=== PATIENT | male | born 2000 | race Caucasian/White ===

== ENCOUNTER 2020-07-23 08:20 | Outpatient (RCR) | payer OTHER, SELFPAY ==
--- NOTE | 2020-07-24 09:20 | PC.NURSE ---
Pt was scheduled to start PHP today at 9am. Pt was not present at community meeting. TW called pt's provided contact number and left a message asking pt to call TW back.
== END 2020-07-23 23:55 | disposition home or self-care (01) ==
LOC: HO.PHPA 08:20
PROVIDERS: Visit Provider Psychiatry & Neurology Psychiatry
DX: F32.9 Major depressive disorder, single episode, unspecified (principal)

== ENCOUNTER 2022-08-22 13:32 | Inpatient (IN) | payer OTHER, SELFPAY ==
--- NOTE | 2022-08-22 13:39 | MHC.CARE ---
CARE Team received a call from [facility] Intake- Pt was seen by Berto in the community and a [place] [id number] bedsearch presenting with SI/ manic symptoms.
[2022-08-22 13:43] VITALS: BP 169/95; BP 172/90; PULSE 76; PULSE 80; RESP 18; O2SAT 97; BMI 29.9
[2022-08-22 14:01] VITALS: TEMP 36.4
--- NOTE | 2022-08-22 14:25 | ED.PSYCH ---
HPI - Psych General Chief Complaint: Psychiatric Symptoms Stated Complaint: SECTION 12 Time Seen by Provider: 08/22/22 14:08 Source: patient Mode of arrival: ambulatory Limitations: other (Behavioral health) History of Present Illness HPI Narrative: 22 yo male w/ PMHx significant for Bipolar Type II and ADD presents on a section 12 from community w/ worsening yeny and disorganized thinking. Pt reports he has been taking his medications daily but feels like they aren't helping him. He states that he has had a hard time keeping his thoughts straight. He reports that he went to see his therapist who issued the section 12 and sent him here. Also reports chronic issues with urinary retention requiring catheterization. Denies recent illness, fevers, cough, SOB, CP, abd pain, N/V/D, changes in PO intake, recent trauma or injury. Endorses occasional marijuana and cigarette use but denies use of other drugs or alcohol. Endorses hx of self harm for emotional relief but denies suicide attempts. Denies SI/HI/AH/VH at this time. Onset (ago): week(s) Duration: getting worse History of same: Yes Relieving factors: none Exacerbating factors: none Associated symptoms: denies other symptoms Treatments prior to arrival: placed on mental health hold Related Data Allergies Allergy/AdvReac Type Severity Reaction Status Date / Time No Known Allergies Allergy Verified 07/24/20 08:47 Review of Systems Review of Systems: Constitutional: No Fever, No Chills ENT/Mouth: No Ear Pain, No Nasal Congestion, No sore throat Eyes: No Eye Pain, No Vision Changes Cardiovascular: No Chest Pain, No SOB Respiratory: No Cough, No Sputum Gastrointestinal: No Nausea, No Vomiting, No Diarrhea, No Constipation, No Abdominal pain Genitourinary: No Dysuria, No Urinary Frequency, No Hematuria, + urinary retention Musculoskeletal: No joint pain, No Myalgias Skin: No Skin Lesions, No rash Neuro: No Weakness, No Numbness, No Dizziness, No Headache Psych: + anxiety, No SI/HI/AH/VH, +chronic depression Yes all other systems are reviewed and are negative [facility] Past Medical History Attestation statement: The following information was validated with the patient. Social History Social History Household Members: Adopted Family Advance Directives: No Advance Directives Information Provided: No Physical Exam Vital Signs: Vital Signs: Last Vital Signs Temp 97.8 F 08/22/22 16:17 Pulse 70 08/22/22 16:17 Resp 16 08/22/22 16:17 BP 140/82 H 08/22/22 16:17 Pulse Ox 98 08/22/22 16:17 O2 Del Method 08/22/22 16:17 BMI result Body Mass Index 29.9 Const: General: cooperative, healthy appearing and no acute distress Orientation/consciousness: patient oriented x3 Limitations: behavioral limitations HEENT: Head: Yes normal to inspection, Yes normocephalic and Yes atraumatic Ears: hearing grossly normal bilaterally General nose exam: Normal external nose present Face and sinus: Yes normal facial exam Mouth: Normal oral and palatal mucosa present Throat: Yes posterior oropharynx normal Eyes: General: appearance normal, both eyes and all related structures Pupils: Equal, round and reactive pupils present Neck: Neck: Yes normal visual inspection Lymphatic: no lymphadenopathy noted Chest: Chest palpation & inspection: normal inspection of the chest Resp: Effort & Inspection: normal respiratory effort, able to speak in complete sentences, no audible wheezes and no cough Auscultation: clear to auscultation bilaterally Cardio: Rate: regular rate Rhythm: regular rhythm Heart sounds: S1 normal heart sound present and S2 normal heart sound present Peripheral pulses: Peripheral pulses 2+ throughout GI: Inspection: Yes normal to inspection Palpation (GI): Soft to palpation, not firm, nontender, no guarding and not rigid Skin: General skin exam: no rashes or lesions noted Neuro: General: patient oriented x3, gait normal, tone normal, moves all extremities, no focal motor deficits and CN's II-XI intact bilaterally Cranial nerves: Yes Equal, round and reactive pupils present Psych: Appearance: grossly normal Speech and movement: Clear speech present (rapid) Affect: Animated affect present Attitude: cooperative Thought process: Tangential thought process present Course Course Course Narrative: -no leukocytosis. H&H stable. Sodium mildly low at 133. Labs otherwise unremarkable > patient is medically cleared. Physician observation initiated. -bladder scan with 622 cc > patient will be straight cathed Physician observation initiated at 17:34 -1800--ED care transfer to [facility] pending UA, drug screen and inpatient bed search Medications Administered Discontinued Medications Generic Name Dose Route Start Last Admin Trade Name Freq PRN Reason Stop Dose Admin Lidocaine HCl 10 ml 08/22/22 17:20 08/22/22 17:23 Lidocaine Hcl 2 % Urojet 10 Ml Jel.Pf.Ailyn TOPICAL 08/22/22 17:21 10 ml ONCE ONE Administration Lorazepam 1 mg 08/22/22 16:34 08/22/22 17:41 Lorazepam 1 Mg Tablet PO 08/22/22 16:35 1 mg ONCE ONE Administration MDM - Psych MDM Narrative Medical decision making narrative: 22 yo male w/ PMHx significant for Bipolar Type II and ADD presents on a section 12 from community w/ worsening yeny and disorganized thinking. On exam vital signs stable, NAD, elated and 10 GenTeal during evaluation, sources depression, denies active SI/HI or auditory/visual hallucinations at present. Rule out metabolic/infectious etiologies vs psychiatric illness Plan: Labs, UA, tox screen, bladder scan, bed search Differential Diagnosis Differential diagnosis: Likely acute psychosis, depression, drug-induced psychotic disorder and mood disorder Medical Records Attestation: I reviewed the patient's medical records. Lab Data Attestation: I reviewed the patient's lab results. Result diagrams: 08/22/22 15:01 08/22/22 15:01 Labs: Lab Results 08/22/22 08/22/22 08/22/22 Range/Units 15:01 15:01 15:01 WBC 6.0 (4.8-10.8) X10*3/uL RBC 4.77 (4.60-5.80) X10*6/uL Hgb 14.0 (14.0-18.0) g/dl Hct 40.8 L (42.0-52.0) % MCV 85.5 (80.0-98.0) fL MCH 29.4 (27.0-33.0) pg MCHC 34.3 (31.0-36.0) g/dl RDW 12.9 (11.0-16.0) % Plt Count 148 L (160-400) X10*3/uL MPV 9.6 (9.4-12.4) fL Immature Gran % (Auto) 0.3 (0.0-0.4) % Neut % (Auto) 53.1 (45-73) % Lymph % (Auto) 37.2 (20-40) % [place] % (Auto) 7.2 (2-11) % Eos % (Auto) 1.7 (0-4) % Baso % (Auto) 0.5 (0-2) % Lymph # (Auto) 2.2 (1.2-4.9) X10*3/uL [place] # (Auto) 0.4 (0.1-1.2) X10*3/uL Eos # (Auto) 0.1 (0.0-0.4) X10*3/uL Baso # (Auto) 0.0 (0.0-0.2) X10*3/uL Abs Immat Gran (auto) 0.02 (0.00-0.03) X10*3/uL Absolute Neuts (auto) 3.2 (2.0-8.3) x10*3/uL Absolute Nucleated RBC 0.000 (0.0-0.012) X10*3/uL Nucleated RBC % (auto) 0.0 (0.0-0.2) /100WBC Sodium 133 L (135-145) mmol/L Potassium 3.7 (3.3-5.1) mmol/L Chloride 100 (96-108) mmol/L Carbon Dioxide 26 (22-29) mmol/L Anion Gap 11 L (12-20) BUN 14 (9-16) mg/dL Creatinine 0.81 (0.5-1.4) mg/dL Estim Creat Clear Calc 162.5 Estimated GFR > 60 Random Glucose 85 (60-115) mg/dL Calcium 9.4 (8.4-10.2) mg/dL Magnesium 1.8 (1.6-2.6) mg/dL Total Bilirubin 0.4 (0.0-1.0) mg/dL Direct Bilirubin < 0.2 (0.0-0.5) mg/dL AST 17 (5-37) U/L ALT 16 (0-40) U/L Alkaline Phosphatase 45 (39-117) U/L Total Protein 6.7 (6.5-8.0) g/dL Albumin 4.5 (3.5-5.0) g/dL COVID-19 (EMELI) Negative (Negative) COVID-19 Clin Com See Note Discharge Plan Discharge Clinical Impression: Manic behavior, Disorganized behavior, Acute urinary retention Patient Disposition: Still a Patient Interventions: [place]-Suicide Risk Severity Scale Last Done: 08/22/22 15:51
[2022-08-22 15:08] LABS: MANUAL DIFF FLAG NO
[2022-08-22 15:09] LABS: Basophils Percent Auto 0.5 % (0-2); Eosinophils Absolute Auto 0.1 X10*3/uL (0.0-0.4); Eosinophils Percent Auto 1.7 % (0-4); Hematocrit 40.8 % (42.0-52.0); Imm Gran Abs Auto 0.02 X10*3/uL (0.00-0.03); Imm Gran Pct Auto 0.3 % (0.0-0.4); Lymphocytes Absolute Auto 2.2 X10*3/uL (1.2-4.9); Lymphocytes Percent Auto 37.2 % (20-40); Mean Corpuscular HGB Conc 34.3 g/dl (31.0-36.0); Mean Corpuscular Hemoglobin 29.4 pg (27.0-33.0); Mean Corpuscular Volume 85.5 fL (80.0-98.0); Mean Platelet Volume 9.6 fL (9.4-12.4); Monocytes Absolute Auto 0.4 X10*3/uL (0.1-1.2); Monocytes Percent Auto 7.2 % (2-11); Neutrophils Absolute Auto 3.2 x10*3/uL (2.0-8.3); Neutrophils Percent Auto 53.1 % (45-73); Platelet Count 148 X10*3/uL (160-400); Red Blood Count 4.77 X10*6/uL (4.60-5.80); Red Cell Distribution Width 12.9 % (11.0-16.0)
[2022-08-22 15:24] LABS: COVID-19 Test Negative (Negative); IDNOW Serial# 55D5AD1C
[2022-08-22 15:36] LABS: Alanine Aminotransferase 16 U/L (0-40); Albumin Level 4.5 g/dL (3.5-5.0); Alkaline Phosphatase 45 U/L (39-117); Anion Gap 11 (12-20); Aspartate Amino Transferase 17 U/L (5-37); Bilirubin Direct < 0.2 mg/dL (0.0-0.5); Bilirubin Total 0.4 mg/dL (0.0-1.0); Blood Urea Nitrogen 14 mg/dL (9-16); Calcium 9.4 mg/dL (8.4-10.2); Carbon Dioxide 26 mmol/L (22-29); Chloride 100 mmol/L (96-108); Creatinine Clr Calc Pharmacy 162.5; Estimated Glomerular Filt Rate > 60; Glucose Random 85 mg/dL (60-115); Magnesium 1.8 mg/dL (1.6-2.6); Potassium 3.7 mmol/L (3.3-5.1); Sodium 133 mmol/L (135-145); Total Protein 6.7 g/dL (6.5-8.0)
--- NOTE | 2022-08-22 15:52 | PC.NURSE ---
Patient denies SI/ HI to this RN
[2022-08-22 16:17] VITALS: BP 140/82; PULSE 70; RESP 16; TEMP 36.6; O2SAT 98
[2022-08-22] MEDS: Lidocaine HCl 2 % Urojet 10 ML JEL.PF.APP TOPICAL (17:23)
[2022-08-22] MEDS: LORazepam 1 MG TABLET PO ×2 (17:41→20:34)
--- NOTE | 2022-08-22 17:44 | PC.NURSE ---
This RN attempted to sstraight cath patient. Resistance was met while inserting straight cath. Provider made aware. Patient says if he takes a hot shower he may be able to urinate. Charge nurse notioied and patient sent top the Pod
--- NOTE | 2022-08-22 18:24 | PC.NURSE ---
pt took a shower and attempted to urinate but was unable, pt felt some burning when he attempted, pt states he does not have a strong urge to urinate at this time, i've had over a liter in there. I want to try to again in an hour or two. plan discussed aliya RODRIGUEZ
[2022-08-22] MEDS: Tamsulosin HCL 0.4 MG CAPSULE PO (18:51)
--- NOTE | 2022-08-22 19:27 | PHA.MEDREC ---
Pharmacy Consult ? Medication Reconciliation Pharmacy has completed the medication reconciliation. Spoke with patient who was confused with some of the medications. He was confused about the depakote and the oxcarbezapine. Reported that one of them he takes 1 tablet in the morning and 2 at night or vis versa. This was would be closest to oxcarbezapine which is 1.5 tablet BID. Reports his father give him his medications. Attempted to contact Edward on both home and cell phone, however cell phone had a full mailbox. Enter medications as prescribed but may slightly differ from home he takes at home. Patient also report Zyprexa 5 mg BID but that has not been filled since December. Patient requested increase in dose on lorazepam to TID and requested increase of seroquel to 50 mg at bedtime. Reports neither are enough Corine Gonzales, PharmD
[2022-08-22 20:27] LABS: Appearance Urine Clear; Color Urine Yellow; Glucose Urine UA Negative (Negative); Leukocyte Esterase Urine Negative (Negative); Nitrite Urine Negative (Negative); PH 7.5 (5.0-9.0); Urine Blood Negative (Negative); Urine Ketones Trace mg/dL (Negative); Urine Protein Negative (Neg-Trace)
[2022-08-22] MEDS: Gabapentin 400 MG CAPSULE PO (20:34)
[2022-08-22] MEDS: OXcarbazepine 300 MG TABLET 900 MG PO (20:34)
[2022-08-22] MEDS: Divalproex Sodium 500 MG TABLET.DR 1000 MG PO (20:34)
[2022-08-22] MEDS: QUEtiapine Fumarate 25 MG TABLET PO (20:34)
[2022-08-22 20:38] LABS: Amphetamine Screen Urine Not Detected (Not Detect); Barbiturates, Urine Not Detected (Not Detect); Benzodiazepines Screen Urine Not Detected (Not Detect); Cannabinoid Screen Urine POSITIVE (Not Detect); Cocaine Screen Urine Not Detected (Not Detect); Fentanyl, urine Not Detected (Not Detect); Opiate Screen Urine Not Detected (Not Detect); Phencyclidine Screen Urine Not Detected (Not Detect)
[2022-08-22] MEDS: OLANZapine 5 MG TABLET PO (21:33)
--- NOTE | 2022-08-22 21:35 | PC.NURSE ---
Patient was able to void and provided urine sample for lab orders. No bladder distress reported at this time, compliant with HS medication, requested Olanzapine 5 mg which patient used to take in the past racing thought, provider made aware/ordered Olanzapine 5 mg administered/pending effect, VSS, disposition per N is section 12 inpatient bed search, behavior non concerning, hyper-verbal and tangential but coherent, will continue to monitor.
[2022-08-23 03:14] LABS: CT PCR NOT DETECTED (Not Detect.); NG PCR NOT DETECTED (Not Detect.)
[2022-08-23 06:35] VITALS: RESP 16
--- NOTE | 2022-08-23 07:21 | PC.NURSE ---
sherley appears to remain asleep at present respirations are even and unlabored patient appears in no distress.
[2022-08-23] MEDS: buPROPion HCl XL 150 MG TAB.ER.24H PO (09:08)
[2022-08-23] MEDS: OXcarbazepine 300 MG TABLET 900 MG PO ×2 (09:08→20:53)
[2022-08-23] MEDS: Gabapentin 400 MG CAPSULE PO ×3 (09:08→20:53)
[2022-08-23] MEDS: Divalproex Sodium 500 MG TABLET.DR 1000 MG PO ×2 (09:08→20:53)
[2022-08-23] MEDS: LORazepam 1 MG TABLET PO ×2 (09:20→13:46)
[2022-08-23] MEDS: OLANZapine 5 MG TABLET PO (10:21)
[2022-08-23] MEDS: hydrOXYzine HCL 25 MG TABLET PO ×2 (11:09→17:23)
--- NOTE | 2022-08-23 12:23 | PC.ADMIT ---
pt is a 22 year old male who presented to [facility] with yeny and reports his medications were not working. pt PMH includes parunesis, asthma, and IBS. during admission, pt reports that none of his medications work and he wants all new one. pt was given an attrax right before admission and a lorazepam in the ER pod this morning. pt was rocking back and forth in seat during admission. pt says he has to take a medical leave off of school since he cannot focus. pt wants to try ECT. pt says stimulants and Pavil might work for him.pt wants to try lithium. pt wants to talk to a doctor as soon as possible. start treatment plan and promote safety.
[2022-08-23] MEDS: Acetaminophen 325 MG TABLET 650 MG PO (12:41)
[2022-08-23 12:47] LABS: Carbamazepine Tegretol < 2.0 mcg/mL (5.0-12.0)
--- NOTE | 2022-08-23 12:48 | PC.NURSE ---
pt signed a 3 day notice on 08/23
[2022-08-23] MEDS: Nicotine 14 MG PATCH.TD24 TRANSDERMA (14:03)
[2022-08-23] MEDS: Nicotine Polacrilex Lozenge 2 MG LOZENGE BUCCAL ×2 (14:06→17:23)
[2022-08-23 14:20] VITALS: BP 146/87; PULSE 100; TEMP 36.8; O2SAT 97
[2022-08-23 16:22] VITALS: BP 136/63; PULSE 55
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
[2022-08-23] MEDS: OLANZapine ODT 10 MG TAB.RAPDIS TRANSLINGU (17:23)
[2022-08-23] MEDS: QUEtiapine Fumarate 25 MG TABLET PO (20:54)
[2022-08-23] MEDS: Tamsulosin HCL 0.4 MG CAPSULE PO (20:54)
--- NOTE | 2022-08-24 | ECG_ITS ---
Test Reason : QTC CHECK Blood Pressure : / mmHG Vent. Rate : 072 BPM Atrial Rate : 072 BPM P-R Int : 196 ms QRS Dur : 090 ms QT Int : 358 ms P-R-T Axes : 006 032 043 degrees QTc Int : 392 ms Normal sinus rhythm with sinus arrhythmia Normal ECG No previous ECGs available Referred By: Desi Burt Electronically Signed By:IESHA SIMON MD
[2022-08-24] MEDS: LORazepam 1 MG TABLET PO ×2 (06:28→13:22)
[2022-08-24] MEDS: Divalproex Sodium 500 MG TABLET.DR 1000 MG PO ×2 (08:28→20:46)
[2022-08-24] MEDS: buPROPion HCl XL 150 MG TAB.ER.24H PO (08:28)
[2022-08-24] MEDS: OXcarbazepine 300 MG TABLET 900 MG PO ×2 (08:28→20:47)
[2022-08-24] MEDS: Nicotine 14 MG PATCH.TD24 TRANSDERMA (08:29)
[2022-08-24] MEDS: Gabapentin 400 MG CAPSULE PO ×3 (08:29→20:47)
[2022-08-24] MEDS: OLANZapine ODT 10 MG TAB.RAPDIS TRANSLINGU ×2 (08:39→19:26)
[2022-08-24] MEDS: hydrOXYzine HCL 25 MG TABLET PO ×2 (08:39→13:22)
[2022-08-24] MEDS: Nicotine Polacrilex Lozenge 2 MG LOZENGE BUCCAL ×3 (08:39→19:25)
[2022-08-24 09:55] LABS: Estimated Average Glucose 100 mg/dL; Hemoglobin A1c % 5.1 %
[2022-08-24 10:02] LABS: Sodium 135 mmol/L (135-145)
[2022-08-24 10:31] LABS: Cholesterol 211 mg/dL; Free T4 (Free Thyroxine) 0.98 ng/dL (0.71-1.85); HDL Cholesterol 55 mg/dL; LDL Cholesterol Calculated 135 mg/dl; Magnesium 2.2 mg/dL (1.6-2.6); Thyroid Stimulating Hormone 1.45 uIU/mL (0.32-4.0); Triglycerides 105 mg/dL
[2022-08-24 10:42] LABS: Folate 7.7 ng/mL (> or = 4.0); Vitamin B12 1049 pg/mL (200-900)
[2022-08-24] MEDS: Acetaminophen 325 MG TABLET 650 MG PO ×2 (13:22→19:21)
--- NOTE | 2022-08-24 14:11 | P.PNPSI_ITS ---
Subjective Subjective Date of Service: 08/24/22 Reason For Visit: Bipolar Disorder Yeny ADD Cannabis use Interim History: Patients with manic behaviors, and running in the hallway, belligerent to others and with some disorganized thinking. The Patient explain Medication history however there are numerous contradictions in his reporting as he does not really remember which medication combinations were effective; pt acknwoledges this. He says he has a lot of bipolar depression but fix that depakote, Trileptal and/or lithium have been helpful. Says SSRIs caused him to become manic, even on mood stabilizers. He is interested in Vrylar or maybe restarted lithium. He says he stopped lithium because he was worried about what might happen if he became suicidal, given lithiums risks. He says however that is in the past and his older now and can handle it.?Says he started taking Zyprexa on his own from old script in recent weeks. He mostly complains of intrusive thoughts. Patient breaks down and starts to sob saying the problems won't go away? and explains that he'll ruminate four hours on the conversations he had or thinking he did something that was bothersome to others. Patient struggles to fully articulate his experiences with intrusive thoughts of her been to say they're constant and debilitating and Very hard to ignore Discussed medication options. Given that OCD type intrusive thoughts are his biggest concern, patient agreed to trial of lamictal given that it can help OCD symptoms Discussed history of substance abuse; patient significantly minimizes his histor y saying he'll only change some high school; says the others halve says he of uses substances says they don't know what they're talking about. This, despite that patient is on probation for court ordered substance abuse treatment. He denies any SI/HI/AVh Says no need for bladder scans, that he is urinating, but that he has trouble doing so in new settings. Says he is able to go, mostly in the shower and will let staff know if he is not able to. Mental Status Exam Mental Status Exam Narrative: Pt is alert and oriented; behavior is cooperative at times, but also belligerent, hyperactive; patient is not in distress; dressed in hospital attire, adequately groomed; mood is described as good and affect labile; eye contact appropriate; Speech is normal rate, volume and prosody and not pressured; intermittent psychomotor agitation present; thought process is goal directed but somewhat disorganized; Thought content is on tx; otherwise pertinent to relevant topics and without any delusional content, paranoid ideations or grandiosity; denies any SI/HI. There is no evidence of perceptual disturbance. Patients insight and judgment are impaired. Diagnostics Vital Signs (24Hr): Vital Signs - 24 hr 08/23/22 14:20 08/23/22 16:22 Temperature 98.3 F Pulse Rate 100 55 Blood Pressure 146/87 H 136/63 Pulse Oximetry 97 Oxygen Delivery Method Room Air BMI result Body Mass Index 29.9 Labs Results: 08/22/22 15:01 08/24/22 08:38 Labs: Laboratory Results - last 48 hr 08/22/22 08/22/22 08/22/22 15:01 15:01 15:01 WBC 6.0 RBC 4.77 Hgb 14.0 Hct 40.8 L MCV 85.5 MCH 29.4 MCHC 34.3 RDW 12.9 Plt Count 148 L MPV 9.6 Immature Gran % (Auto) 0.3 Neut % (Auto) 53.1 Lymph % (Auto) 37.2 [place] % (Auto) 7.2 Eos % (Auto) 1.7 Baso % (Auto) 0.5 Lymph # (Auto) 2.2 [place] # (Auto) 0.4 Eos # (Auto) 0.1 Baso # (Auto) 0.0 Abs Immat Gran (auto) 0.02 Absolute Neuts (auto) 3.2 Absolute Nucleated RBC 0.000 Nucleated RBC % (auto) 0.0 Sodium 133 L Potassium 3.7 Chloride 100 Carbon Dioxide 26 Anion Gap 11 L BUN 14 Creatinine 0.81 Estim Creat Clear Calc 162.5 Estimated GFR > 60 Random Glucose 85 Estimat Average Glucose Hemoglobin A1c % Calcium 9.4 Magnesium 1.8 Total Bilirubin 0.4 Direct Bilirubin < 0.2 AST 17 ALT 16 Alkaline Phosphatase 45 Total Protein 6.7 Albumin 4.5 Triglycerides Cholesterol LDL Cholesterol, Calc HDL Cholesterol Vitamin B12 Folate TSH Free T4 Urine Color Urine Appearance Urine pH Ur Specific Hubbard Urine Protein Urine Glucose (UA) Urine Ketones Urine Blood Urine Nitrite Ur Leukocyte Esterase Urine Opiates Screen Urine Fentanyl Screen Ur Barbiturates Screen Valproic Acid Carbamazepine Ur Phencyclidine Scrn Ur Amphetamines Screen U Benzodiazepines Scrn Urine Cocaine Screen U Marijuana (THC) Screen Chlam trachomat DNA PCR COVID-19 (EMELI) Negative COVID-19 Clin Com See Note N.gonorrhoeae DNA (PCR) 08/22/22 08/22/22 08/22/22 20:14 20:14 20:14 WBC RBC Hgb Hct MCV MCH MCHC RDW Plt Count MPV Immature Gran % (Auto) Neut % (Auto) Lymph % (Auto) [place] % (Auto) Eos % (Auto) Baso % (Auto) Lymph # (Auto) [place] # (Auto) Eos # (Auto) Baso # (Auto) Abs Immat Gran (auto) Absolute Neuts (auto) Absolute Nucleated RBC Nucleated RBC % (auto) Sodium Potassium Chloride Carbon Dioxide Anion Gap BUN Creatinine Estim Creat Clear Calc Estimated GFR Random Glucose Estimat Average Glucose Hemoglobin A1c % Calcium Magnesium Total Bilirubin Direct Bilirubin AST ALT Alkaline Phosphatase Total Protein Albumin Triglycerides Cholesterol LDL Cholesterol, Calc HDL Cholesterol Vitamin B12 Folate TSH Free T4 Urine Color Yellow Urine Appearance Clear Urine pH 7.5 Ur Specific [place] 1.020 Urine Protein Negative Urine Glucose (UA) Negative Urine Ketones Trace Urine Blood Negative Urine Nitrite Negative Ur Leukocyte Esterase Negative Urine Opiates Screen Not Detected Urine Fentanyl Screen Not Detected Ur Barbiturates Screen Not Detected Valproic Acid Carbamazepine Ur Phencyclidine Scrn Not Detected Ur Amphetamines Screen Not Detected U Benzodiazepines Scrn Not Detected Urine Cocaine Screen Not Detected U Marijuana (THC) Screen POSITIVE H Chlam trachomat DNA PCR NOT DETECTED COVID-19 (EMELI) COVID-19 Clin Com N.gonorrhoeae DNA (PCR) NOT DETECTED 08/23/22 08/24/22 08/24/22 11:19 08:38 08:38 WBC RBC Hgb Hct MCV MCH MCHC RDW Plt Count MPV Immature Gran % (Auto) Neut % (Auto) Lymph % (Auto) [place] % (Auto) Eos % (Auto) Baso % (Auto) Lymph # (Auto) [place] # (Auto) Eos # (Auto) Baso # (Auto) Abs Immat Gran (auto) Absolute Neuts (auto) Absolute Nucleated RBC Nucleated RBC % (auto) Sodium Potassium Chloride Carbon Dioxide Anion Gap BUN Creatinine Estim Creat Clear Calc Estimated GFR Random Glucose Estimat Average Glucose 100 Hemoglobin A1c % 5.1 Calcium Magnesium 2.2 Total Bilirubin Direct Bilirubin AST ALT Alkaline Phosphatase Total Protein Albumin Triglycerides 105 Cholesterol 211 LDL Cholesterol, Calc 135 HDL Cholesterol 55 Vitamin B12 Folate TSH 1.45 Free T4 0.98 Urine Color Urine Appearance Urine pH Ur Specific Hubbard Urine Protein Urine Glucose (UA) Urine Ketones Urine Blood Urine Nitrite Ur Leukocyte Esterase Urine Opiates Screen Urine Fentanyl Screen Ur Barbiturates Screen Valproic Acid 107.0 H Carbamazepine < 2.0 L* Ur Phencyclidine Scrn Ur Amphetamines Screen U Benzodiazepines Scrn Urine Cocaine Screen U Marijuana (THC) Screen Chlam trachomat DNA PCR COVID-19 (EMELI) COVID-19 Clin Com N.gonorrhoeae DNA (PCR) 08/24/22 08/24/22 08:38 08:38 WBC RBC Hgb Hct MCV MCH MCHC RDW Plt Count MPV Immature Gran % (Auto) Neut % (Auto) Lymph % (Auto) [place] % (Auto) Eos % (Auto) Baso % (Auto) Lymph # (Auto) [place] # (Auto) Eos # (Auto) Baso # (Auto) Abs Immat Gran (auto) Absolute Neuts (auto) Absolute Nucleated RBC Nucleated RBC % (auto) Sodium 135 Potassium Chloride Carbon Dioxide Anion Gap BUN Creatinine Estim Creat Clear Calc Estimated GFR Random Glucose Estimat Average Glucose Hemoglobin A1c % Calcium Magnesium Total Bilirubin Direct Bilirubin AST ALT Alkaline Phosphatase Total Protein Albumin Triglycerides Cholesterol LDL Cholesterol, Calc HDL Cholesterol Vitamin B12 1049 H Folate 7.7 TSH Free T4 Urine Color Urine Appearance Urine pH Ur Specific [place] Urine Protein Urine Glucose (UA) Urine Ketones Urine Blood Urine Nitrite Ur Leukocyte Esterase Urine Opiates Screen Urine Fentanyl Screen Ur Barbiturates Screen Valproic Acid Carbamazepine Ur Phencyclidine Scrn Ur Amphetamines Screen U Benzodiazepines Scrn Urine Cocaine Screen U Marijuana (THC) Screen Chlam trachomat DNA PCR COVID-19 (EMELI) COVID-19 Clin Com N.gonorrhoeae DNA (PCR) Medications Medications Current Medications Acetaminophen (Acetaminophen 325 Mg Tablet) 650 mg PO Q6H PRN PRN Reason: Headache/Pain Mild Scale (1-3) Last Admin: 08/24/22 13:22 Dose: 650 mg Al Hydroxide/Mg Hydroxide (Magnesium Hydrox/Alum Hydrox 30 Ml Oral.Susp) 30 ml PO Q6H PRN PRN Reason: Heartburn/Nausea Divalproex Sodium (Divalproex Sodium 500 Mg Tablet.Dr) 1,000 mg PO BID PAULA Last Admin: 08/24/22 08:28 Dose: 1,000 mg Gabapentin (Gabapentin 400 Mg Capsule) 400 mg PO TID [facility] Last Admin: 08/24/22 08:29 Dose: 400 mg Hydroxyzine HCl (Hydroxyzine Hcl 25 Mg Tablet) 25 mg PO Q6H PRN PRN Reason: Anxiety Last Admin: 08/24/22 13:22 Dose: 25 mg Lorazepam (Lorazepam 1 Mg Tablet) 1 mg PO BID PRN PRN Reason: Anxiety Last Admin: 08/24/22 13:22 Dose: 1 mg Magnesium Hydroxide (Milk Of Magnesia 30 Ml Oral.Susp) 30 ml PO DAILY PRN PRN Reason: Constipation Nicotine (Nicotine 14 Mg Patch.Td24) 14 mg TRANSDERMA DAILY [facility] Last Admin: 08/24/22 08:29 Dose: 14 mg Nicotine Polacrilex (Nicotine Polacrilex Lozenge 2 Mg Lozenge) 2 mg BUCCAL Q2H PRN PRN Reason: Nicotine Cravings Last Admin: 08/24/22 13:22 Dose: 2 mg Olanzapine (Olanzapine Odt 10 Mg Tab.Rapdis) 10 mg TRANSLINGU BID PRN PRN Reason: yeny, psychosis Last Admin: 08/24/22 08:39 Dose: 10 mg Oxcarbazepine (Oxcarbazepine 300 Mg Tablet) 900 mg PO BID [facility] Last Admin: 08/24/22 08:28 Dose: 900 mg Pharmacy Consult (Consult Rx Perform Med Rec) 1 each MISCELLANE ONCE PRN PRN Reason: Consult order Quetiapine Fumarate (Quetiapine Fumarate 25 Mg Tablet) 25 mg PO BEDTIME [facility] Last Admin: 08/23/22 20:54 Dose: 25 mg Trazodone HCl (Trazodone Hcl 50 Mg Tablet) 50 mg PO BEDTIME PRN PRN Reason: Insomnia Allergies Allergies Allergy/AdvReac Type Severity Reaction Status Date / Time fish Allergy Unknown Unknown Uncoded 08/23/22 17:09 haldol Allergy Unknown restless Uncoded 08/23/22 17:21 legs Assessment & Plan Assessment & Plan (1) Bipolar disorder: Status: Acute Code(s): F31.9 - Bipolar disorder, unspecified (2) Alcohol use disorder in remission: Status: Acute Code(s): F10.91 - Alcohol use, unspecified, in remission (3) OCD (obsessive compulsive disorder): Status: Acute Code(s): F42.9 - Obsessive-compulsive disorder, unspecified (4) Chronic post-traumatic stress disorder (PTSD): Status: Acute Code(s): F43.12 - Post-traumatic stress disorder, chronic Plan 22 yo male, adopted at 1 yo [facility] [employer] [facility], with hx of Bipolar, OCD, pTSD and substance abuse who presents with reports of increase in mood swings, depression, anxiety, anger with periods of lability, crying, poor focus and in trusive thoughts of past trauma. 08/24 complicated patient with hx of bipolar, OCD, PTSD which is very likely complex, substance abuse and characterlogical traits. Not great historian but engaged in treatment and wants help. Patient is now back on mood stabilizers that seem to have helped in the past; still hypomanic but with some improved self-control; Given that OCD and anxiety are his current major complaints will start Lamictal since it can help treat OCD (as well as mood stabilize) where L atuda and Vrylar not known to help with OCD. Patient agrees with this plan however is also very ambivalent about meds and forgets prior discussions Plan: Collateral contact Hold Wellbutrin-hx of manic sx with this agent Continue Depakote, Conitnue Gabapentin for anxiety Right now Olanzapine as prn, however may schedule Continue Trileptal Continue Seroquel 25mg qhs (which he very much wants for sleep) Continue Trazodone. Discussion with pt of Irene, return to [place] vs Latuda which are options Pt asks to return to [place]-however not sure this is indicated for anxiety which is why he's on Gabapentin ECT consult- this is why they sent me...for OCD . Though, ECT not typically used for OCD seek Collateral: senior technical writer called and left message for Venecia Eastman complete diagnostic panel. I spent minutes with the patient and/or on the patient floor today, gre ater than?50% of which was spent counseling/coordinating care. Patient educated on: diagnosis, medication risk/benefits, substance abuse, ECT and therapeutic strategies Informed Consent: understands, does not understand and further education needed Reason for contiued inpatient stay Substantial Risk for: rapid decompensation
[2022-08-24] MEDS: Tamsulosin HCL 0.4 MG CAPSULE PO (14:52)
--- NOTE | 2022-08-24 15:10 | PC.NURSE ---
Pt retracted 3 day notice on 08/24/22. Pt signed another 3 day notice 08/24/22 up on 08/29/22. , JANETT, and SW aware.
[2022-08-24] MEDS: clonazePAM 0.5 MG TABLET PO ×2 (16:05→21:28)
[2022-08-24 18:00] VITALS: BP 141/94; PULSE 104; RESP 18; TEMP 36.4; O2SAT 98
[2022-08-24] MEDS: Tamsulosin HCL 0.4 MG CAPSULE 0.8 MG PO (20:48)
[2022-08-24] MEDS: traZODone HCL 50 MG TABLET PO (20:48)
[2022-08-24] MEDS: Prazosin HCL 1 MG CAPSULE PO (20:48)
[2022-08-24] MEDS: QUEtiapine Fumarate 25 MG TABLET PO (20:48)
[2022-08-24] MEDS: lamoTRIgine 25 MG TABLET PO (20:48)
[2022-08-24] MEDS: Magnesium Hydrox/Alum Hydrox 30 ML ORAL.SUSP PO (21:30)
[2022-08-25 07:00] VITALS: BMI 29.6
[2022-08-25] MEDS: OXcarbazepine 300 MG TABLET 900 MG PO ×2 (08:17→19:41)
[2022-08-25] MEDS: Tamsulosin HCL 0.4 MG CAPSULE 0.8 MG PO ×2 (08:17→19:40)
[2022-08-25] MEDS: Nicotine Polacrilex Lozenge 2 MG LOZENGE BUCCAL ×2 (08:17→14:09)
[2022-08-25] MEDS: Gabapentin 400 MG CAPSULE PO ×3 (08:17→19:40)
[2022-08-25] MEDS: Divalproex Sodium 500 MG TABLET.DR 1000 MG PO ×2 (08:17→21:49)
[2022-08-25] MEDS: clonazePAM 0.5 MG TABLET PO ×2 (08:21→17:03)
[2022-08-25] MEDS: Nicotine 14 MG PATCH.TD24 TRANSDERMA (08:23)
[2022-08-25 09:01] VITALS: BP 132/77; PULSE 88; RESP 18; TEMP 36.7; O2SAT 98
[2022-08-25] MEDS: hydrOXYzine HCL 25 MG TABLET PO (09:46)
[2022-08-25] MEDS: OLANZapine ODT 10 MG TAB.RAPDIS TRANSLINGU ×2 (09:46→19:40)
--- NOTE | 2022-08-25 16:59 | P.PNPSI_ITS ---
Subjective Subjective Date of Service: 08/25/22 Reason For Visit: Bipolar Disorder Zoraida ADD Cannabis use Interim History: late entry note for patient seen 08/25/22 still hypomanic, running in halls at times, rude, defiant comments to staff forgot that he agreed to lamictal but agrees to continue with discussion. Very much wants to start back on Stimulant and pushes for it, but accepts that loan underwriter will need to talk to oupt provider first before this can happen (who has not prescribed for a year). Pt demands to discharge but then says he wants to stay...he acknowledges that he is asking for contradictory things, help from loan underwriter, med management and then discharge; refuses to let team contact his parents whom he says are senile and don't know him. Says he is currently in therapy and to call his therapist Ludy Sneed. Later in day, pretending to run for the door, pretending to elope; says to nurse to shove elopement risk sign on outside door up your ass... and that he would have busted out of here by nionw if he was going to elope. Mental Status Exam Mental Status Exam Narrative: Pt is alert and oriented; behavior can be cooperative at times, but also be lligerent, defiant, hyperactive; patient is not in distress; dressed in hospital attire, adequately groomed; mood is described as good and affect labile; eye contact appropriate; Speech is normal rate, volume and prosody and not pressured; intermittent psychomotor agitation present; thought process is goal directed but somewhat disorganized; Thought content is on tx; otherwise pertinent to relevant topics and without any delusional content, paranoid ideations or grandiosity; denies any SI/HI. There is no evidence of perceptual disturbance. Patients insight and judgment are impaired. Diagnostics Vital Signs (24Hr): Vital Signs - 24 hr 08/25/22 20:23 08/26/22 08:30 Temperature 97.6 F 97.3 F Pulse Rate 69 75 Respiratory Rate 16 18 Blood Pressure 118/79 156/78 H Pulse Oximetry 97 99 Oxygen Delivery Method Room Air BMI result Body Mass Index 29.6 Labs Results: 08/22/22 15:01 08/24/22 08:38 Medications Medications Current Medications Acetaminophen (Acetaminophen 325 Mg Tablet) 650 mg PO Q6H PRN PRN Reason: Headache/Pain Mild Scale (1-3) Last Admin: 08/24/22 19:21 Dose: 650 mg Al Hydroxide/Mg Hydroxide (Magnesium Hydrox/Alum Hydrox 30 Ml Oral.Susp) 30 ml PO Q6H PRN PRN Reason: Heartburn/Nausea Last Admin: 08/26/22 16:45 Dose: 30 ml Clonazepam (Clonazepam 0.5 Mg Tablet) 0.5 mg PO BID PRN PRN Reason: Anxiety Last Admin: 08/26/22 16:12 Dose: 0.5 mg Divalproex Sodium (Divalproex Sodium 500 Mg Tablet.Dr) 1,000 mg PO BID [facility] Last Admin: 08/26/22 08:56 Dose: 1,000 mg Gabapentin (Gabapentin 400 Mg Capsule) 400 mg PO TID [facility] Last Admin: 08/26/22 15:08 Dose: 400 mg Hydroxyzine HCl (Hydroxyzine Hcl 50 Mg Tablet) 50 mg PO Q6H PRN PRN Reason: Anxiety Lamotrigine (Lamotrigine 25 Mg Tablet) 25 mg PO BEDTIME [facility] Last Admin: 08/25/22 19:40 Dose: 25 mg [place] Carbonate ([place] Carbonate Er 300 Mg Tablet.Er) 600 mg PO BEDTIME [facility] Magnesium Hydroxide (Milk Of Magnesia 30 Ml Oral.Susp) 30 ml PO DAILY PRN PRN Reason: Constipation Nicotine (Nicotine 14 Mg Patch.Td24) 14 mg TRANSDERMA DAILY [facility] Last Admin: 08/26/22 08:55 Dose: 14 mg Nicotine Polacrilex (Nicotine Polacrilex Lozenge 4 Mg Lozenge) 4 mg BUCCAL Q2H PRN PRN Reason: Nicotine Cravings Olanzapine (Olanzapine Odt 10 Mg Tab.Rapdis) 10 mg TRANSLINGU BID [facility] Last Admin: 08/26/22 09:03 Dose: 10 mg Pharmacy Consult (Consult Rx Perform Med Rec) 1 each MISCELLANE ONCE PRN PRN Reason: Consult order Prazosin HCl (Prazosin Hcl 1 Mg Capsule) 1 mg PO BEDTIME [facility]; Protocol Last Admin: 08/25/22 19:39 Dose: 1 mg Quetiapine Fumarate (Quetiapine Fumarate 25 Mg Tablet) 25 mg PO BEDTIME [facility] Last Admin: 08/25/22 19:41 Dose: 25 mg Tamsulosin HCl (Tamsulosin Hcl 0.4 Mg Capsule) 0.8 mg PO BID [facility] Last Admin: 08/26/22 08:56 Dose: 0.8 mg Trazodone HCl (Trazodone Hcl 50 Mg Tablet) 50 mg PO BEDTIME PRN PRN Reason: Insomnia Last Admin: 08/24/22 20:48 Dose: 50 mg Allergies Allergies Allergy/AdvReac Type Severity Reaction Status Date / Time fish Allergy Unknown Unknown Uncoded 08/23/22 17:09 haldol Allergy Unknown restless Uncoded 08/23/22 17:21 legs Assessment & Plan Assessment & Plan (1) Bipolar disorder: Status: Acute Code(s): F31.9 - Bipolar disorder, unspecified (2) Alcohol use disorder in remission: Status: Acute Code(s): F10.91 - Alcohol use, unspecified, in remission Plan 22 yo male, adopted at 1 yo from [place] [facility], with hx of Bipolar, OCD, pTSD and substance abuse who presents with reports of increase in mood swings, depression, anxiety, anger with periods of lability, crying, poor focus and intrusive thoughts of past trauma. 08/24 complicated patient with hx of bipolar, OCD, PTSD which is very likely complex, substance abuse and characterlogical traits. Not great historian but engaged in treatment and wants help. Patient is now back on mood stabilizers that seem to have helped in the past; still hypomanic but with some improved self-control; Given that OCD and anxiety are his current major complaints will start Lamictal since it can help treat OCD (as well as mood stabilize) where Latuda and Vrylar not known to help with OCD. Patient agrees with this plan however is also very ambivalent about meds and forgets prior discussions 08/25 Continue current treatment plan; Pt ambivalent about discharge, though still seems to want help. [employer] Applications Analyst is not clear what is patients baseline. Will continue to seek Collateral Plan:? 3 day (retracted one and signed another) Q15 min checks START Lamictal 25mg qhs DC Wellbutrin for now-pt says causing some manic symptoms Continue Depakote ER 1000mg BiD? Conitnue Gabapentin for anxiety Right now Olanzapine as prn, however may schedule Continue Trileptal Continue Seroquel 25mg qhs (which he very much wants for sleep) Continue Trazodone. Discussion with pt of Irene, return to [place] vs Latuda which are options Pt asks to return to [place]-however not sure this is indicated for anxiety which is why he's on Gabapentin ECT consult- this is why they sent me...for OCD . Though, ECT not typically used for OCD seek Collateral: loan underwriter called and left message for Venecia Eastman? complete diagnostic panel. I spent minutes with the patient and/or on the patient floor today, greater than?50% of which was spent counseling/coordinating care. Patient educated on: diagnosis and medication risk/benefits Informed Consent: understands, does not understand and further education needed Reason for contiued inpatient stay Substantial Risk for: rapid decompensation
[2022-08-25] MEDS: Prazosin HCL 1 MG CAPSULE PO (19:39)
[2022-08-25] MEDS: lamoTRIgine 25 MG TABLET PO (19:40)
[2022-08-25] MEDS: QUEtiapine Fumarate 25 MG TABLET PO (19:41)
[2022-08-25 20:23] VITALS: BP 118/79; PULSE 69; RESP 16; TEMP 36.4; O2SAT 97
[2022-08-26 08:30] VITALS: BP 156/78; PULSE 75; RESP 18; TEMP 36.3; O2SAT 99
[2022-08-26] MEDS: Nicotine 14 MG PATCH.TD24 TRANSDERMA (08:55)
[2022-08-26] MEDS: Gabapentin 400 MG CAPSULE PO ×3 (08:56→21:18)
[2022-08-26] MEDS: OXcarbazepine 300 MG TABLET 900 MG PO (08:56)
[2022-08-26] MEDS: Tamsulosin HCL 0.4 MG CAPSULE 0.8 MG PO ×2 (08:56→21:18)
[2022-08-26] MEDS: Divalproex Sodium 500 MG TABLET.DR 1000 MG PO ×2 (08:56→21:18)
[2022-08-26] MEDS: clonazePAM 0.5 MG TABLET PO ×2 (09:03→16:12)
[2022-08-26] MEDS: hydrOXYzine HCL 25 MG TABLET PO ×3 (09:03→13:58)
[2022-08-26] MEDS: OLANZapine ODT 10 MG TAB.RAPDIS TRANSLINGU ×2 (09:03→21:19)
[2022-08-26] MEDS: Magnesium Hydrox/Alum Hydrox 30 ML ORAL.SUSP PO (16:45)
--- NOTE | 2022-08-26 16:59 | HO.PSYCHPN ---
Subjective Subjective Date of Service: 08/26/22 Reason For Visit: Bipolar Disorder Yeny ADD Cannabis use Interim History: Patient still intimately belligerent staff to run for the door. Street Cleaning Equipment Operator discusses his patient greasy has been doing this but says that he can stop and will do so. Street Cleaning Equipment Operator shared conversation with his outpatient provider and that she agrees to stimulant medication wants patients is mood stabilized. Patient agrees that you will demonstrate this over the weekend. Patient is adamant that he wants off trileptal and back on lithium. He's not able to clearly articulate and why other then he said lithium work best. History seems to demonstrate this telegraphic typewriter installer agrees. He agrees to continue with the mental. Medication risks/side effects were discussed and patient understands.? Street Cleaning Equipment Operator did CBT exercises with patient who agreed this approach might be helpful doing was intrusive thoughts and he would consider it pt sleeping through the night Mental Status Exam Mental Status Exam Narrative: Pt is alert and oriented; behavior can be cooperative at times, but also belligerent, defiant, hyperactive; patient is not in distress; dressed in hospital attire, adequately groomed; mood is described as good and affect labile; eye contact appropriate; Speech is normal rate, volume and prosody and not pressured; intermittent psychomotor agitation present; thought process is goal directed but somewhat disorganized; Thought content is on tx; otherwise pertinent to relevant topics and without any delusional content, paranoid ideations or grandiosity; denies any SI/HI. There is no evidence of perceptual disturbance. Patients insight and judgment are impaired but seem to be improving. Diagnostics Vital Signs (24Hr): Vital Signs - 24 hr 08/25/22 20:23 08/26/22 08:30 Temperature 97.6 F 97.3 F Pulse Rate 69 75 Respiratory Rate 16 18 Blood Pressure 118/79 156/78 H Pulse Oximetry 97 99 Oxygen Delivery Method Room Air BMI result Body Mass Index 29.6 Labs Results: 08/22/22 15:01 08/24/22 08:38 Medications Medications Current Medications Acetaminophen (Acetaminophen 325 Mg Tablet) 650 mg PO Q6H PRN PRN Reason: Headache/Pain Mild Scale (1-3) Last Admin: 08/24/22 19:21 Dose: 650 mg Al Hydroxide/Mg Hydroxide (Magnesium Hydrox/Alum Hydrox 30 Ml Oral.Susp) 30 ml PO Q6H PRN PRN Reason: Heartburn/Nausea Last Admin: 08/26/22 16:45 Dose: 30 ml Clonazepam (Clonazepam 0.5 Mg Tablet) 0.5 mg PO BID PRN PRN Reason: Anxiety Last Admin: 08/26/22 16:12 Dose: 0.5 mg Divalproex Sodium (Divalproex Sodium 500 Mg Tablet.Dr) 1,000 mg PO BID [facility] Last Admin: 08/26/22 08:56 Dose: 1,000 mg Gabapentin (Gabapentin 400 Mg Capsule) 400 mg PO TID [facility] Last Admin: 08/26/22 15:08 Dose: 400 mg Hydroxyzine HCl (Hydroxyzine Hcl 50 Mg Tablet) 50 mg PO Q6H PRN PRN Reason: Anxiety Lamotrigine (Lamotrigine 25 Mg Tablet) 25 mg PO BEDTIME [facility] Last Admin: 08/25/22 19:40 Dose: 25 mg Griffin Carbonate (Griffin Carbonate Er 300 Mg Tablet.Er) 600 mg PO BEDTIME [facility] Magnesium Hydroxide (Milk Of Magnesia 30 Ml Oral.Susp) 30 ml PO DAILY PRN PRN Reason: Constipation Nicotine (Nicotine 14 Mg Patch.Td24) 14 mg TRANSDERMA DAILY [facility] Last Admin: 08/26/22 08:55 Dose: 14 mg Nicotine Polacrilex (Nicotine Polacrilex Lozenge 4 Mg Lozenge) 4 mg BUCCAL Q2H PRN PRN Reason: Nicotine Cravings Olanzapine (Olanzapine Odt 10 Mg Tab.Rapdis) 10 mg TRANSLINGU BID [facility] Last Admin: 08/26/22 09:03 Dose: 10 mg Pharmacy Consult (Consult Rx Perform Med Rec) 1 each MISCELLANE ONCE PRN PRN Reason: Consult order Prazosin HCl (Prazosin Hcl 1 Mg Capsule) 1 mg PO BEDTIME [facility]; Protocol Last Admin: 08/25/22 19:39 Dose: 1 mg Quetiapine Fumarate (Quetiapine Fumarate 25 Mg Tablet) 25 mg PO BEDTIME [facility] Last Admin: 08/25/22 19:41 Dose: 25 mg Tamsulosin HCl (Tamsulosin Hcl 0.4 Mg Capsule) 0.8 mg PO BID [facility] Last Admin: 08/26/22 08:56 Dose: 0.8 mg Trazodone HCl (Trazodone Hcl 50 Mg Tablet) 50 mg PO BEDTIME PRN PRN Reason: Insomnia Last Admin: 08/24/22 20:48 Dose: 50 mg Allergies Allergies Allergy/AdvReac Type Severity Reaction Status Date / Time fish Allergy Unknown Unknown Uncoded 08/23/22 17:09 haldol Allergy Unknown restless Uncoded 08/23/22 17:21 legs Assessment & Plan Assessment & Plan (1) Bipolar disorder: Status: Acute Code(s): F31.9 - Bipolar disorder, unspecified (2) OCD (obsessive compulsive disorder): Status: Acute Code(s): F42.9 - Obsessive-compulsive disorder, unspecified (3) Chronic post-traumatic stress disorder (PTSD): Status: Acute Code(s): F43.12 - Post-traumatic stress disorder, chronic (4) Alcohol use disorder in remission: Status: Acute Code(s): F10.91 - Alcohol use, unspecified, in remission Plan 22 yo male, adopted at 1 yo from [facility], with hx of Bipolar, OCD, pTSD and substance abuse who presents with reports of increase in mood swings, depression, anxiety, anger with periods of lability, crying, poor focus and intrusive thoughts of past trauma. 08/24 complicated patient with hx of bipolar, OCD, PTSD which is very likely complex, substance abuse and characterlogical traits. Not great historian but engaged in treatment and wants help. Patient is now back on mood stabilizers that seem to have helped in the past; still hypomanic but with some improved self-control; Given that OCD and anxiety are his current major complaints will start Lamictal since it can help treat OCD (as well as mood stabilize) where Latuda and Vrylar not known to help with OCD. Patient agrees with this plan however is also very ambivalent about meds and forgets prior discussions 08/25 Continue current treatment plan; Pt ambivalent about discharge, though still seems to want help. Street Cleaning Equipment Operator is not clear what is patients baseline. Will continue to seek Collateral 08/26 hypomanic, still intermittent belligerent with select staff, however says he will reign it in and stop running, stop rude talk; agrees to continue Lamictal; still ambivalent about staying/discharge but wants to stay for more help. Adamant about getting off Trileptal and back on Griffin; hx shows Griffin helpful so telegraphic typewriter installer agrees. Street Cleaning Equipment Operator talked w/ outpt provider Venecia Do who clarifies med hx, saying yeny has been stabilized by depakote, trileptal; he was on Griffin which he wanted to stop, but this was helpful too; yes, manic on SSRI despite being on mood stabilizers. Thinks Buspar was helpful but that patient stopped erroneously thinking it caused urinary retention when infact it was urinary hesitancy (shy bladder) due to incarceration; she too is unsure of how to best medicate and agrees with Lamictal. She agrees to restarting stimulant medication once pt is mood stabilized. Pt was doing Ketamine infusions; she's not sure why stopped but may have been discharged from this treatment (pt says kicked out). She says he never lets her speak to his parents. Says he quit therapy; says has severe substance abuse hx. He cancelled VNA. Plan:? 3 day (retracted one and signed another) Q15 min checks Continue Lamictal 25mg qhs Continue Depakote ER 1000mg BiD? Level/labs ordered: SCHEDULED Olanzapine 10mg BID (pt has been taking prn regularly anyway and likely needs it for stability) DISCONTINUE Trileptal START Griffin ER 600mg qhs Conitnue Gabapentin for anxiety Continue Seroquel 25mg qhs (which he very much wants for sleep) Continue Trazodone. DC Wellbutrin for now-pt says causing some manic symptoms -Discussion with pt of Irene, return to Griffin vs Latuda which are options -Pt asks to return to Lyrica-however not sure this is indicated for anxiety which is why he's on Gabapentin -ECT consult- this is why they sent me...for OCD . Though, ECT not typically used for OCD seek Collateral: pt finally gave RIVERA to talk w/ father I spent minutes with the patient and/or on the patient floor today, greater than?50% of which was spent counseling/coordinating care. Reason for contiued inpatient stay Substantial Risk for: rapid decompensation
[2022-08-26] MEDS: Lithium Carbonate ER 300 MG TABLET.ER 600 MG PO (21:18)
[2022-08-26] MEDS: QUEtiapine Fumarate 25 MG TABLET PO (21:18)
[2022-08-26] MEDS: lamoTRIgine 25 MG TABLET PO (21:18)
[2022-08-26] MEDS: Prazosin HCL 1 MG CAPSULE PO (21:19)
--- NOTE | 2022-08-27 07:27 | HO.PSYCHPN ---
Documented by User: Gaby Taylor MD 08/28/22 08:37 Subjective Subjective Date of Service: 08/27/22 Reason For Visit: Bipolar Disorder Yeny ADD Cannabis use Subjective Notes: 3 Day Healthcare Proxy: No Guardianship: No Medical Problems Affecting Mental Status: No Interim History: refused to meet with provider nursing report pt slept, vss Medication Compliance: Yes Side effects from medications: No Attending Groups: No Review of Systems Acute medical concerns: No Mental Status Exam Mental Status Exam Patient Appearance: Fatigued Patient Orientation: Person Level of Consciousness: Drowsy Patient Behavior: Resistive to Care Mood Description: Apathetic Affect Description: Withdrawn Ability to Follow Directions: Poor Speech Pattern: Clear Judgement: Poor Diagnostics Vital Signs (24Hr): Vital Signs - 24 hr 08/26/22 08:30 Temperature 97.3 F Pulse Rate 75 Respiratory Rate 18 Blood Pressure 156/78 H Pulse Oximetry 99 BMI result Body Mass Index 29.6 Labs Results: 08/22/22 15:01 08/24/22 08:38 Medications Medications Current Medications Acetaminophen (Acetaminophen 325 Mg Tablet) 650 mg PO Q6H PRN PRN Reason: Headache/Pain Mild Scale (1-3) Last Admin: 08/24/22 19:21 Dose: 650 mg Al Hydroxide/Mg Hydroxide (Magnesium Hydrox/Alum Hydrox 30 Ml Oral.Susp) 30 ml PO Q6H PRN PRN Reason: Heartburn/Nausea Last Admin: 08/26/22 16:45 Dose: 30 ml Clonazepam (Clonazepam 0.5 Mg Tablet) 0.5 mg PO BID PRN PRN Reason: Anxiety Last Admin: 08/26/22 16:12 Dose: 0.5 mg Divalproex Sodium (Divalproex Sodium 500 Mg Tablet.Dr) 1,000 mg PO BID [facility] Last Admin: 08/26/22 21:18 Dose: 1,000 mg Gabapentin (Gabapentin 400 Mg Capsule) 400 mg PO TID [facility] Last Admin: 08/26/22 21:18 Dose: 400 mg Hydroxyzine HCl (Hydroxyzine Hcl 50 Mg Tablet) 50 mg PO Q6H PRN PRN Reason: Anxiety Lamotrigine (Lamotrigine 25 Mg Tablet) 25 mg PO BEDTIME [facility] Last Admin: 08/26/22 21:18 Dose: 25 mg Aucilla Carbonate (Aucilla Carbonate Er 300 Mg Tablet.Er) 600 mg PO BEDTIME [facility] Last Admin: 08/26/22 21:18 Dose: 600 mg Magnesium Hydroxide (Milk Of Magnesia 30 Ml Oral.Susp) 30 ml PO DAILY PRN PRN Reason: Constipation Nicotine (Nicotine 14 Mg Patch.Td24) 14 mg TRANSDERMA DAILY [facility] Last Admin: 08/26/22 08:55 Dose: 14 mg Nicotine Polacrilex (Nicotine Polacrilex Lozenge 4 Mg Lozenge) 4 mg BUCCAL Q2H PRN PRN Reason: Nicotine Cravings Olanzapine (Olanzapine Odt 10 Mg Tab.Rapdis) 10 mg TRANSLINGU BID [facility] Last Admin: 08/26/22 21:19 Dose: 10 mg Pharmacy Consult (Consult Rx Perform Med Rec) 1 each MISCELLANE ONCE PRN PRN Reason: Consult order Prazosin HCl (Prazosin Hcl 1 Mg Capsule) 1 mg PO BEDTIME [facility]; Protocol Last Admin: 08/26/22 21:19 Dose: 1 mg Quetiapine Fumarate (Quetiapine Fumarate 25 Mg Tablet) 25 mg PO BEDTIME [facility] Last Admin: 08/26/22 21:18 Dose: 25 mg Tamsulosin HCl (Tamsulosin Hcl 0.4 Mg Capsule) 0.8 mg PO BID [facility] Last Admin: 08/26/22 21:18 Dose: 0.8 mg Trazodone HCl (Trazodone Hcl 50 Mg Tablet) 50 mg PO BEDTIME PRN PRN Reason: Insomnia Last Admin: 08/24/22 20:48 Dose: 50 mg Allergies Allergies Allergy/AdvReac Type Severity Reaction Status Date / Time fish Allergy Unknown Unknown Uncoded 08/23/22 17:09 haldol Allergy Unknown restless Uncoded 08/23/22 17:21 legs Assessment & Plan Assessment & Plan (1) Bipolar disorder: Status: Acute Code(s): F31.9 - Bipolar disorder, unspecified (2) OCD (obsessive compulsive disorder): Status: Acute Code(s): F42.9 - Obsessive-compulsive disorder, unspecified (3) Chronic post-traumatic stress disorder (PTSD): Status: Acute Code(s): F43.12 - Post-traumatic stress disorder, chronic (4) Alcohol use disorder in remission: Status: Acute Code(s): F10.91 - Alcohol use, unspecified, in remission Plan 22 yo male, adopted at 1 yo from [place] [facility], with hx of Bipolar, OCD, pTSD and substance abuse who presents with reports of increase in mood swings, depression, anxiety, anger with periods of lability, crying, poor focus and intrusive thoughts of past trauma. 08/24 complicated patient with hx of bipolar, OCD, PTSD which is very likely complex, substance abuse and characterlogical traits. Not great historian but engaged in treatment and wants help. Patient is now back on mood stabilizers that seem to have helped in the past; still hypomanic but with some improved self-control; Given that OCD and anxiety are his current major complaints will start Lamictal since it can help treat OCD (as well as mood stabilize) where Latuda and Vrylar not known to help with OCD. Patient agrees with this plan however is also very ambivalent about meds and forgets prior discussions 08/25 Continue current treatment plan; Pt ambivalent about discharge, though still seems to want help. Manager In Training is not clear what is patients baseline. Will continue to seek Collateral 08/26 hypomanic, still intermittent belligerent with select staff, however says he will reign it in and stop running, stop rude talk; agrees to continue Lamictal; still ambivalent about staying/discharge but wants to stay for more help. Adamant about getting off Trileptal and back on Aucilla; hx shows Aucilla helpful so telegraphic typewriter mechanic agrees. 08/27 pt refused to engage with this provider- Plan:? 3 day (retracted one and signed another) Q15 min checks Continue Lamictal 25mg qhs Continue Depakote ER 1000mg BiD? SCHEDULED Olanzapine 10mg BID (pt has been taking prn regularly anyway and likely needs it for stability) DISCONTINUE Trileptal continue Aucilla ER 600mg qhs (started on 08/25) Conitnue Gabapentin for anxiety Continue Seroquel 25mg qhs (which he very much wants for sleep) Continue Trazodone. DC Wellbutrin for now-pt says causing some manic symptoms Discussion with pt of Irene, return to Aucilla vs Latuda which are options Pt asks to return to Lyrica-however not sure this is indicated for anxiety which is why he's on Gabapentin ECT consult- this is why they sent me...for OCD . Though, ECT not typically used for OCD seek Collateral: telegraphic typewriter mechanic called and left message for Venecia Eastman? complete diagnostic panel. Manager In Training talked w/ outpt provider Venecia Do who clarifies med hx, saying yeny has been stabilized by depakote, trileptal; he was on Aucilla which he wanted to stop, but this was helpful too; yes, manic on SSRI despite being on mood stabilizers. Thinks Buspar was helpful but that patient stopped erroneously thinking it caused urinary retention when infact it was urinary hesitancy (shy bladder) due to incarceration; she too is unsure of how to best medicate and agrees with Lamictal. She agrees to restarting stimulant medication once pt is mood stabilized. Pt was doing Ketamine infusions; she's not sure why stopped but may have been discharged from this treatment (pt says kicked out). She says he never lets her speak to his parents. Says he quit therapy; says has severe substance abuse hx. He cancelled VNA.? I spent minutes with the patient and/or on the patient floor today, greater than?50% of which was spent counseling/coordinating care. Informed Consent: further education needed Reason for contiued inpatient stay Substantial Risk for: inability to function and rapid decompensation Documented by User: Vipin Marcus MD 08/29/22 13:17 Subjective Subjective Reason For Visit: Bipolar Disorder Yeny ADD Cannabis use Diagnostics Labs Results: 08/22/22 15:01 08/24/22 08:38 Assessment & Plan Assessment & Plan (1) Bipolar disorder: Status: Acute Code(s): F31.9 - Bipolar disorder, unspecified (2) OCD (obsessive compulsive disorder): Status: Acute Code(s): F42.9 - Obsessive-compulsive disorder, unspecified (3) Chronic post-traumatic stress disorder (PTSD): Status: Acute Code(s): F43.12 - Post-traumatic stress disorder, chronic (4) Alcohol use disorder in remission: Status: Acute Code(s): F10.91 - Alcohol use, unspecified, in remission Plan 22 yo male, adopted at 1 yo from [place] [facility], with hx of Bipolar, OCD, pTSD and substance abuse who presents with reports of increase in mood swings, depression, anxiety, anger with periods of lability, crying, poor focus and intrusive thoughts of past trauma. 08/24 complicated patient with hx of bipolar, OCD, PTSD which is very likely complex, substance abuse and characterlogical traits. Not great historian but engaged in treatment and wants help. Patient is now back on mood stabilizers that seem to have helped in the past; still hypomanic but with some improved self-control; Given that OCD and anxiety are his current major complaints will start Lamictal since it can help treat OCD (as well as mood stabilize) where Latuda and Vrylar not known to help with OCD. Patient agrees with this plan however is also very ambivalent about meds and forgets prior discussions 08/25 Continue current treatment plan; Pt ambivalent about discharge, though still seems to want help. Manager In Training is not clear what is patients baseline. Will continue to seek Collateral 08/26 hypomanic, still intermittent belligerent with select staff, however says he will reign it in and stop running, stop rude talk; agrees to continue Lamictal; still ambivalent about staying/discharge but wants to stay for more help. Adamant about getting off Trileptal and back on Aucilla; hx shows Aucilla helpful so telegraphic typewriter mechanic agrees. Plan:? 3 day (retracted one and signed another) Q15 min checks Continue Lamictal 25mg qhs Continue Depakote ER 1000mg BiD? SCHEDULED Olanzapine 10mg BID (pt has been taking prn regularly anyway and likely needs it for stability) DISCONTINUE Trileptal continue Aucilla ER 600mg qhs (started on 08/25) Conitnue Gabapentin for anxiety Continue Seroquel 25mg qhs (which he very much wants for sleep) Continue Trazodone. DC Wellbutrin for now-pt says causing some manic symptoms Discussion with pt of Irene, return to Aucilla vs Latuda which are options Pt asks to return to Lyrica-however not sure this is indicated for anxiety which is why he's on Gabapentin ECT consult- this is why they sent me...for OCD . Though, ECT not typically used for OCD seek Collateral: telegraphic typewriter mechanic called and left message for Venecia Eastman? complete diagnostic panel. Manager In Training talked w/ outpt provider Venecia Do who clarifies med hx, saying yeny has been stabilized by depakote, trileptal; he was on Aucilla which he wanted to stop, but this was helpful too; yes, manic on SSRI despite being on mood stabilizers. Thinks Buspar was helpful but that patient stopped erroneously thinking it caused urinary retention when infact it was urinary hesitancy (shy bladder) due to incarceration; she too is unsure of how to best medicate and agrees with Lamictal. She agrees to restarting stimulant medication once pt is mood stabilized. Pt was doing Ketamine infusions; she's not sure why stopped but may have been discharged from this treatment (pt says kicked out). She says he never lets her speak to his parents. Says he quit therapy; says has severe substance abuse hx. He cancelled VNA.?
[2022-08-27 07:48] LABS: Ammonia 29 umol/L (13-55)
[2022-08-27 07:49] LABS: Valproate 52.7 mcg/mL (50.0-100.0)
[2022-08-27 07:54] LABS: Alanine Aminotransferase 14 U/L (0-40); Albumin Level 4.3 g/dL (3.5-5.0); Alkaline Phosphatase 45 U/L (39-117); Aspartate Amino Transferase 14 U/L (5-37); Bilirubin Direct < 0.2 mg/dL (0.0-0.5); Bilirubin Total 0.4 mg/dL (0.0-1.0); Total Protein 6.3 g/dL (6.5-8.0)
[2022-08-27] MEDS: Nicotine 14 MG PATCH.TD24 TRANSDERMA (08:31)
[2022-08-27] MEDS: OLANZapine ODT 10 MG TAB.RAPDIS TRANSLINGU ×2 (08:32→20:35)
[2022-08-27] MEDS: Tamsulosin HCL 0.4 MG CAPSULE 0.8 MG PO ×2 (08:32→20:35)
[2022-08-27] MEDS: clonazePAM 0.5 MG TABLET PO ×2 (08:32→14:45)
[2022-08-27] MEDS: Gabapentin 400 MG CAPSULE PO ×3 (08:32→20:35)
[2022-08-27] MEDS: Divalproex Sodium 500 MG TABLET.DR 1000 MG PO ×2 (08:32→20:35)
[2022-08-27 08:36] VITALS: BP 118/68; PULSE 70; RESP 18; TEMP 36.4; O2SAT 99
[2022-08-27] MEDS: hydrOXYzine HCL 50 MG TABLET PO ×2 (09:50→13:32)
[2022-08-27] MEDS: Nicotine Polacrilex Lozenge 4 MG LOZENGE BUCCAL (14:44)
[2022-08-27] MEDS: Milk of Magnesia 30 ML ORAL.SUSP PO (17:06)
[2022-08-27] MEDS: lamoTRIgine 25 MG TABLET PO (20:35)
[2022-08-27] MEDS: Prazosin HCL 1 MG CAPSULE PO (20:36)
[2022-08-27] MEDS: QUEtiapine Fumarate 25 MG TABLET PO (20:36)
[2022-08-27] MEDS: Lithium Carbonate ER 300 MG TABLET.ER 600 MG PO (20:36)
[2022-08-28 06:00] VITALS: BP 141/85; PULSE 86; RESP 18; TEMP 36.7; O2SAT 98
[2022-08-28] MEDS: Nicotine 14 MG PATCH.TD24 TRANSDERMA (08:56)
[2022-08-28] MEDS: Gabapentin 400 MG CAPSULE PO ×3 (08:57→20:05)
[2022-08-28] MEDS: Divalproex Sodium 500 MG TABLET.DR 1000 MG PO ×2 (08:57→20:07)
[2022-08-28] MEDS: OLANZapine ODT 10 MG TAB.RAPDIS TRANSLINGU (08:57)
[2022-08-28] MEDS: Tamsulosin HCL 0.4 MG CAPSULE 0.8 MG PO ×2 (08:57→20:10)
[2022-08-28] MEDS: clonazePAM 0.5 MG TABLET PO ×2 (08:57→13:09)
--- NOTE | 2022-08-28 11:43 | P.PNPSI_ITS ---
Subjective Subjective Date of Service: 08/28/22 Reason For Visit: Bipolar Disorder Yeny ADD Cannabis use Subjective Notes: Conditional Voluntary Healthcare Proxy: No Guardianship: No Medical Problems Affecting Mental Status: No ( shy bladder trouble urinating if anxious) Interim History: Pt said he was in bad mood yesterday, why he didn't want to meet with me. Discussed issues with urination, anxiety, adhd denies current si hopes to go to program and get back to parents- Medication Compliance: Yes Side effects from medications: No Attending Groups: Intermittent Review of Systems Acute medical concerns: No Mental Status Exam Mental Status Exam Narrative: dressed in remy Patient Appearance: Appropriate Patient Orientation: Person, Place, Time and Situation Level of Consciousness: Awake and Appropriate Patient Behavior: Appropriate, Cooperative and Anxious Affect Description: Calm Patient Cognition Impaired: No Ability to Follow Directions: Fair Speech Pattern: Clear Depressive Symptoms: Increased Anxiety and Difficulty Sleeping Judgement: Fair Diagnostics Vital Signs (24Hr): Vital Signs - 24 hr 08/28/22 06:00 Temperature 98.1 F Pulse Rate 86 Respiratory Rate 18 Blood Pressure 141/85 H Pulse Oximetry 98 Oxygen Delivery Method Room Air BMI result Body Mass Index 29.6 Labs Results: 08/22/22 15:01 08/24/22 08:38 Labs: Laboratory Results - last 48 hr 08/27/22 08/27/22 08/27/22 07:03 07:03 07:03 Total Bilirubin 0.4 Direct Bilirubin < 0.2 AST 14 ALT 14 Alkaline Phosphatase 45 Ammonia 29 Total Protein 6.3 L Albumin 4.3 Valproic Acid 52.7 Medications Medications Current Medications Acetaminophen (Acetaminophen 325 Mg Tablet) 650 mg PO Q6H PRN PRN Reason: Headache/Pain Mild Scale (1-3) Last Admin: 08/24/22 19:21 Dose: 650 mg Al Hydroxide/Mg Hydroxide (Magnesium Hydrox/Alum Hydrox 30 Ml Oral.Susp) 30 ml PO Q6H PRN PRN Reason: Heartburn/Nausea Last Admin: 08/26/22 16:45 Dose: 30 ml Clonazepam (Clonazepam 0.5 Mg Tablet) 0.5 mg PO BID PRN PRN Reason: Anxiety Last Admin: 08/28/22 08:57 Dose: 0.5 mg Divalproex Sodium (Divalproex Sodium 500 Mg Tablet.) 1,000 mg PO BID [facility] Last Admin: 08/28/22 08:57 Dose: 1,000 mg Gabapentin (Gabapentin 400 Mg Capsule) 400 mg PO TID PAULA Last Admin: 08/28/22 08:57 Dose: 400 mg Hydroxyzine HCl (Hydroxyzine Hcl 50 Mg Tablet) 50 mg PO Q6H PRN PRN Reason: Anxiety Last Admin: 08/27/22 13:32 Dose: 50 mg Lamotrigine (Lamotrigine 25 Mg Tablet) 25 mg PO BEDTIME PAULA Last Admin: 08/27/22 20:35 Dose: 25 mg [place] Carbonate ([place] Carbonate Er 300 Mg Tablet.Er) 600 mg PO BEDTIME PAULA Last Admin: 08/27/22 20:36 Dose: 600 mg Magnesium Hydroxide (Milk Of Magnesia 30 Ml Oral.Susp) 30 ml PO DAILY PRN PRN Reason: Constipation Last Admin: 08/27/22 17:06 Dose: 30 ml Nicotine (Nicotine 14 Mg Patch.Td24) 14 mg TRANSDERMA DAILY PAULA Last Admin: 08/28/22 08:56 Dose: 14 mg Nicotine Polacrilex (Nicotine Polacrilex Lozenge 4 Mg Lozenge) 4 mg BUCCAL Q2H PRN PRN Reason: Nicotine Cravings Last Admin: 08/27/22 14:44 Dose: 4 mg Olanzapine (Olanzapine Odt 10 Mg Tab.Rapdis) 10 mg TRANSLINGU BID [facility] Last Admin: 08/28/22 08:57 Dose: 10 mg Pharmacy Consult (Consult Rx Perform Med Rec) 1 each MISCELLANE ONCE PRN PRN Reason: Consult order Prazosin HCl (Prazosin Hcl 1 Mg Capsule) 1 mg PO BEDTIME PAULA; Protocol Last Admin: 08/27/22 20:36 Dose: 1 mg Quetiapine Fumarate (Quetiapine Fumarate 25 Mg Tablet) 25 mg PO BEDTIME PAULA Last Admin: 08/27/22 20:36 Dose: 25 mg Tamsulosin HCl (Tamsulosin Hcl 0.4 Mg Capsule) 0.8 mg PO BID [facility] Last Admin: 08/28/22 08:57 Dose: 0.8 mg Trazodone HCl (Trazodone Hcl 50 Mg Tablet) 50 mg PO BEDTIME PRN PRN Reason: Insomnia Last Admin: 08/24/22 20:48 Dose: 50 mg Allergies Allergies Allergy/AdvReac Type Severity Reaction Status Date / Time fish Allergy Unknown Unknown Uncoded 08/23/22 17:09 haldol Allergy Unknown restless Uncoded 08/23/22 17:21 legs Assessment & Plan Assessment & Plan (1) Bipolar disorder: Status: Acute Code(s): F31.9 - Bipolar disorder, unspecified Assessment and Plan: feels medications are work (2) OCD (obsessive compulsive disorder): Status: Acute Code(s): F42.9 - Obsessive-compulsive disorder, unspecified (3) Chronic post-traumatic stress disorder (PTSD): Status: Acute Code(s): F43.12 - Post-traumatic stress disorder, chronic (4) Alcohol use disorder in remission: Status: Acute Code(s): F10.91 - Alcohol use, unspecified, in remission Assessment and Plan: no cravings /witdhrawl reported Plan 22 yo male, adopted [facility] 1 yo [facility], with hx of Bipolar, OCD, pTSD and substance abuse who presents with reports of increase in mood swings, depression, anxiety, anger with periods of lability, crying, poor focus and intrusive thoughts of past trauma. 08/24 complicated patient with hx of bipolar, OCD, PTSD which is very likely complex, substance abuse and characterlogical traits. Not great historian but engaged in treatment and wants help. Patient is now back on mood stabilizers that seem to have helped in the past; still hypomanic but with some improved self-control; Given that OCD and anxiety are his current major complaints will start Lamictal since it can help treat OCD (as well as mood stabilize) where Latuda and Vrylar not known to help with OCD. Patient agrees with this plan however is also very ambivalent about meds and forgets prior discussions 08/25 Continue current treatment plan; Pt ambivalent about discharge, though still seems to want help. Well Surveying Engineer is not clear what is patients baseline. Will continue to seek Collateral 08/26 hypomanic, still intermittent belligerent with select staff, however says he will reign it in and stop running, stop rude talk; agrees to continue Lamictal; still ambivalent about staying/discharge but wants to stay for more help. Adamant about getting off Trileptal and back on [place]; hx shows [place] helpful so principal technical writer agrees. 08/27 pt refused to engage with this provider- Plan:? 3 day (retracted one and signed another) Q15 min checks Continue Lamictal 25mg qhs Continue Depakote ER 1000mg BiD? SCHEDULED Olanzapine 10mg BID (pt has been taking prn regularly anyway and likely needs it for stability) DISCONTINUE Trileptal continue [place] ER 600mg qhs (started on 08/25) Conitnue Gabapentin for anxiety Continue Seroquel 25mg qhs (which he very much wants for sleep) Continue Trazodone. DC Wellbutrin for now-pt says causing some manic symptoms Discussion with pt of Irene, return to [place] vs Latuda which are options Pt asks to return to Lyrica-however not sure this is indicated for anxiety which is why he's on Gabapentin ECT consult- this is why they sent me...for OCD . Though, ECT not typically used for OCD seek Collateral: principal technical writer called and left message for Venecia Eastman? complete diagnostic panel. Well Surveying Engineer talked w/ outpt provider Venecia Do who clarifies med hx, saying yeny has been stabilized by depakote, trileptal; he was on [place] which he wanted to stop, but this was helpful too; yes, manic on SSRI despite being on mood stabilizers. Thinks Buspar was helpful but that patient stopped erroneously thinking it caused urinary retention when infact it was urinary hesitancy (shy bladder) due to incarceration; she too is unsure of how to best medicate and agrees with Lamictal. She agrees to restarting stimulant medication once pt is mood stabilized. Pt was doing Ketamine infusions; she's not sure why stopped but may have been discharged from this treatment (pt says kicked out). She says he never lets her speak to his parents. Says he quit therapy; says has severe substance abuse hx. He cancelled VNA.? I spent minutes with the patient and/or on the patient floor today, greater than?50% of which was spent counseling/coordinating care. Reason for contiued inpatient stay Substantial Risk for: rapid decompensation
[2022-08-28] MEDS: hydrOXYzine HCL 50 MG TABLET PO ×2 (11:50→20:19)
[2022-08-28] MEDS: Nicotine Polacrilex Lozenge 4 MG LOZENGE BUCCAL ×3 (13:08→20:19)
[2022-08-28 16:52] VITALS: BP 130/66; PULSE 86; RESP 18; TEMP 36.4; O2SAT 99
[2022-08-28] MEDS: Lithium Carbonate ER 300 MG TABLET.ER 600 MG PO (20:07)
[2022-08-28] MEDS: Prazosin HCL 1 MG CAPSULE PO (20:08)
[2022-08-28] MEDS: QUEtiapine Fumarate 25 MG TABLET PO (20:11)
[2022-08-28] MEDS: lamoTRIgine 25 MG TABLET PO (20:11)
[2022-08-28] MEDS: traZODone HCL 50 MG TABLET PO (22:01)
[2022-08-28] MEDS: QUEtiapine Fumarate 100 MG TABLET PO (23:26)
[2022-08-29 06:00] VITALS: BP 131/80; PULSE 83; RESP 16; TEMP 36.4; O2SAT 100
[2022-08-29] MEDS: OLANZapine ODT 10 MG TAB.RAPDIS TRANSLINGU (08:51)
[2022-08-29] MEDS: Gabapentin 400 MG CAPSULE PO (08:51)
[2022-08-29] MEDS: Divalproex Sodium 500 MG TABLET.DR 1000 MG PO (08:51)
[2022-08-29] MEDS: Tamsulosin HCL 0.4 MG CAPSULE 0.8 MG PO (08:51)
[2022-08-29] MEDS: clonazePAM 0.5 MG TABLET PO (08:51)
[2022-08-29] MEDS: Nicotine 14 MG PATCH.TD24 TRANSDERMA (08:51)
[2022-08-29] MEDS: hydrOXYzine HCL 50 MG TABLET PO (11:57)
--- NOTE | 2022-08-29 13:17 | P.DS_ITS ---
DS: Providers Provider Date of Service: 08/29/22 Date of admission: 08/23/22 10:15 Date of discharge: 08/29/22 Primary care physician: Zaina Jimenes MD Admitting clinician: Desi Burt Attending physician on discharge: Vipin Marcus DS: Diagnosis Discharge Diagnosis (1) Bipolar disorder: Status: Acute (2) OCD (obsessive compulsive disorder): Status: Acute (3) Chronic post-traumatic stress disorder (PTSD): Status: Acute (4) Alcohol use disorder in remission: Status: Acute DS: Medications Discharge Medications Home Medications: Previous Rx's Medication Instructions Recorded clonazepam 0.5 mg tablet 0.5 mg PO BID PRN Anxiety 30 days 08/29/22 #60 tabs divalproex 500 mg tablet,delayed 1,000 mg PO BID 30 days #120 tabs 08/29/22 release gabapentin 600 mg tablet 600 mg PO TID 30 days #90 tabs 08/29/22 hydroxyzine HCl 50 mg tablet 50 mg PO Q6H PRN Anxiety 30 days 08/29/22 #90 tabs lithium carbonate 300 mg 600 mg PO BEDTIME 30 days #60 tabs 08/29/22 tablet,extended release methylphenidate HCl 20 mg 20 mg PO DAILY 30 days #30 tabs 08/29/22 tablet,extended release nicotine (polacrilex) 4 mg buccal 4 mg buccal Q2H PRN Nicotine 08/29/22 lozenge Cravings 30 days #108 ea nicotine 14 mg/24 hr daily 14 mg transdermal DAILY 28 days 08/29/22 transdermal patch #28 ea olanzapine 10 mg tablet (Zyprexa) 10 mg PO BID 30 days #60 tabs 08/29/22 prazosin 1 mg capsule 1 mg PO BEDTIME 30 days #30 caps 08/29/22 quetiapine 25 mg tablet 25 mg PO BEDTIME 30 days #30 tabs 08/29/22 tamsulosin 0.4 mg capsule 0.8 mg PO BID 30 days #120 caps 08/29/22 Mental Status Exam Mental Status Exam Narrative: Pt is alert and oriented; behavior cooperative, calm and appropriate; patient is not in distress; dressed in casual attire, adequately groomed; mood is described as good and affect congruent, calm; eye contact appropriate; Speech is normal rate, volume and prosody and not pressured; no psychomotor agitation; thought process is goal directed and linear; Thought content is on tx and discharge; otherwise pertinent to relevant topics and without any delusional content, paranoid ideations or grandiosity; denies any SI/HI. There is no evidence of perceptual disturbance. Patients insight and judgment are fair. Data Data Completed and Pending Completed studies during hospitalization [Text1]: 08/22/22 08/22/22 08/22/22 15:01 15:01 15:01 WBC 6.0 RBC 4.77 Hgb 14.0 Hct 40.8 L MCV 85.5 MCH 29.4 MCHC 34.3 RDW 12.9 Plt Count 148 L MPV 9.6 Immature Gran % (Auto) 0.3 Neut % (Auto) 53.1 Lymph % (Auto) 37.2 [place] % (Auto) 7.2 Eos % (Auto) 1.7 Baso % (Auto) 0.5 Lymph # (Auto) 2.2 [place] # (Auto) 0.4 Eos # (Auto) 0.1 Baso # (Auto) 0.0 Abs Immat Gran (auto) 0.02 Absolute Neuts (auto) 3.2 Absolute Nucleated RBC 0.000 Nucleated RBC % (auto) 0.0 Sodium 133 L Potassium 3.7 Chloride 100 Carbon Dioxide 26 Anion Gap 11 L BUN 14 Creatinine 0.81 Estim Creat Clear Calc 162.5 Estimated GFR > 60 Random Glucose 85 Estimat Average Glucose Hemoglobin A1c % Calcium 9.4 Magnesium 1.8 Total Bilirubin 0.4 Direct Bilirubin < 0.2 AST 17 ALT 16 Alkaline Phosphatase 45 Ammonia Total Protein 6.7 Albumin 4.5 Triglycerides Cholesterol LDL Cholesterol, Calc HDL Cholesterol Vitamin B12 Folate TSH Free T4 Urine Color Urine Appearance Urine pH Ur Specific [place] Urine Protein Urine Glucose (UA) Urine Ketones Urine Blood Urine Nitrite Ur Leukocyte Esterase Urine Opiates Screen Urine Fentanyl Screen Ur Barbiturates Screen Valproic Acid Carbamazepine Ur Phencyclidine Scrn Ur Amphetamines Screen U Benzodiazepines Scrn Urine Cocaine Screen U Marijuana (THC) Screen Chlam trachomat DNA PCR COVID-19 (EMELI) Negative COVID-19 Clin Com See Note N.gonorrhoeae DNA (PCR) 08/22/22 08/22/22 08/22/22 20:14 20:14 20:14 WBC RBC Hgb Hct MCV MCH MCHC RDW Plt Count MPV Immature Gran % (Auto) Neut % (Auto) Lymph % (Auto) [place] % (Auto) Eos % (Auto) Baso % (Auto) Lymph # (Auto) [place] # (Auto) Eos # (Auto) Baso # (Auto) Abs Immat Gran (auto) Absolute Neuts (auto) Absolute Nucleated RBC Nucleated RBC % (auto) Sodium Potassium Chloride Carbon Dioxide Anion Gap BUN Creatinine Estim Creat Clear Calc Estimated GFR Random Glucose Estimat Average Glucose Hemoglobin A1c % Calcium Magnesium Total Bilirubin Direct Bilirubin AST ALT Alkaline Phosphatase Ammonia Total Protein Albumin Triglycerides Cholesterol LDL Cholesterol, Calc HDL Cholesterol Vitamin B12 Folate TSH Free T4 Urine Color Yellow Urine Appearance Clear Urine pH 7.5 Ur Specific [place] 1.020 Urine Protein Negative Urine Glucose (UA) Negative Urine Ketones Trace Urine Blood Negative Urine Nitrite Negative Ur Leukocyte Esterase Negative Urine Opiates Screen Not Detected Urine Fentanyl Screen Not Detected Ur Barbiturates Screen Not Detected Valproic Acid Carbamazepine Ur Phencyclidine Scrn Not Detected Ur Amphetamines Screen Not Detected U Benzodiazepines Scrn Not Detected Urine Cocaine Screen Not Detected U Marijuana (THC) Screen POSITIVE H Chlam trachomat DNA PCR NOT DETECTED COVID-19 (EMELI) COVID-19 Clin Com N.gonorrhoeae DNA (PCR) NOT DETECTED 08/23/22 08/24/22 08/24/22 11:19 08:38 08:38 WBC RBC Hgb Hct MCV MCH MCHC RDW Plt Count MPV Immature Gran % (Auto) Neut % (Auto) Lymph % (Auto) [place] % (Auto) Eos % (Auto) Baso % (Auto) Lymph # (Auto) [place] # (Auto) Eos # (Auto) Baso # (Auto) Abs Immat Gran (auto) Absolute Neuts (auto) Absolute Nucleated RBC Nucleated RBC % (auto) Sodium Potassium Chloride Carbon Dioxide Anion Gap BUN Creatinine Estim Creat Clear Calc Estimated GFR Random Glucose Estimat Average Glucose 100 Hemoglobin A1c % 5.1 Calcium Magnesium 2.2 Total Bilirubin Direct Bilirubin AST ALT Alkaline Phosphatase Ammonia Total Protein Albumin Triglycerides 105 Cholesterol 211 LDL Cholesterol, Calc 135 HDL Cholesterol 55 Vitamin B12 Folate TSH 1.45 Free T4 0.98 Urine Color Urine Appearance Urine pH Ur Specific [place] Urine Protein Urine Glucose (UA) Urine Ketones Urine Blood Urine Nitrite Ur Leukocyte Esterase Urine Opiates Screen Urine Fentanyl Screen Ur Barbiturates Screen Valproic Acid 107.0 H Carbamazepine < 2.0 L* Ur Phencyclidine Scrn Ur Amphetamines Screen U Benzodiazepines Scrn Urine Cocaine Screen U Marijuana (THC) Screen Chlam trachomat DNA PCR COVID-19 (EMELI) COVID-19 Clin Com N.gonorrhoeae DNA (PCR) 08/24/22 08/24/22 08/27/22 08:38 08:38 07:03 WBC RBC Hgb Hct MCV MCH MCHC RDW Plt Count MPV Immature Gran % (Auto) Neut % (Auto) Lymph % (Auto) [place] % (Auto) Eos % (Auto) Baso % (Auto) Lymph # (Auto) [place] # (Auto) Eos # (Auto) Baso # (Auto) Abs Immat Gran (auto) Absolute Neuts (auto) Absolute Nucleated RBC Nucleated RBC % (auto) Sodium 135 Potassium Chloride Carbon Dioxide Anion Gap BUN Creatinine Estim Creat Clear Calc Estimated GFR Random Glucose Estimat Average Glucose Hemoglobin A1c % Calcium Magnesium Total Bilirubin 0.4 Direct Bilirubin < 0.2 AST 14 ALT 14 Alkaline Phosphatase 45 Ammonia Total Protein 6.3 L Albumin 4.3 Triglycerides Cholesterol LDL Cholesterol, Calc HDL Cholesterol Vitamin B12 1049 H Folate 7.7 TSH Free T4 Urine Color Urine Appearance Urine pH Ur Specific [place] Urine Protein Urine Glucose (UA) Urine Ketones Urine Blood Urine Nitrite Ur Leukocyte Esterase Urine Opiates Screen Urine Fentanyl Screen Ur Barbiturates Screen Valproic Acid Carbamazepine Ur Phencyclidine Scrn Ur Amphetamines Screen U Benzodiazepines Scrn Urine Cocaine Screen U Marijuana (THC) Screen Chlam trachomat DNA PCR COVID-19 (EMELI) COVID-19 Clin Com N.gonorrhoeae DNA (PCR) 08/27/22 08/27/22 07:03 07:03 WBC RBC Hgb Hct MCV MCH MCHC RDW Plt Count MPV Immature Gran % (Auto) Neut % (Auto) Lymph % (Auto) [place] % (Auto) Eos % (Auto) Baso % (Auto) Lymph # (Auto) [place] # (Auto) Eos # (Auto) Baso # (Auto) Abs Immat Gran (auto) Absolute Neuts (auto) Absolute Nucleated RBC Nucleated RBC % (auto) Sodium Potassium Chloride Carbon Dioxide Anion Gap BUN Creatinine Estim Creat Clear Calc Estimated GFR Random Glucose Estimat Average Glucose Hemoglobin A1c % Calcium Magnesium Total Bilirubin Direct Bilirubin AST ALT Alkaline Phosphatase Ammonia 29 Total Protein Albumin Triglycerides Cholesterol LDL Cholesterol, Calc HDL Cholesterol Vitamin B12 Folate TSH Free T4 Urine Color Urine Appearance Urine pH Ur Specific [place] Urine Protein Urine Glucose (UA) Urine Ketones Urine Blood Urine Nitrite Ur Leukocyte Esterase Urine Opiates Screen Urine Fentanyl Screen Ur Barbiturates Screen Valproic Acid 52.7 Carbamazepine Ur Phencyclidine Scrn Ur Amphetamines Screen U Benzodiazepines Scrn Urine Cocaine Screen U Marijuana (THC) Screen Chlam trachomat DNA PCR COVID-19 (EMELI) COVID-19 Clin Com N.gonorrhoeae DNA (PCR) DS: Summary Hospital Course Hospital Course: 22 yo male, adopted at 1 yo [facility], with hx of Bipolar, OCD, pTSD and substance abuse who presents with reports of increase in mood swings, depression, anxiety, anger with periods of lability, crying, poor focus and intrusive thoughts of past trauma. Hospital course: complicated patient with hx of Bipolar, OCD, PTSD which is very likely complex, substance abuse and characterlogical traits. Not great historian with medication hx, but engaged in treatment and wants help. Patient is plagued with intrusive thoughts and at one point, patient broke down into sobs saying the problems won't go away? and explains that he'll ruminate four hours on the past conversations or worries that he upset others... that was Patient struggles to fully articulate his experiences with intrusive thoughts of her been to say they're constant and debilitating and Very hard to ignore. Collateral was obtained from outpt provider Venecia Do who clarifies med hx, saying yeny has been stabilized by depakote, trileptal; he was on [place] which he wanted to stop, but this was helpful too; patient did get manic on SSRI despite also being on mood stabilizers. Provider Thinks Buspar was helpful but that patient stopped erroneously thinking it caused urinary retention when infact it was urinary hesitancy (shy bladder) due to incarceration; she too is unsure of how to best medicate and agrees with Lamictal. She agrees to restarting stimulant medication once pt is mood stabilized. Pt was doing Ketamine infusions; she's not sure why stopped but may have been discharged from this treatment (pt says kicked out). She says he never lets her speak to his parents. Says he quit therapy; says has severe substance abuse hx. He cancelled VNA.? Patient agreed to remain on Depakote and schedule Zyprexa and initially wanted to stay on Trileptal. He also agreed to starting Lamictal since it is a mood stabilizer that can also help with OCD as patient has not tolerated SSRIs (would get manic even though also on mood stabilizers). Patient was initially on Wellbutrin however this was discontinued also on the unit as it seemed to also trigger some manic symptoms. Though initially Trileptal, patient was adamant about discontinuing Trileptal and getting back on lithium which he said helped best and to which junior copywriter agreed. While on the unit, patient struggled with behaviors and was intermittently belligerent with staff and per tending to run for the door as if to elope. Automotive Parts Specialist discussed this with patient who agreed to stop these behaviors which she successfully did and further remaining time in the unit, demonstrated good behavioral and impulse control and was appropriate with peers and staff. Automotive [employer] Specialist tried to engage with patient regarding substance abuse history however patient significantly minimized and conversation proved a end. As patient remained stable, junior copywriter agreed, per outpatient provider to restart him on a stimulant medication which he had been on in the past. Patient had signed a 3 day notice. He was doing significantly better, without any SI or HI and remain in good behavioral control. He also allowed team to discuss treatment with his parents which is something he has never done before, including with outpatient providers. Patient was eating and sleeping well, felt medications were helping, felt stable and wanted to discharge. He expressed gratitude for help perceived. He is returning to live with his parents or supportive; he will resume care with outpatient providers that are already estab lished. Patient is not in imminent risk for harm to self or others and his request for discharge honored. Of note, patient is on 2 antipsychotics, 1 of them being low-dose Seroquel which he uses for sleep. Given patient's complicated history, behaviors and medication regimens, junior copywriter agreed that benefits of sleep far outweigh the potential risks of being on 2 antipsychotics, especially as Seroquel is at a very low dose. This was discussed with patient, regarding risk of side effects and patient agreed benefit outweighed risk. MED hx: Depakote: Helpful [place]: Helpful Patient's yeny has been stable on combination of: Depakote/Trileptal or Depakote/lithium SSRIs: Caused yeny even when on mood stabilizer Wellbutrin: Seems to cause manic symptoms even when on mood stabilizer Stimulant medication: Helpful and tolerated BuSpar: Likely helpful; may or may not have contributed to urinary retention Ketamine: Started infusions but treatment was discontinued Time spent discussing smoking cessation with patient: 3 to 10 minutes Status at Discharge Functional status at discharge: independent ambulation Overall status at discharge: patient is back to baseline Time Spent with Patient Time attestation: Total time spent providing and/or coordinating discharge services: Time spent: Greater than 30 minutes Discharge Plan Discharge Anticipated Discharge Date/Time: 08/29/22 14:00 Patient Disposition: Home, Self-Care Discharge Diagnosis: Bipolar disorder Type 1; OCD Referrals: Psych Prescriber: Venecia CHIANG) [Other] - 09/30/22 8:20 am (Telehealth ) Substance Abuse Counselor: Ludy De La O) [Other] - 1 Week (Ludy will call you later this week to schedule your next appointment) Zaina Jimenes MD [Primary Care Provider] - 1 Week (left msg to sched appt - please call to follow up with date and time ) Discharge Medications: New nicotine 14 mg/24 hr Patch 24 Hour 14 mg transdermal DAILY 28 Days Qty: 28 1RF Rx Instructions: remove at bedtime nicotine (polacrilex) 4 mg Lozenge 4 mg buccal Q2H PRN (Reason: Nicotine Cravings) 30 Days Qty: 108 1RF prazosin 1 mg Capsule 1 mg PO BEDTIME 30 Days Qty: 30 1RF Protocol: Hold for SBP< HOLD for SBP < : 90 gabapentin 600 mg tablet 600 mg PO TID 30 Days Qty: 90 1RF clonazepam 0.5 mg Tablet 0.5 mg PO BID PRN (Reason: Anxiety) 30 Days Qty: 60 0RF hydroxyzine HCl 50 mg Tablet 50 mg PO Q6H PRN (Reason: Anxiety) 30 Days Qty: 90 1RF lithium carbonate 300 mg Tablet Extended Release 600 mg PO BEDTIME 30 Days Qty: 60 0RF lamotrigine 25 mg Tablet 25 mg PO BEDTIME 9 Days Qty: 9 0RF lamotrigine [Subvenite] 25 mg tablet 25 mg PO BID 14 Days Qty: 28 0RF Rx Instructions: START ON 09/07/22 lamotrigine [Subvenite] 100 mg tablet 100 mg PO DAILY 30 Days Qty: 30 0RF Rx Instructions: START ON 09/21/22 olanzapine [Zyprexa] 20 mg tablet 10 mg PO BID 30 Days Qty: 15 1RF tamsulosin 0.4 mg capsule 0.4 mg PO BID 30 Days Qty: 60 0RF methylphenidate HCl [Concerta] 18 mg tablet extended release 24hr 18 mg PO DAILY 30 Days Qty: 30 0RF Rx Instructions: Partial Fill upon patient request. Changed quetiapine 25 mg tablet 25 mg PO BEDTIME 30 Days Qty: 30 1RF divalproex 500 mg tablet,delayed release (DR/EC) 1,000 mg PO BID 30 Days Qty: 120 1RF Discontinued gabapentin 400 mg capsule 1 cap PO TID lorazepam 1 mg tablet 1 tab PO BID PRN (Reason: Anxiety) bupropion HCl 150 mg tablet extended release 24 hr 1 tab PO QAM oxcarbazepine 600 mg tablet 1.5 tab PO BID Discharge Orders: Discharge Order (Routine); Ordered 08/29/22 Ordered By: Vipin Marcus Diet: Regular diet Activity on Discharge: As tolerated Stand Alone Forms: Patient Portal Discharge page, Community Support Other Ambulatory Orders: Blood Urea Nitrogen (Routine) Timeframe: [id number] Facility: [facility] - Location: Laboratory Ordered By: Vipin Marcus Creatinine (Routine) Timeframe: [id number] Facility: [facility] - Location: Laboratory Ordered By: Vipin Marcus [place] (Routine) Timeframe: [id number] Facility: [facility] - Location: Laboratory Ordered By: Vipin Marcus TSH reflex Free T4 (Routine) Timeframe: [id number] Facility: [facility] - Location: Laboratory Ordered By: Vipin Marcus Care Plan Goals: Maintain mood and safe behaviors Take medications as prescribed Continue to pursue sobriety Practice coping skills Continue with outpatient providers and reach out to them as needed Health Concerns: Mood stability and behaviors Plan of Treatment: Follow up with your PCP, psychiatric provider and other outpatient providers regarding above concerns Take medications as prescribed Assessment: Risk assessment at time of discharge:? Patient was interviewed prior to discharge and found to be fully oriented and without any SI or HI. Patient has insight and demonstrates good judgment in terms of wanting to pursue treatment. Patient is not in imminent risk of harm to self or others and has a safety plan that includes presenting to the closest ER or calling 911 if feeling unsafe.? Patient has been observed closely by nursing and unit staff throughout admission; patient has not engaged in any behaviors that suggest dangerousness to self or others and has demonstrated appropriate behaviors and impulse control Discharge Date/Time: 08/29/22 14:00
== END 2022-08-29 14:00 | disposition home or self-care (01) | DRG 753 ==
LOC: HO.ED 17:51 → HO.PM5 08-23 10:23
PROVIDERS: Clinical Nurse Specialist Psychiatric/Mental Health, Adult; Nurse Practitioner Family; Physician Assistant; Admitting Provider Psychiatry & Neurology Psychiatry; Emergency Provider Emergency Medicine; PCP Internal Medicine; Visit Provider Psychiatry & Neurology Psychiatry
DX: F31.9 Bipolar disorder, unspecified (principal); F10.11 Alcohol abuse, in remission; F17.210 Nicotine dependence, cigarettes, uncomplicated; R33.9 Retention of urine, unspecified; F42.9 Obsessive-compulsive disorder, unspecified; F43.12 Post-traumatic stress disorder, chronic; Z91.51 Personal history of suicidal behavior; Z20.822 Contact with and (suspected) exposure to COVID-19; Z79.899 Other long term (current) drug therapy
CPT/HCPCS: 36415; 80048; 80061; 80076; 80156; 80164; 80307; 81003; 82140; 82607; 82746; 83036; 83735; 84295; 84439; 84443; 85025; 87491; 87591; 87635; 93005; 99285

== ENCOUNTER 2023-04-21 20:46 | Inpatient (IN) | payer OTHER, SELFPAY ==
--- OUTSIDE RECORDS SUMMARY | 2023-04-21 20:49 | XMS_ITS | Continuity of Care Document ---
Author Name Unknown Organization [facility] Address [address] [place] [id number] Encounter [facility] ACCT R [id number] Date(s): 03/14/21 - 03/15/[address] [address]- Encounter Diagnosis Depression(Final) - 03/14/21 Discharge Disposition: A-D/C Home Attending Physician: Ben Sosa MD Admitting Physician: Ben Sosa MD Referring Physician: Not on Staff, Referring MD Allergies, Adverse Reactions, Alerts Substance Reaction Severity Status Haldol 1 restless legs Mild Active Fish Active 1Pt tolerates droperidol Immunizations Not Given Vaccine Date Status Refusal Reason influenza virus vaccine, inactivated 07/04/20 Not Given Patient Refuses influenza virus vaccine, inactivated 06/21/20 Not Given Patient Refuses tetanus/diphtheria/pertussis, acel(Tdap) 02/21/20 Not Given Patient Refuses Medications BuPROPion (Eqv-Wellbutrin SR) 150 mg/12 hours oral tablet, extended release 0 Refills, Maintenance, 03/14/21 18:22:00 EDT, Partial fill upon patient request if the prescription is for a schedule II opioid drug. Start Date: 03/14/21 Status: Ordered Depakote 500 mg oral enteric coated tablet 2.5 tablet = 1,250 mg, By Mouth, Daily in AM, # 35 tablet, 0 Refills, Maintenance, 08/19/20 12:08:00 EST, [id number], Partial fill upon patient request, 175, cm, 07/21/20 8:16:00 EDT, Height,94.7, kg, 08/18/20 13:01:00 EST, Dry Weight Start Date: 08/19/20 Stop Date: 09/02/20 Status: Ordered divalproex sodium 500 mg oral enteric coated tablet 4 tablet = 2,000 mg, By Mouth, Daily at bedtime, take 2000 mg (=4 tablets) daily at bedtime, # 56 tablet, 0 Refills, Maintenance, 08/19/20 12:09:00 EST, Tablet, [id number], 175, cm, 07/21/20 8:16:00 EDT, Height, 94.7, kg, 08/18/20 13:01:00 EST... Start Date: 08/19/20 Stop Date: 09/02/20 Status: Ordered Effexor XR 150 mg oral capsule, extended release 150 mg, 1, capsule, By Mouth, Daily, # 14 capsule, Refills 0, Tot. Refills 0, Maintenance, 08/19/2012:13:00 EST, Route to Pharmacy Electronically, [id number], Partial fill upon patient request, 175, cm, 07/21/20 8:16:00 EDT, Height, 94.7, kg,... Start Date: 08/19/20 Stop Date: 09/02/20 Status: Ordered gabapentin 400 mg oral capsule Refills 0, Maintenance, 03/14/21 18:22:00 EDT, Partial fill upon patient request if the prescription is for a schedule II opioid drug. Start Date: 03/14/21 Status: Ordered gabapentin 400 mg oral capsule 400 mg, Capsule, By Mouth, STAT, 03/14/21 19:55:00 EDT Start Date: 03/14/21 Stop Date: 03/14/21 Status: Completed melatonin 3 mg oral tablet 2 tablet = 6 mg, By Mouth, Daily at bedtime, # 28 tablet, 0 Refills, Maintenance, 08/19/20 12:10:00EST, Tablet, [id number], Partial fill upon patient request, 175, cm, 07/21/20 8:16:00 EDT, Height, 94.7, kg, 08/18/20 13:01:00 EST, Dry Weight Start Date: 08/19/20 Stop Date: 09/02/20 Status: Ordered Melatonin 3 mg oral tablet 1 tablet = 3 mg, By Mouth, Daily at bedtime, PRN for insomnia, # 60 tablet, 0 Refills, Maintenance,03/14/21 18:22:00 EDT, Tablet, Partial fill upon patient request if the prescription is for a schedule II opioid drug. Start Date: 03/14/21 Status: Ordered methylphenidate 20 mg/8 hr oral tablet, extended release 20 mg, 1, tablet, By Mouth, Daily in AM, # 14 tablet, Refills 0, Tot. Refills 0, Maintenance, 08/19/20 12:12:00 EST, Route to Pharmacy Electronically, [facility]/pharmacy #[id number], Partial fill upon patient request, 175, cm, 07/21/20 8:16:00 EDT, Height, 94.7,... Start Date: 08/19/20 Stop Date: 09/02/20 Status: Ordered Neurontin 400 mg oral capsule 400 mg, 1, capsule, By Mouth, 3 times a day, # 42 capsule, Refills 0, Tot. Refills 0, Maintenance, 08/19/20 12:13:00 EST, Route to Pharmacy Electronically, [id number], Partial fill upon patient request, 175, cm, 07/21/20 8:16:00 EDT, Height, 9... Start Date: 08/19/20 Stop Date: 09/02/20 Status: Ordered prazosin 1 mg oral capsule 2 mg, 2, capsule, By Mouth, Daily at bedtime, # 28 capsule, Refills 0, Tot. Refills 0, Maintenance,08/19/20 12:12:00 EST, Route to Pharmacy Electronically, [facility]/pharm[facility] #[id number], Partial fill upon patient request, 175, cm, 07/21/20 8:16:00 EDT, Height,... Start Date: 08/19/20 Stop Date: 09/02/20 Status: Ordered SEROquel 200 mg oral tablet 200 mg, 1, tablet, By Mouth, Daily at bedtime, # 14 tablet, Refills 0, Tot. Refills 0, Maintenance,08/19/20 12:13:00 EST, Route to Pharmacy Electronically, [facility] #[id number], Partial fill upon patient request, 175, cm, 07/21/20 8:16:00 EDT, Height,... Start Date: 08/19/20 Stop Date: 09/02/20 Status: Ordered tamsulosin 0.4 mg oral capsule 0.8 mg, 2, capsule, By Mouth, Daily, # 28 capsule, Refills 0, Tot. Refills 0, Maintenance, 08/19/2012:13:00 EST, Route to Pharmacy Electronically, [facility]/pharm[facility] #[id number], Partial fill upon patient request, 175, cm, 07/21/20 8:16:00 EDT, Height, 94.7, kg,... Start Date: 08/19/20 Stop Date: 09/02/20 Status: Ordered Vital Signs Most recent to oldest [Reference Range]: 1 2 3 Oxygen Saturation [94-100 %] 98 % (03/15/21 7:37 AM) 96 % (03/14/21 11:00 PM) 98 % (03/14/21 6:48 PM) Pulse Rate [55-90 bpm] 87 bpm (03/15/21 7:37 AM) 88 bpm (03/14/21 11:00 PM) 98 bpm *H* (03/14/21 6:48 PM) Blood Pressure [90-138/55-84 mm Hg] 135/81mm Hg (03/15/21 7:37 AM) 138/80mm Hg (03/14/21 11:00 PM) 151/83mm Hg *H* (03/14/21 6:48 PM) Respiratory Rate [16-30 br/min] 16 br/min (03/15/21 7:37 AM) 18 br/min (03/14/21 11:00 PM) 19 br/min (03/14/21 9:01 PM) Temperature [96.8-100.4 DegF] 97.7 DegF (03/15/21 7:37 AM) 99.2 DegF (03/14/21 6:48 PM) Mode of Delivery (Oxygen) Room air (03/15/21 7:37 AM) Room air (03/14/21 11:00 PM) Blood pressure sites Arm, right (03/15/21 7:37 AM) Temperature Route Oral (03/15/21 7:37 AM) Temporal (03/14/21 6:48 PM) Social History Social History Type Response Smoking Status 10 or more cigarette s (1/2 pack or more)/day in last 30 days; Type: Cigarettes; Type: Vape; Other: Reports smoking ~ 1/2 ppd of cigarettes. Endorses vaping 17/04 ; entered on: 06/20/20 Sex
--- OUTSIDE RECORDS SUMMARY | 2023-04-21 20:49 | XMS_ITS | Continuity of Care Document ---
Author Name Unknown Organization [facility] ter Address [address] [place] [address]- Care Team Providers Care Sand Mill Operator Core Sand Name Role Phone Fran HAN, Ben Primary Care Physician Encounter [facility] Date(s): 01/29/23 - 01/29/[address] [address]- Encounter Diagnosis Nausea & vomiting(Final) - 01/29/23 Discharge Disposition: A-D/C Home Attending Physician: Vivek Marc MD Admitting Physician: Vivek Marc MD Referring Physician: Not on Staff, Referring MD Allergies, Adverse Reactions, Alerts Substance Reaction Severity Status Haldol 1 restless legs Mild Active Fish Active 1Pt tolerates droperidol Immunizations Given and Recorded Vaccine Date Status Refusal Reason SARS-CoV-2 (COVID-19) mRNA-1273 vaccine 05/18/21 G iven Meningococcal Conjugate Vaccine 03/03/16 Recorded Meningococcal Conjugate Vaccine 05/28/10 Recorded Human Papillomavirus Vaccine 03/03/16 Recorded Human Papillomavirus Vaccine 03/25/14 Recorded influenza virus vaccine, live 08/19/11 Recorded tetanus/diphtheria/pertussis, acel(Tdap) 05/28/10 Recorded influenza virus vaccine, inactivated 08/25/08 Gonzalez rded Varicella Virus Vaccine 07/26/07 Recorded Varicella Virus Vaccine 11/07/00 Recorded Poliovirus Vaccine, Inactivated 06/01/04 Recorded Poliovirus Vaccine, Inactivated 03/05/02 Recorded Poliovirus Vaccine, Inactivated 12/22/00 Recorded Poliovirus Vaccine, Inactivated 10/19/00 Recorded Measles/Mumps/Rubella Virus Vaccine 06/01/04 Recor ded Measles/Mumps/Rubella Virus Vaccine 11/07/00 Recor ded diphtheria/tetanus/pertussis, acel(DTaP) 06/01/04 Recorded diphtheria/tetanus/pertussis, acel(DTaP) 03/05/02 Recorded diphtheria/tetanus/pertussis, acel(DTaP) 02/13/01 Recorded diphtheria/tetanus/pertussis, acel(DTaP) 12/22/00 Recorded diphtheria/tetanus/pertussis, acel(DTaP) 10/19/00 Recorded hepatitis B pediatric vaccine 03/05/02 Recorded hepatitis B pediatric vaccine 12/22/00 Recorded hepatitis B pediatric vaccine 11/07/00 Recorded pneumococcal 7-valent vaccine 11/07/00 Recorded Not Given Vaccine Date Status Refusal Reason tetanus/diphtheria/pertussis, acel(Tdap) 02/21/20 Not Given Patient Refuses influenza virus vaccine, inactivated 07/04/20 Not Given Patient Refuses influenza virus vaccine, inactivated 06/21/20 Not Given Patient Refuses Medications mirtazapine 15 mg oral tablet 1 tablet = 15 mg, By Mouth, Daily at bedtime, # 30 tablet, 1 Refills, Maintenance, 11/25/22 12:37:00 EST, Tablet, [facility]/pharmacy #[id number], Partial fill upon patient request if the prescription is for a schedule II opioid drug., 176, cm, 11/25/22 11:41:00 E... Start Date: 11/25/22 Status: Ordered QUEtiapine 100 mg oral tablet 100 mg, 1, tablet, By Mouth, Daily, # 30 tablet, Refills 5, Tot. Refills 5, Maintenance, 11/25/22 12:16:00 EST, Route to Pharmacy Electronically, [facility]/pharmacy #[id number], Partial fill upon patient requestif the prescription is for a schedule II opioid terri... Start Date: 11/25/22 Stop Date: 05/24/23 Status: Ordered Problem List Condition Confirmation Course Effective Dates Status Health St atus Informant Bipolar disease, chronic Confirmed Active Chronic alcohol use Confirmed Active Erectile dysfunction Confirmed Active Dyspepsia Confirmed Active Anxiety and depression Confirmed Active PTSD (post-traumatic stress disorder) Confirmed Active Social History Social History Type Response Smoking Status 5-9 cigarettes (betw een 1/4 to 1/2 pack)/day in last 30 days; Other: quit 04/06/2021; entered on: 11/25/22 Sex Patient Care team information Care Team Personnel Name: Cinthya Lacy Position: [facility] Supv Member Role: Primary Care Nurse Name: Steffi Hahn RN Position: [facility] RN Member Role: Primary Care Nurse Name: Essie Torres RN Position: [facility] OB RN Member Role: Primary Care Nurse Name: Ben Peters NP Position: [facility] PCO Associate Professional Member Role: PCP Address: Address: [address] [place] [address] Care [place], [place] - Name: Emilia Lopez RN Position: [facility] RN Member Role: Primary Care Nurse Name: Tiffany Estrada RN Position: [facility] RN Member Role: Primary Care Nurse Name: Layne Cooper RN Position: [facility] RN Supv Member Role: Primary Care Nurse Name: Greta Cam RN Position: [facility] RN Member Role: Primary Care Nurse Name: Jo Diaz RN Position: [facility] RN Supv Member Role: Primary Care Nurse Name: Abigail Escobar RN Position: [facility] RN Member Role: Primary Care Nurse Name: Savanna Eubanks RN Position: [facility] RN Member Role: Primary Care Nurse Name: Shereen Patiño RN Position: [facility] RN Member Role: Primary Care Nurse Name: Ania Andre RN Position: [facility] RN Member Role: Primary Care Nurse Name: Kb Mendoza RN Position: [facility] RN Member Role: Primary Care Nurse Name: Chelsea Hernandez RN Position: [facility] RN Member Role: Primary Care Nurse Name: Sissy Connell RN Position: [facility] RN Member Role: Primary Care Nurse Name: Danis Whittaker MD Position: [facility] Psychiatry MD Member Role: Lifetime Consulting Physician Address: Address: [address] [place] [address]- [place] Name: Zhanna Mckinley Position: [facility] Associate Professional Member Role: ED Physician Professor Of Surgery Address: Address: [address] [place] [address]- [place] Name: Vivek Marc MD Position: [facility] ED Medicine MD Member Role: Admitting Physician Address: Address: [address] [place] [address]- Care Team Related Persons Name: LUIS CARLOS DUBOSE Address: home [address] [address] Name: MARGO HAWKINS Address: home [address] [place] [address] Name: RAY HAWKINS Address: home [address] [place] [address] Name: RAY HAWKINS Address: home [address] [place] [address] Name: PT STATES NO ONE, NO ONE
--- OUTSIDE RECORDS SUMMARY | 2023-04-21 20:49 | XMS_ITS | Continuity of Care Document ---
Author Name Unknown Organization [facility] ter Address [address] [place] [address]- Care Team Providers Care Product Safety Head Name Role Phone Not on Staff, PCP Primary Care Physician Unavail able Encounter [facility] Date(s): 06/20/20 - 07/03/[address] [address] [facility] Encounter Diagnosis Intentional overdose of drug in tablet form(Final) - 06/20/20 Suicide attempt(Final) - 06/20/20 Discharge Disposition: Transfer to Psych Facility Attending Physician: Regla Ramos MD Admitting Physician: Mehnaz Curiel MD Referring Physician: Not on Staff, Referring MD Allergies, Adverse Reactions, Alerts Substance Reaction Severity Status NKA Active Immunizations Not Given Vaccine Date Status Refusal Reason influenza virus vaccine, inactivated 06/21/20 Not Given Patient Refuses tetanus/diphtheria/pertussis, acel(Tdap) 02/21/20 Not Given Patient Refuses Medications buPROPion 100 mg/12 hours (SR) oral tablet, extended release TAKE 1 TABLET BY MOUTH EVERY MORNING Start Date: 07/03/20 Status: Ordered gabapentin 400 mg oral capsule TAKE 1 CAPSULE BY MOUTH TWICE A DAY Start Date: 07/03/20 Status: Ordered hydrOXYzine pamoate 50 mg oral capsule TAKE 1 CAPSULE (50 MG) BY ORAL ROUTE AT BED TIME IF NEEDED. Start Date: 07/03/20 Status: Ordered QUEtiapine 100 mg oral tablet TAKE 1 TABLET BY MOUTH DAILY AT BEDTIME Start Date: 07/03/20 Status: Ordered venlafaxine 75 mg oral capsule, extended release 1 capsule = 75 mg, By Mouth, Daily, # 30 capsule, 0 Refills, Maintenance, 06/24/20 22:38:00 EDT, ERCapsule Start Date: 06/24/20 Status: Ordered Vital Signs Most recent to oldest [Reference Range]: 1 2 3 Height 175 cm (07/01/20 8:20 PM) 175 cm (06/30/20 8:07 PM) 175 cm (06/28/20 8:23 PM) Weight 91.2 kg (06/20/20 6:58 AM) Oxygen Saturation [94-100 %] 98 % (07/03/20 9:00 AM) 94 % (07/02/20 8:00 PM) 97 % (07/02/20 3:00 PM) Pulse Rate [55-90 bpm] 106 bpm *H* (07/03/20 9:00 AM) 105 bpm *H* (07/02/20 8:00 PM) 91 bpm *H* (07/02/20 3:00 PM) Body Mass Index [18.5-24.99] 29.78 *H* (06/20/20 6:58 AM) Blood Pressure [90-138/55-84 mm Hg] 157/80mm Hg *H* (07/03/20 9:00 AM) 149/89mm Hg *H* (07/02/20 8:00 PM) 116/96mm Hg (07/02/20 3:00 PM) Respiratory Rate [16-30 br/min] 18 br/min (07/03/20 9:00 AM) 18 br/min (07/02/20 8:00 PM) 18 br/min (07/02/20 3:00 PM) Temperature [96.8-100.4 DegF] 97.6 DegF (07/03/20 9:00 AM) 98.7 DegF (07/02/20 8:00 PM) 98.3 DegF (07/02/20 3:00 PM) Liters per Minute 0 L/min (07/02/20 12:12 AM) 0 L/min (07/01/20 4:00 PM) 0 L/min (06/30/20 12:38 PM) Mode of Delivery (Oxygen) Room air (07/03/20 9:00 AM) Room air (07/02/20 8:00 PM) Room air (07/02/20 3:00 PM) Blood pressure sites Arm, right (07/03/20 9:00 AM) Arm, right (07/02/20 8:00 PM) Arm, right (07/02/20 3:00 PM) Temperature Route Oral (07/03/20 9:00 AM) Temporal (07/02/20 8:00 PM) Temporal (07/02/20 3:00 PM) Dry Weight 91.2 kg (06/20/20 6:58 AM) Mobility assistance Independent (06/20/20 8:00 AM) Social History Social History Type Response Smoking Status 10 or more cigarette s (1/2 pack or more)/day in last 30 days; Type: Cigarettes; Type: Vape; Other: Reports smoking ~ 1/2 ppd of cigarettes. Endorses vaping / ; entered on: 06/20/20 Sex
--- OUTSIDE RECORDS SUMMARY | 2023-04-21 20:49 | XMS_ITS | Continuity of Care Document ---
Author Name Unknown Organization [facility] ter Address [address] [place] [id number]- Care Team Providers Care Plate Shop Helper Name Role Phone Jovani VEE, Jamari Ozuna Primary Care Physician [phone] Encounter [facility] Date(s): 03/05/21 - 03/11/[address] [address]- Encounter Diagnosis Suicidal ideation(Final) - 03/06/21 ADHD(Final) - 03/06/21 PTSD (post-traumatic stress disorder)(Final) - 03/06/21 Bipolar 1 disorder(Final) - 03/06/21 Discharge Disposition: A-D/C Home Attending Physician: Chrissy Ames MD Admitting Physician: Chrissy Ames MD Referring Physician: Not on Staff, Referring MD Allergies, Adverse Reactions, Alerts Substance Reaction Severity Status Haldol 1 restless legs Mild Active Fish Active 1Pt tolerates droperidol Immunizations Not Given Vaccine Date Status Refusal Reason influenza virus vaccine, inactivated 07/04/20 Not Given Patient Refuses influenza virus vaccine, inactivated 06/21/20 Not Given Patient Refuses tetanus/diphtheria/pertussis, acel(Tdap) 02/21/20 Not Given Patient Refuses Medications Depakote 500 mg oral enteric coated tablet 2.5 tablet = 1,250 mg, By Mouth, Daily in AM, # 35 tablet, 0 Refills, Maintenance, 08/19/20 12:08:00 EST, [facility]/pharmacy #[id number], Partial fill upon patient request, 175, cm, 07/21/20 8:16:00 EDT, Height,94.7, kg, 08/18/20 13:01:00 EST, Dry Weight Start Date: 08/19/20 Stop Date: 09/02/20 Status: Ordered divalproex sodium 500 mg oral enteric coated tablet 4 tablet = 2,000 mg, By Mouth, Daily at bedtime, take 2000 mg (=4 tablets) daily at bedtime, # 56 tablet, 0 Refills, Maintenance, 08/19/20 12:09:00 EST, Tablet, [facility]/pharmacy #[id number], 175, cm, 07/21/20 8:16:00 EDT, Height, 94.7, kg, 08/18/20 13:01:00 EST... Start Date: 08/19/20 Stop Date: 09/02/20 Status: Ordered Effexor XR 150 mg oral capsule, extended release 150 mg, 1, capsule, By Mouth, Daily, # 14 capsule, Refills 0, Tot. Refills 0, Maintenance, 08/19/2012:13:00 EST, Route to Pharmacy Electronically, [facility]/pharmacy #[id number], Partial fill upon patient request, 175, cm, 07/21/20 8:16:00 EDT, Height, 94.7, kg,... Start Date: 08/19/20 Stop Date: 09/02/20 Status: Ordered melatonin 3 mg oral tablet 2 tablet = 6 mg, By Mouth, Daily at bedtime, # 28 tablet, 0 Refills, Maintenance, 08/19/20 12:10:00EST, Tablet, [facility]/pharmacy #[id number], Partial fill upon patient request, 175, cm, 07/21/20 8:16:00 EDT, Height, 94.7, kg, 08/18/20 13:01:00 EST, Dry Weight Start Date: 08/19/20 Stop Date: 09/02/20 Status: Ordered methylphenidate 20 mg/8 hr oral tablet, extended release 20 mg, 1, tablet, By Mouth, Daily in AM, # 14 tablet, Refills 0, Tot. Refills 0, Maintenance, 08/19/20 12:12:00 EST, Route to Pharmacy Electronically, [facility]/pharmacy #[id number], Partial fill upon patient request, 175, cm, 07/21/20 8:16:00 EDT, Height, 94.7,... Start Date: 08/19/20 Stop Date: 09/02/20 Status: Ordered Neurontin 400 mg oral capsule 400 mg, 1, capsule, By Mouth, 3 times a day, # 42 capsule, Refills 0, Tot. Refills 0, Maintenance, 08/19/20 12:13:00 EST, Route to Pharmacy Electronically, [facility]/pharmacy #[id number], Partial fill upon patient request, 175, cm, 07/21/20 8:16:00 EDT, Height, 9... Start Date: 08/19/20 Stop Date: 09/02/20 Status: Ordered Neurontin 400 mg oral capsule 400 mg, Capsule, By Mouth, 03/10/21 21:00:00 EDT Start Date: 03/10/21 Stop Date: 03/10/21 Status: Completed Neurontin 400 mg oral capsule 400 mg, Capsule, By Mouth, 03/11/21 9:00:00 EDT Start Date: 03/11/21 Stop Date: 03/11/21 Status: Completed prazosin 1 mg oral capsule 2 mg, 2, capsule, By Mouth, Daily at bedtime, # 28 capsule, Refills 0, Tot. Refills 0, Maintenance,08/19/20 12:12:00 EST, Route to Pharmacy Electronically, [facility]/pharmacy #[id number], Partial fill upon patient request, 175, cm, 07/21/20 8:16:00 EDT, Height,... Start Date: 08/19/20 Stop Date: 09/02/20 Status: Ordered prazosin 1 mg oral capsule 2 mg, Capsule, By Mouth, 03/10/21 21:00:00 EDT Start Date: 03/10/21 Stop Date: 03/10/21 Status: Completed SEROquel 200 mg oral tablet 200 mg, 1, tablet, By Mouth, Daily at bedtime, # 14 tablet, Refills 0, Tot. Refills 0, Maintenance,08/19/20 12:13:00 EST, Route to Pharmacy Electronically, [facility]/pharmacy #[id number], Partial fill upon patient request, 175, cm, 07/21/20 8:16:00 EDT, Height,... Start Date: 08/19/20 Stop Date: 09/02/20 Status: Ordered tamsulosin 0.4 mg oral capsule 0.8 mg, 2, capsule, By Mouth, Daily, # 28 capsule, Refills 0, Tot. Refills 0, Maintenance, 08/19/2012:13:00 EST, Route to Pharmacy Electronically, [facility]/pharmacy #[id number], Partial fill upon patient request, 175, cm, 07/21/20 8:16:00 EDT, Height, 94.7, kg,... Start Date: 08/19/20 Stop Date: 09/02/20 Status: Ordered Vital Signs Most recent to oldest [Reference Range]: 1 2 3 Oxygen Saturation [94-100 %] 93 % *L* (03/11/21 4:17 AM) 100 % (03/10/21 8:39 PM) 100 % (03/10/21 4:22 PM) Pulse Rate [55-90 bpm] 122 bpm *H* (03/11/21 4:17 AM) 120 bpm *H* (03/10/21 8:39 PM) 112 bpm *H* (03/10/21 4:22 PM) Blood Pressure [90-138/55-84 mm Hg] 156/88mm Hg *H* (03/11/21 4:17 AM) 151/92mm Hg *H* (03/10/21 8:39 PM) 146/94mm Hg *H* (03/10/21 4:22 PM) Respiratory Rate [16-30 br/min] 16 br/min (03/11/21 9:54 AM) 18 br/min (03/11/21 4:17 AM) 18 br/min (03/10/21 8:39 PM) Temperature [96.8-100.4 DegF] 97.7 DegF (03/10/21 4:22 PM) 97.6 DegF (03/09/21 8:20 PM) 98.6 DegF (03/09/21 6:54 AM) Mode of Delivery (Oxygen) Room air (03/11/21 4:17 AM) Room air (03/10/21 8:39 PM) Room air (03/10/21 4:22 PM) Blood pressure sites Arm, right (03/11/21 4:17 AM) Arm, right (03/10/21 4:22 PM) Arm, right (03/09/21 8:20 PM) Temperature Route Oral (03/10/21 4:22 PM) Oral (03/09/21 8:20 PM) Oral (03/09/21 6:54 AM) Social History Social History Type Response Smoking Status 10 or more cigarette s (1/2 pack or more)/day in last 30 days; Type: Cigarettes; Type: Vape; Other: Reports smoking ~ 1/2 ppd of cigarettes. Endorses vaping 17/04 ; entered on: 06/20/20 Sex
--- OUTSIDE RECORDS SUMMARY | 2023-04-21 20:50 | XMS_ITS | Continuity of Care Document ---
Author Name Unknown Organization [facility] Address [address] [place] [address]- Care Team Providers Care Marble Cutter Operator Name Role Phone Jovani VEE, Jamari Ozuna Primary Care Physician Encounter [facility] Date(s): 02/28/21 - 03/02/[address] [address]- Encounter Diagnosis Psychiatric problem(Final) - 03/01/21 Psychiatric problem(Final) - 03/01/21 Discharge Disposition: A-D/C Home Attending Physician: Ang Jones MD Admitting Physician: Ang Jones MD Referring Physician: Not on Staff, Referring MD Allergies, Adverse Reactions, Alerts Substance Reaction Severity Status Fish Active Immunizations Not Given Vaccine Date Status [...] 0 Refills, Maintenance, 08/19/20 12:09:00 EST, Tablet, [facility]/pharmacy #[id number], 175, cm, 07/21/20 8:16:00 EDT, Height, [...] 1 2 3 Oxygen Saturation [94-100 %] 100 % (03/02/21 3:28 PM) 99 % (03/02/21 6:44 AM) 98 % (03/01/21 8:03 PM) Pulse Rate [55-90 bpm] 97 bpm *H* (03/02/21 3:28 PM) 74 bpm (03/02/21 6:44 AM) 62 bpm (03/01/21 8:03 PM) Blood Pressure [90-138/55-84 mm Hg] 128/69mm Hg (03/02/21 3:28 PM) 121/63mm Hg (03/02/21 6:44 AM) 132/52mm Hg (03/01/21 8:03 PM) Respiratory Rate [16-30 br/min] 18 br/min (03/02/21 3:28 PM) 18 br/min (03/02/21 6:44 AM) 16 br/min (03/01/21 8:03 PM) Temperature [96.8-100.4 DegF] 97.7 DegF (03/02/21 3:28 PM) 97.8 DegF (03/02/21 6:44 AM) 98.1 DegF (03/01/21 8:03 PM) Mode of Delivery (Oxygen) Room air (03/02/21 3:28 PM) Room air (03/02/21 6:44 AM) Room air (03/01/21 8:03 PM) Blood pressure sites Arm, right (03/02/21 3:28 PM) Temperature Route Oral (03/02/21 3:28 PM) Oral (03/02/21 6:44 AM) Oral (03/01/21 8:03 PM) Social History Social History Type Response Smoking Status 10 or more cigarette s (1/2 pack or more)/day in last 30 days; Type: Cigarettes; Type: Vape; Other: Reports smoking ~ 1/2 ppd of cigarettes. Endorses vaping 17/04 ; entered on: 06/20/20 Sex
--- OUTSIDE RECORDS SUMMARY | 2023-04-21 20:50 | XMS_ITS | Continuity of Care Document ---
Author Name Unknown Organization [facility] ter Address [address] [place] [id number]- Care Team Providers Care Nursing Clinical Director Name Role Phone Ben Peters NP Primary Care Physician Encounter [facility] [place](s[place] 04/12/23 - 04/13/[address] [address]- Encounter Diagnosis Suicidal ideation(Final) - 04/12/23 Bipolar disorder(Final) - 04/13/23 Discharge Disposition: Transfer to Psych Facility Attending Physician: Ana Maria Franklin MD Admitting Physician: Ana Maria Franklin MD Referring Physician: Not on Staff, Referring MD Allergies, Adverse Reactions, Alerts Substance Reaction Severity Status Haldol 1 restless legs Mild Active Fish Active 1Pt tolerates droperidol Immunizations Given and Recorded Vaccine Date Status Refusal Reason SARS-CoV-2 (COVID-19) [id number] vaccine 05/18/21 G iven Meningococcal Conjugate Vaccine [...] inactivated 06/21/20 Not Given Patient Refuses Medications famotidine 20 mg oral tablet 20 mg, 1, tablet, By Mouth, 2 times a day, avoid eating and drinking for 10 minutes after each dose, # 6 tablet, Refills 0, Tot. Refills 0, Maintenance, 01/30/23 6:01:00 EDT, Route to Pharmacy Electronically, [facility]/pharmacy #[id number], Partial fill upon paty... Start Date: 01/30/23 Stop Date: 02/02/23 Status: Ordered mirtazapine 15 mg oral tablet 1 tablet = 15 mg, By Mouth, Daily at bedtime, # 30 tablet, 1 Refills, Maintenance, 11/25/22 12:37:00 EST, Tablet, [facility]/pharmacy #[id number], Partial fill upon patient request if the prescription is for a schedule II opioid drug., 176, cm, 11/25/22 11:41:00 E... Start Date: 11/25/22 Status: Ordered QUEtiapine 100 mg oral tablet 100 mg, 1, tablet, By Mouth, Daily, # 30 tablet, Refills 5, Tot. Refills 5, Maintenance, 11/25/22 12:16:00 EST, Route to Pharmacy Electronically, [facility]/pharmacy #[id number], Partial fill upon patient requestif the prescription is for a schedule II opioid terri... Start Date: 11/25/22 Stop Date: 05/24/23 Status: Ordered Problem List Condition Confirmation Course Effective Dates Status Health St atus Informant Bipolar disease, chronic Confirmed Active Chronic alcohol use Confirmed Active Erectile dysfunction Confirmed Active Dyspepsia Confirmed Active Anxiety and depression Confirmed Active PTSD (post-traumatic stress disorder) Confirmed Active Vital Signs Most recent to oldest [Reference Range]: 1 2 3 Height 175 cm (04/13/23 8:09 AM) 175 cm (04/12/23 4:41 PM) Oxygen Saturation [94-100 %] 99 % (04/13/23 8:09 AM) 98 % (04/13/23 1:14 AM) 97 % (04/12/23 9:41 PM) Pulse Rate [55-90 bpm] 71 bpm (04/13/23 8:09 AM) 87 bpm (04/13/23 1:14 AM) 86 bpm (04/12/23 9:41 PM) Blood Pressure [90-138/55-84 mm Hg] 117/68mm Hg (04/13/23 8:09 AM) 143/76mm Hg *H* (04/13/23 1:14 AM) 121/84mm Hg (04/12/23 7:29 PM) Respiratory Rate [16-30 br/min] 16 br/min (04/13/23 8:09 AM) 16 br/min (04/13/23 1:14 AM) 16 br/min (04/12/23 9:41 PM) Temperature [96.8-100.4 DegF] 97.8 DegF (04/13/23 8:09 AM) 98.1 DegF (04/13/23 1:14 AM) 97.8 DegF (04/12/23 7:29 PM) Liters per Minute 2 L/min (04/12/23 6:18 PM) Mode of Delivery (Oxygen) Room air (04/13/23 8:09 AM) Room air (04/13/23 1:14 AM) Room air (04/12/23 9:41 PM) Blood pressure sites Arm, right (04/13/23 8:09 AM) Arm, left (04/13/23 1:14 AM) Arm, left (04/12/23 7:29 PM) Temperature Route Oral (04/13/23 8:09 AM) Oral (04/13/23 1:14 AM) Axillary (04/12/23 7:29 PM) Dry Weight 92.1 kg (04/13/23 8:09 AM) 92.1 kg (04/12/23 4:41 PM) Weight Obtained Via Patient/family state d (04/12/23 4:41 PM) Dry Weight Obtained Via Standing scale (04/12/23 4:41 PM) Social History Social History Type Response Smoking Status 5-9 cigarettes (betw een 1/4 to 1/2 pack)/day in last 30 days; Other: quit 04/06/2021; entered on: 11/25/22 Sex Hospital Progress note * Event Display: Progress Note Hospital Authored Date: Patient Care team information Care Team Personnel Name: Cinthya Lacy Position: [facility] RN Supv Member Role: Primary Care Nurse Name: Steffi Hahn RN Position: [facility] RN Member Role: Primary Care Nurse Name: Essie Torres RN Position: [facility] OB RN Member Role: Primary Care Nurse Name: Ben Peters NP Position: [facility] PCO Associate Professional Member Role: PCP Address: Address: [address] [place] [address]- Name: Emilia Lopez RN Position: [facility] RN Member Role: Primary Care Nurse Name: Tiffany Estrada RN Position: [facility] RN Member Role: Primary Care Nurse Name: Layne Cooper RN Position: [facility] RN Supv Member Role: Primary Care Nurse Name: Greta Cam RN Position: [facility] RN Member Role: Primary Care Nurse Name: Jo Diaz RN Position: [facility] RN Supv Member Role: Primary Care Nurse Name: Abigail Escobar RN Position: [facility] RN Member Role: Primary Care Nurse Name: Savanna Eubanks RN Position: [facility] RN Member Role: Primary Care Nurse Name: Shereen Patiño RN Position: [facility] RN Member Role: Primary Care Nurse Name: Ania Andre RN Position: [facility] RN Member Role: Primary Care Nurse Name: Kb Mendoza RN Position: [facility] RN Member Role: Primary Care Nurse Name: Sissy Connell RN Position: [facility] RN Member Role: Primary Care Nurse Name: Danis Whittaker MD Position: [facility] Physician - Behavioral Health Member Role: Lifetime Consulting Physician Address: Address: [address] [place] [address]- Name: *[facility], ED Attending Position: [facility] ED Attendings Patient Name: Ana Maria Franklin MD Position: [facility] ED Medicine MD Member Role: Admitting Physician Address: Address: [address] [place] [address] [place] [address]- Name: Joe Haney Position: [facility] ED TA [facility] Member Role: Line Person Care Team Related Persons Name: LUIS CARLOS DUBOSE Address: home [address] [place] [address] Name: MARGO HAWKINS Address: [address] [place] [address] Name: RAY HAWKINS Address: [address] [place] [address] Name: RAY HAWKINS Address: [address] [place] [address] Name: PT STATES NO ONE, NO ONE
--- OUTSIDE RECORDS SUMMARY | 2023-04-21 20:50 | XMS_ITS | Continuity of Care Document ---
Author Name Unknown Organization [facility] ter Address [address] [place] [address]- Care Team Providers Care Mission Coordinator Name Role Phone Not on Staff, PCP Primary Care Physician Unavail able Encounter [facility] [place] Date(s): 06/07/20 - 06/07/[address] [address]- [facility] Encounter Diagnosis Zoraida(Final) - 06/07/20 Discharge Disposition: A-D/C Home Attending Physician: Eleanor Callaway MD Admitting Physician: Eleanor Callaway MD Referring Physician: Not on Staff, Referring MD Allergies, Adverse Reactions, Alerts Substance Reaction Severity Status NKA Active Immunizations Not Given Vaccine Date Status Refusal Reason tetanus/diphtheria/pertussis, acel(Tdap) 02/21/20 Not Given Patient Refuses Medications Adderall By Mouth, 2 times a day, 0 Refills, Maintenance, 08/24/16 14:39:24 Start Date: 08/24/16 Status: Ordered albuterol-ipratropium CFC free 100 mcg-20 mcg/inh inhalation aerosol 1 puffs, Inhalation, 4 times a day, # 4 Gm, 0 Refills, Maintenance, 08/24/16 14:38:49, Aerosol Start Date: 08/24/16 Status: Ordered buPROPion 100 mg/12 hours (SR) oral tablet, extended release 1 tablet = 100 mg, By Mouth, 2 times a day, # 60 tablet, 0 Refills, Maintenance, 06/07/20 4:55:00 EDT, ER Tablet Start Date: 06/07/20 Status: Ordered busPIRone 10 mg oral tablet 10 mg, 1, tablet, By Mouth, 3 times a day, # 270 tablet, Refills 0, Maintenance, 02/21/20 22:06:00 EDT Start Date: 02/21/20 Status: Ordered Effexor By Mouth, 0 Refills, Maintenance, 08/24/16 14:39:08 Start Date: 08/24/16 Status: Ordered gabapentin 300 mg oral capsule 300 mg, 1, capsule, By Mouth, 3 times a day, # 270 capsule, Refills 0, Maintenance, 06/07/20 4:55:00 EDT Start Date: 06/07/20 Status: Ordered hydrOXYzine pamoate 50 mg oral capsule 1 capsule = 50 mg, By Mouth, 4 times a day, PRN for anxiety, # 40 capsule, 0 Refills, Maintenance, 06/07/20 4:55:00 EDT, Capsule Start Date: 06/07/20 Status: Ordered Melatonin 3mg tablet 3 tablets (9mg), By Mouth, Daily at bedtime, PRN, Maintenance, 02/15/16 11:29:37, Melatonin 3mg tablet Start Date: 02/15/16 Status: Ordered prazosin 1 mg oral capsule 1 mg, 1, capsule, By Mouth, 3 times a day, Refills 0, Maintenance, 08/24/16 14:39:00 Start Date: 08/24/16 Status: Ordered QUEtiapine 300 mg oral tablet, extended release 1 tablet = 300 mg, By Mouth, Daily in PM, # 30 tablet, 0 Refills, Maintenance, 02/21/20 22:06:00 EDT, ER Tablet Start Date: 02/21/20 Status: Ordered venlafaxine 37.5 mg oral capsule, extended release 1 capsule = 37.5 mg, By Mouth, Daily, # 30 capsule, 0 Refills, Maintenance, 02/21/20 22:06:00 EDT, ER Capsule Start Date: 02/21/20 Status: Ordered Vital Signs Most recent to oldest [Reference Range]: 1 2 3 Weight 93.6 kg (06/07/20 12:27 AM) Oxygen Saturation [94-100 %] 99 % (06/07/20 1:46 PM) 96 % (06/07/20 9:30 AM) 98 % (06/07/20 12:27 AM) Pulse Rate [55-90 bpm] 82 bpm (06/07/20 1:46 PM) 91 bpm *H* (06/07/20 9:30 AM) 92 bpm *H* (06/07/20 12:27 AM) Blood Pressure [90-138/55-84 mm Hg] 134/89mm Hg (06/07/20 1:46 PM) 131/82mm Hg (06/07/20 9:30 AM) 133/73mm Hg (06/07/20 12:27 AM) Respiratory Rate [16-30 br/min] 18 br/min (06/07/20 1:46 PM) 16 br/min (06/07/20 9:37 AM) 16 br/min (06/07/20 9:30 AM) Temperature [96.8-100.4 DegF] 98.2 DegF (06/07/20 1:46 PM) 97.6 DegF (06/07/20 9:30 AM) 98.2 DegF (06/07/20 12:27 AM) Mode of Delivery (Oxygen) Room air (06/07/20 1:46 PM) Room air (06/07/20 9:30 AM) Room air (06/07/20 12:27 AM) Blood pressure sites Arm, right (06/07/20 12:27 AM) Temperature Route Oral (06/07/20 1:46 PM) Oral (06/07/20 9:30 AM) Oral (06/07/20 12:27 AM) Dry Weight 93.6 kg (06/07/20 12:27 AM) Weight Obtained Via Standing scale (06/07/20 12:27 AM) Dry Weight Obtained Via Standing scale (06/07/20 12:27 AM)
--- OUTSIDE RECORDS SUMMARY | 2023-04-21 20:50 | XMS_ITS | Continuity of Care Document ---
Author Name Unknown Organization [facility] ter Address [address] [place] [id number]- Care Team Providers Care Mail Processing Associate Name Role Phone Ben Peters NP Primary Care Physician Encounter [facility] Date(s): 01/29/23 - 01/30/[address] [address]- Discharge Disposition: A-D/C Home Attending Physician: Savanna Bernabe DO Admitting Physician: Savanna Bernabe DO Referring Physician: Not on Staff, Referring MD [...] 01/30/23 6:01:00 EDT, Route to Pharmacy Electronically, [facility]/pharmacy #[id number], Partial fill upon paty... Start Date: 01/30/23 Stop Date: 02/02/23 Status: Ordered mirtazapine 15 mg oral tablet 1 tablet = 15 mg, By Mouth, Daily at bedtime, # 30 tablet, 1 Refills, Maintenance, 11/25/22 12:37:00 EST, Tablet, [facility]/pharmacy #[id number], Partial fill upon patient request if the prescription is for a schedule II opioid drug., 176, cm, 11/25/22 11:41:00 E... Start Date: 11/25/22 Status: Ordered ondansetron 4 mg oral tablet 1 tablet = 4 mg, By Mouth, Every 8 hours, PRN Nausea & Vomiting, for 3 days, # 9 tablet, 0 Refills, Acute 02/02/23 5:59:00 EDT, 01/30/23 5:59:00 EDT, Tablet, [facility]/pharmacy #[id number], Partial fill uponpatient request if the prescription is for a schedule I... Start Date: 01/30/23 Stop Date: 02/02/23 Status: Ordered QUEtiapine 100 mg oral tablet 100 mg, 1, tablet, By Mouth, Daily, # 30 tablet, Refills 5, Tot. Refills 5, Maintenance, 11/25/22 12:16:00 EST, Route to Pharmacy Electronically, [facility]/pharmacy #[id number], Partial fill upon patient requestif the prescription [...] oldest [Reference Range]: 1 2 3 Height 176 cm (01/30/23 5:39 AM) 176 cm (01/30/23 3:03 AM) 176 cm (01/30/23 1:28 AM) Weight 88.45 kg (01/30/23 5:39 AM) 88.45 kg (01/30/23 3:03 AM) 88.45 kg (01/30/23 1:28 AM) Oxygen Saturation [94-100 %] 95 % (01/30/23 5:39 AM) 97 % (01/30/23 3:03 AM) 98 % (01/30/23 1:28 AM) Pulse Rate [55-90 bpm] 97 bpm *H* (01/30/23 5:39 AM) 103 bpm *H* (01/30/23 3:03 AM) 87 bpm (01/30/23 1:28 AM) Body Mass Index [18.5-24.99 kg/m2] 28.55 kg/m2 *H* (01/30/23 5:39 AM) 28.55 kg/m2 *H* (01/30/23 3:03 AM) 28.55 kg/m2 *H* (01/30/23 1:28 AM) Blood Pressure [90-138/55-84 mm Hg] 121/84mm Hg (01/30/23 5:39 AM) 122/73mm Hg (01/30/23 3:03 AM) 147/96mm Hg *H* (01/30/23 1:28 AM) Respiratory Rate [16-30 br/min] 20 br/min (01/30/23 5:39 AM) 20 br/min (01/30/23 3:03 AM) 20 br/min (01/30/23 1:28 AM) Temperature [96.8-100.4 DegF] 98.6 DegF (01/30/23 5:39 AM) 98.6 DegF (01/30/23 3:03 AM) 98.6 DegF (01/30/23 1:28 AM) Mode of Delivery (Oxygen) Room air (01/30/23 5:39 AM) Room air (01/30/23 3:03 AM) Room air (01/30/23 1:28 AM) Blood pressure sites Arm, left (01/30/23 5:39 AM) Arm, right (01/30/23 3:03 AM) Arm, right (01/30/23 1:28 AM) Temperature Route Oral (01/30/23 5:39 AM) Oral (01/30/23 3:03 AM) Oral (01/30/23 1:28 AM) Dry Weight 88.5 kg (01/30/23 5:39 AM) 88.5 kg (01/30/23 3:03 AM) 88.5 kg (01/30/23 1:28 AM) Social History Social History Type Response Smoking Status 5-9 cigarettes (betw een 1/4 to 1/2 pack)/day in last 30 days; Other: quit 04/06/2021; entered on: 11/25/22 Sex EKG study * Event Display: EKG Authored Date: * Event Display: ECG 12-Lead Authored Date: Please click on pdf link to open report * Event Display: ECG 12-Lead Authored Date: Ventricular Rate: 92 BPM Atrial Rate: 92 BPM P-R Interval: 156 ms QRS Duration: 94 ms Q-T Interval: 364 ms QTC Calculation(Bazett): 450 ms P Bruni: 57 degrees R Bruni: 53 degrees T Bruni: 13 degrees Normal sinus rhythm Nonspecific ST and T wave abnormality Abnormal ECG When compared with ECG of 12-JAN-2023 06:25, Nonspecific T wave abnormality now evident in Inferior leads Nonspecific T wave abnormality now evident in Lateral leads Confirmed by SHAWNA CHOUDHURY DO ([id number]) on 01/30/2023 3:28:51 PM [place]: SHAWNA CHOUDHURY DO Note * Bernie Hudson: PERFORM Event Display: Patient Education Leaflets Authored Date: [id number] Alcohol Intoxication ?? [id number] Alcohol Intoxication Alcohol intoxication is very serious. It occurs when you drink alcohol faster than your liver can break it down. Severe intoxication is a medical emergency. It's also called alcohol overdose or alcohol poisoning. It can lead to . Here are some martin facts: ??? It can take 10 minutes or more??to start??to??feel the effects of a drink. So it's easy to drink more than you planned. Binge drinking can lead to an alcohol overdose. Binge drinking is having: o5 or more drinks over a short time for men o 4 or more drinks over a short time for women ??? One drink may be more than 1 serving of alcohol. In some cases, a drink can be 2 to 4 servings. This depends on the type of drink. ??? It takes about 1 hour for your body to break down 1 serving of alcohol. If you have more than 1 drink, it can take a few hours or more. ??? People with alcohol abuse disorders are more likely to get alcohol poisoning. But it can happen to anyone who drinks too much alcohol. Even a first-time drinker is at risk. ??? Many things affect how drinks will affect you. These include: o If you've eaten o How fast you drink o Your weight o How much you normally drink (or not)o Medicines you are taking o If you have a chronic disease o If you are male or female o How old you are Symptoms of alcohol intoxication Mild intoxication ??? Feel more relaxed, less tense ??? Slightly slurred speech ??? Sleepiness ??? Poor motor skills Moderate intoxication ??? Changing behavior, aggression, depression ??? Poor judgment ??? Confusion ??? Trouble focusing ??? Poor balance and coordination ??? Worsening slurred speech Severe intoxication ??? Vomiting ??? Seizures ??? Fainting or passing out (unconscious) ??? Cold, clammy skin ??? Slow or irregular breathing ??? Low body temperature (hypothermia) ??? Coma ?? Health effects Alcohol causes health problems.??This can happen after only drinking a little. There is no set number of drinks or amount of alcohol that's too much.??How much you drink at one time affects your health. And so does drinking often. Alcohol affects your whole body in these ways: ??? Brain.??Alcohol can harm parts of the brain that affect your balance, memory, thinking, and feelings. It can cause memory loss, blackouts, depression, agitation, sleep cycle changes, and seizures. These changes may or may not go away. ??? Heart and vascular system.??Alcohol can damage heart muscle. This can cause the heart muscle to weaken and stretch (cardiomyopathy). This can lead to: o Trouble breathing o Irregular heartbeat o Atrial fibrillation o Leg swelling o Heart failure Alcohol also makes the blood vessels stiffen. This causes high blood pressure. All of these problems raise your risk for heart attacks or strokes. ??? Liver.??Alcohol causes fat to build up in the liver. This affects how the liver works. And it raises the risk for hepatitis. This condition leads to belly pain, appetite loss, yellow skin and eyes (jaundice), and bleeding problems. It also leads to harmful changes in the liver. These include??liver fibrosis and cirrhosis. This can affect your ability to fight off infections. These liver changes stop it from removing toxins in your blood. This can cause a brain disease called encephalopathy. ??? Pancreas.??Alcohol can cause inflammation of the pancreas (pancreatitis). It can lead to belly pain, fever, and diabetes. ??? Immune system.??Alcohol weakens your immune system. This makes it harder to fight off infections and colds. You'll also have a higherrisk of some infections. ??? Cancer risk.??Alcohol raises your risk of some types of cancer. They include cancer of the: o Mouth o Esophagus o Pharynx o Larynx o Liver o Breast ? Sexual function.??Alcohol abuse can also lead to sexual problems. There is no safe level of alcohol use for people who are or thinking of getting . Alcohol use in may cause lifelong harm to the baby. So alcohol should be avoided. It can also cause a group of defects called alcohol spectrum disorder. These defects can include physical problems. And also behavior and learning problems. ?? Home care for alcohol intoxication Follow these tips to care for yourself at home: ??? Don't drink any more alcohol. ??? Don't drive??until all effects of the alcohol have worn off. ??? Don't use machinery that can cause injuries. ??? Get lots of rest over the next few days. ??? Drink plenty of water and other drinks that don't have alcohol. ??? Try to eat regular meals. If you have been drinking a lot every day, you may have alcohol withdrawal. Symptoms often last 3 to 4 days. They may include: ??? Nervousness ??? Shakiness ??? Nausea ??? Sweating ??? Sleeplessness They may also include severe, life-threatening symptoms. These are known as delirium tremens (DTs).DTs typically begin between 48 and 96 hours after the last drink and last 1 to 5 days. They include: ??? Seizures ??? Confusion ??? Seeing or hearing things that are not there (hallucinations) Alcohol withdrawal can cause . Call your healthcare provider before you stop drinking. This isespecially important if you've had DTs during past alcohol withdrawals. They may be able to help you with medicine. They can also refer you to an inpatient detox program. Or stay with family or friends who know when to call for medical help and can support you. If you have severe symptoms, call your provider or call 911 for help (see below). ?? Follow-up care These groups can help you and your loved one: ??? Alcoholics Anonymous (A.A.). Gives support through a self-help fellowship. ?? Find A.A. meetings near you at www.aa.org. ??? Al-Anon. ?? Gives support to families at www.al-anon.org . Or call [phone]. ??? SMART Recovery ( Self- Management and Recovery Training). A nationwide abstinence-oriented support group for people with addictive issues. This free program is focused on motivation to change, urge control, and living a balanced life. For more information and meetings near you, go to www.WaveSyndicate.org/ ??? Substance Abuse and Mental Health Services Administration (SAMHSA) Treatment Manager [facility]. Free information on treatment resources in your area at https://findtreatment.gov/. Or call [phone]. Call 911 Call 911 if any of these occur: ??? Trouble breathing or slow irregular breathing ??? Chest pain ??? Sudden weakness on 1 side of your body or sudden trouble speaking ??? Heavy bleeding or vomiting blood ??? Very sleepy or having trouble waking up ??? Fainting ??? Fast heart rate ??? Seizure ?? When to get medical advice Call your healthcare provider right away if any of these occur: ??? Severe shakiness? Fever of100.4??F (38??C) or higher, or as advised by your provider ??? Confusion or hallucinations ??? Painin your upper belly that gets worse ??? Repeated vomiting ?? Last Reviewed Date: 2021 ?? [employer]. All rights reserved. This information is not intended as a substitute for professional medical care. Always follow your healthcare professional's instructions. ?? * Bernie Hudson: PERFORM Event Display: Patient Education Leaflets Authored Date: [id number] [facility] - Substance Abuse Resources ?? 151 If you need Substance Abuse Resources: ?? [facility] [phone] ?? [facility] [phone] ?? [facility] [phone] ?? [facility] [phone] ?? [facility] [phone] ?? [facility] [place] [phone] ?? [facility] [phone] ?? [facility] ?? [facility] [place] [phone] ?? [facility] [phone] ?? [facility] [phone] ?? [facility] [phone] ?? [facility] [phone] ?? [facility] [phone] ?? [facility] [place] [place] [phone] ?? [facility] (13-17 yo) [place] [phone] ?? [place] [facility] (Adolescent) [place] [phone] ? Partial Hospitalization ??? Outpatient therapy for adults and families with substance abuse problems [facility] [phone] ? Support Services ? [facility] - Outpatient therapy /support for recovery / transitional housing & shelters? [facility] [phone] ? [facility] - women's AA group/street outreach program/health access assistance? [facility] [phone] ? Alcoholic Anonymous - AA program to maintain sobriety/ Alanon-support for families of alcoholics/Alateen-support for children of same [phone] ? [facility] - recovery support services/sober social Opportunities [address] [place] [address] ? * Bernie Hudson: PERFORM Event Display: Patient Education Leaflets Authored Date: Gastritis Discharge Instructions ?? 673 Gastritis Discharge Instructions ? You must carefully read the Consumer Information Use and Disclaimer below in order to understand and correctly use this information ?? About this topic Gastritis is inflammation of the lining of the stomach. Sometimes gastritis is caused by bacteria. Other times, it can be caused by drugs. Some types of drugs can cause gastritis. The most common arenonsteroidal anti-inflammatory drugs (NSAIDs) like ibuprofen or naproxen. Gastritis can also be caused by other things like drinking alcohol or having a serious illness. It can also happen if you have a health problem in which the body???s own infection fighting system attacks the stomach lining. Based on the cause, you may need to take an antibiotic or other medicine to treat your gastritis. If so, be sure you finish all of the medicine that is ordered. ?? What care is needed at home? Ask your doctor what you need to do when you go home. Make sure?? you ask questions if you do not understand what the doctor says. ??? Eat small meals more often to help with belly pain. ??? Keepa diary about your pain and the foods you eat. Then you can?? avoid those that bother your stomach.??? Avoid or limit spicy foods. ??? Avoid or limit beer, wine, and mixed drinks. ??? If you smoke, try to quit. Your doctor or nurse can help. ??? Try to learn ways to manage stress. Stress may causethe acid levels in?? your stomach to rise. ??? If possible, avoid long-term use of aspirin and other anti- inflammatory drugs. ?? What follow-up care is needed? Your doctor may ask you to make visits to the office to check on your progress. Be sure to keep these visits. ?? What drugs may be needed? The doctor may order drugs to: ? Fight an infection ??? Control how much acid your stomach makes ??? Help healing ?? Will physical activity be limited? You may want to limit your activity if you have belly pain. Having an upset stomach or throwing up may also limit what you do. You may need more rest if you feel weak or tired. What problems could happen? Stomach ulcer or bleeding ??? Stomach cancer ?? When do I need to call the doctor? You start throwing up blood or pass a lot of blood in your stool. ??? Your belly pain becomes much worse all of a sudden or over a few?? hours. ??? Your belly becomes hard or tender. ??? You havechest pain or trouble breathing . ??? Your stools are bright red, black, or tar colored. ??? You are throwing up often. ??? Your belly pain does not get better even after taking medicine,?? changing your diet, and following treatment instructions. ??? You lose a lot of weight without trying. ?? Teach Back: Helping You Understand The Teach Back Method helps you understand the information we are giving you. After you talk with the staff, tell them in your own words what you learned. This helps to make sure the staff has described each thing clearly. It also helps to explain things that may have been confusing. Before going home, make sure you can do these: ? I can tell you about my condition. ??? I can tell you if I need to make changes with my diet ordrugs. ??? I can tell you what I will do if I throw up blood or have bloody or black?? tarry stools. ?? Where can I learn more? [facility] [place] https://www.nhs.uk/conditions/gastritis/ Last Reviewed Date 2021-03-02 Consumer Information Use and Disclaimer: This generalized information is a limited summary of diagnosis, treatment, and/or medication information. It is not meant to be comprehensive and should be used as a tool to help the user understand and/or assess potential diagnostic and treatment options. It does NOT include all information about conditions, treatments, medications, side effects, or risks that may apply to a specific patient. Itis not intended to be medical advice or a substitute for the medical advice, diagnosis, or treatment of a health care provider based on the health care provider's examination and assessment of a patient???s specific and unique circumstances. Patients must speak with a health care provider for complete information about their health, medical questions, and treatment options, including any risks orbenefits regarding use of medications. This information does not endorse any treatments or medications as safe, effective, or approved for treating a specific patient. [employer]. and its affiliates disclaim any warranty or liability relating to this information or the use thereof. The use of this information is governed by the Terms of Use, available at??https://www.[employer]/en/know/daobpyws-tqtkaqemqcmaw-qwerj Last Updated 11/17/21 ?? Patient Care team information Care Team Personnel Name: Cinthya Lacy Position: S RN Supv Member Role: Primary Care Nurse Name: Steffi Hahn RN Position: S RN Member Role: Primary Care Nurse Name: Essie Torres RN Position: [facility] OB RN Member Role: Primary Care Nurse Name: Ben Peters NP Position: [facility] PCO Associate Professional Member Role: PCP Address: Address: [address] [place] [address] Name: Emilia Lopez RN Position: S RN Member Role: Primary Care Nurse Name: Tiffany Estrada RN Position: S RN Member Role: Primary Care Nurse Name: Layne Cooper RN Position: [facility] RN Supv Member Role: Primary Care Nurse Name: Greta Cam RN Position: S RN Member Role: Primary Care Nurse Name: Jo Diaz RN Position: [facility] RN Supv Member Role: Primary Care Nurse Name: Abigail Escobar RN Position: S RN Member Role: Primary Care Nurse Name: Savanna Eubanks RN Position: S RN Member Role: Primary Care Nurse Name: Shereen Patiño RN Position: S RN Member Role: Primary Care Nurse Name: Ania Andre RN Position: S RN Member Role: Primary Care Nurse Name: Kb Mendoza RN Position: S RN Member Role: Primary Care Nurse Name: Chelsea Hernandez RN Position: S RN Member Role: Primary Care Nurse Name: Sissy Connell RN Position: S RN Member Role: Primary Care Nurse Name: Danis Whittaker MD Position: [facility] Psychiatry MD Member Role: Lifetime Consulting Physician Address: Address: [address] [place] [id number]- Name: eBrnie Hudson Position: [facility] Associate Professional Member Role: ED Physician Press Machine Operator Address: Address: [address] [place] [address] Name: Kelli Silva RN Position: [facility] ED RN W/OE and Tasks Member Role: Patient Care Provider Name: Savanna Bernabe DO Position: [facility] ED Medicine MD Member Role: Admitting Physician Address: Address: [address] [place] [address] Care Team Related Persons Name: MARCE DUBOSEUREEN Address: home [address] [address] Name: MARGO HAWKINS Address: [address] [place] [address] Name: RAY HAWKINS Address: [address] [place] [address] Name: RAY HAWKINS Address: home [address] [place] [address] Name: PT STATES NO ONE, NO ONE
--- OUTSIDE RECORDS SUMMARY | 2023-04-21 20:50 | XMS_ITS | Continuity of Care Document ---
Author Name Unknown Organization [facility] ter Address [address] [place] [id number]- Care Team Providers Care Silver Solderer Name Role Phone Jalil VEE, Zaina Joyner Primary Care Physician [place] [facility] [place] 05/[place]21 - 05/18/[address] [id number] Encounter Diagnosis Altered mental status(Final) - 05/08/21 Polysubstance overdose(Final) - 05/08/21 Discharge Disposition: A-D/C Home Attending Physician: Srinivasa Luna MD Admitting Physician: Veronica Lino MD Referring Physician: Not on Staff, Referring MD Allergies, Adverse Reactions, Alerts Substance Reaction Severity Status Haldol 1 restless legs Mild Active Fish Active 1Pt tolerates droperidol Immunizations Given and Recorded Vaccine Date Status Refusal Reason SARS-CoV-2 (COVID-19) mRNA-0193 vaccine 05/18/21 G iven Meningococcal Conjugate Vaccine [...] inactivated 06/21/20 Not Given Patient Refuses Medications albuterol CFC free 90 mcg/inh inhalation aerosol 90 mcg, 1, puffs, Inhalation, Every 4 hours, PRN, # 1 each, Refills 0, Tot. Refills 0, Maintenance,04/27/21 20:01:00 EDT, Inhaler, Route to Pharmacy Electronically, [id number], [facility]/pharmacy #[id number], 175, cm, 04/27/21 19:07:00... Start Date: 04/27/21 Status: Ordered Ambien 5 mg oral tablet 2 tablet = 10 mg, By Mouth, Daily at bedtime, PRN Sleep, for 7 days, # 7 tablet, 3 Refills, Acute 05/25/21 19:53:00 EDT, 04/27/21 19:53:00 EDT, Tablet, [facility]/pharmacy #[id number], Partial fill upon patient request if the prescription is for a schedule II opio... Start Date: 04/27/21 Stop Date: 05/25/21 Status: Ordered Ativan 2 mg oral tablet 1 tablet = 2 mg, By Mouth, 2 times a day, PRN as needed for anxiety, for 7 days, # 14 tablet, 3 Refills, Acute 05/25/21 19:58:00 EDT, 04/27/21 19:58:00 EDT, Tablet, [facility]/pharmacy #[id number], Partial fill upon patient request if the prescription is for a ashlee... Start Date: 04/27/21 Stop Date: 05/25/21 Status: Ordered diphenhydrAMINE 50 mg oral tablet 1 tablet = 50 mg, By Mouth, 2 times a day, for 7 days, # 14 tablet, 3 Refills, Acute 05/25/21 20:00:00 EDT, 04/27/21 20:00:00 EDT, [id number], Partial fill upon patient request if the prescription is for a schedule II opioid drug., 175, cm, 08... Start Date: 04/27/21 Stop Date: 05/25/21 Status: Ordered divalproex sodium 500 mg oral enteric coated tablet = 2,000 mg, By Mouth, Daily at bedtime, # 28 tablet, 3 Refills, Maintenance, 04/27/21 19:46:00 EDT,Tablet, [facility]/pharmacy #[id number], Partial fill upon patient request if the prescription is for a scheduleII opioid drug., 175, cm, 04/27/21 19:07:00 EDT, He... Start Date: 04/27/21 Stop Date: 05/25/21 Status: Ordered divalproex sodium 500 mg oral enteric coated tablet = 1,000 mg, By Mouth, Daily in AM, # 14 tablet, 3 Refills, Maintenance, 04/27/21 19:46:00 EDT, Tablet, [facility]/pharmacy #[id number], Partial fill upon patient request if the prescription is for a schedule II opioid drug., 175, cm, 04/27/21 19:07:00 EDT, Height,... Start Date: 04/27/21 Stop Date: 05/25/21 Status: Ordered melatonin 5 mg oral tablet 1 tablet = 5 mg, By Mouth, Daily at bedtime, for 7 days, # 7 tablet, 3 Refills, Acute 05/25/21 19:48:00 EDT, 04/27/21 19:48:00 EDT, Tablet, [id number], Partial fill upon patient request if the prescription is for a schedule II opioid drug., 17... Start Date: 04/27/21 Stop Date: 05/25/21 Status: Ordered methylphenidate 20 mg oral tablet 1 tablet = 20 mg, By Mouth, Daily, # 7 tablet, 0 Refills, Maintenance, 04/28/21 11:15:00 EDT, [id number], Partial fill upon patient request if the prescription is for a schedule II opioid drug., 175, cm, 04/28/21 10:08:00 EDT, Height, 94.7, kg... Start Date: 04/28/21 Stop Date: 05/05/21 Status: Ordered methylphenidate 20 mg/8 hr oral tablet, extended release 20 mg, 1, tablet, By Mouth, Daily in AM, # 7 tablet, Refills 0, Tot. Refills 0, Maintenance, 04/27/21 19:48:00 EDT, Route to Pharmacy Electronically, [facility]/pharmacy #[id number], Partial fill upon patient request if the prescription is for a schedule II opioid... Start Date: 04/27/21 Stop Date: 05/04/21 Status: Ordered multivitamin Multiple Vitamins oral tablet 1 tablet, By Mouth, Daily, # 7 tablet, 3 Refills, Maintenance, 04/27/21 19:58:00 EDT, Tablet, [facility]/pharmacy #[id number], Partial fill upon patient request if the prescription is for a schedule II opioid drug., 1 tablet By Mouth Daily,x7 days, 175, cm, ... Start Date: 04/27/21 Stop Date: 05/25/21 Status: Ordered nicotine 14 mg/24 hr transdermal film, extended release 1 patch, Topically, Daily, for 7 days, # 7 patch, 3 Refills, Acute 05/26/21 10:30:00 EDT, 04/28/21 10:30:00 EDT, Patch, [facility]/pharmacy #[id number], Partial fill upon patient request if the prescription is for a schedule II opioid drug., 1 patch Topically Jessica... Start Date: 04/28/21 Stop Date: 05/26/21 Status: Ordered pregabalin 25 mg oral capsule 1 capsule = 25 mg, By Mouth, 2 times a day, # 14 capsule, 3 Refills, Maintenance, 04/27/21 19:54:00EDT, Capsule, [id number], Partial fill upon patient request if the prescription is for a schedule II opioid drug., 175, cm, 04/27/21 19:07:00 E... Start Date: 04/27/21 Stop Date: 05/25/21 Status: Ordered SEROquel 200 mg oral tablet 200 mg, 1, tablet, By Mouth, Daily at bedtime, # 7 tablet, Refills 3, Tot. Refills 3, Maintenance, 04/27/21 19:49:00 EDT, Route to Pharmacy Electronically, [facility]/pharmacy #[id number], Partial fill upon patient request if the prescription is for a schedule II... Start Date: 04/27/21 Stop Date: 05/25/21 Status: Ordered Trileptal 600 mg oral tablet 1 tablet = 600 mg, By Mouth, 2 times a day, # 14 tablet, 3 Refills, Maintenance, 04/27/21 19:57:00 EDT, Tablet, [id number], Partial fill upon patient request if the prescription is for a schedule II opioid drug., 175, cm, 04/27/21 19:07:00 EDT... Start Date: 04/27/21 Stop Date: 05/25/21 Status: Ordered Tylenol 325 mg oral tablet 650 mg, Tablet, By Mouth, Every 6 hours, PRN for Pain , Moderate, Routine, 05/11/21 10:43:00 EDT Start Date: 05/11/21 Stop Date: 06/10/21 Status: Ordered Zoloft 50 mg oral tablet 1 tablet = 50 mg, By Mouth, Daily, # 7 tablet, 3 Refills, Maintenance, 04/27/21 19:53:00 EDT, Tablet, [facility]/pharmacy #[id number], Partial fill upon patient request if the prescription is for a schedule II opioid drug., 175, cm, 04/27/21 19:07:00 EDT, Height,... Start Date: 04/27/21 Stop Date: 05/25/21 Status: Ordered ZyPREXA 5 mg oral tablet 5 mg, 1, tablet, By Mouth, 2 times a day, PRN, # 14 tablet, Refills 3, Tot. Refills 3, Maintenance,Agitation, 04/27/21 19:57:00 EDT, Route to Pharmacy Electronically, [facility]/pharmacy #[id number], Partial fill upon patient request if the prescription is for a... Start Date: 04/27/21 Stop Date: 05/25/21 Status: Ordered Results Radiology Reports * Exam Date Time Procedure Performing Provider Status 05/08/21 4:42 PM Chest Portable Kasey Dougherty; Marine ( Verified) Notes: (Chest Portable) Reason For Exam: Line/Tube Placement;Other: RESULT: Chest Portable Chest Portable Reason: Other:; Line Tube Placement; Clinical Question(s): Other:; Confirm Position, Assess for Complication COMPARISON: None. FINDINGS: LINES AND TUBES: Endotracheal tube tip 3.7 cm above the conner. Enterogastric tube tip is at the GE junction. Recommend advancing another 5-6 cm. LUNGS AND PLEURA: Low lung volumes with mild basilar atelectasis. Lungs are otherwise clear with no consolidation. No pleural effusion. No pneumothorax. HEART, MEDIASTINUM AND JANIA: Heart is normal in size. Normal upper mediastinal and hilar contour. BONES AND SOFT TISSUES: No acute abnormality. IMPRESSION: Enterogastric tube tip is at the GE junction. Recommend advancing another 5 to 6 cm. Adequate positioning of endotracheal tube. A [employer]es message has been communicated via the [employer] system on 05/08/2021 5:20 PM, Message ID [id number]. WSN: [id number] Ordering Physician: Lele Espino Dictated By: Thanh Streeter MD Dictated Date/Time: 05/08/21 5:20 pm Reviewed By: Thanh Streeter MD Signed By: Thanh Streeter MD Signed Date/Time: 05/08/21 5:20 pm Transcribed By: JACIEL Transcribed Date/Time: 05/08/21 5:19 pm Vital Signs Most recent to oldest [Reference Range]: 1 2 3 Weight 114.4 kg (05/17/21 2:02 AM) 118.9 kg (05/11/21 2:56 AM) Oxygen Saturation [94-100 %] 97 % (05/18/21 2:30 PM) 98 % (05/18/21 10:58 AM) 100 % (05/17/21 2:35 PM) Pulse Rate [55-90 bpm] 105 bpm *H* (05/18/21 2:30 PM) 98 bpm *H* (05/18/21 10:58 AM) 112 bpm *H* (05/17/21 2:35 PM) Blood Pressure [90-138/55-84 mm Hg] 138/90mm Hg (05/18/21 2:30 PM) 148/77mm Hg *H* (05/18/21 10:58 AM) 157/96mm Hg *H* (05/17/21 2:35 PM) Respiratory Rate [16-30 br/min] 18 br/min (05/18/21 2:30 PM) 18 br/min (05/18/21 10:58 AM) 16 br/min (05/17/21 6:48 PM) Temperature [96.8-100.4 DegF] 98.1 DegF (05/18/21 2:30 PM) 97.6 DegF (05/18/21 10:58 AM) 97.5 DegF (05/17/21 2:35 PM) Liters per Minute 2 L/min (05/10/21 2:00 AM) 2 L/min (05/09/21 11:00 PM) 2 L/min (05/09/21 10:00 PM) Mode of Delivery (Oxygen) Room air (05/18/21 2:30 PM) Room air (05/18/21 10:58 AM) Room air (05/17/21 2:35 PM) Blood pressure sites Arm, left (05/18/21 2:30 PM) Arm, right (05/18/21 10:58 AM) Arm, left (05/17/21 2:35 PM) Temperature Route Oral (05/18/21 2:30 PM) Oral (05/18/21 10:58 AM) Oral (05/17/21 2:35 PM) Weight Obtained Via Bed scale (05/17/21 2:02 AM) Bed scale (05/11/21 2:56 AM) Social History Social History Type Response Smoking Status Former smoker, quit more than 30 days ago; Other: quit 04/06/2021; entered on: 05/07/21 Sex
--- OUTSIDE RECORDS SUMMARY | 2023-04-21 20:50 | XMS_ITS | Continuity of Care Document ---
Author Name Unknown Organization [facility] ter Address [address] [place] [address]- Care Team Providers Care Clinical Informaticist Name Role Phone Not on Staff, PCP Primary Care Physician Unavail able Encounter [facility] [place] Date(s): 02/21/20 - 02/22/[address] [address]- [facility] Encounter Diagnosis Agitation(Final) - 02/21/20 Discharge Disposition: A-D/C Home Attending Physician: Kamlesh Sawant MD Admitting Physician: Kamlesh Sawant MD Referring Physician: Not on Staff, Referring [...] 14:38:49, Aerosol Start Date: 08/24/16 Status: Ordered busPIRone 10 mg oral tablet 10 mg, 1, tablet, By Mouth, 3 times a day, # 270 tablet, Refills 0, Maintenance, 02/21/20 22:06:00 EDT Start Date: 02/21/20 Status: Ordered Effexor By Mouth, 0 Refills, Maintenance, 08/24/16 14:39:08 Start Date: 08/24/16 Status: Ordered Melatonin 3mg tablet 3 tablets [...] 3 Oxygen Saturation [94-100 %] 98 % (02/22/20 1:00 PM) 95 % (02/22/20 6:44 AM) 98 % (02/22/20 12:11 AM) Pulse Rate [55-90 bpm] 107 bpm *H* (02/22/20 1:00 PM) 86 bpm (02/22/20 6:44 AM) 98 bpm *H* (02/22/20 12:11 AM) Blood Pressure [90-138/55-84 mm Hg] 109/67mm Hg (02/22/20 1:00 PM) 90/62mm Hg (02/22/20 6:44 AM) 147/46mm Hg *H* (02/22/20 12:11 AM) Respiratory Rate [16-30 br/min] 20 br/min (02/22/20 1:00 PM) 16 br/min (02/22/20 6:44 AM) 20 br/min (02/22/20 12:11 AM) Temperature [96.8-100.4 DegF] 97.6 DegF (02/22/20 1:00 PM) 97.5 DegF (02/22/20 6:44 AM) 97.7 DegF (02/22/20 12:11 AM) Mode of Delivery (Oxygen) Room air (02/22/20 1:00 PM) Room air (02/22/20 6:44 AM) Room air (02/22/20 12:11 AM) Blood pressure sites Arm, left (02/22/20 1:00 PM) Arm, right (02/22/20 6:44 AM) Arm, right (02/22/20 12:11 AM) Temperature Route Oral (02/22/20 1:00 PM) Oral (02/22/20 6:44 AM) Oral (02/22/20 12:11 AM)
--- OUTSIDE RECORDS SUMMARY | 2023-04-21 20:50 | XMS_ITS | Continuity of Care Document ---
Author Name Unknown Organization [facility] ter Address [address] [place] [id number]- Care Team Providers Care Customer Field Representative Name Role Phone Fran HAN, Ben Primary Care Physician [place] [facility] [place](s[place] 01/29/23 - 01/29/[address] [address]- Encounter Diagnosis Vomiting(Final) - 01/29/23 Discharge Disposition: A-D/C AMA Attending Physician: Vivek Marc MD Admitting Physician: Vivek Marc MD Referring Physician: Not on Staff, Referring MD Allergies, Adverse Reactions, Alerts Substance Reaction Severity Status Haldol 1 restless legs Mild Active Fish Active 1Pt tolerates droperidol Immunizations Given and Recorded Vaccine Date Status Refusal Reason SARS-CoV-2 (COVID-19) mRNA-3753 vaccine 05/18/21 G iven Meningococcal Conjugate Vaccine [...] 1 Refills, Maintenance, 11/25/22 12:37:00 EST, Tablet, [facility]/pharmacy #[id number], Partial fill upon patient request if the prescription is for a schedule II opioid drug., 176, cm, 11/25/22 11:41:00 E... Start Date: 11/25/22 Status: Ordered QUEtiapine 100 mg oral tablet 100 mg, 1, tablet, By Mouth, Daily, # 30 tablet, Refills 5, Tot. Refills 5, Maintenance, 11/25/22 12:16:00 EST, Route to Pharmacy Electronically, [facility]/pharmacy #[id number], Partial fill upon patient requestif the [...] recent to oldest [Reference Range]: 1 2 Height 175 cm (01/29/23 10:41 AM) Oxygen Saturation [94-100 %] 100 % (01/29/23 10:41 AM) 100 % (01/29/23 10:29 AM) Pulse Rate [55-90 bpm] 112 bpm *H* (01/29/23 10:41 AM) 96 bpm *H* (01/29/23 10:29 AM) Blood Pressure [90-138/55-84 mm Hg] 159/ 98mm Hg *H* (01/29/23 10:41 AM) Respiratory Rate [16-30 br/min] 18 br/mi n (01/29/23 10:41 AM) 18 br/min (01/29/23 10:29 AM) Mode of Delivery (Oxygen) Room air (01/29/23 10:41 AM) Room air (01/29/23 10:29 AM) Blood pressure sites Arm, right (01/29/23 10:41 AM) Temperature Route Oral (01/29/23 10:41 AM) Dry Weight 89 kg (01/29/23 10:41 AM) Dry Weight Obtained Via Patient/family s tated (01/29/23 10:41 AM) Social History Social History Type Response [...] Care Nurse Name: Essie Torres RN Position: [facility] OB RN Member Role: Primary Care Nurse Name: Ben Peters NP Position: [facility] PCO Associate Professional Member Role: PCP Address: Address: [address] [place] [address] Name: Emilia Lopez RN Position: S RN Member Role: Primary Care Nurse Name: Tiffany Estrada RN Position: S RN Member Role: Primary Care Nurse Name: Layne Cooper RN Position: [facility] RN Supv Member Role: Primary Care Nurse Name: Greta Cam RN Position: S RN Member Role: Primary Care Nurse Name: Jo Diaz RN Position: [facility] RN Supv Member Role: Primary Care Nurse Name: Abigail Escobar RN Position: S RN Member Role: Primary Care Nurse Name: Savanna Eubanks RN Position: S RN Member Role: Primary Care Nurse Name: Shereen Patiño RN Position: [facility] RN Member Role: Primary Care Nurse Name: Ania Andre RN Position: [facility] RN Member Role: Primary Care Nurse Name: Kb Mendoza RN Position: [facility] RN Member Role: Primary Care Nurse Name: Chelsea Hernandez RN Position: S RN Member Role: Primary Care Nurse Name: Sissy Connell RN Position: [facility] RN Member Role: Primary Care Nurse Name: Danis Whittaker MD Position: [facility] Psychiatry MD Member Role: Lifetime Consulting Physician Address: Address: [address] [place] [address]- Name: Zhanna Mckinley Position: [facility] Associate Professional Member Role: ED Physician Kier Hand Address: Address: [address] [place] [address] Name: Ai Banerjee RN Position: [facility] ED RN W/OE and Tasks Member Role: Patient Care Provider Name: Vivek Marc MD Position: [facility] ED Medicine MD Member Role: Admitting Physician Address: Address: [address] [place] [address]- Care Team Related Persons Name: SEDRICKANGIE CARTYEN Address: home [address] [address] Name: MARGO HAWKINS Address: home [address] [place] [address] Name: RAY HAWKINS Address: home [address] [place] [address] Name: RAY HAWKINS Address: home [address] [place] [address] Name: PT STATES NO ONE, NO ONE
--- OUTSIDE RECORDS SUMMARY | 2023-04-21 20:50 | XMS_ITS | Continuity of Care Document ---
Author Name Unknown Organization [facility] ter Address [address] [place] [address]- Care Team Providers Care Production Machinist Name Role Phone Zaina Jimenes MD Primary Care Physician [place] [facility] [place] 04/09/[address] [address]- Encounter Diagnosis Bipolar disease, manic(Final) - 04/09/22 Discharge Disposition: A-D/C Home Attending Physician: Chrissy Ames MD Admitting Physician: Chrissy Ames MD Referring Physician: Not on Staff, Referring MD Allergies, Adverse Reactions, Alerts Substance Reaction Severity Status Haldol 1 restless legs Mild Active Fish Active 1Pt tolerates droperidol Immunizations Given and Recorded Vaccine Date Status Refusal Reason SARS-CoV-2 (COVID-19) mRNA-5124 vaccine 05/18/21 G iven Meningococcal Conjugate Vaccine [...] 20:01:00 EDT, Inhaler, Route to Pharmacy Electronically, [id number], [facility]/pharmacy #[id number], 175, cm, 04/27/21 19:07:00... Start Date: 04/27/21 Status: Ordered divalproex sodium 500 mg oral enteric coated tablet = 2,000 mg, By Mouth, Daily at bedtime, # 28 tablet, 3 Refills, Maintenance, 04/27/21 19:46:00 EDT,Tablet, [facility]/pharmacy #[id number], Partial fill upon patient request if the prescription is for a scheduleII opioid drug., 175, cm, 04/27/21 19:07:00 EDT, He... Start Date: 04/27/21 Stop Date: 05/25/21 Status: Ordered divalproex sodium 500 mg oral enteric coated tablet = 1,000 mg, By Mouth, Daily in AM, # 14 tablet, 3 Refills, Maintenance, 04/27/21 19:46:00 EDT, Tablet, [facility]/pharmacy #[id number], Partial fill upon patient request if the prescription is for a schedule II opioid drug., 175, cm, 04/27/21 19:07:00 EDT, Height,... Start Date: 04/27/21 Stop Date: 05/25/21 Status: Ordered methylphenidate 20 mg oral tablet 1 tablet = 20 mg, By Mouth, Daily, # 7 tablet, 0 Refills, Maintenance, 04/28/21 11:15:00 EDT, [facility]/pharmacy #[id number], Partial fill upon patient request if [...] 04/27/21 19:48:00 EDT, Route to Pharmacy Electronically, [facility]/pharmacy #[id number], Partial fill upon patient request if the prescription is for a schedule II opioid... Start Date: 04/27/21 Stop Date: 05/04/21 Status: Ordered multivitamin Multiple Vitamins oral tablet 1 tablet, By Mouth, Daily, # 7 tablet, 3 Refills, Maintenance, 04/27/21 19:58:00 EDT, Tablet, [facility]/pharmacy #[id number], Partial fill upon patient request if the prescription is for a schedule II opioid drug., 1 tablet By Mouth Daily,x7 days, 175, cm, ... Start Date: 04/27/21 Stop Date: 05/25/21 Status: Ordered pregabalin 25 mg oral capsule 1 capsule = 25 mg, By Mouth, 2 times a day, # 14 capsule, 3 Refills, Maintenance, 04/27/21 19:54:00EDT, Capsule, [facility]/pharmacy #[id number], Partial fill upon patient request if the prescription is for a schedule II opioid drug., 175, cm, 04/27/21 19:07:00 E... Start Date: 04/27/21 Stop Date: 05/25/21 Status: Ordered SEROquel 200 mg oral tablet 200 mg, 1, tablet, By Mouth, Daily at bedtime, # 7 tablet, Refills 3, Tot. Refills 3, Maintenance, 04/27/21 19:49:00 EDT, Route to Pharmacy Electronically, [id number], Partial fill upon patient request [...] Date: 04/27/21 Stop Date: 05/25/21 Status: Ordered Zoloft 50 mg oral tablet 1 tablet = 50 mg, By Mouth, Daily, # 7 tablet, 3 Refills, Maintenance, 04/27/21 19:53:00 EDT, Tablet, [id number], Partial fill upon [...] 04/27/21 19:57:00 EDT, Route to Pharmacy Electronically, [id number], Partial fill upon patient request if the prescription is for a... Start Date: 04/27/21 Stop Date: 05/25/21 Status: Ordered Problem List Condition Effective Dates Status Health Status Inform ant Bipolar disease, chronic(Confirmed) Active Chronic alcohol use(Confirmed) Active Erectile dysfunction(Confirmed) Active Arm laceration(Confirmed) 1 Active Anxiety and depression(Confirmed) Active Obese class II(Confirmed) Active PTSD (post-traumatic stress disorder)(Confirmed) Active 1Right foreram Vital Signs Most recent to oldest [Reference Range]: 1 Oxygen Saturation [94-100 %] 99 % (04/09/22 2:52 AM) Pulse Rate [55-90 bpm] 70 bpm (04/09/22 2:52 AM) Blood Pressure [90-138/55-84 mm Hg] 137/ 68mm Hg (04/09/22 2:52 AM) Respiratory Rate [16-30 br/min] 16 br/mi n (04/09/22 2:52 AM) Temperature [96.8-100.4 DegF] 97.5 DegF (04/09/22 2:52 AM) Mode of Delivery (Oxygen) Room air (04/09/22 2:52 AM) Blood pressure sites Arm, right (04/09/22 2:52 AM) Temperature Route Oral (04/09/22 2:52 AM) Social History Social History Type Response Smoking Status Former smoker, quit more than 30 days ago; Other: quit 04/06/2021; entered on: 05/07/21 Sex
--- OUTSIDE RECORDS SUMMARY | 2023-04-21 20:50 | XMS_ITS | Continuity of Care Document ---
Author Name Unknown Organization [facility] ter Address [address] [place] [address]- Care Team Providers [employer] Professional Name Role Phone aZina Jimenes MD Primary Care Physician Encounter [facility] [place] Date(s): 08/21/22 - 08/21/[address] [address]- Discharge Disposition: A-D/C Walkout Attending Physician: Not on Staff, Attending MD Admitting Physician: Not on Staff, Admitting MD Referring Physician: Not on Staff, Referring MD Allergies, Adverse Reactions, Alerts Substance Reaction Severity Status Haldol 1 restless legs Mild Active Fish Active 1Pt tolerates droperidol Immunizations Given and Recorded Vaccine Date Status Refusal Reason SARS-CoV-2 (COVID-19) mRNA-1272 vaccine 05/18/21 G iven Meningococcal Conjugate Vaccine [...] 20:01:00 EDT, Inhaler, Route to Pharmacy Electronically, [id number], [facility]/pharmacy #[id number], 175, cm, 04/27/21 19:07:00... Start Date: 04/27/21 Status: Ordered cloNIDine 0.1 mg oral tablet 0.1 mg, 1, tablet, By Mouth, 3 times a day, # 60 tablet, Refills 0, Maintenance, 05/24/22 8:31:00 EDT, Partial fill upon patient request if the prescription is for a schedule II opioid drug. Start Date: 05/24/22 Status: Ordered divalproex sodium 500 mg oral enteric coated tablet = 2,000 mg, By Mouth, Daily at bedtime, # 28 tablet, 3 Refills, Maintenance, 04/27/21 19:46:00 EDT,Tablet, [facility]/pharmacy #[id number], Partial fill upon patient request if the prescription is for a scheduleII opioid drug., 175, cm, 04/27/21 19:07:00 EDT, He... Start Date: 04/27/21 Stop Date: 05/25/21 Status: Ordered divalproex sodium 500 mg oral enteric coated tablet = 1,000 mg, By Mouth, Daily in AM, # 14 tablet, 3 Refills, Maintenance, 04/27/21 19:46:00 EDT, Tablet, [facility]/pharmacy #[id number], Partial fill upon patient request if the prescription is for a schedule II opioid drug., 175, cm, 04/27/21 19:07:00 EDT, Height,... Start Date: 04/27/21 Stop Date: 05/25/21 Status: Ordered famotidine 20 mg oral tablet 1, tablet, By Mouth, 2 times a day, # 60 tablet, Refills 2, Tot. Refills 2, Maintenance, 07/01/22 16:05:00 EDT, Route to Pharmacy Electronically, [facility]/pharmacy #[id number], Office visit needed for further refills., 175, cm, 12/03/21 15:23:00 EST, Height, 111... Start Date: 07/01/22 Stop Date: 09/29/22 Status: Ordered gabapentin (OP) By Mouth, 0 Refills, Maintenance, 2 Start Date: 05/24/22 Status: Ordered LORazepam 0.5 mg oral tablet 1 tablet = 0.5 mg, By Mouth, 2 times a day, PRN as needed for anxiety, 0 Refills, Maintenance, 05/24/22 8:33:00 EDT, Tablet, Partial fill upon patient request if the prescription is for a schedule IIopioid drug. Start Date: 05/24/22 Status: Ordered methylphenidate 20 mg oral tablet 1 tablet = 20 mg, By Mouth, Daily, # 7 tablet, 0 Refills, Maintenance, 04/28/21 11:15:00 EDT, [facility]/pharmacy #[id number], Partial fill upon patient request if [...] 04/27/21 19:48:00 EDT, Route to Pharmacy Electronically, [facility]/pharmacy #[id number], Partial fill upon patient request if the prescription is for a schedule II opioid... Start Date: 04/27/21 Stop Date: 05/04/21 Status: Ordered multivitamin Multiple Vitamins oral tablet 1 tablet, By Mouth, Daily, # 7 tablet, 3 Refills, Maintenance, 04/27/21 19:58:00 EDT, Tablet, [facility] #[id number], Partial fill upon [...] Date: 04/27/21 Stop Date: 05/25/21 Status: Ordered sertraline 100 mg oral tablet 1 tablet = 100 mg, By Mouth, Daily, # 30 tablet, 0 Refills, Maintenance, 05/24/22 8:30:00 EDT, Tablet, Partial fill upon patient request if the prescription is for a schedule II opioid drug. Start Date: 05/24/22 Status: Ordered Trileptal 600 mg oral tablet [...] Date: 05/25/21 Status: Ordered Problem List Condition Confirmation Course Effective Dates Status Health St atus Informant Bipolar disease, chronic Confirmed Active Chronic alcohol use Confirmed Active Erectile dysfunction Confirmed Active Dyspepsia Confirmed Active Arm laceration 1 Confirmed Active Anxiety and depression Confirmed Active Obese class I Confirmed Active PTSD (post-traumatic stress disorder) Confirmed Active 1Right foreram Vital Signs Most recent to oldest [Reference Range]: 1 2 3 Height 176 cm (08/21/22 5:06 PM) 176 cm (08/21/22 5:00 PM) Weight 95 kg (08/21/22 5:06 PM) 95 kg (08/21/22 5:00 PM) Oxygen Saturation [94-100 %] 100 % (08/21/22 6:29 PM) 97 % (08/21/22 5:00 PM) 97 % (08/21/22 4:47 PM) Pulse Rate [55-90 bpm] 79 bpm (08/21/22 6:29 PM) 77 bpm (08/21/22 5:00 PM) 95 bpm *H* (08/21/22 4:47 PM) Body Mass Index [18.5-24.99 kg/m2] 30.67 kg/m2 *>HHI* (08/21/22 5:00 PM) Blood Pressure [90-138/55-84 mm Hg] 140/88mm Hg *H* (08/21/22 6:29 PM) 158/88mm Hg *H* (08/21/22 5:00 PM) Respiratory Rate [16-30 br/min] 17 br/min (08/21/22 5:00 PM) Temperature [96.8-100.4 DegF] 98.2 DegF (08/21/22 6:29 PM) 98.9 DegF (08/21/22 5:00 PM) Mode of Delivery (Oxygen) Room air (08/21/22 6:29 PM) Room air (08/21/22 5:00 PM) Room air (08/21/22 4:47 PM) Blood pressure sites Arm, right (08/21/22 6:29 PM) Arm, right (08/21/22 5:00 PM) Temperature Route Oral (08/21/22 6:29 PM) Oral (08/21/22 5:00 PM) Dry Weight 95 kg (08/21/22 5:06 PM) 95 kg (08/21/22 5:00 PM) Weight Obtained Via Patient lift hanging scale (08/21/22 5:00 PM) Dry Weight Obtained Via Patient/family s tated (08/21/22 5:00 PM) Social History Social History Type Response Smoking Status Former smoker, quit more than 30 days ago; Other: quit 04/06/2021; entered on: 05/07/21 Sex Patient Care team information Care Team Personnel Name: Sol Portillo RN Position: S RN Member Role: Primary Care Nurse Name: Cinthya Lacy Position: [facility] RN Supv Member Role: Primary Care Nurse Name: Steffi Hahn RN Position: [facility] RN Member Role: Primary Care Nurse Name: Essie Torres RN Position: [facility] OB RN Member Role: Primary Care Nurse Name: Emilia Lopez RN Position: [facility] RN Member Role: Primary Care Nurse Name: Tiffany Estrada RN Position: S RN Member Role: Primary Care Nurse Name: Layne Cooper RN Position: [facility] RN Supv Member Role: Primary Care Nurse Name: Greta Cam RN Position: [facility] RN Member Role: Primary Care Nurse Name: Jo Diaz RN Position: [facility] RN Member Role: Primary Care Nurse Name: Abigail Escobar RN Position: [facility] RN Member Role: Primary Care Nurse Name: Savanna Eubanks RN Position: [facility] RN Member Role: Primary Care Nurse Name: Shereen Patiño RN Position: [facility] RN Member Role: Primary Care Nurse Name: Ania Andre RN Position: [facility] RN Member Role: Primary Care Nurse Name: Kb Mendoza RN Position: [facility] RN Member Role: Primary Care Nurse Name: Chelsea Hernandez RN Position: [facility] RN Member Role: Primary Care Nurse Name: Graciela Ferrer RN Position: [facility] RN Member Role: Primary Care Nurse Name: Ai Mckoy RN Position: [facility] RN Member Role: Primary Care Nurse Name: Zaina Jimenes MD Position: [facility] Primary Care Physician Member Role: PCP Address: Address: [address] [place] [address], [address] [place] [address]- Name: Sissy Connell RN Position: [facility] RN Member Role: Primary Care Nurse Name: Remedios VEE, Danis Position: [facility] Psychiatry MD Member Role: Lifetime Consulting Physician Address: Address: [address] [place] [address]- [place] Care Team Related Persons Name: LUIS CARLOS DUBOSE Address: home [address] [address] Name: MARGO HAWKINS Address: home [address] [place] [address] Name: RAY HAWKINS Address: home [address] [facility] [place] [address] Name: RAY HAWKINS Address: home [address] [place] [address]
--- OUTSIDE RECORDS SUMMARY | 2023-04-21 20:50 | XMS_ITS | Continuity of Care Document ---
Author Name Unknown Organization [facility] ter Address [address] [place] [address]- Care Team Providers Care Chemical Dependency Therapist Name Role Phone Fran HAN, Ben Primary Care Physician [place] [facility] [place]12[place]23 - 01/12/[address] [address]- Discharge Disposition: A-D/C Home Attending Physician: Asa VEE, Cheng Garcia Admitting Physician: Cheng Bray MD Referring Physician: Not on Staff, Referring MD Allergies, Adverse Reactions, Alerts Substance Reaction Severity Status Haldol 1 restless legs Mild Active Fish Active 1Pt tolerates droperidol Immunizations Given and Recorded Vaccine Date Status Refusal Reason SARS-CoV-2 (COVID-19) mRNA-8363 vaccine 05/18/21 G iven Meningococcal Conjugate Vaccine [...] 1 Refills, Maintenance, 11/25/22 12:37:00 EST, Tablet, [id number], Partial fill upon patient request if the prescription is for a schedule II opioid drug., 176, cm, 11/25/22 11:41:00 E... Start Date: 11/25/22 Status: Ordered QUEtiapine 100 mg oral tablet 100 mg, 1, tablet, By Mouth, Daily, # 30 tablet, Refills 5, Tot. Refills 5, Maintenance, 11/25/22 12:16:00 EST, Route to Pharmacy Electronically, [facility]/pharmacy #[id number], Partial fill upon patient requestif [...] oldest [Reference Range]: 1 2 3 Height 177 cm (01/12/23 3:28 AM) Weight 88.6 kg (01/12/23 3:28 AM) Oxygen Saturation [94-100 %] 99 % (01/12/23 9:55 AM) 99 % (01/12/23 4:24 AM) 93 % *L* (01/12/23 3:18 AM) Pulse Rate [55-90 bpm] 82 bpm (01/12/23 9:55 AM) 87 bpm (01/12/23 4:24 AM) 96 bpm *H* (01/12/23 3:18 AM) Blood Pressure [90-138/55-84 mm Hg] 141/92mm Hg *H* (01/12/23 9:55 AM) 147/97mm Hg *H* (01/12/23 4:24 AM) 166/102mm Hg *H* (01/12/23 3:18 AM) Respiratory Rate [16-30 br/min] 17 br/min (01/12/23 9:55 AM) 18 br/min (01/12/23 4:24 AM) 16 br/min (01/12/23 3:18 AM) Temperature [96.8-100.4 DegF] 97.9 DegF (01/12/23 4:24 AM) 98.6 DegF (01/12/23 3:18 AM) Mode of Delivery (Oxygen) Room air (01/12/23 9:55 AM) Room air (01/12/23 4:24 AM) Room air (01/12/23 3:13 AM) Temperature Route Oral (01/12/23 4:24 AM) Dry Weight 88.6 kg (01/12/23 3:28 AM) Weight Obtained Via Patient/family state d (01/12/23 3:28 AM) Dry Weight Obtained Via Patient/family s tated (01/12/23 3:28 AM) Social History Social History Type Response Smoking Status 5-9 cigarettes (betw een 1/4 to 1/2 pack)/day in last 30 days; Other: quit 04/06/2021; entered on: 11/25/22 Sex EKG study * Event Display: ECG 12-Lead Authored Date: Please click on pdf link to open report * Event Display: ECG 12-Lead Authored Date: Ventricular Rate: 69 BPM Atrial Rate: 69 BPM P-R Interval: 182 ms QRS Duration: 88 ms Q-T Interval: 390 ms QTC Calculation(Bazett): 417 ms P [place]: 44 degrees R [place]: 29 degrees T [place]: 48 degrees Normal sinus rhythm Early repolarization changes Normal ECG When compared with ECG of 12-JAN-2023 04:53, No significant change Confirmed by PABLO MCKEON MD ([id number]) on 01/12/2023 10:24:27 AM [place]: PABLO MCKEON MD * Event Display: ECG 12-Lead Authored Date: [id number] Please click on pdf link to open report * Event Display: ECG 12-Lead Authored Date: [id number] Ventricular Rate: 67 BPM Atrial Rate: 67 BPM P-R Interval: 188 ms QRS Duration: 78 ms Q-T Interval: 390 ms QTC Calculation(Bazett): 412 ms P [place]: 46 degrees R [place]: 42 degrees T [place]: 60 degrees Normal sinus rhythm Early repolarization Normal ECG When compared with ECG of 29-NOV-2021 20:59, ST elevation now present in Inferior leads T wave inversion no longer evident in Inferior leads T wave amplitude has increased in Anterolateral leads Confirmed by PABLO MCKEON MD ([id number]) on 01/12/2023 10:23:55 AM [place]: PABLO MCKEON MD Note * Mary Layne: PERFORM Event Display: Patient Education Leaflets Authored Date: [id number] Alcohol Intoxication ?? [id number] Alcohol Intoxication Alcohol intoxication is very serious. [...] A.A. meetings near you at www.aa.org. ??? Jenni. ?? Gives support to families at www.al-anon.org . Or call 442-497-4599. ??? SMART Recovery ( Self- Management and Recovery Training). A nationwide abstinence-oriented support group for people with addictive issues. This free program is focused on motivation to change, urge control, and living a balanced life. For more information and meetings near you, go to www.[employer].org/ ??? Substance Abuse and Mental Health Services Administration (SAMHSA) Treatment Sanding Supervisor. Free information on treatment resources in your area at https://findtreatment.gov/. Or call 141-711-4716. Call 911 Call 911 if any of [...] vomiting ?? Last Reviewed Date: 2021 ?? 7578-1534 [employer]. All rights reserved. This information is not intended as a substitute for professional medical care. Always follow your healthcare professional's instructions. ?? Patient Care team information Care Team Personnel Name: Cinthya Lacy Position: [facility] RN Supv Member Role: Primary Care Nurse Name: Steffi Hahn RN Position: S RN Member Role: Primary Care Nurse Name: sEsie Torres RN Position: [facility] OB RN Member Role: Primary Care Nurse Name: Ben Peters NP Position: [facility] PCO Associate Professional Member Role: PCP Address: Address: [address] [place] [address] [place] [address]- [place] Name: Emilia Lopez RN Position: [facility] RN Member Role: Primary Care Nurse Name: Tiffany Estrada RN Position: [facility] RN Member Role: Primary Care Nurse Name: Layne Cooper RN Position: [facility] RN Supv Member Role: Primary Care Nurse Name: Greta Cam RN Position: [facility] RN Member Role: Primary Care Nurse Name: Jo Diaz RN Position: [facility] RN Supv Member Role: Primary Care Nurse Name: Abigail Escobar RN Position: [facility] RN Member Role: Primary Care Nurse Name: Savanna Eubanks RN Position: [facility] RN Member Role: Primary Care Nurse Name: Shereen Patiño RN Position: [facility] RN Member Role: Primary Care Nurse Name: Ania Andre RN Position: [facility] RN Member Role: Primary Care Nurse Name: Kb Mendoza RN Position: [facility] RN Member Role: Primary Care Nurse Name: Chelsea Hernandez RN Position: [facility] RN Member Role: Primary Care Nurse Name: Ai Mckoy RN Position: [facility] RN Member Role: Primary Care Nurse Name: Sissy Connell RN Position: [facility] RN Member Role: Primary Care Nurse Name: Danis Whittaker MD Position: [facility] Psychiatry MD Member Role: Lifetime Consulting Physician Address: Address: [address] [place] [address]- Name: Cheng Bray MD Position: [facility] Resident Member Role: Admitting Physician Address: Address: [address] [place] [address]- Name: Venecia Wiley Position: [facility] ED RN W/OE and Tasks Member Role: Patient Care Provider Name: Mary Layne Position: [facility] Associate Professional Member Role: Physician Dry Heat Cabinet Attendant Address: Address: [address] [place] [address]- Care Team Related Persons Name: LUIS CARLOS DUBOSE Address: home [address] [address] Name: MARGO HAWKINS Address: [address] [place] [address] Name: RAY HAWKINS Address: home [address] [place] [address] Name: RAY HAWKINS Address: home [address] [place] [address] Name: PT STATES NO ONE, NO ONE
--- OUTSIDE RECORDS SUMMARY | 2023-04-21 20:50 | XMS_ITS | Continuity of Care Document ---
Author Name Unknown Organization [facility] ter Address [address] [place] [address]- Care Team Providers Care Patroller Name Role Phone Ben Peters NP Primary Care Physician Encounter [facility] [place] Date(s): 02/07/23 - 02/07/[address] [address]- Discharge Disposition: A-D/C Walkout Attending Physician: Not on Staff, Attending MD Admitting Physician: Not on Staff, Admitting MD Referring Physician: Not on Staff, Referring MD Allergies, Adverse Reactions, Alerts Substance Reaction Severity Status Haldol 1 restless legs Mild Active Fish Active 1Pt tolerates droperidol Immunizations Given and Recorded Vaccine Date Status Refusal Reason SARS-CoV-2 (COVID-19) mRNA-8612 vaccine 05/18/21 G iven Meningococcal Conjugate Vaccine [...] 01/30/23 6:01:00 EDT, Route to Pharmacy Electronically, [facility]/pharmacy #[id number], Partial fill upon paty... Start Date: 01/30/23 Stop Date: 02/02/23 Status: Ordered mirtazapine 15 mg oral tablet 1 tablet = 15 mg, By Mouth, Daily at bedtime, # 30 tablet, 1 Refills, Maintenance, 11/25/22 12:37:00 EST, Tablet, [facility]/pharmacy #[id number], Partial fill upon patient request if the prescription is for a schedule II opioid drug., 176, cm, 11/25/22 11:41:00 E... Start Date: 11/25/22 Status: Ordered QUEtiapine 100 mg oral tablet 100 mg, 1, tablet, By Mouth, Daily, # 30 tablet, Refills 5, Tot. Refills 5, Maintenance, 11/25/22 12:16:00 EST, Route to Pharmacy Electronically, [facility]/pharmacy #[id number], Partial fill upon patient requestif [...] [Reference Range]: 1 Oxygen Saturation [94-100 %] 95 % (02/07/23 7:29 AM) Pulse Rate [55-90 bpm] 115 bpm *H* (02/07/23 7:29 AM) Blood Pressure [90-138/55-84 mm Hg] 150/ 92mm Hg *H* (02/07/23 7:29 AM) Respiratory Rate [16-30 br/min] 20 br/mi n (02/07/23 7:29 AM) Temperature [96.8-100.4 DegF] 97.5 DegF (02/07/23 7:29 AM) Mode of Delivery (Oxygen) Room air (02/07/23 7:29 AM) Blood pressure sites Arm, left (02/07/23 7:29 AM) Temperature Route Axillary (02/07/23 7:29 AM) Social History Social History Type Response Smoking Status 5-9 cigarettes (betw een 1/4 to 1/2 pack)/day in last 30 days; Other: quit 04/06/2021; entered on: 11/25/22 Sex Patient Care team information Care Team Personnel Name: Cinthya Lacy Position: [facility] RN Supv Member Role: Primary Care Nurse Name: Steffi Hahn RN Position: [facility] RN Member Role: Primary Care Nurse Name: Essie Torres RN Position: [facility] OB RN Member Role: Primary Care Nurse Name: Ben Peters NP Position: [facility] PCO Associate Professional Member Role: PCP Address: Address: [address] [place] [id number] Name: Emilia Lopez RN Position: [facility] RN Member Role: Primary Care Nurse Name: Tiffany Estrada RN Position: S RN Member Role: Primary Care Nurse Name: Layne Cooper RN Position: [facility] RN Supv Member Role: Primary Care Nurse Name: Greta Cam RN Position: S RN Member Role: Primary Care Nurse Name: Jo Diaz RN Position: [facility] RN Supv Member Role: Primary Care Nurse Name: Abigail Escobar RN Position: S RN Member Role: Primary Care Nurse Name: Savanna Eubanks RN Position: S RN Member Role: Primary Care Nurse Name: Shereen Patiño RN Position: [facility] RN Member Role: Primary Care Nurse Name: Ania Andre RN Position: [facility] RN Member Role: Primary Care Nurse Name: Kb Mendoza RN Position: [facility] RN Member Role: Primary Care Nurse Name: Chelsea Hernandez RN Position: [facility] RN Member Role: Primary Care Nurse Name: Sissy Connell RN Position: [facility] RN Member Role: Primary Care Nurse Name: Danis Whittaker MD Position: [facility] Psychiatry MD Member Role: Lifetime Consulting Physician Address: Address: [address] [place] [address]- Care Team Related Persons Name: LUIS CARLOS DUBOSE Address: home [address] [place] [id number] Name: MARGO HAWKINS Address: home [address] [place] [address] Name: RAY HAWKINS Address: home [address] [place] [address] Name: RAY HAWKINS Address: home [address] [place] [address] Name: PT STATES NO ONE, NO ONE
--- OUTSIDE RECORDS SUMMARY | 2023-04-21 20:50 | XMS_ITS | Continuity of Care Document ---
Author Name Unknown Organization [facility] ter Address [address] [place] [id number]- Care Team Providers Care Riding Instructor Name Role Phone Ben Peters NP Primary Care Physician Encounter [facility] Date(s): 02/07/23 - 02/07/[address] [address]- Encounter Diagnosis Alcoholic intoxication(Final) - 02/07/23 Nausea(Final) - 02/07/23 Vomiting(Final) - 02/07/23 Discharge Disposition: A-D/C Home Attending Physician: Reed Olivera DO Admitting Physician: Reed Olivera DO Referring Physician: Not on Staff, Referring MD Allergies, Adverse Reactions, Alerts Substance Reaction Severity Status Haldol 1 restless legs Mild Active Fish Active 1Pt tolerates droperidol Immunizations Given and Recorded Vaccine Date Status Refusal Reason SARS-CoV-2 (COVID-19) mRNA-0754 vaccine 05/18/21 G iven Meningococcal Conjugate Vaccine [...] Virus Vaccine 11/07/00 Recor ded diphtheria/tetanus/pertussis, acel(DTaP) 9/7/04 Recorded diphtheria/tetanus/pertussis, acel(DTaP) 03/05/02 Recorded diphtheria/tetanus/pertussis, acel(DTaP) [...] 01/30/23 6:01:00 EDT, Route to Pharmacy Electronically, [facility]/pharmacy #[id number], Partial fill upon paty... Start Date: 01/30/23 Stop Date: 02/02/23 Status: Ordered mirtazapine 15 mg oral tablet 1 tablet = 15 mg, By Mouth, Daily at bedtime, # 30 tablet, 1 Refills, Maintenance, 11/25/22 12:37:00 EST, Tablet, [facility]/pharmacy #[id number], Partial fill upon patient request if the prescription is for a schedule II opioid drug., 176, cm, 11/25/22 11:41:00 E... Start Date: 11/25/22 Status: Ordered QUEtiapine 100 mg oral tablet 100 mg, 1, tablet, By Mouth, Daily, # 30 tablet, Refills 5, Tot. Refills 5, Maintenance, 11/25/22 12:16:00 EST, Route to Pharmacy Electronically, [facility]/pharmacy #[id number], Partial fill upon patient [...] recent to oldest [Reference Range]: 1 2 Weight 75 kg (02/07/23 2:12 AM) Oxygen Saturation [94-100 %] 96 % (02/07/23 6:45 AM) 97 % (02/07/23 2:12 AM) Pulse Rate [55-90 bpm] 110 bpm *H* (02/07/23 6:45 AM) 87 bpm (02/07/23 2:12 AM) Blood Pressure [90-138/55-84 mm Hg] 132/ 72mm Hg (02/07/23 6:45 AM) 170/79mm Hg *H* (02/07/23 2:12 AM) Respiratory Rate [16-30 br/min] 18 br/mi n (02/07/23 6:45 AM) 20 br/min (02/07/23 2:12 AM) Temperature [96.8-100.4 DegF] 97.5 DegF (02/07/23 2:12 AM) Mode of Delivery (Oxygen) Room air (02/07/23 6:45 AM) Room air (02/07/23 2:12 AM) Temperature Route Oral (02/07/23 2:12 AM) Social History Social History Type Response Smoking Status 5-9 cigarettes (betw een 1/4 to 1/2 pack)/day in last 30 days; Other: quit 04/06/2021; entered on: 11/25/22 Sex EKG study * Event Display: EKG Authored Date: [id number] Note * Director Yahaira VEE: PERFORM Event Display: Patient Education Leaflets Authored Date: [id number] Alcohol Intoxication ?? [id number] Alcohol Intoxication Alcohol intoxication is very serious. [...] to families at www.al-anon.org . Or call 215-341-2763. ??? [facility] ( Self- Management and Recovery Training). A nationwide abstinence-oriented support group for people with addictive issues. This free program is focused on motivation to change, urge control, and living a balanced life. For more information and meetings near you, go to www.[facility].org/ ??? Substance Abuse and Mental Health Services Administration (SAMHSA) Treatment [employer]. Free information on treatment resources in your area at https://findtreatment.gov/. Or call 727-928-0846. Call 911 Call 911 if any of [...] vomiting ?? Last Reviewed Date: 2021 ?? 9104-9160 [employer]. All rights reserved. This information is not [...] Professional Member Role: PCP Address: Address: [address] [place] [address]- Name: Emilia Lopez RN Position: [facility] RN Member Role: Primary Care Nurse Name: Tiffany Estrada RN Position: [facility] RN Member Role: Primary Care Nurse Name: Layne Cooper RN Position: [facility] RN Supv Member Role: Primary Care Nurse Name: Greta Cam RN Position: [facility] RN Member Role: Primary Care Nurse Name: Jo Diaz RN Position: [facility] RN Supv Member Role: Primary Care Nurse Name: Abigail Escobar RN Position: [facility] RN Member Role: Primary Care Nurse Name: Savanna Eubanks RN Position: [facility] RN [...] Member Role: Lifetime Consulting Physician Address: Address: [address] [place] [id number]- Name: Jaja So RN Position: [facility] ED RN W/OE and Tasks Member Role: Patient Care Provider Name: Reed Olivera DO Position: [facility] Resident Member Role: Admitting Physician Address: Address: [address] [place] [id number]- [place] Name: Director Yahaira VEE Position: S Resident Member Role: ED Resident Address: Address: [address] [place] [address]- Care Team Related Persons Name: SEDRICK LUIS CARLOS Address: home [address] [address] Name: MARGO HAWKINS Address: home [address] [place] [address] Name: RAY HAWKINS Address: home [address] [place] [address] Name: RAY HAWKINS Address: home [address] [place] [address] Name: PT STATES NO ONE, NO ONE
--- OUTSIDE RECORDS SUMMARY | 2023-04-21 20:50 | XMS_ITS | Continuity of Care Document ---
Author Name Unknown Organization [facility] ter Address [address] [place] [address]- Care Team Providers Care Estimator Name Role Phone Zaina Jimenes MD Primary Care Physician Encounter [facility] Date(s): 05/02/21 - 05/03/[address] [address]- Encounter Diagnosis Acute depression(Final) - 05/03/21 Discharge Disposition: A-D/C Home Attending Physician: Alondra Luna MD Admitting Physician: Alondra Luna MD Referring Physician: Not on Staff, Referring MD Allergies, Adverse Reactions, Alerts Substance Reaction Severity Status Haldol 1 restless legs Mild Active Fish Active 1Pt tolerates droperidol Immunizations Given and Recorded Vaccine Date Status Refusal Reason Meningococcal Conjugate Vaccine 03/03/16 Recorded Meningococcal Conjugate [...] 20:01:00 EDT, Inhaler, Route to Pharmacy Electronically, [id number], [facility]/pharmacy #[id number], 175, cm, 04/27/21 19:07:00... Start Date: 04/27/21 Status: Ordered Ambien 5 mg oral tablet 2 tablet = 10 mg, By Mouth, Daily at bedtime, PRN Sleep, for 7 days, # 7 tablet, 3 Refills, Acute 05/25/21 19:53:00 EDT, 04/27/21 19:53:00 EDT, Tablet, [facility]/pharmacy #[id number], Partial fill upon patient request if the prescription is for a schedule II opio... Start Date: 04/27/21 Stop Date: 05/25/21 Status: Ordered Ativan 2 mg oral tablet 1 tablet = 2 mg, By Mouth, 2 times a day, PRN as needed for anxiety, for 7 days, # 14 tablet, 3 Refills, Acute 05/25/21 19:58:00 EDT, 04/27/21 19:58:00 EDT, Tablet, [facility]/pharmacy #[id number], Partial fill upon patient request if the prescription is for a ashlee... Start Date: 04/27/21 Stop Date: 05/25/21 Status: Ordered bacitracin zinc 500 units/g topical ointment See Instructions, Topically 4 times a day 7 days, # 120 Gm, 0 Refills, Acute 05/04/21 20:00:00 EDT,04/27/21 20:00:00 EDT, Ointment, [facility]/pharmacy #[id number], Partial fill upon patient request if the prescription is for a schedule II opioid drug., Topically... Start Date: 04/27/21 Stop Date: 05/04/21 Status: Ordered diphenhydrAMINE 50 mg oral tablet [...] tablet, 3 Refills, Maintenance, 04/27/21 19:46:00 EDT,Tablet, [facility]/pharmacy #[id number], Partial fill upon patient request if the prescription is for a scheduleII opioid drug., 175, cm, 04/27/21 19:07:00 EDT, He... Start Date: 04/27/21 Stop Date: 05/25/21 Status: Ordered divalproex sodium 500 mg oral enteric coated tablet = 1,000 mg, By Mouth, Daily in AM, # 14 tablet, 3 Refills, Maintenance, 04/27/21 19:46:00 EDT, Tablet, [facility]/pharmacy #[id number], Partial fill upon patient request if the prescription is for a schedule II opioid drug., 175, cm, 04/27/21 19:07:00 EDT, Height,... Start Date: 04/27/21 Stop Date: 05/25/21 Status: Ordered hydrOXYzine pamoate 50 mg oral capsule 1 capsule = 50 mg, By Mouth, 2 times a day, # 14 capsule, 3 Refills, Soft Stop, 04/27/21 19:59:00 EDT, Capsule, [facility]/pharmacy #[id number], Partial fill upon patient request if the prescription is for a schedule II opioid drug., 175, cm, 04/27/21 19:07:00 EDT... Start Date: 04/27/21 Stop Date: 05/25/21 Status: Ordered melatonin 5 mg oral tablet 1 tablet = 5 mg, By Mouth, Daily at bedtime, for 7 days, # 7 tablet, 3 Refills, Acute 05/25/21 19:48:00 EDT, 04/27/21 19:48:00 EDT, Tablet, [facility]/pharmacy #[id number], Partial fill upon patient request [...] 04/27/21 19:48:00 EDT, Route to Pharmacy Electronically, [facility]/pharmacy #[id number], [...] 05/26/21 10:30:00 EDT, 04/28/21 10:30:00 EDT, Patch, [facility]/pharmacy #[id number], Partial fill upon patient request if the prescription is for a schedule II opioid drug., 1 patch Topically Jessica... Start Date: 04/28/21 Stop Date: 05/26/21 Status: Ordered prazosin 2 mg oral capsule 1 capsule = 2 mg, By Mouth, Daily, # 7 capsule, 3 Refills, Maintenance, 04/27/21 19:49:00 EDT, Capsule, [facility]/pharmacy #[id number], Partial fill upon patient request if the prescription is for a schedule II opioid drug., 175, cm, 04/27/21 19:07:00 EDT, Height... Start Date: 04/27/21 Stop Date: 05/25/21 Status: [...] Date: 04/27/21 Stop Date: 05/25/21 Status: Ordered tamsulosin 0.4 mg oral capsule 0.8 mg, 2, capsule, By Mouth, Daily, # 14 capsule, Refills 3, Tot. Refills 3, Maintenance, 04/27/2119:49:00 EDT, Route to Pharmacy Electronically, [facility]/pharmacy #[id number], Partial fill upon patient request if the prescription is for a schedule II opioid d... Start Date: 04/27/21 Stop Date: 05/25/21 Status: Ordered Trileptal 600 mg oral tablet 1 tablet = 600 mg, By Mouth, 2 times a day, # 14 tablet, 3 Refills, Maintenance, 04/27/21 19:57:00 EDT, Tablet, [facility]/pharmacy #[id number], Partial fill upon patient request [...] 04/27/21 19:57:00 EDT, Route to Pharmacy Electronically, [facility]/pharmacy #[id number], Partial fill upon patient request if the prescription is for a... Start Date: 04/27/21 Stop Date: 05/25/21 Status: Ordered Vital Signs Most recent to oldest [Reference Range]: 1 2 3 Oxygen Saturation [94-100 %] 99 % (05/03/21 2:00 AM) 99 % (05/03/21 12:00 AM) 97 % (05/02/21 6:38 PM) Pulse Rate [55-90 bpm] 78 bpm (05/03/21 2:00 AM) 98 bpm *H* (05/03/21 12:00 AM) 96 bpm *H* (05/02/21 6:38 PM) Blood Pressure [90-138/55-84 mm Hg] 137/68mm Hg (05/03/21 2:00 AM) 130/87mm Hg (05/03/21 12:00 AM) 132/82mm Hg (05/02/21 6:38 PM) Respiratory Rate [16-30 br/min] 19 br/min (05/03/21 2:00 AM) 19 br/min (05/03/21 12:00 AM) 18 br/min (05/02/21 6:38 PM) Temperature [96.8-100.4 DegF] 97.4 DegF (05/03/21 2:00 AM) 98.4 DegF (05/02/21 6:38 PM) 97.9 DegF (05/02/21 1:40 PM) Liters per Minute 0 L/min (05/02/21 6:38 PM) 0 L/min (05/02/21 1:40 PM) Mode of Delivery (Oxygen) Room air (05/02/21 1:40 PM) Blood pressure sites Arm, right (05/03/21 2:00 AM) Arm, right (05/03/21 12:00 AM) Arm, left (05/02/21 6:38 PM) Temperature Route Oral (05/03/21 2:00 AM) Oral (05/02/21 6:38 PM) Oral (05/02/21 1:40 PM) Social History Social History Type Response Smoking Status 10 or more cigarette s (1/2 pack or more)/day in last 30 days; Type: Cigarettes; Type: Vape; Other: Reports smoking ~ 1/2 ppd of cigarettes. Endorses vaping / ; entered on: 06/20/20 Sex
[2023-04-21 22:12] VITALS: BMI 29.8
[2023-04-21] MEDS: Magnesium Hydrox/Alum Hydrox 30 ML ORAL.SUSP PO (22:37)
[2023-04-21] MEDS: hydrOXYzine HCL 25 MG TABLET PO (22:37)
--- NOTE | 2023-04-22 | ECG_ITS ---
Test Reason : Hx of OD on [facility] Blood Pressure : / mmHG Vent. Rate : 096 BPM Atrial Rate : 096 BPM P-R Int : 170 ms QRS Dur : 082 ms QT Int : 356 ms P-R-T Axes : 063 049 076 degrees QTc Int : 449 ms Normal sinus rhythm Nonspecific ST and T wave abnormality Abnormal ECG When compared with ECG of 24-AUG-2022 15:47, Nonspecific T wave abnormality now evident in Lateral leads QT has lengthened Referred By: Edilson Dennison Electronically Signed By:JAMAL JONES MD
[2023-04-22 00:19] VITALS: BP 140/90; PULSE 88; RESP 16; TEMP 36.4; O2SAT 99
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
[2023-04-22 09:16] VITALS: BP 112/53; PULSE 85; RESP 18; TEMP 36.4; O2SAT 98
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
[2023-04-22] MEDS: polyethylene glycoL 3350 17 GM POWD.PACK PO (13:08)
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
--- NOTE | 2023-04-22 14:46 | PC.NURSE ---
EKG completed and forwarded to Dr Kellogg, no changes needed. VSS. Pt is A&O x4, visible and social with peers. Pt making needs known appropriately.
[2023-04-22] MEDS: Amphetamine Mixed Salts 10 MG TABLET 5 MG PO (16:01)
[2023-04-22] MEDS: Milk of Magnesia 30 ML ORAL.SUSP PO (18:47)
[2023-04-22 19:35] VITALS: BP 135/80; PULSE 84; RESP 18; TEMP 36.1; O2SAT 100
[2023-04-22] MEDS: Magnesium Hydrox/Alum Hydrox 30 ML ORAL.SUSP PO (19:49)
[2023-04-22] MEDS: Pregabalin 25 MG CAPSULE PO (20:52)
[2023-04-22] MEDS: OXcarbazepine 300 MG TABLET PO (20:52)
[2023-04-23] MEDS: hydrOXYzine HCL 25 MG TABLET PO ×3 (01:17→17:33)
[2023-04-23 07:42] LABS: Lithium 0.28 mmol/L (0.60-1.20)
[2023-04-23 07:58] LABS: Alanine Aminotransferase 17 U/L (0-40); Alkaline Phosphatase 63 U/L (39-117); Anion Gap 15 (12-20); Aspartate Amino Transferase 12 U/L (5-37); Bilirubin Total 0.4 mg/dL (0.0-1.0); Blood Urea Nitrogen 5 mg/dL (9-16); Calcium 9.6 mg/dL (8.4-10.2); Carbon Dioxide 23 mmol/L (22-29); Chloride 106 mmol/L (96-108); Cholesterol 159 mg/dL; Estimated Glomerular Filt Rate > 60; Glucose Random 101 mg/dL (60-115); HDL Cholesterol 46 mg/dL; LDL Cholesterol Calculated 91 mg/dl; Potassium 3.8 mmol/L (3.3-5.1); Sodium 140 mmol/L (135-145); Total Protein 6.6 g/dL (6.5-8.0); Triglycerides 114 mg/dL
[2023-04-23] MEDS: Amphetamine Mixed Salts 10 MG TABLET 5 MG PO (08:07)
[2023-04-23] MEDS: polyethylene glycoL 3350 17 GM POWD.PACK PO (08:07)
[2023-04-23 08:13] LABS: Thyroid Stimulating Hormone 0.88 uIU/mL (0.32-4.0)
[2023-04-23] MEDS: OXcarbazepine 300 MG TABLET PO ×2 (09:07→20:14)
[2023-04-23] MEDS: Pregabalin 25 MG CAPSULE PO ×2 (09:07→20:14)
[2023-04-23 09:19] VITALS: BP 125/67; PULSE 86; RESP 20; TEMP 36.7; O2SAT 97
[2023-04-23] MEDS: Dextroamphetamine/Amphetamine XR 5 MG CAP.ER.24H 15 MG PO (10:39)
--- NOTE | 2023-04-23 10:47 | P.PNPSI_ITS ---
Subjective Subjective Date of Service: 04/23/23 Reason For Visit: F10.20,F32, 301.83, F43.10 Subjective Notes: Conditional Voluntary Interim History: The nursing staff reported the patient had poor sleep, he complained that his roommate snores. Vital signs have been stable. He was seen watching TV but not participating in groups. Blood per for today came back within normal limits lithium level going down. No evidence of acute renal damage. On interview the patient reported that he is feeling Daniel dysphoric and wanted to store his Wellbutrin. We discussed risks, benefits, side-effects and alternatives and he agreed to change the adult to the extended release that he used to be prescribed and start Seroquel 150 mg p.o. q.h.s.. We will discuss about antidepressant treatment tomorrow. Mental Status Exam Mental Status Exam Patient Appearance: Appropriate Patient Orientation: Person, Place and Situation Level of Consciousness: Awake and Appropriate Patient Behavior: Cooperative Mood Description: Calm Affect Description: Constricted Patient Cognition Impaired: Yes Ability to Follow Directions: Good Speech Pattern: Clear Hallucinations: None Delusions: Not Present Thought Process: Linear Thought Content: positive for Circumstantial Judgement: Fair Diagnostics Vital Signs (24Hr): Vital Signs - 24 hr 04/22/23 19:35 04/23/23 09:19 Temperature 97 F 98.1 F Pulse Rate 84 86 Respiratory Rate 18 20 Blood Pressure 135/80 125/67 Pulse Oximetry 100 97 Oxygen Delivery Method Room Air Room Air BMI result Body Mass Index 29.8 Labs 04/23/23 07:18 Labs: Laboratory Results - last 48 hr 04/23/23 04/23/23 07:18 07:18 Sodium 140 Potassium 3.8 Chloride 106 Carbon Dioxide 23 Anion Gap 15 BUN 5 L Creatinine 0.79 Estim Creat Clear Calc 161.0 Estimated GFR > 60 Random Glucose 101 Calcium 9.6 Total Bilirubin 0.4 AST 12 ALT 17 Alkaline Phosphatase 63 Total Protein 6.6 Albumin 4.0 Triglycerides 114 Cholesterol 159 LDL Cholesterol, Calc 91 HDL Cholesterol 46 TSH 0.88 [place] 0.28 L Medications Medications Current Medications Acetaminophen (Acetaminophen 325 Mg Tablet) 650 mg PO Q6H PRN PRN Reason: Headache/Pain Mild Scale (1-3) Al Hydroxide/Mg Hydroxide (Magnesium Hydrox/Alum Hydrox 30 Ml Oral.Susp) 30 ml PO Q6H PRN PRN Reason: Heartburn/Nausea Last Admin: 04/22/23 19:49 Dose: 30 ml Amphetamine/Dextroamphetamine (Dextroamphetamine/Amphetamine Xr 5 Mg Cap.Er.24h) 15 mg PO DAILY [facility] Clonazepam (Clonazepam 0.125 Mg Tab.Rapdis) 0.25 mg PO BID PRN PRN Reason: severe anxiety Last Admin: 04/23/23 08:07 Dose: 0.25 mg Hydroxyzine HCl (Hydroxyzine Hcl 25 Mg Tablet) 25 mg PO Q6H PRN PRN Reason: Anxiety Last Admin: 04/23/23 01:17 Dose: 25 mg Magnesium Hydroxide (Milk Of Magnesia 30 Ml Oral.Susp) 30 ml PO DAILY PRN PRN Reason: Constipation Last Admin: 04/22/23 18:47 Dose: 30 ml Oxcarbazepine (Oxcarbazepine 300 Mg Tablet) 300 mg PO BID [facility] Last Admin: 04/23/23 09:07 Dose: 300 mg Polyethylene Glycol (Polyethylene Glycol 3350 17 Gm Powd.Pack) 17 gm PO DAILY [facility] Last Admin: 04/23/23 08:07 Dose: 17 gm Pregabalin (Pregabalin 25 Mg Capsule) 25 mg PO BID [facility] Last Admin: 04/23/23 09:07 Dose: 25 mg Quetiapine Fumarate (Quetiapine Fumarate 50 Mg Tablet) 150 mg PO BEDTIME [facility] Trazodone HCl (Trazodone Hcl 50 Mg Tablet) 50 mg PO BEDTIME MRX1 PRN PRN Reason: Insomnia Allergies Allergies Allergy/AdvReac Type Severity Reaction Status Date / Time fish Allergy Unknown Unknown Uncoded 08/23/22 17:09 haldol Allergy Unknown restless Uncoded 08/23/22 17:21 legs Assessment & Plan Assessment & Plan (1) Routine history and physical examination of adult: Status: Acute Code(s): Z00.00 - Encounter for general adult medical examination without abnormal findings Plan Pt is a 22-year-old male with a PMH significant for?ADHD, urinary retention, bipolar disorder, OCD, borderline personality disorder, PTSD, and substance use disorder who is admitted to psychiatry unit for increased depression and anxiety with SI after intentionally overdosing on prescription medications. Medical consult for admission H&P. Mood disorder Plan as per Psychiatry Urinary retention Patient states he can only urinate in the shower, complains never feels like he fully empties his bladder Continue Flomax Bladder scan, straight cath as necessary ADHD Continue Adderall Thank you for allowing us to participate in the care of this patient. Signing off at this time. Please let us know if there are any acute complaints or questions. Plan 1. Gather collateral information. 2. Restart Adderall XR 15 mg p.o. daily 1st dose now. 3. We discussed risk, benefits, side-effects and alternatives and he agreed to start Seroquel 150 mg p.o. q.h.s. to target mood lability and insomnia. 4. We are not going to start antidepressants today. 5. Reassessment with results. Reason for continued inpatient stay Substantial Risk for: inability to function, rapid decompensation and med/psych decompensation Time Spent With Patient Time: Total time managing care of this patient today __20__ minutes.
--- NOTE | 2023-04-23 15:43 | PC.NURSE ---
Pt was brought out on fresh air break and began talking about leaving the hospital if they don't let me out. Pt then required redirection for trying to climb the fence around [place] area. Following this pt pushed the door open on the [place] area. At this time staff called the unit to return the pt to the unit. While returning to the unit pt pushed the elevator buttons. Pt returned to unit and MD notified. Pt placed on [place] restrictions to be reviewed daily. Patient aware of restriction and said, I don't care, I don't want to go back out there, it sucks .
[2023-04-23] MEDS: Milk of Magnesia 30 ML ORAL.SUSP PO (20:17)
[2023-04-23 20:50] VITALS: BP 123/84; PULSE 104; RESP 20; TEMP 36.2; O2SAT 99
[2023-04-23] MEDS: QUEtiapine Fumarate 50 MG TABLET 150 MG PO (20:52)
[2023-04-23] MEDS: traZODone HCL 50 MG TABLET PO (20:52)
[2023-04-24] MEDS: Pregabalin 25 MG CAPSULE PO (09:23)
[2023-04-24] MEDS: OXcarbazepine 300 MG TABLET PO (09:23)
[2023-04-24] MEDS: Dextroamphetamine/Amphetamine XR 5 MG CAP.ER.24H 15 MG PO (09:23)
[2023-04-24 10:39] VITALS: BP 123/65; PULSE 75; RESP 18; TEMP 36.3; O2SAT 99
[2023-04-24] MEDS: polyethylene glycoL 3350 17 GM POWD.PACK PO (13:20)
[2023-04-24] MEDS: hydrOXYzine HCL 25 MG TABLET PO ×2 (14:36→20:55)
--- NOTE | 2023-04-24 16:01 | HO.PSYCHPN ---
Subjective Subjective Date of Service: 04/24/23 Reason For Visit: F10.20,F32, 301.83, F43.10 Subjective Notes: 3 Day Interim History: Reviewed in team and with Dr. Ramirez. Patient reports feeling good today. He reports he is regretful about overdosing on his medications; states he was feeling emotional and impulsive because my parents junked my car . Patient stated, I did it because I feel that's the easiest way to get into a psych unit without going to the POD. I know what I did was serious and I'll go to the ER next time; I know it could of ended up a lot worse . Patient reports he would like a referral to a therapist; social work coordinator notified. Medication Compliance: Yes Side effects from medications: No Attending Groups: Yes Review of Systems Constitutional: Reports as per HPI Eyes: Reports as per HPI Reports as per HPI Cardiovascular: Reports as per HPI Respiratory: Reports as per HPI Gastrointestinal: Reports as per HPI Genitourinary: Reports as per HPI Musculoskeletal: Reports as per HPI Skin/Breast: Reports as per HPI Reports as per HPI Psychiatric: Reports as per HPI Endocrine: Reports as per HPI Hematologic/Lymphatic: Reports as per HPI Allergic/Immunologic: Reports as per HPI Mental Status Exam Mental Status Exam Narrative: Pt is alert and oriented; behavior is cooperative, friendly and calm; patient is not in distress; dressed in casual attire; mood is described as good ; eye contact appropriate; Speech is normal rate, volume and prosody and not pressured; no psychomotor agitation/retardation present; thought process is organized; Thought content is perseverative; otherwise pertinent to relevant topics and without any delusional content, paranoid ideations or grandiosity; denies any SI/HI. There is no evidence of perceptual disturbance. Patients insight and judgment are poor. Diagnostics Vital Signs (24Hr): Vital Signs - 24 hr 04/23/23 20:50 04/24/23 10:39 Temperature 97.2 F 97.4 F Pulse Rate 104 H 75 Respiratory Rate 20 18 Blood Pressure 123/84 123/65 Pulse Oximetry 99 99 Oxygen Delivery Method Room Air Room Air BMI result Body Mass Index 29.8 Labs 04/23/23 07:18 Labs: Laboratory Results - last 48 hr 04/23/23 04/23/23 07:18 07:18 Sodium 140 Potassium 3.8 Chloride 106 Carbon Dioxide 23 Anion Gap 15 BUN 5 L Creatinine 0.79 Estim Creat Clear Calc 161.0 Estimated GFR > 60 Random Glucose 101 Calcium 9.6 Total Bilirubin 0.4 AST 12 ALT 17 Alkaline Phosphatase 63 Total Protein 6.6 Albumin 4.0 Triglycerides 114 Cholesterol 159 LDL Cholesterol, Calc 91 HDL Cholesterol 46 TSH 0.88 [place] 0.28 L Medications Medications Current Medications Acetaminophen (Acetaminophen 325 Mg Tablet) 650 mg PO Q6H PRN PRN Reason: Headache/Pain Mild Scale (1-3) Al Hydroxide/Mg Hydroxide (Magnesium Hydrox/Alum Hydrox 30 Ml Oral.Susp) 30 ml PO Q6H PRN PRN Reason: Heartburn/Nausea Last Admin: 04/22/23 19:49 Dose: 30 ml Amphetamine/Dextroamphetamine (Dextroamphetamine/Amphetamine Xr 5 Mg Cap.Er.24h) 15 mg PO DAILY [facility] Last Admin: 04/24/23 09:23 Dose: 15 mg Clonazepam (Clonazepam 0.125 Mg Tab.Rapdis) 0.25 mg PO BID PRN PRN Reason: severe anxiety Last Admin: 04/24/23 11:02 Dose: 0.25 mg Hydroxyzine HCl (Hydroxyzine Hcl 25 Mg Tablet) 25 mg PO Q6H PRN PRN Reason: Anxiety Last Admin: 04/24/23 14:36 Dose: 25 mg Magnesium Hydroxide (Milk Of Magnesia 30 Ml Oral.Susp) 30 ml PO DAILY PRN PRN Reason: Constipation Last Admin: 04/23/23 20:17 Dose: 30 ml Oxcarbazepine (Oxcarbazepine 300 Mg Tablet) 300 mg PO BID [facility] Last Admin: 04/24/23 09:23 Dose: 300 mg Polyethylene Glycol (Polyethylene Glycol 3350 17 Gm Powd.Pack) 17 gm PO DAILY [facility] Last Admin: 04/24/23 13:20 Dose: 17 gm Pregabalin (Pregabalin 25 Mg Capsule) 25 mg PO BID [facility] Last Admin: 04/24/23 09:23 Dose: 25 mg Quetiapine Fumarate (Quetiapine Fumarate 50 Mg Tablet) 150 mg PO BEDTIME [facility] Last Admin: 04/23/23 20:52 Dose: 150 mg Trazodone HCl (Trazodone Hcl 50 Mg Tablet) 50 mg PO BEDTIME MRX1 PRN PRN Reason: Insomnia Last Admin: 04/23/23 20:52 Dose: 50 mg Allergies Allergies Allergy/AdvReac Type Severity Reaction Status Date / Time fish Allergy Unknown Unknown Uncoded 08/23/22 17:09 haldol Allergy Unknown restless Uncoded 08/23/22 17:21 legs Assessment & Plan Assessment & Plan (1) Routine history and physical examination of adult: Status: Acute Code(s): Z00.00 - Encounter for general adult medical examination without abnormal findings Plan The patient is a 22-year-old male, single, with no children, unemployed with poor social support, with a prior history of bipolar disorder, borderline personality disorder, alcohol use disorder, OCD, ADHD and PTSD who was initially admitted at [facility] after he intentionally overdosed on his prescription medications lithium, Lyrica, and Wellbutrin. Apparently, the patient was recently discharged from [place] for a [address] and he did not have stable housing. He was living with his aunt and he felt extremely this Amina and depressed and impulsively he took an overdose of medications. He was rushed to the emergency room of [facility], medically cleared and assessed by crisis. The crisis team reported that he was inpatient level of care at this point. Plan 3 day 15 minute safety checks Gather collateral information from outpt psychistrist Obtain collateral from parents. 04/24: Patient reports feeling good today. He reports he is regretful about overdosing on his medications; states he was feeling emotional and impulsive . Denies SI. Pt perserverating on increase in his medications. Lyrica increased to 50mg PO BID. Oxcarbazepine increased to 600mg PO BID. 3 day is up on Monday. T/W reached out to outpatient psychiatrist, Dominguez Barnhart; waiting for call back. Will attempt to reach patients parents tomorrow. Pt reports he would like a referral to an outpatient therapist; social work coordinator notified. Patient educated on: diagnosis, medication risk/benefits, substance abuse and therapeutic strategies Informed Consent: understands Reason for continued inpatient stay Substantial Risk for: harm to self and med/psych decompensation Time Spent With Patient Time: Total time managing care of this patient today _30___ minutes.
[2023-04-24] MEDS: OXcarbazepine 300 MG TABLET 600 MG PO (20:51)
[2023-04-24] MEDS: Pregabalin 50 MG CAPSULE PO (20:51)
[2023-04-24] MEDS: QUEtiapine Fumarate 50 MG TABLET 150 MG PO (22:21)
[2023-04-25] MEDS: Pregabalin 50 MG CAPSULE PO ×2 (08:22→20:57)
[2023-04-25] MEDS: Dextroamphetamine/Amphetamine XR 5 MG CAP.ER.24H 15 MG PO (08:22)
[2023-04-25] MEDS: OXcarbazepine 300 MG TABLET 600 MG PO ×2 (08:22→20:58)
[2023-04-25 09:32] VITALS: BP 134/74; PULSE 102; RESP 18; TEMP 36.3; O2SAT 99
--- NOTE | 2023-04-25 09:37 | HO.PSYCHPN ---
Subjective Subjective Date of Service: 04/25/23 Reason For Visit: F10.20,F32, 301.83, F43.10 Subjective Notes: 3 Day Interim History: Reviewed in team and with Dr. Ramirez. Retracted 3 day notice. Patient reports feeling good today. Denies SI. Patient is requesting to be discharged soon . Patient reports if he feels impulsive in the future he plans to go for a walk or play video games . Patient does not he would benefit from staying inpatient. Pt stated, no amount of time here will help me with my impulse control. I have to work on it outpatient . Medication Compliance: Yes Side effects from medications: No Attending Groups: Yes Review of Systems Constitutional: Reports as per HPI Eyes: Reports as per HPI Reports as per HPI Cardiovascular: Reports as per HPI Respiratory: Reports as per HPI Gastrointestinal: Reports as per HPI Genitourinary: Reports as per HPI Musculoskeletal: Reports as per HPI Skin/Breast: Reports as per HPI Reports as per HPI Psychiatric: Reports as per HPI Endocrine: Reports as per HPI Hematologic/Lymphatic: Reports as per HPI Allergic/Immunologic: Reports as per HPI Mental Status Exam Mental Status Exam Narrative: Pt is alert and oriented; behavior is cooperative, friendly and calm; patient is not in distress; dressed in casual attire; mood is described as good ; eye contact appropriate; Speech is normal rate, volume and prosody and not pressured; no psychomotor agitation/retardation present; thought process is organized; Thought content is perseverative; otherwise pertinent to relevant topics and without any delusional content, paranoid ideations or grandiosity; denies any SI/HI. There is no evidence of perceptual disturbance. Patients insight and judgment are poor. Diagnostics Vital Signs (24Hr): Vital Signs - 24 hr 04/24/23 10:39 04/25/23 09:32 Temperature 97.4 F 97.4 F Pulse Rate 75 102 H Respiratory Rate 18 18 Blood Pressure 123/65 134/74 Pulse Oximetry 99 99 Oxygen Delivery Method Room Air Room Air BMI result Body Mass Index 29.8 Labs 04/23/23 07:18 Medications Medications Current Medications Acetaminophen (Acetaminophen 325 Mg Tablet) 650 mg PO Q6H PRN PRN Reason: Headache/Pain Mild Scale (1-3) Al Hydroxide/Mg Hydroxide (Magnesium Hydrox/Alum Hydrox 30 Ml Oral.Susp) 30 ml PO Q6H PRN PRN Reason: Heartburn/Nausea Last Admin: 04/22/23 19:49 Dose: 30 ml Amphetamine/Dextroamphetamine (Dextroamphetamine/Amphetamine Xr 5 Mg Cap.Er.24h) 15 mg PO DAILY [facility] Last Admin: 04/25/23 08:22 Dose: 15 mg Clonazepam (Clonazepam 0.125 Mg Tab.Rapdis) 0.25 mg PO BID PRN PRN Reason: severe anxiety Last Admin: 04/24/23 17:04 Dose: 0.25 mg Hydroxyzine HCl (Hydroxyzine Hcl 25 Mg Tablet) 25 mg PO Q6H PRN PRN Reason: Anxiety Last Admin: 04/24/23 20:55 Dose: 25 mg Magnesium Hydroxide (Milk Of Magnesia 30 Ml Oral.Susp) 30 ml PO DAILY PRN PRN Reason: Constipation Last Admin: 04/23/23 20:17 Dose: 30 ml Oxcarbazepine (Oxcarbazepine 300 Mg Tablet) 600 mg PO BID [facility] Last Admin: 04/25/23 08:22 Dose: 600 mg Polyethylene Glycol (Polyethylene Glycol 3350 17 Gm Powd.Pack) 17 gm PO DAILY [facility] Last Admin: 04/24/23 13:20 Dose: 17 gm Pregabalin (Pregabalin 50 Mg Capsule) 50 mg PO BID [facility] Last Admin: 04/25/23 08:22 Dose: 50 mg Quetiapine Fumarate (Quetiapine Fumarate 50 Mg Tablet) 150 mg PO BEDTIME [facility] Last Admin: 04/24/23 22:21 Dose: 150 mg Trazodone HCl (Trazodone Hcl 50 Mg Tablet) 50 mg PO BEDTIME MRX1 PRN PRN Reason: Insomnia Last Admin: 04/23/23 20:52 Dose: 50 mg Allergies Allergies Allergy/AdvReac Type Severity Reaction Status Date / Time fish Allergy Unknown Unknown Uncoded 08/23/22 17:09 haldol Allergy Unknown restless Uncoded 08/23/22 17:21 legs Assessment & Plan Assessment & Plan (1) Routine history and physical examination of adult: Status: Acute Code(s): Z00.00 - Encounter for general adult medical examination without abnormal findings Plan The patient is a 22-year-old male, single, with no children, unemployed with poor social support, with a prior history of bipolar disorder, borderline personality disorder, alcohol use disorder, OCD, ADHD and PTSD who was initially admitted at [facility] after he intentionally overdosed on his prescription medications lithium, Lyrica, and Wellbutrin. Apparently, the patient was recently discharged from [place] for a Section 35 and he did not have stable housing. He was living with his aunt and he felt extremely this Amina and depressed and impulsively he took an overdose of medications. He was rushed to the emergency room of [facility], medically cleared and assessed by crisis. The crisis team reported that he was inpatient level of care at this point. Plan 3 day 15 minute safety checks Gather collateral information from outpt psychistrist Obtain collateral from parents. 04/24: Patient reports feeling good today. He reports he is regretful about overdosing on his medications; states he was feeling emotional and impulsive . Denies SI. Pt perserverating on increase in his medications. Lyrica increased to 50mg PO BID. Oxcarbazepine increased to 600mg PO BID. 3 day is up on Monday. T/W reached out to outpatient psychiatrist, Dominguez Barnhart; waiting for call back. Will attempt to reach patients parents tomorrow. Pt reports he would like a referral to an outpatient therapist; social science analyst notified. 04/25: Retracted 3 day notice. Patient reports feeling good today. Denies SI. Patient is requesting to be discharged soon . Patient does not he would benefit from staying inpatient. Pt stated, no amount of time here will help me with my impulse control. I have to work on it outpatient . T/W spoke with patient's outpatient psychiatrist, Dr. Dominguez Barnhart, who reports he does not know the patient well d/t only having one prior appointment with Toni. Patient father called T/W and stated he does not feel he's safe to discharge and concerned he will overdose again . Klonopin increased to 0.5mg PO BID PRN anxiety. Patient educated on: diagnosis, medication risk/benefits and therapeutic strategies Informed Consent: understands Reason for continued inpatient stay Substantial Risk for: harm to self and med/psych decompensation Time Spent With Patient Time: Total time managing care of this patient today _30___ minutes.
[2023-04-25] MEDS: hydrOXYzine HCL 25 MG TABLET PO (12:10)
[2023-04-25] MEDS: OLANZapine 10 MG VIAL IM (16:35)
--- NOTE | 2023-04-25 17:58 | PC.NURSE ---
Patient retracted 3 day notice on 04/25 and signed another 3 day notice 04/25.
--- NOTE | 2023-04-25 18:10 | PC.NURSE ---
At approximately 16:15, Toni forced himself through the first set of jessica port doors. Code assist was called, and Toni was able to be redirected back onto the unit. Provider met with patient, when asked why he did this, he stated because I wanted to . Pt requested and was given zyprexa 10mg IM.
[2023-04-25] MEDS: QUEtiapine Fumarate 50 MG TABLET 150 MG PO (20:57)
[2023-04-25 21:00] VITALS: BP 138/73; PULSE 96; TEMP 36.6; O2SAT 100
[2023-04-26 08:00] VITALS: BP 129/55; PULSE 98; RESP 16; TEMP 36.3; O2SAT 100
[2023-04-26] MEDS: Dextroamphetamine/Amphetamine XR 5 MG CAP.ER.24H 15 MG PO (08:44)
[2023-04-26] MEDS: Pregabalin 50 MG CAPSULE PO (08:44)
[2023-04-26] MEDS: guanFACINE HCl ER 1 MG TAB.ER.24H PO (08:45)
[2023-04-26] MEDS: OXcarbazepine 300 MG TABLET 600 MG PO ×2 (08:46→19:46)
[2023-04-26] MEDS: polyethylene glycoL 3350 17 GM POWD.PACK PO (08:47)
[2023-04-26] MEDS: Amphetamine Mixed Salts 10 MG TABLET PO (13:24)
[2023-04-26] MEDS: Nicotine Polacrilex 2 MG GUM BUCCAL ×2 (14:52→17:34)
--- NOTE | 2023-04-26 16:09 | HO.PSYCHPN ---
Subjective Subjective Date of Service: 04/26/23 Reason For Visit: F10.20,F32, 301.83, F43.10 Subjective Notes: Conditional Voluntary Interim History: Pt reports he got scared after suicide attempt because I almost needed dialysis Pt reports in the past when he had self harm (he clarifies it wasn't suicide attempts) as he was hoping that by self harming he would be seen quicker in the hospital and taken seriously. He reports he is sleeping. He reports OCD symptoms at times have trigger self harm behaviors. He also reports self harm have been impulsive and therefore he states he does not know if it will happen again or when. Mental Status Exam Mental Status Exam Narrative: Appearance: casually groomed, fair hygiene, in NAD Behavior: cooperative Psychomotor: tapping foot throughout interview Speech: clear, normal rate/rhythm/volume, spontaneous TP: linear TC: denies SI/HI hopes to be discharged soon Mood: good Affect: congruent SI: denies HI: denies VH/AH: denies Delusions: denies Insight/judgment: poor x 2. Memory/cog: alert, oriented x 3. Diagnostics Vital Signs (24Hr): Vital Signs - 24 hr 04/25/23 21:00 04/26/23 08:00 Temperature 97.9 F 97.3 F Pulse Rate 96 98 Respiratory Rate 16 Blood Pressure 138/73 129/55 L Pulse Oximetry 100 100 Oxygen Delivery Method Room Air Room Air BMI result Body Mass Index 29.8 Labs 04/23/23 07:18 Medications Medications Current Medications Acetaminophen (Acetaminophen 325 Mg Tablet) 650 mg PO Q6H PRN PRN Reason: Headache/Pain Mild Scale (1-3) Al Hydroxide/Mg Hydroxide (Magnesium Hydrox/Alum Hydrox 30 Ml Oral.Susp) 30 ml PO Q6H PRN PRN Reason: Heartburn/Nausea Last Admin: 04/22/23 19:49 Dose: 30 ml Amphetamine/Dextroamphetamine (Dextroamphetamine/Amphetamine Xr 5 Mg Cap.Er.24h) 15 mg PO DAILY [facility] Last Admin: 04/26/23 08:44 Dose: 15 mg Amphetamine/Dextroamphetamine (Amphetamine Mixed Salts 10 Mg Tablet) 10 mg PO DAILY@1330 [facility] Last Admin: 04/26/23 13:24 Dose: 10 mg Clonazepam (Clonazepam 0.125 Mg Tab.Rapdis) 0.5 mg PO BID PRN PRN Reason: severe anxiety Last Admin: 04/26/23 12:26 Dose: 0.5 mg Guanfacine HCl (Guanfacine Hcl Er 1 Mg Tab.Er.24h) 1 mg PO DAILY [facility] Last Admin: 04/26/23 08:45 Dose: 1 mg Hydroxyzine HCl (Hydroxyzine Hcl 25 Mg Tablet) 25 mg PO Q6H PRN PRN Reason: Anxiety Last Admin: 04/25/23 12:10 Dose: 25 mg Magnesium Hydroxide (Milk Of Magnesia 30 Ml Oral.Susp) 30 ml PO DAILY PRN PRN Reason: Constipation Last Admin: 04/23/23 20:17 Dose: 30 ml Nicotine Polacrilex (Nicotine Polacrilex 2 Mg Gum) 2 mg BUCCAL Q2H PRN PRN Reason: Nicotine Cravings Last Admin: 04/26/23 14:52 Dose: 2 mg Oxcarbazepine (Oxcarbazepine 300 Mg Tablet) 600 mg PO BID [facility] Last Admin: 04/26/23 08:46 Dose: 600 mg Polyethylene Glycol (Polyethylene Glycol 3350 17 Gm Powd.Pack) 17 gm PO DAILY [facility] Last Admin: 04/26/23 08:47 Dose: 17 gm Pregabalin (Pregabalin 75 Mg Capsule) 75 mg PO BID [facility] Quetiapine Fumarate (Quetiapine Fumarate 50 Mg Tablet) 150 mg PO BEDTIME [facility] Last Admin: 04/25/23 20:57 Dose: 150 mg Tamsulosin HCl (Tamsulosin Hcl 0.4 Mg Capsule) 0.8 mg PO BEDTIME [facility] Trazodone HCl (Trazodone Hcl 50 Mg Tablet) 50 mg PO BEDTIME PRN PRN Reason: Insomnia Allergies Allergies Allergy/AdvReac Type Severity Reaction Status Date / Time fish derived [fish] Allergy Unknown Verified 04/26/23 10:02 haloperidol [From Haldol] Allergy Unknown Verified 04/26/23 10:02 Assessment & Plan Assessment & Plan (1) OCD (obsessive compulsive disorder): Status: Acute Code(s): F42.9 - Obsessive-compulsive disorder, unspecified (2) Personality disorder: Status: Acute Code(s): F60.9 - Personality disorder, unspecified (3) Alcohol use disorder in remission: Status: Acute Code(s): F10.91 - Alcohol use, unspecified, in remission Plan The patient is a 22-year-old male, single, with no children, unemployed with poor social support, with a prior history of bipolar disorder, borderline personality disorder, alcohol use disorder, OCD, ADHD and PTSD who was initially admitted at [facility] after he intentionally overdosed on his prescription medications lithium, Lyrica, and Wellbutrin. Apparently, the patient was recently discharged from [place] for a Section 35 and he did not have stable housing. He was living with his aunt and he felt extremely this Amina and depressed and impulsively he took an overdose of medications. He was rushed to the emergency room of [facility], medically cleared and assessed by crisis. The crisis team reported that he was inpatient level of care at this point. Plan 3 day 15 minute safety checks Gather collateral information from outpt psychistrist Obtain collateral from parents. 04/24: Patient reports feeling good today. He reports he is regretful about overdosing on his medications; states he was feeling emotional and impulsive . Denies SI. Pt perserverating on increase in his medications. Lyrica increased to 50mg PO BID. Oxcarbazepine increased to 600mg PO BID. 3 day is up on Monday. T/W reached out to outpatient psychiatrist, Dominguez Barnhart; waiting for call back. Will attempt to reach patients parents tomorrow. Pt reports he would like a referral to an outpatient therapist; social security benefits interviewer notified. 04/25: Retracted 3 day notice. Patient reports feeling good today. Denies SI. Patient is requesting to be discharged soon . Patient does not he would benefit from staying inpatient. Pt stated, no amount of time here will help me with my impulse control. I have to work on it outpatient . T/W spoke with patient's outpatient psychiatrist, Dr. Dominguez Barnhart, who reports he does not know the patient well d/t only having one prior appointment with Toni. Patient father called T/W and stated he does not feel he's safe to discharge and concerned he will overdose again . Klonopin increased to 0.5mg PO BID PRN anxiety. 04/26- continue tx. Reason for continued inpatient stay Substantial Risk for: harm to self and inability to function Time Spent With Patient Time: Total time managing care of this patient today ____ minutes.
[2023-04-26] MEDS: hydrOXYzine HCL 25 MG TABLET PO (17:34)
[2023-04-26] MEDS: Pregabalin 75 MG CAPSULE PO (19:46)
[2023-04-26] MEDS: QUEtiapine Fumarate 50 MG TABLET 150 MG PO (21:44)
[2023-04-26] MEDS: traZODone HCL 50 MG TABLET PO (21:44)
[2023-04-26] MEDS: OLANZapine 10 MG VIAL IM (21:44)
[2023-04-26] MEDS: Tamsulosin HCL 0.4 MG CAPSULE 0.8 MG PO (21:44)
[2023-04-26 21:52] VITALS: BP 136/76; PULSE 82; TEMP 36.8; O2SAT 96
--- NOTE | 2023-04-26 22:54 | MHC.EVENTN ---
TW let pt into the kitchen and as he was leaving he stated keep looking at me like that. Pt proceeded to hit his closed fist into the palm of his hand multiple times.
[2023-04-27 07:00] VITALS: BMI 30.5
[2023-04-27] MEDS: guanFACINE HCl ER 1 MG TAB.ER.24H PO (09:18)
[2023-04-27] MEDS: Dextroamphetamine/Amphetamine XR 5 MG CAP.ER.24H 15 MG PO (09:18)
[2023-04-27] MEDS: Pregabalin 75 MG CAPSULE PO ×2 (09:19→20:08)
[2023-04-27] MEDS: OXcarbazepine 300 MG TABLET 600 MG PO ×2 (09:19→20:08)
[2023-04-27] MEDS: polyethylene glycoL 3350 17 GM POWD.PACK PO (09:20)
[2023-04-27 09:25] VITALS: BP 135/62; PULSE 107; RESP 20; TEMP 36.7; O2SAT 100
--- NOTE | 2023-04-27 11:16 | P.PNPSI_ITS ---
Subjective Subjective Date of Service: 04/27/23 Reason For Visit: F10.20,F32, 301.83, F43.10 Subjective Notes: 3 Day Interim History: Reviewed in team and Dr. Ramirez. Patient reports feeling good today. Patient focused on treatment and future oriented. Patient stated, When I leave here I'm going to focus on my health. I want to start working out again; I'm going to apply for SSI benefits and I have my appointment with Dr. Barnhart on the . Patient presents in behavioral control this morning. Patient stated, I know my jokes are not always humorous. I was punching my hands yesterday because it's a habit. I wouldn't hurt anyone . Patient states he continues to feel remorseful about overdosing on his medications. Patient stated, I won't do that again . T/W contacted patient's aunt (Cassidy) regarding a safety plan for when patient returns home. Cassidy was in agreement that she would like Toni to not have access to all of his medications at once. Will discharge patient with only a few days and will have to keep refilling until next psychiatrist appointment on the . Medication Compliance: Yes Side effects from medications: No Attending Groups: Yes Review of Systems Constitutional: Reports as per HPI Eyes: Reports as per HPI Reports as per HPI Cardiovascular: Reports as per HPI Respiratory: Reports as per HPI Gastrointestinal: Reports as per HPI Genitourinary: Reports as per HPI Musculoskeletal: Reports as per HPI Skin/Breast: Reports as per HPI Reports as per HPI Psychiatric: Reports as per HPI Endocrine: Reports as per HPI Hematologic/Lymphatic: Reports as per HPI Allergic/Immunologic: Reports as per HPI Mental Status Exam Mental Status Exam Narrative: Pt is alert and oriented; behavior is cooperative and calm; patient is not in distress; dressed in casual attire; mood is described as good ; eye contact appropriate; Speech is normal rate, volume and prosody and not pressured; no psychomotor agitation/retardation present; thought process is organized and goal directed; Thought content is on tx; otherwise pertinent to relevant topics and without any delusional content, paranoid ideations or grandiosity; denies any SI/HI. There is no evidence of perceptual disturbance. Patients insight and judgment are fair. Diagnostics Vital Signs (24Hr): Vital Signs - 24 hr 04/26/23 21:52 04/27/23 09:25 Temperature 98.2 F 98.1 F Pulse Rate 82 107 H Respiratory Rate 20 Blood Pressure 136/76 135/62 Pulse Oximetry 96 100 Oxygen Delivery Method Room Air Room Air BMI result Body Mass Index 30.5 Labs 04/23/23 07:18 Medications Medications Current Medications Acetaminophen (Acetaminophen 325 Mg Tablet) 650 mg PO Q6H PRN PRN Reason: Headache/Pain Mild Scale (1-3) Al Hydroxide/Mg Hydroxide (Magnesium Hydrox/Alum Hydrox 30 Ml Oral.Susp) 30 ml PO Q6H PRN PRN Reason: Heartburn/Nausea Last Admin: 04/22/23 19:49 Dose: 30 ml Amphetamine/Dextroamphetamine (Dextroamphetamine/Amphetamine Xr 5 Mg Cap.Er.24h) 15 mg PO DAILY [facility] Last Admin: 04/27/23 09:18 Dose: 15 mg Amphetamine/Dextroamphetamine (Amphetamine Mixed Salts 10 Mg Tablet) 10 mg PO DAILY@1330 [facility] Last Admin: 04/26/23 13:24 Dose: 10 mg Clonazepam (Clonazepam 0.125 Mg Tab.Rapdis) 0.5 mg PO BID PRN PRN Reason: severe anxiety Last Admin: 04/26/23 17:34 Dose: 0.5 mg Guanfacine HCl (Guanfacine Hcl Er 2 Mg Tab.Er.24h) 2 mg PO DAILY [facility] Hydroxyzine HCl (Hydroxyzine Hcl 25 Mg Tablet) 25 mg PO Q6H PRN PRN Reason: Anxiety Last Admin: 04/26/23 17:34 Dose: 25 mg Magnesium Hydroxide (Milk Of Magnesia 30 Ml Oral.Susp) 30 ml PO DAILY PRN PRN Reason: Constipation Last Admin: 04/23/23 20:17 Dose: 30 ml Nicotine Polacrilex (Nicotine Polacrilex 2 Mg Gum) 2 mg BUCCAL Q2H PRN PRN Reason: Nicotine Cravings Last Admin: 04/26/23 17:34 Dose: 2 mg Oxcarbazepine (Oxcarbazepine 300 Mg Tablet) 600 mg PO BID [facility] Last Admin: 04/27/23 09:19 Dose: 600 mg Polyethylene Glycol (Polyethylene Glycol 3350 17 Gm Powd.Pack) 17 gm PO DAILY [facility] Last Admin: 04/27/23 09:20 Dose: 17 gm Pregabalin (Pregabalin 75 Mg Capsule) 75 mg PO BID [facility] Last Admin: 04/27/23 09:19 Dose: 75 mg Quetiapine Fumarate (Quetiapine Fumarate 50 Mg Tablet) 150 mg PO BEDTIME [facility] Last Admin: 04/26/23 21:44 Dose: 150 mg Tamsulosin HCl (Tamsulosin Hcl 0.4 Mg Capsule) 0.8 mg PO BEDTIME [facility] Last Admin: 04/26/23 21:44 Dose: 0.8 mg Trazodone HCl (Trazodone Hcl 50 Mg Tablet) 50 mg PO BEDTIME PRN PRN Reason: Insomnia Last Admin: 04/26/23 21:44 Dose: 50 mg Allergies Allergies Allergy/AdvReac Type Severity Reaction Status Date / Time fish derived [fish] Allergy Unknown Verified 04/26/23 10:02 haloperidol [From Haldol] Allergy Unknown Verified 04/26/23 10:02 Assessment & Plan Assessment & Plan (1) OCD (obsessive compulsive disorder): Status: Acute Code(s): F42.9 - Obsessive-compulsive disorder, unspecified (2) Personality disorder: Status: Acute Code(s): F60.9 - Personality disorder, unspecified (3) Alcohol use disorder in remission: Status: Acute Code(s): F10.91 - Alcohol use, unspecified, in remission Plan The patient is a 22-year-old male, single, with no children, unemployed with poor social support, with a prior history of bipolar disorder, borderline personality disorder, alcohol use disorder, OCD, ADHD and PTSD who was initially admitted at [facility] after he intentionally overdosed on his prescription medications lithium, Lyrica, and Wellbutrin. Apparently, the patient was recently discharged from [place] for a Section 35 and he did not have stable housing. He was living with his aunt and he felt extremely this Amina and depressed and impulsively he took an overdose of medications. He was rushed to the emergency room of [facility], medically cleared and assessed by crisis. The crisis team reported that he was inpatient level of care at this point. Plan 3 day 15 minute safety checks Gather collateral information from outpt psychistrist Obtain collateral from parents. 04/24: Patient reports feeling good today. He reports he is regretful about overdosing on his medications; states he was feeling emotional and impulsive . Denies SI. Pt perserverating on increase in his medications. Lyrica increased to 50mg PO BID. Oxcarbazepine increased to 600mg PO BID. 3 day is up on Monday. T/W reached out to outpatient psychiatrist, Dominguez Barnhart; waiting for call back. Will attempt to reach patients parents tomorrow. Pt reports he would like a referral to an outpatient therapist; high school social studies tutor notified. 04/25: Retracted 3 day notice. Patient reports feeling good today. Denies SI. Patient is requesting to be discharged soon . Patient does not he would benefit from staying inpatient. Pt stated, no amount of time here will help me with my impulse control. I have to work on it outpatient . T/W spoke with patient's outpatient psychiatrist, Dr. Dominguez Barnhart, who reports he does not know the patient well d/t only having one prior appointment with Toni. Patient father called T/W and stated he does not feel he's safe to discharge and concerned he will overdose again . Klonopin increased to 0.5mg PO BID PRN anxiety. 04/26- continue tx. 04/27: Pt feeling better. Future oriented, regretful about OD. T/W spoke with Aunt (Cassidy); safety plan in place to give 3 days worth of scripts at a time. Patient aware. Plan to discharge tomorrow to aunts home. Patient educated on: diagnosis, medication risk/benefits, substance abuse and therapeutic strategies Guardian/Caregiver educated on: diagnosis, medication risk/benefits and therapeutic strategies Informed Consent: understands Reason for continued inpatient stay Substantial Risk for: stable for discharge Time Spent With Patient Time: Total time managing care of this patient today _30___ minutes.
[2023-04-27] MEDS: Amphetamine Mixed Salts 10 MG TABLET PO (13:21)
[2023-04-27] MEDS: OLANZapine 10 MG VIAL IM (15:42)
[2023-04-27] MEDS: hydrOXYzine HCL 25 MG TABLET PO (20:08)
[2023-04-27] MEDS: Tamsulosin HCL 0.4 MG CAPSULE 0.8 MG PO (20:08)
[2023-04-27 20:22] VITALS: BP 179/97; PULSE 113; RESP 18; TEMP 36.4; O2SAT 98
[2023-04-27] MEDS: traZODone HCL 50 MG TABLET PO (20:38)
[2023-04-27] MEDS: QUEtiapine Fumarate 50 MG TABLET 150 MG PO (20:38)
[2023-04-28] MEDS: traZODone HCL 50 MG TABLET PO (00:24)
[2023-04-28 08:00] VITALS: BP 117/66; PULSE 108; RESP 18; TEMP 36.3; O2SAT 99
[2023-04-28] MEDS: Pregabalin 75 MG CAPSULE PO (08:08)
[2023-04-28] MEDS: guanFACINE HCl ER 2 MG TAB.ER.24H PO (08:08)
[2023-04-28] MEDS: OXcarbazepine 300 MG TABLET 600 MG PO (08:08)
[2023-04-28] MEDS: polyethylene glycoL 3350 17 GM POWD.PACK PO (08:08)
[2023-04-28] MEDS: Nicotine Polacrilex 2 MG GUM BUCCAL (08:09)
[2023-04-28] MEDS: Dextroamphetamine/Amphetamine XR 5 MG CAP.ER.24H 15 MG PO (08:09)
[2023-04-28] MEDS: Acetaminophen 325 MG TABLET 650 MG PO (08:09)
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
== END 2023-04-28 12:05 | disposition home or self-care (01) | DRG 753 ==
PROVIDERS: Psychiatry & Neurology Psychiatry; Admitting Provider Psychiatry & Neurology Psychiatry; Responsible Provider Registered Nurse; Visit Provider Psychiatry & Neurology Psychiatry
DX: F31.9 Bipolar disorder, unspecified (principal); R45.851 Suicidal ideations; F10.11 Alcohol abuse, in remission; R33.9 Retention of urine, unspecified; F43.12 Post-traumatic stress disorder, chronic; F42.9 Obsessive-compulsive disorder, unspecified; F90.9 Attention-deficit hyperactivity disorder, unspecified type; Z87.891 Personal history of nicotine dependence; Z91.51 Personal history of suicidal behavior; Z56.0 Unemployment, unspecified; Z59.7 Insufficient social insurance and welfare support; Z79.899 Other long term (current) drug therapy
CPT/HCPCS: 36415; 80053; 80061; 80178; 84443; 93005

== ENCOUNTER 2023-04-21 20:46 | Outpatient (BNV) | payer OTHER, SELFPAY | END 2023-04-22 13:59 | PROVIDERS: Admitting Provider Psychiatry & Neurology Psychiatry; Visit Provider Internal Medicine Cardiovascular Disease | DX: R94.31 Abnormal electrocardiogram [ECG] [EKG] (principal) | CPT/HCPCS: 93010 ==

== ENCOUNTER → 2023-04-21 20:46 | Outpatient (BNV) | payer OTHER, SELFPAY | PROVIDERS: Admitting Provider Psychiatry & Neurology Psychiatry; Responsible Provider Registered Nurse; Visit Provider Psychiatry & Neurology Psychiatry | DX: F31.9 Bipolar disorder, unspecified (principal); F60.9 Personality disorder, unspecified; F90.1 Attention-deficit hyperactivity disorder, predominantly hyperactive type; F42.9 Obsessive-compulsive disorder, unspecified; F10.91 Alcohol use, unspecified, in remission | CPT/HCPCS: 99239 ==

== ENCOUNTER → 2023-04-21 20:46 | Outpatient (BNV) | payer OTHER, SELFPAY | PROVIDERS: Admitting Provider Psychiatry & Neurology Psychiatry; Visit Provider Student in an Organized Health Care Education/Training Program | DX: R33.8 Other retention of urine (principal); F43.12 Post-traumatic stress disorder, chronic | CPT/HCPCS: 99222 ==

== ENCOUNTER → 2023-04-21 20:46 | Outpatient (BNV) | payer OTHER, SELFPAY | PROVIDERS: Admitting Provider Psychiatry & Neurology Psychiatry; Visit Provider Psychiatry & Neurology Psychiatry | DX: F60.9 Personality disorder, unspecified (principal); F31.4 Bipolar disorder, current episode depressed, severe, without psychotic features; F10.91 Alcohol use, unspecified, in remission; F42.9 Obsessive-compulsive disorder, unspecified | CPT/HCPCS: 90792; 99231; 99232 ==

== ENCOUNTER 2024-10-30 14:14 | Inpatient (IN) | payer MEDICAID, SELFPAY ==
[2024-10-30 14:38] VITALS: BP 138/94; PULSE 88; RESP 18; TEMP 36.7; BMI 32.8
--- OUTSIDE RECORDS SUMMARY | 2024-10-30 15:29 | XMS_ITS | Clinical Summary ---
Author Organization [facility] ity Address [address] [place] [address] Care Team Providers Care Community Associate Name Role Phone Unavailable Primary Care Provider Unavailabl e Social History Tobacco Use Types Packs/Day Years Used Date Smoking Tobacco: Never Assessed Sex and Gender Information Value Date Recorded Sex Assigned at Not on file Gender Identity Not on file Sexual Orientation Not on file Plan of Treatment Health Maintenance Due Date Last Done Comments HPV Vaccines (1 - Male 3-dos e series) 2013 DTaP,Tdap,and Td Vaccines (1 - Tdap) 2017 Hepatitis B Vaccines (1 of 3 - 19+ 3-dose series) 2017 Depression Screening 08/28/2022 HIV Screening 08/28/2022 Hepatitis C Screening 08/28/2022 Social Influencers of Health Screening 08/28/2022 COVID-19 Vaccine ( - 2023-2 5 season) 2024 Influenza Vaccine (#1) 2024 HIB Vaccines Aged Out No longer eligi ble based on patient's age to complete this topic Hepatitis A Vaccines Aged Out No long er eligible based on patient's age to complete this topic IPV Vaccines Aged Out No longer eligi ble based on patient's age to complete this topic MMR Vaccines Aged Out No longer eligi ble based on patient's age to complete this topic Meningococcal ACWY Vaccine Aged Out N o longer eligible based on patient's age to complete this topic Pneumococcal Vaccine: Pediat rics (0 to 5 Years) and At-Risk Patients (6 to 64 Years) Aged Out No longer eligible b ased on patient's age to complete this topic RSV Immunization Patients Un tee 20 months Aged Out No longer eligible b ased on patient's age to complete this topic Varicella Vaccines Aged Out No longer eligible based on patient's age to complete this topic
[2024-10-30] MEDS: Amphetamine Mixed Salts 20 MG TABLET PO (17:20)
--- NOTE | 2024-10-30 18:06 | PC.ADMIT ---
Toni is a 24 year old woman who was admitted to at 1425 from [facility] on a CV turned 3-day notice for suicide attempt. Per crisis report he attempted to overdose on 40 tablets of seroquel. He has diagnoses including PTSD, bipolar disorder, ADHD, borderline personality disorder, and OCD. He would not disclose why he took the pills, and simply stated that he wanted to . There is no known precipitant. EMS did not find a pill bottle and he was neither sedated nor having a prolonged QT interval so there is some question of what he took if anything. He has a lengthy history of inpatient admissions at all facilities in the area including both [facility] and . He was [facility] and is required to regularly blow into a breathalyzer that is here with him. He is trying to get in touch with his PO so that this will not be necessary in the hospital. He states he will need to be woken in the night to use the breathalyzer. He denies all medical history other than a shy bladder that necessitates him being in a private room. He states that if he has a roommate he will be unable to urinate and will require catheterization or need to urinate in the shower. He is cooperative with the admission process but his cooperation is limited by his inattentiveness and manic symptoms. He declines flu shot. Smoking consult ordered due to longstanding cigarette use. He is placed on 15 minute safety checks.
[2024-10-30 20:00] VITALS: BP 140/81; PULSE 144; TEMP 36.8; O2SAT 96
[2024-10-30] MEDS: OXcarbazepine 300 MG TABLET 600 MG PO (20:48)
[2024-10-30] MEDS: QUEtiapine Fumarate 100 MG TABLET PO (20:49)
[2024-10-30] MEDS: traZODone HCL 50 MG TABLET PO (21:41)
--- NOTE | 2024-10-30 23:29 | PM.EVENT ---
Event Note Date of Service: 10/30/24 Event Note: attempted to see pt for medical clearance for the floor, new on M5. transferred from [facility] for suicidality. he declined hospitalist consult at this time and reports that he does not have any medical concerns currently. he denies chest pain, SOB, abd pain, headache, or any acute issues at this time. he is sitting comfortably in the dining area eating and converstaing with another patient. Thank you for allowing me to participate in the pt's care. singing off for now. Please contact the medical team if any questions or concerns. Time Spent With Patient Time: Total time managing care of this patient today ____ minutes.
[2024-10-31] MEDS: traZODone HCL 50 MG TABLET PO ×2 (02:00→19:56)
[2024-10-31] MEDS: Omeprazole 20 MG CAPSULE.DR PO (06:19)
[2024-10-31 07:00] VITALS: BMI 32.8
[2024-10-31 08:00] VITALS: BP 131/83; PULSE 91; RESP 16; TEMP 36.8; O2SAT 96
[2024-10-31] MEDS: OXcarbazepine 300 MG TABLET 600 MG PO ×2 (08:05→19:55)
[2024-10-31] MEDS: Dextroamphetamine/Amphetamine XR 10 MG CAP.ER.24H 20 MG PO (08:05)
[2024-10-31] MEDS: Nicotine 21 MG PATCH.TD24 TRANSDERMA (08:06)
[2024-10-31] MEDS: Nicotine Polacrilex 2 MG GUM 4 MG BUCCAL ×3 (10:38→16:56)
[2024-10-31] MEDS: Amphetamine Mixed Salts 20 MG TABLET PO (13:08)
[2024-10-31] MEDS: Venlafaxine HCl ER 75 MG CAP.ER.24H PO (14:59)
[2024-10-31] MEDS: buPROPion HCl XL 300 MG TAB.ER.24H PO (14:59)
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
[2024-10-31] MEDS: LORazepam 1 MG TABLET PO (16:56)
[2024-10-31] MEDS: Acetaminophen 325 MG TABLET 650 MG PO (19:55)
[2024-10-31] MEDS: QUEtiapine Fumarate 100 MG TABLET PO (19:56)
[2024-11-01] MEDS: Omeprazole 20 MG CAPSULE.DR PO (07:31)
[2024-11-01] MEDS: Dextroamphetamine/Amphetamine XR 10 MG CAP.ER.24H 20 MG PO (08:09)
[2024-11-01] MEDS: OXcarbazepine 300 MG TABLET 600 MG PO ×2 (08:10→20:34)
[2024-11-01] MEDS: Venlafaxine HCl ER 37.5 MG CAP.ER.24H 112.5 MG PO (08:10)
[2024-11-01] MEDS: buPROPion HCl XL 300 MG TAB.ER.24H PO (08:11)
[2024-11-01] MEDS: LORazepam 1 MG TABLET PO ×2 (08:12→14:56)
[2024-11-01] MEDS: Nicotine 21 MG PATCH.TD24 TRANSDERMA (08:13)
[2024-11-01] MEDS: Nicotine Polacrilex 2 MG GUM 4 MG BUCCAL (09:29)
[2024-11-01] MEDS: Amphetamine Mixed Salts 20 MG TABLET PO (13:22)
[2024-11-01 19:45] VITALS: BP 155/98; PULSE 72; RESP 16; TEMP 36.6; O2SAT 96
--- NOTE | 2024-11-01 20:12 | P.PNPSI_ITS ---
Subjective Subjective Date of Service: 11/01/24 Reason For Visit: Unspecified bipolar disorder Interim History: Met with patient; discussed with team Patient reports he slept last night and feels much better today for. Says that thoughts are much less intrusive though they still remain very bothersome. Discussed struggles dealing with intrusive thoughts; discussed history of bipolar disorder and patient said that it is typically on the milder side though he agrees it may be leading him to relapsing with alcohol. Discussed that ADHD symptoms reappear soon and perhaps his high metabolizer and designer/writer agrees to switching to extended release b.i.d.; patient also agrees to go up on Effexor to see if it can reduce intrusive thoughts. He is amenable to restarting Abilify but hoping he will not have to. Diagnostics Vital Signs (24Hr): Vital Signs - 24 hr 11/01/24 19:45 Temperature 97.8 F Pulse Rate 72 Respiratory Rate 16 Blood Pressure 155/98 H Pulse Oximetry 96 Oxygen Delivery Method Room Air BMI result Body Mass Index 32.8 Medications Medications Current Medications Acetaminophen (Acetaminophen 325 Mg Tablet) 650 mg PO Q6H PRN PRN Reason: Headache/Pain Mild Scale (1-3) Last Admin: 10/31/24 19:55 Dose: 650 mg Al Hydroxide/Mg Hydroxide (Magnesium Hydrox/Alum Hydrox 30 Ml Oral.Susp) 30 ml PO Q6H PRN PRN Reason: Heartburn/Nausea Amphetamine/Dextroamphetamine (Dextroamphetamine/Amphetamine Xr 10 Mg Cap.Er.24h) 30 mg PO BID@0900,1300 [facility] Bupropion HCl (Bupropion Hcl Xl 300 Mg Tab.Er.24h) 300 mg PO DAILY [facility] Last Admin: 11/01/24 08:11 Dose: 300 mg Hydroxyzine HCl (Hydroxyzine Hcl 25 Mg Tablet) 25 mg PO Q6H PRN PRN Reason: Anxiety Lorazepam (Lorazepam 1 Mg Tablet) 1 mg PO DAILY PRN PRN Reason: instrusive thoughts Last Admin: 11/01/24 14:56 Dose: 1 mg Lorazepam (Lorazepam 1 Mg Tablet) 1 mg PO DAILY@0900 [facility] Last Admin: 11/01/24 08:12 Dose: 1 mg Magnesium Hydroxide (Milk Of Magnesia 30 Ml Oral.Susp) 30 ml PO DAILY PRN PRN Reason: Constipation Nicotine (Nicotine 21 Mg Patch.Td24) 21 mg TRANSDERMA DAILY PRN PRN Reason: nicotine withdrawal Last Admin: 11/01/24 08:13 Dose: 21 mg Nicotine Polacrilex (Nicotine Polacrilex 2 Mg Gum) 4 mg BUCCAL Q2H PRN PRN Reason: Nicotine Cravings Last Admin: 11/01/24 09:29 Dose: 4 mg Omeprazole (Omeprazole 20 Mg Capsule.Dr) 20 mg PO DAILY@0630 [facility] Last Admin: 11/01/24 07:31 Dose: 20 mg Oxcarbazepine (Oxcarbazepine 300 Mg Tablet) 600 mg PO BID [facility] Last Admin: 11/01/24 08:10 Dose: 600 mg Quetiapine Fumarate (Quetiapine Fumarate 100 Mg Tablet) 100 mg PO BEDTIME [facility] Last Admin: 10/31/24 19:56 Dose: 100 mg Trazodone HCl (Trazodone Hcl 50 Mg Tablet) 50 mg PO BEDTIME MRX1 PRN PRN Reason: Insomnia Last Admin: 10/31/24 19:56 Dose: 50 mg Venlafaxine HCl (Venlafaxine Hcl Er 37.5 Mg Cap.Er.24h) 112.5 mg PO DAILY [facility] Stop: 11/02/24 09:00 Last Admin: 11/01/24 08:10 Dose: 112.5 mg Venlafaxine HCl (Venlafaxine Hcl Er 150 Mg Cap.Er.24h) 150 mg PO DAILY [facility] Allergies Allergies Allergy/AdvReac Type Severity Reaction Status Date / Time fish derived [fish] Allergy Unknown Verified 04/26/23 10:02 haloperidol [From Haldol] Allergy Unknown Verified 04/26/23 10:02 Assessment & Plan Assessment & Plan (1) OCD (obsessive compulsive disorder): Status: Acute Code(s): F42.9 - Obsessive-compulsive disorder, unspecified (2) Bipolar disorder: Status: Acute Code(s): F31.9 - Bipolar disorder, unspecified (3) Chronic post-traumatic stress disorder (PTSD): Status: Acute Code(s): F43.12 - Post-traumatic stress disorder, chronic (4) ADHD (attention deficit hyperactivity disorder), predominantly hyperactive impulsive type: Status: Acute Code(s): F90.1 - Attention-deficit hyperactivity disorder, predominantly hyperactive type Plan Patient is a 24-year-old male with history of bipolar, OCD, ADHD, PTSD, alcohol use disorder, shy bladder, who presents for anxiety and SI, reporting he overdosed on Seroquel in the face of being off his medications. Patient recently released from [facility] and currently required to blow into a breathalyzer including while on the unit. Patient reports that he embellished how much Seroquel he took, saying he did take an overdose but much less amount (did not quantify), saying he did not really want to but was feeling very anxious, and strong need to get reestablished on medication and needing psychiatric admission. Patient endorses significant OCD symptoms with constant intrusive thoughts where words repeat over and over in his head; patient will also rehearse conversations or engage in pretend conversations over and over in his head which occur all day long. Patient says that this does lead him to feeling suicidal because it is so difficult to distract himself. He denies any AVH. Denies any recent manic episodes. Formulation/clinical reasoning: Patient does have documented history of both bipolar and OCD; also severe ADHD. Patient wanting to get back on Trileptal which he says has been adequate to keep manic episodes away; does not want to get back on lithium and Depakote at this time. Effexor has been mildly helpful but OCD symptoms continue; he agrees to titration though he is skeptical that anything will make intrusive thoughts go away. Very much wants to be on Adderall for his ADHD to which designer/writer agrees. Patient is also asking for Ativan due to extreme anxiety from intrusive thoughts and patient understands that this is likely to be temporary and not continued on discharge given struggles with alcoholism. Hospital course: 11/01 Patient reports he slept last night and feels much better today for. Says that thoughts are much less intrusive though they still remain very bothersome. Discussed struggles dealing with intrusive thoughts; discussed history of bipolar disorder and patient said that it is typically on the milder side though he agrees it may be leading him to relapsing with alcohol. Discussed that ADHD symptoms reappear soon and perhaps his high metabolizer and designer/writer agrees to switching to extended release b.i.d.; patient also agrees to go up on Effexor to see if it can reduce intrusive thoughts. He is amenable to restarting Abilify but hoping he will not have to. -patient still verbose and with a lot of energy and can be a little intrusive but does not appear manic and is keeping himself in good behavioral and impulse control Plan: Three day Q 15 minute checks Restart Trileptal 600 mg b.i.d. Seroquel 100 mg q.h.s. Wellbutrin 300 mg daily (patient says has been on this and it is very helpful; not triggering yeny) Will increase and titrate to Venlafaxine ER 150 mg daily; discussed that OCD sometimes requires than higher than max doses Adderall extended release b.i.d. Ativan 1 mg b.i.d. p.r.n. Patient educated on: diagnosis, medication risk/benefits and therapeutic s trategies Informed Consent: understands Reason for continued inpatient stay Substantial Risk for: stable for discharge and rapid decompensation Time Spent With Patient Time: Total time managing care of this patient today ____ minutes.
[2024-11-01] MEDS: QUEtiapine Fumarate 100 MG TABLET PO (20:35)
[2024-11-01] MEDS: hydrOXYzine HCL 25 MG TABLET PO (20:35)
[2024-11-01] MEDS: traZODone HCL 50 MG TABLET PO (20:35)
[2024-11-02] MEDS: LORazepam 1 MG TABLET PO ×3 (00:08→16:09)
[2024-11-02] MEDS: traZODone HCL 50 MG TABLET PO ×2 (00:09→20:11)
[2024-11-02] MEDS: OXcarbazepine 300 MG TABLET 600 MG PO ×2 (08:01→20:11)
[2024-11-02] MEDS: Dextroamphetamine/Amphetamine XR 10 MG CAP.ER.24H 30 MG PO ×2 (08:02→12:03)
[2024-11-02] MEDS: buPROPion HCl XL 300 MG TAB.ER.24H PO (08:02)
--- NOTE | 2024-11-02 08:12 | P.PNPSI_ITS ---
Subjective Subjective Date of Service: 11/02/24 Reason For Visit: Unspecified bipolar disorder Subjective Notes: 3 Day Interim History: Met with patient; discussed with team . As per nursing irritable, intrusive, slept 1 hour last night . Is intrusive with other patients on the unit, often Saying provocative things upsetting people. With fiction and nonfiction prose writer very interested in credentials, draining etc.. Asking lots of questions around medications and psychopharmacology. Reports he does not want take lithium Abilify. Feels comfortable with current medication regimen. Denied having any issues or concerns around mood, thought form believes, substance use or agitation . Has been adherent with Trileptal and Seroquel. Medication Compliance: Yes Side effects from medications: No Attending Groups: Intermittent Review of Systems Acute medical concerns: No Review of Systems Review of Systems nothing of note Mental Status Exam Mental Status Exam Narrative: Pt is alert and oriented; behavior is cooperative, some irritability, loud, somewhat intrusive; patient is not in distress; dressed in casual attire with unkempt hair but adequate hygiene; mood is described as ok... Anxious and affect congruent; eye contact appropriate; Speech is loud, verbose but not really pressured; psychomotor agitation present in that patient is pacing; thought process is organized and goal directed though also circumstantial; Thought content is on discharge planning, without any delusional content, paranoid ideations or grandiosity; intermittent passive SI; no HI. Patient den ies AVH. Patients insight and judgment impaired Diagnostics Vital Signs (24Hr): Vital Signs - 24 hr 11/01/24 19:45 Temperature 97.8 F Pulse Rate 72 Respiratory Rate 16 Blood Pressure 155/98 H Pulse Oximetry 96 Oxygen Delivery Method Room Air BMI result Body Mass Index 32.8 Medications Medications Current Medications Acetaminophen (Acetaminophen 325 Mg Tablet) 650 mg PO Q6H PRN PRN Reason: Headache/Pain Mild Scale (1-3) Last Admin: 10/31/24 19:55 Dose: 650 mg Al Hydroxide/Mg Hydroxide (Magnesium Hydrox/Alum Hydrox 30 Ml Oral.Susp) 30 ml PO Q6H PRN PRN Reason: Heartburn/Nausea Amphetamine/Dextroamphetamine (Dextroamphetamine/Amphetamine Xr 10 Mg Cap.Er.24h) 30 mg PO BID@0900,1300 [facility] Last Admin: 11/02/24 08:02 Dose: 30 mg Bupropion HCl (Bupropion Hcl Xl 300 Mg Tab.Er.24h) 300 mg PO DAILY [facility] Last Admin: 11/02/24 08:02 Dose: 300 mg Hydroxyzine HCl (Hydroxyzine Hcl 25 Mg Tablet) 25 mg PO Q6H PRN PRN Reason: Anxiety Last Admin: 11/01/24 20:35 Dose: 25 mg Lorazepam (Lorazepam 1 Mg Tablet) 1 mg PO DAILY PRN PRN Reason: instrusive thoughts Last Admin: 11/02/24 00:08 Dose: 1 mg Lorazepam (Lorazepam 1 Mg Tablet) 1 mg PO DAILY@0900 [facility] Last Admin: 11/02/24 08:01 Dose: 1 mg Magnesium Hydroxide (Milk Of Magnesia 30 Ml Oral.Susp) 30 ml PO DAILY PRN PRN Reason: Constipation Nicotine (Nicotine 21 Mg Patch.Td24) 21 mg TRANSDERMA DAILY PRN PRN Reason: nicotine withdrawal Last Admin: 11/01/24 08:13 Dose: 21 mg Nicotine Polacrilex (Nicotine Polacrilex 2 Mg Gum) 4 mg BUCCAL Q2H PRN PRN Reason: Nicotine Cravings Last Admin: 11/01/24 09:29 Dose: 4 mg Omeprazole (Omeprazole 20 Mg Capsule.Dr) 20 mg PO DAILY@0630 [facility] Last Admin: 11/02/24 08:03 Dose: Not Given Oxcarbazepine (Oxcarbazepine 300 Mg Tablet) 600 mg PO BID [facility] Last Admin: 11/02/24 08:01 Dose: 600 mg Quetiapine Fumarate (Quetiapine Fumarate 100 Mg Tablet) 100 mg PO BEDTIME [facility] Last Admin: 11/01/24 20:35 Dose: 100 mg Trazodone HCl (Trazodone Hcl 50 Mg Tablet) 50 mg PO BEDTIME MRX1 PRN PRN Reason: Insomnia Last Admin: 11/02/24 00:09 Dose: 50 mg Venlafaxine HCl (Venlafaxine Hcl Er 37.5 Mg Cap.Er.24h) 112.5 mg PO DAILY [facility] Stop: 11/02/24 09:00 Last Admin: 11/01/24 08:10 Dose: 112.5 mg Venlafaxine HCl (Venlafaxine Hcl Er 150 Mg Cap.Er.24h) 150 mg PO DAILY [facility] Allergies Allergies Allergy/AdvReac Type Severity Reaction Status Date / Time fish derived [fish] Allergy Unknown Verified 04/26/23 10:02 haloperidol [From Haldol] Allergy Unknown Verified 04/26/23 10:02 Assessment & Plan Assessment & Plan (1) OCD (obsessive compulsive disorder): Status: Acute Code(s): F42.9 - Obsessive-compulsive disorder, unspecified (2) Bipolar disorder: Status: Acute Code(s): F31.9 - Bipolar disorder, unspecified (3) Chronic post-traumatic stress disorder (PTSD): Status: Acute Code(s): F43.12 - Post-traumatic stress disorder, chronic (4) ADHD (attention deficit hyperactivity disorder), predominantly hyperactive impulsive type: Status: Acute Code(s): F90.1 - Attention-deficit hyperactivity disorder, predominantly hyperactive type Plan Patient is a 24-year-old male with history of bipolar, OCD, ADHD, PTSD, alcohol use disorder, shy bladder, who presents for anxiety and SI, reporting he overdosed on Seroquel in the face of being off his medications. [facility] recently released from detention and currently required to blow into a breathalyzer including while on the unit. Patient reports that he embellished how much Seroquel he took, saying he did take an overdose but much less amount (did not quantify), saying he did not really want to but was feeling very anxious, and strong need to get reestablished on medication and needing psychiatric admission. Patient endorses significant OCD symptoms with constant intrusive thoughts where words repeat over and over in his head; patient will also rehearse conversations or engage in pretend conversations over and over in his head which occur all day long. Patient says that this does lead him to feeling suicidal because it is so difficult to distract himself. He denies any AVH. Denies any recent manic episodes. Formulation/clinical reasoning: Patient does have documented history of both bipolar and OCD; also severe ADHD. Patient wanting to get back on Trileptal which he says has been adequate to keep manic episodes away; does not want to get back on lithium and Depakote at this time. Effexor has been mildly helpful but OCD symptoms continue; he agrees to titration though he is skeptical that anything will make intrusive thoughts go away. Very much wants to be on Adderall for his ADHD to which fiction and nonfiction prose writer agrees. Patient is also asking for Ativan due to extreme anxiety from intrusive thoughts and patient understands that this is likely to be temporary and not continued on discharge given struggles with alcoholism. Hospital course: 11/01 Patient reports he slept last night and feels much better today for. Says that thoughts are much less intrusive though they still remain very bothersome. Discussed struggles dealing with intrusive thoughts; discussed history of bipolar disorder and patient said that it is typically on the milder side though he agrees it may be leading him to relapsing with alcohol. Discussed that ADHD symptoms reappear soon and perhaps his high metabolizer and fiction and nonfiction prose writer agrees to switching to extended release b.i.d.; patient also agrees to go up on Effexor to see if it can reduce intrusive thoughts. He is amenable to restarting Abilify but hoping he will not have to. -patient still verbose and with a lot of energy and can be a little intrusive but does not appear manic and is keeping himself in good behavioral and impulse control 11/02: No changes. Adherent with Trileptal and Seroquel and Effexor increase. Three-day notice and place. Plan: Three day Q 15 minute checks Restart Trileptal 600 mg b.i.d. Seroquel 100 mg q.h.s. Wellbutrin 300 mg daily (patient says has been on this and it is very helpful; not triggering yeny) Will increase and titrate to Venlafaxine ER 150 mg daily; discussed that OCD sometimes requires than higher than max doses Adderall extended release b.i.d. Ativan 1 mg b.i.d. p.r.n. Reason for continued inpatient stay Substantial Risk for: rapid decompensation Time Spent With Patient Time: Total time managing care of this patient today ____ minutes.
[2024-11-02] MEDS: Venlafaxine HCl ER 37.5 MG CAP.ER.24H 112.5 MG PO (08:13)
[2024-11-02] MEDS: Nicotine Polacrilex 2 MG GUM 4 MG BUCCAL ×2 (08:13→15:25)
[2024-11-02 08:38] VITALS: BP 136/83; PULSE 91; TEMP 37.1; O2SAT 96
[2024-11-02] MEDS: hydrOXYzine HCL 25 MG TABLET PO (15:24)
[2024-11-02 19:45] VITALS: BP 149/91; PULSE 116; RESP 16; TEMP 37.1; O2SAT 95
[2024-11-02] MEDS: QUEtiapine Fumarate 100 MG TABLET PO (20:11)
[2024-11-03] MEDS: Dextroamphetamine/Amphetamine XR 10 MG CAP.ER.24H 30 MG PO ×2 (09:30→12:18)
[2024-11-03] MEDS: buPROPion HCl XL 300 MG TAB.ER.24H PO (09:31)
[2024-11-03] MEDS: Venlafaxine HCl ER 150 MG CAP.ER.24H PO (09:31)
[2024-11-03] MEDS: OXcarbazepine 300 MG TABLET 600 MG PO ×2 (09:31→20:18)
[2024-11-03] MEDS: LORazepam 1 MG TABLET PO ×2 (09:31→16:36)
[2024-11-03] MEDS: Nicotine 21 MG PATCH.TD24 TRANSDERMA (09:31)
[2024-11-03] MEDS: Acetaminophen 325 MG TABLET 650 MG PO (09:32)
--- NOTE | 2024-11-03 11:19 | P.PNPSI_ITS ---
Subjective Subjective Date of Service: 11/03/24 Reason For Visit: Unspecified bipolar disorder Subjective Notes: Section 12B Interim History: Met with patient; discussed with team. Slept well last night as per nursing. Is much less irritable and more organized today. That being said still saying offensive in provocative things to other patients on the unit for example statements such as everybody with HIV should be and therefore the virus would be eradicated. Patient himself states that he says things without thinking them through and really what he was meaning to say was he would likely HIV virus to be eradicated and should not have said the other piece- even if he thinks it. Is hopeful that higher dose of Effexor will help with intrusive thoughts. Regarding sleep reports Seroquel 100 mg in combination with Benadryl 100 mg is helpful when he needs it. Otherwise denies feeling depressed, suicidal etc.. Medication Compliance: Yes Side effects from medications: No Attending Groups: Yes Review of Systems Acute medical concerns: No Review of Systems Review of Systems nothing of note Mental Status Exam Mental Status Exam Narrative: Pt is alert and oriented; behavior is cooperative, less irritability, loud, Less intrusive; patient is not in distress; dressed in casual attire with unkempt hair but adequate hygiene; mood is described as ok... Anxious and affect congruent; eye contact appropriate; Speech is loud, verbose but not really pressured; psychomotor agitation present in that patient is pacing; thought process is organized and goal directed though also circumstantial; Thought content is on discharge planning, without any delusional content, paranoid ideations or grandiosity; denies SI; no HI. Patient denies AVH. Patie nts insight and judgment impaired Diagnostics Vital Signs (24Hr): Vital Signs - 24 hr 11/02/24 19:45 Temperature 98.7 F Pulse Rate 116 H Respiratory Rate 16 Blood Pressure 149/91 H Pulse Oximetry 95 Oxygen Delivery Method Room Air BMI result Body Mass Index 32.8 Medications Medications Current Medications Acetaminophen (Acetaminophen 325 Mg Tablet) 650 mg PO Q6H PRN PRN Reason: Headache/Pain Mild Scale (1-3) Last Admin: 11/03/24 09:32 Dose: 650 mg Al Hydroxide/Mg Hydroxide (Magnesium Hydrox/Alum Hydrox 30 Ml Oral.Susp) 30 ml PO Q6H PRN PRN Reason: Heartburn/Nausea Amphetamine/Dextroamphetamine (Dextroamphetamine/Amphetamine Xr 10 Mg Cap.Er.24h) 30 mg PO BID@0900,1300 [facility] Last Admin: 11/03/24 09:30 Dose: 30 mg Bupropion HCl (Bupropion Hcl Xl 300 Mg Tab.Er.24h) 300 mg PO DAILY [facility] Last Admin: 11/03/24 09:31 Dose: 300 mg Hydroxyzine HCl (Hydroxyzine Hcl 25 Mg Tablet) 25 mg PO Q6H PRN PRN Reason: Anxiety Last Admin: 11/02/24 15:24 Dose: 25 mg Lorazepam (Lorazepam 1 Mg Tablet) 1 mg PO DAILY PRN PRN Reason: instrusive thoughts Last Admin: 11/02/24 00:08 Dose: 1 mg Lorazepam (Lorazepam 1 Mg Tablet) 1 mg PO DAILY@0900 [facility] Last Admin: 11/03/24 09:31 Dose: 1 mg Magnesium Hydroxide (Milk Of Magnesia 30 Ml Oral.Susp) 30 ml PO DAILY PRN PRN Reason: Constipation Nicotine (Nicotine 21 Mg Patch.Td24) 21 mg TRANSDERMA DAILY PRN PRN Reason: nicotine withdrawal Last Admin: 11/03/24 09:31 Dose: 21 mg Nicotine Polacrilex (Nicotine Polacrilex 2 Mg Gum) 4 mg BUCCAL Q2H PRN PRN Reason: Nicotine Cravings Last Admin: 11/02/24 15:25 Dose: 4 mg Omeprazole (Omeprazole 20 Mg Capsule.Dr) 20 mg PO DAILY@0630 [facility] Last Admin: 11/03/24 09:36 Dose: Not Given Oxcarbazepine (Oxcarbazepine 300 Mg Tablet) 600 mg PO BID [facility] Last Admin: 11/03/24 09:31 Dose: 600 mg Quetiapine Fumarate (Quetiapine Fumarate 100 Mg Tablet) 100 mg PO BEDTIME [facility] Last Admin: 11/02/24 20:11 Dose: 100 mg Trazodone HCl (Trazodone Hcl 50 Mg Tablet) 50 mg PO BEDTIME MRX1 PRN PRN Reason: Insomnia Last Admin: 11/02/24 20:11 Dose: 50 mg Venlafaxine HCl (Venlafaxine Hcl Er 150 Mg Cap.Er.24h) 150 mg PO DAILY [facility] Last Admin: 11/03/24 09:31 Dose: 150 mg Allergies Allergies Allergy/AdvReac Type Severity Reaction Status Date / Time fish derived [fish] Allergy Unknown Verified 04/26/23 10:02 haloperidol [From Haldol] Allergy Unknown Verified 04/26/23 10:02 Assessment & Plan Assessment & Plan (1) OCD (obsessive compulsive disorder): Status: Acute Code(s): F42.9 - Obsessive-compulsive disorder, unspecified (2) Bipolar disorder: Status: Acute Code(s): F31.9 - Bipolar disorder, unspecified (3) Chronic post-traumatic stress disorder (PTSD): Status: Acute Code(s): F43.12 - Post-traumatic stress disorder, chronic (4) ADHD (attention deficit hyperactivity disorder), predominantly hyperactive impulsive type: Status: Acute Code(s): F90.1 - Attention-deficit hyperactivity disorder, predominantly hyperactive type Plan Patient is a 24-year-old male with history of bipolar, OCD, ADHD, PTSD, alcohol use disorder, shy bladder, who presents for anxiety and SI, reporting he overdosed on Seroquel in the face of being off his medications. Patient recently released from group home and currently required to blow into a breathalyzer including while on the unit. Patient reports that he embellished how much Seroquel he took, saying he did take an overdose but much less amount (did not quantify), saying he did not really want to but was feeling very anxious, and strong need to get reestablished on medication and needing psychiatric admission. Patient endorses significant OCD symptoms with constant intrusive thoughts where words repeat over and over in his head; patient will also rehearse conversations or engage in pretend conversations over and over in his head which occur all day long. Patient says that this does lead him to feeling suicidal because it is so difficult to distract himself. He denies any AVH. Denies any recent manic episodes. Formulation/clinical reasoning: Patient does have documented history of both bipolar and OCD; also severe ADHD. Patient wanting to get back on Trileptal which he says has been adequate to keep manic episodes away; does not want to get back on lithium and Depakote at this time. Effexor has been mildly helpful but OCD symptoms continue; he agrees to titration though he is skeptical that anything will make intrusive thoughts go away. Very much wants to be on Adderall for his ADHD to which senior writer agrees. Patient is also asking for Ativan due to extreme anxiety from intrusive thoughts and patient understands that this is likely to be temporary and not continued on discharge given struggles with alcoholism. Hospital course: 11/01 Patient reports he slept last night and feels much better today for. Says that thoughts are much less intrusive though they still remain very bothersome. Discussed struggles dealing with intrusive thoughts; discussed history of bipolar disorder and patient said that it is typically on the milder side though he agrees it may be leading him to relapsing with alcohol. Discussed that ADHD symptoms reappear soon and perhaps his high metabolizer and senior writer agrees to switching to extended release b.i.d.; patient also agrees to go up on Effexor to see if it can reduce intrusive thoughts. He is amenable to restarting Abilify but hoping he will not have to. -patient still verbose and with a lot of energy and can be a little intrusive but does not appear manic and is keeping himself in good behavioral and impulse control 11/02: No changes. Adherent with Trileptal and Seroquel and Effexor increase. Three-day notice and place. 11/03: Seroquel 100 mg in combination with Benadryl 100 mg as needed for insomnia, otherwise no changes Plan: Three day Q 15 minute checks Restart Trileptal 600 mg b.i.d. Seroquel 100 mg q.h.s. Wellbutrin 300 mg daily (patient says has been on this and it is very helpful; not triggering yeny) Will increase and titrate to Venlafaxine ER 150 mg daily; discussed that OCD sometimes requires than higher than max doses Adderall extended release b.i.d. Ativan 1 mg b.i.d. p.r.n. Reason for continued inpatient stay Substantial Risk for: inability to function and rapid decompensation Time Spent With Patient Time: Total time managing care of this patient today ____ minutes.
[2024-11-03] MEDS: hydrOXYzine HCL 25 MG TABLET PO (15:37)
[2024-11-03 20:00] VITALS: BP 143/84; PULSE 113; RESP 16; TEMP 36.9; O2SAT 96
[2024-11-03] MEDS: diphenhydrAMINE HCL 25 MG CAPSULE 100 MG PO (20:19)
[2024-11-03] MEDS: QUEtiapine Fumarate 100 MG TABLET PO (20:19)
[2024-11-03] MEDS: traZODone HCL 50 MG TABLET PO (20:19)
[2024-11-04] MEDS: LORazepam 1 MG TABLET PO ×2 (04:46→08:08)
[2024-11-04] MEDS: Omeprazole 20 MG CAPSULE.DR PO (04:47)
[2024-11-04 08:01] VITALS: BP 138/83; PULSE 96; RESP 16; TEMP 36.7; O2SAT 97
[2024-11-04] MEDS: buPROPion HCl XL 300 MG TAB.ER.24H PO (08:08)
[2024-11-04] MEDS: OXcarbazepine 300 MG TABLET 600 MG PO (08:08)
[2024-11-04] MEDS: Dextroamphetamine/Amphetamine XR 10 MG CAP.ER.24H 30 MG PO (08:08)
[2024-11-04] MEDS: Venlafaxine HCl ER 150 MG CAP.ER.24H PO (08:08)
--- NOTE | 2024-11-04 10:52 | P.DS_ITS ---
DS: Providers Provider Date of Service: 11/04/24 Date of admission: 10/30/24 14:14 Date of discharge: 11/04/24 Primary care physician: Ben Peters NP Attending physician on admission: Vipin Marcus Consults: 10/30/24 15:46 Consult to Hospitalist Routine Comment: Consulting Provider: [facility] [place] [facility] Reason For Exam: Transfer pt Attending physician on discharge: Vipin Marcus DS: Diagnosis Discharge Diagnosis (1) OCD (obsessive compulsive disorder): Status: Acute (2) Bipolar disorder: Status: Acute (3) Chronic post-traumatic stress disorder (PTSD): Status: Acute (4) ADHD (attention deficit hyperactivity disorder), predominantly hyperactive impulsive type: Status: Acute DS: Medications Discharge Medications Home Medications: Previous Rx's ?Medication ?Instructions ?Recorded bupropion HCl 300 mg 24 hr tablet, 300 mg PO DAILY 30 days #30 tabs 11/04/24 extended release dextroamphetamine-amphetamine ER See Rx Instructions .Route 11/04/24 30 mg 24hr capsule,extend release .COMPLEX #60 caps diphenhydramine HCl 50 mg capsule 100 mg (2 x 50 mg) PO BEDTIME PRN 11/04/24 insomnia 30 days #60 caps hydroxyzine HCl 25 mg tablet 25 mg PO Q6H PRN mild Anxiety 30 11/04/24 days #60 tabs lorazepam 1 mg tablet 1 mg PO BID PRN instrusive 11/04/24 thoughts/severe anxiety 7 days #14 tabs nicotine (polacrilex) 4 mg gum 4 mg buccal Q2H PRN nicotine 11/04/24 cravings 30 days #100 ea nicotine 21 mg/24 hr daily 21 mg transdermal DAILY PRN 11/04/24 transdermal patch nicotine withdrawal 28 days #28 ea omeprazole 20 mg capsule,delayed 20 mg PO DAILY 30 days #30 caps 11/04/24 release oxcarbazepine 600 mg tablet 600 mg PO BID 30 days #60 tabs 11/04/24 quetiapine 100 mg tablet 100 mg PO BEDTIME 30 days #30 tabs 11/04/24 trazodone 50 mg tablet See Rx Instructions .Route 11/04/24 .COMPLEX PRN Insomnia 30 days #45 tabs venlafaxine 150 mg 150 mg PO DAILY 30 days #30 caps 11/04/24 capsule,extended release 24 hr Mental Status Exam Mental Status Exam Narrative: Pt is alert and oriented; behavior is cooperative, organized, polite, intermittently intrusive but redirectable; patient is not in distress; dressed in casual attire with unkempt hair but adequate hygiene; mood is described as good and affect congruent; eye contact appropriate; Speech is loud, verbose but not pressured; no psychomotor agitation present; thought process is organized and goal directed though also circumstantial; Thought content is on discharge planning; no delusional ideation; no SI/HI. Patient denies AVH. Patients insight and judgment fair DS: Summary Hospital Course Hospital Course: HPI: Patient is a 24-year-old male with history of bipolar, OCD, ADHD, PTSD, alcohol use disorder, shy bladder, who presents for anxiety and SI, reporting he overdosed on Seroquel in the face of being off his medications. Patient recently released from senior care and currently required to blow into a breathalyzer including while on the unit. Patient reports that he embellished how much Seroquel he took, saying he did take an overdose but much less amount (did not quantify), saying he did not really want to but was feeling very anxious, and strong need to get reestablished on medication and needing psychiatric admission. Patient endorses significant OCD symptoms with constant intrusive thoughts where words repeat over and over in his head; patient will also rehearse conversations or engage in pretend conversations over and over in his head which occur all day long. Patient says that this does lead him to feeling suicidal because it is so difficult to distract himself. He denies any AVH. Denies any recent manic episodes. On admission, patient loud, but and overall behavioral and impulse control, polite, calm and wanting to engage regarding treatment. No manic symptoms. Discussed patient's documented history of both bipolar and OCD; also severe ADHD. Patient wanting to get back on Trileptal which he says has been adequate to keep manic episodes away; does not want to get back on lithium and Depakote at this time. Effexor has been mildly helpful but OCD symptoms continue; he agrees to titration though he is skeptical that anything will make intrusive thoughts go away. Very much wants to be on Adderall for his ADHD to which documentation writer agrees. Patient is also asking for Ativan due to extreme anxiety from intrusive thoughts; documentation writer decided to restart on Ativan given the intensity of his OCD symptoms and need to regain calm; documentation writer considered the benefit to outweigh the risk discussed the concern for his alcoholism which patient appreciated. Patient was restarted on Trileptal, Seroquel, Effexor (which was titrated) and Wellbutrin, Adderall and Ativan Patient remained in overall good behavioral and impulse control. Could be intrusive at times with peers and intermittently would say provocative comments to peers, but patient redirectable and apologetic. Patient eating and sleeping well and felt back to his regular self. Remained without any manic symptoms. He continued to struggle with intrusive thoughts and would often talk to himself while walking on the [place] which is sometimes part of his coping skill and other times a part of his OCD (where he goes over conversations over and over in his mind). However, he felt that these thoughts were less intrusive and he was able to cope with them. Patient placed a 3 day notice feeling ready to return home where he lives with his supportive mother. He continues to remain at risk for relapse and decompensation however this is a chronic struggle of which he is well aware. Patient is not in imminent risk for harm to self or others and he is appropriate to return in the community for treatment. His request for discharge honored. Medication Trileptal 600 mg b.i.d. Seroquel 100 mg q.h.s. Wellbutrin 300 mg daily (patient says has been on this and it is very helpful; not triggering yeny) Venlafaxine ER 150 mg daily; may eventually benefit from further titration Adderall extended release b.i.d. Ativan 1 mg b.i.d. p.r.n. Time spent discussing smoking cessation with patient: 3 to 10 minutes Status at Discharge Functional status at discharge: independent ambulation Overall status at discharge: patient is back to baseline Time Spent with Patient Time attestation: Total time managing care of this patient today _40___ minutes. Time spent: Greater than 30 minutes Specific discharge activities: Met with patient; discussed with team; scripts; charting Discharge Plan Discharge Anticipated Discharge Date/Time: 11/04/24 10:52 Patient Disposition: Home, Self-Care Discharge Diagnosis: OCD, with good insight Referrals: Ben Peters NP [Primary Care Provider] - 1 Week (please call to schedule follow-up appt in 1week ) Discharge Medications: New diphenhydramine HCl 50 mg capsule 100 mg PO BEDTIME PRN (Reason: insomnia) 30 Days Qty: 60 2RF nicotine 21 mg/24 hr Patch 24 Hour 21 mg transdermal DAILY PRN (Reason: nicotine withdrawal) 28 Days Qty: 28 2RF Rx Instructions: remove at bedtime nicotine (polacrilex) 4 mg gum 4 mg buccal Q2H PRN (Reason: nicotine cravings) 30 Days Qty: 100 2RF bupropion HCl 300 mg Tablet Extended Release 24 Hr 300 mg PO DAILY 30 Days Qty: 30 2RF dextroamphetamine-amphetamine 30 mg capsule,extended release 24hr See Rx Instructions .ROUTE .COMPLEX Qty: 60 0RF Rx Instructions: Take 2 capsules daily Partial Fill upon patient request. hydroxyzine HCl 25 mg Tablet 25 mg PO Q6H PRN (Reason: mild Anxiety) 30 Days Qty: 60 2RF lorazepam 1 mg Tablet 1 mg PO BID PRN (Reason: instrusive thoughts/severe anxiety) 7 Days Qty: 14 3RF trazodone 50 mg Tablet See Rx Instructions .ROUTE .COMPLEX PRN (Reason: Insomnia) 30 Days Qty: 45 2RF Rx Instructions: take 1 tab at bedtime as needed for insomnia; may take extra tab qhs for continued insomnia venlafaxine 150 mg Capsule,Extended Release 24hr 150 mg PO DAILY 30 Days Qty: 30 2RF Continued omeprazole 20 mg capsule,delayed release(DR/EC) 20 mg PO DAILY 30 Days Qty: 30 2RF oxcarbazepine 600 mg tablet 600 mg PO BID 30 Days Qty: 60 2RF Changed quetiapine 100 mg tablet 100 mg PO BEDTIME 30 Days Qty: 30 2RF Discontinued dextroamphetamine-amphetamine 20 mg capsule,extended release 24hr 1 cap PO DAILY dextroamphetamine-amphetamine 20 mg tablet 1 tab PO DAILY gabapentin 100 mg capsule 200 mg PO DAILY Discharge Orders: Discharge Order (Routine); Ordered 11/04/24 Ordered By: Vipin Marcus Diet: Regular diet Activity on Discharge: As tolerated Stand Alone Forms: Patient Portal Discharge page, Community Support Print Language: Greenlandic Care Plan Goals: Maintain mood and safe behaviors Take medications as prescribed Continue to pursue sobriety Practice coping skills Continue with outpatient providers and reach out to them as needed Health Concerns: Mood stability and behaviors Sobriety GERD Plan of Treatment: Follow up with your PCP, psychiatric provider and other outpatient providers regarding above concerns Take medications as prescribed Assessment: Risk assessment at time of discharge:? Patient was interviewed prior to discharge and found to be fully oriented and without any SI or HI. Patient has improved insight and judgment and wants to continue treatment. Patient is not in imminent risk of harm to self or others and has a safety plan that includes presenting to the closest ER or calling 911 if feeling unsafe.? Patient has been observed closely by nursing and unit staff throughout admission; patient has not engaged in any behaviors that suggest dangerousness to self or others and has demonstrated appropriate behaviors and impulse control Discharge Date/Time: 11/04/24 11:25
== END 2024-11-04 11:25 | disposition home or self-care (01) | DRG 755 ==
PROVIDERS: Admitting Provider Psychiatry & Neurology Psychiatry; PCP Nurse Practitioner Family; Visit Provider Psychiatry & Neurology Psychiatry
DX: F42.9 Obsessive-compulsive disorder, unspecified (principal); R45.851 Suicidal ideations; F31.9 Bipolar disorder, unspecified; F17.210 Nicotine dependence, cigarettes, uncomplicated; F90.1 Attention-deficit hyperactivity disorder, predominantly hyperactive type; F43.12 Post-traumatic stress disorder, chronic; Z79.899 Other long term (current) drug therapy

== ENCOUNTER → 2024-10-30 14:14 | Outpatient (BNV) | payer SELFPAY | PROVIDERS: Admitting Provider Psychiatry & Neurology Psychiatry; PCP Nurse Practitioner Family; Visit Provider Psychiatry & Neurology Psychiatry | DX: F31.9 Bipolar disorder, unspecified (principal); F42.9 Obsessive-compulsive disorder, unspecified; F43.12 Post-traumatic stress disorder, chronic; F90.1 Attention-deficit hyperactivity disorder, predominantly hyperactive type | CPT/HCPCS: 90792; 99231; 99232; 99239 ==

== ENCOUNTER 2025-01-01 13:14 | Inpatient (IN) | payer OTHER, SELFPAY ==
--- NOTE | 2025-01-01 13:21 | ED_ITS ---
HPI - General Adult General Chief complaint: Urogenital-Male Stated complaint: Section 21, from [facility] for urinary retention Time Seen by Provider: 01/01/25 13:21 Source: patient and EMS Mode of arrival: EMS Limitations: no limitations History of Present Illness ED Provider: Celi Lee PA-C HPI narrative: Patient is a 24 year old assigned male at with a history of bipolar disorder, ADHD, OCD, and shy bladder requiring self straight catheterizations presenting to the emergency department today with difficulty urinating and requesting admission elsewhere because [facility] is not allowing him to straight cath. Patient states that he is at [facility] for a recent sucide attempt and they are not letting him straight cath and instead making him strain which sometimes works for him but is very painful. Patient states that he would prefer to be admitted elsewhere because of this. Patient denies any dizziness, lightheadedness, abdominal pain, nausea, vomiting, fever, chills, blurry vision, double vision, loss of vision, chest pain, difficulty breathing, shortness of breath, back pain, night sweats, blood in his urine or stool, syncope or a near syncopal episode, recent trauma or falls, bowel incontinence, bladder incontinence, or any other complaints at this time. Relieving factors: none Exacerbating factors: none Associated symptoms: denies other symptoms Treatments prior to arrival: none Related Data Home Medications ?Medication ?Instructions ?Recorded ?Confirmed clonidine HCl 0.1 mg tablet 0.1 mg PO BID 01/01/25 01/01/25 dextroamphetamine-amphetamine ER 30 mg PO BID@0900,1300 01/01/25 01/01/25 30 mg 24hr capsule,extend release divalproex 500 mg tablet,extended 1,500 mg PO BEDTIME depressive 01/01/25 01/01/25 release 24 hr disorder ergocalciferol (vitamin D2) 1,250 1,250 mcg PO TH 01/01/25 01/01/25 mcg (50,000 unit) capsule (Vitamin D2) hydroxyzine HCl 25 mg tablet 50 mg PO Q4H PRN mild Anxiety 01/01/25 01/01/25 lithium carbonate 450 mg 450 mg PO BID depressive disorder 01/01/25 01/01/25 tablet,extended release melatonin 3 mg tablet 9 mg PO BEDTIME PRN insomnia 01/01/25 01/01/25 omeprazole 20 mg capsule,delayed 20 mg PO DAILY@0630 PRN Acid Reflux 01/01/25 01/01/25 release propranolol 10 mg tablet 10 mg PO BID PRN anxiety 01/01/25 01/01/25 quetiapine 100 mg tablet 150 mg PO BEDTIME 01/01/25 01/01/25 Previous Rx's ?Medication ?Instructions ?Recorded lorazepam 1 mg tablet 1 mg PO BID PRN instrusive 11/04/24 thoughts/severe anxiety 7 days #14 tabs venlafaxine 150 mg 150 mg PO DAILY 30 days #30 caps 11/04/24 capsule,extended release 24 hr Allergies Allergy/AdvReac Type Severity Reaction Status Date / Time fish derived [fish] Allergy Unknown Verified 01/01/25 13:38 haloperidol [From Haldol] Allergy Unknown Verified 01/01/25 13:38 Review of Systems 2 Constitutional: Constitutional: Reports no additional constitutional complaints, Denies chills, Denies fever(s) and Denies night sweats Eyes: Eyes: Reports no additional eye complaints, Denies blurry vision, Denies change in vision, Denies diplopia, Denies eye discharge, Denies loss of vision and Denies eye pain ENT: Denies dizziness Cardiovascular: Cardiovascular: Reports no additional cardiovascular complaints, Denies chest pain, Denies lightheadedness, Denies Loss of Consciousness and Denies dyspnea Respiratory: Respiratory: Reports no additional respiratory complaints and Denies dyspnea Gastrointestinal: Gastrointestinal: Reports no additional gastrointestinal complaints, Denies abdominal pain, Denies melena, Denies hematochezia, Denies change in bowel habits and Denies change in stool character Genitourinary: Genitourinary: Reports no additional male genitourinary complaints, Denies hematuria, Reports oliguria (secondary to not being allowed to straight cath himself), Reports difficulty urinating and Denies dysuria Musculoskeletal: Musculoskeletal: Reports no additional musculoskeletal complaints, Denies numbness and Denies tingling Neurologic: Denies dizziness, Denies loss of vision, Denies numbness and Denies tingling Psychiatric: Psychiatric: Reports no additional psychiatric complaints Endocrine: Endocrine: Reports no additional endocrine complaints Hematologic/Lymphatic: Hematologic/Lymphatic: Reports no additional hematologic/lymphatic complaints Allergic/Immunologic: Allergic/Immunologic: Reports no additional allergic/immunologic complaints PMFSH Past Medical History Attestation statement: The following information was validated with the patient. Source: old records reviewed and nursing notes reviewed Medical History ADHD (attention deficit hyperactivity disorder), predominantly hyperactive impulsive type Routine history and physical examination of adult Chronic post-traumatic stress disorder (PTSD) OCD (obsessive compulsive disorder) Alcohol use disorder in remission Bipolar disorder Social History Social History Household Members: Family Housing: House Do you presently have visiting nurse or other home services: No Patient Tobacco Use Status: Current everyday Tobacco user Tobacco use type: Cigarette Cigarette Packs Per Day: 0.5 Cigarettes Per Day: 20 Years Smoked: 10 e-Cigarette/Vaping Use: Former Use Second Hand Smoke Exposure: Yes Substance Use Type: Marijuana, Prescription Drugs and Caffiene Advance Directives: No Advance Directives Information Provided: Yes service: No Sexual orientation: Straight/Heterosexual Physical Exam ED Vital Signs: Vital Signs - 24 hr 01/01/25 13:34 01/01/25 18:03 01/02/25 06:42 Temperature 98.0 F Pulse Rate 80 84 85 Respiratory Rate 16 14 16 Blood Pressure 163/80 H 132/74 104/74 Pulse Oximetry 99 98 100 Oxygen Delivery Method Room Air Room Air Room Air 01/02/25 09:00 Temperature 97.5 F Pulse Rate 85 Respiratory Rate 16 Blood Pressure 101/66 Pulse Oximetry 98 Oxygen Delivery Method Room Air BMI result Body Mass Index 32.9 Const General: cooperative, no acute distress, alert and awake Nutritional Appearance: well nourished Orientation/consciousness: patient oriented x3 Limitations: no limitations [facility] Head: Yes normal to inspection and Yes atraumatic Ears: hearing grossly normal bilaterally and external ears normal General nose exam: Normal external nose present, no nasal discharge noted and no epistaxis Face and sinus: Yes normal facial exam, No abrasion and No laceration Mouth: Normal oral and palatal mucosa present, no drooling and no muffled voice Eyes General: appearance normal, both eyes and all related structures Periorbital: periorbital findings normal Eyelids: Yes eyelids normal Conjunctivae: conjunctivae normal Pupils: Equal, round and reactive pupils present EOM: EOMs intact bilaterally Neck Neck: Yes normal visual inspection, Yes full ROM and Yes no lymphadenopathy Chest Chest palpation & inspection: normal inspection of the chest Resp Effort & Inspection: normal respiratory effort and able to speak in complete sentences GI Inspection: Yes normal to inspection Neuro General: patient oriented x3, moves all extremities and CN's II-XI intact bilaterally Cranial nerves: Yes Equal, round and reactive pupils present Cognition (Neuro): normal cognition Extrem General: Yes normal to inspection, Yes full ROM and Yes capillary refill normal Psych Appearance: grossly normal Mental Status: mental status grossly normal Affect: normal affect Attitude: cooperative Thought process: Normal thought process present Thought content: Normal thought content present Insight: Good insight present (Psych) Course Course Course Narrative: Time: 12:29 Date: 01/02/25 Provider: Rene Hughes MD Patient in physician observation for psychiatric evaluation.? No acute events reported overnight. No current complaints. VS stable.?Per CARE team recommendations patient is admitted as inpatient. Medications Administered Generic Name Dose Route Start Last Admin Trade Name Freq PRN Reason Stop Dose Admin Amphetamine/Dextroamphetamine 30 mg 01/02/25 09:00 01/02/25 09:01 Dextroamphetamine/Amphetamine Xr 10 Mg Cap.Er.24h PO 30 mg BID@0900,1300 PAULA Administration Clonidine HCl 0.1 mg 01/01/25 21:00 01/02/25 09:02 Clonidine Hcl 0.1 Mg Tablet PO 0.1 mg BID PAULA Administration Protocol Divalproex Sodium 1,500 mg 01/01/25 21:00 01/01/25 20:40 Divalproex Sodium Er 500 Mg Tab.Er.24h PO 1,500 mg BEDTIME PAULA Administration Ergocalciferol 1,250 mcg 01/02/25 09:00 01/02/25 09:02 Ergocalciferol (Vitamin D2) 1,250 Mcg Capsule PO Not Given TH PAULA [place] Carbonate 450 mg 01/01/25 21:00 01/02/25 09:02 [place] Carbonate Er 450 Mg Tablet.Er PO 450 mg BID PAULA Administration Lorazepam 1 mg 01/01/25 18:03 01/02/25 06:47 Lorazepam 1 Mg Tablet PO 1 mg BID PRN Administration instrusive thoughts/severe anxiety Quetiapine Fumarate 150 mg 01/01/25 21:00 01/01/25 20:40 Quetiapine Fumarate 50 Mg Tablet PO 150 mg BEDTIME PAULA Administration Venlafaxine HCl 150 mg 01/02/25 09:00 01/02/25 09:01 Venlafaxine Hcl Er 150 Mg Cap.Er.24h PO 150 mg DAILY PAULA Administration Medical Decision Making Medical Decision Making [facility] Narrative: Patient is a 24 year old assigned male at with a history of bipolar disorder, ADHD, OCD, and shy bladder requiring self straight catheterizations presenting to the emergency department today with difficulty urinating and requesting admission elsewhere because [facility] is not allowing him to straight cath. Patient's physical examination was unremarkable. Patient's blood work was unremarkable. Patient's urine showed no acute process. I explained my physical exam findings as well as all test results to the patient. I answered all questions asked by the patient. Patient was allowed to straight cath and felt immediate relief. I spoke with [facility] who confirmed that he cannot return with a sellers catheter and if he were to return he would not be allowed to straight cath. I spoke to the CARE team and given [facility] is unable to accommodate the patient's need to straight cath to urinate - we will have him evaluated here for probable psychiatric admission. Differential Diagnosis Differential Diagnoses: The differential diagnosis associated with the presentation includes Urinary retention Shy bladder requiring straight cath SI attempt via overdose Admission/Observation Consideration of admission/observation: Escalation of care including admission/observation considered Patient's disposition will be determined after CARE team evaluation Consult Healthcare Provider Management of the patient was discussed with: Behavioral Health Provider (spoke with the CARE team as noted in the MDM Rationale portion of this note - awaiting their formal evaluation.) Lab Data [facility] Lab Attestation statement: I reviewed the patient's lab results. My interpretation of these results are in the MDM Rationale portion of this note. 01/01/25 16:01 01/01/25 16:01 Labs: Lab Results 01/01/25 01/01/25 01/01/25 Range/Units 14:32 15:55 16:01 WBC 6.7 (4.8-10.8) X10*3/uL RBC 5.09 (4.60-5.80) X10*6/uL Hgb 14.8 (14.0-18.0) g/dl Hct 42.0 (42.0-52.0) % MCV 82.5 (80.0-98.0) fL MCH 29.1 (27.0-33.0) pg MCHC 35.2 (31.0-36.0) g/dl RDW 13.1 (11.0-16.0) % Plt Count 163 (160-400) X10*3/uL MPV 9.6 (9.4-12.4) fL Immature Gran % (Auto) 0.7 H (0.0-0.4) % Neut % (Auto) 54.3 (45-73) % Lymph % (Auto) 34.0 (20-40) % Pickett % (Auto) 6.7 (2-11) % Eos % (Auto) 3.6 (0-4) % Baso % (Auto) 0.7 (0-2) % Lymph # (Auto) 2.3 (1.2-4.9) X10*3/uL Pickett # (Auto) 0.5 (0.1-1.2) X10*3/uL Eos # (Auto) 0.2 (0.0-0.4) X10*3/uL Baso # (Auto) 0.1 (0.0-0.2) X10*3/uL Abs Immat Gran (auto) 0.05 H (0.00-0.03) X10*3/uL Absolute Neuts (auto) 3.6 (2.0-8.3) x10*3/uL Absolute Nucleated RBC 0.000 (0.0-0.012) X10*3/uL Nucleated RBC % (auto) 0.0 (0.0-0.2) /100WBC Sodium 140 (135-145) mmol/L Potassium 4.3 (3.3-5.1) mmol/L Chloride 107 (96-108) mmol/L Carbon Dioxide 25 (22-29) mmol/L Anion Gap 12 (12-20) BUN 10 (9-16) mg/dL Creatinine 0.75 (0.5-1.4) mg/dL Estim Creat Clear Calc 174.8 Estimated GFR > 60 Random Glucose 93 (60-115) mg/dL Calcium 9.4 (8.4-10.2) mg/dL Total Bilirubin 0.2 (0.0-1.0) mg/dL AST 20 (5-37) U/L ALT 15 (0-40) U/L Alkaline Phosphatase 43 (39-117) U/L Total Protein 6.8 (6.5-8.0) g/dL Albumin 4.1 (3.5-5.0) g/dL Urine Color Yellow Urine Appearance Clear Urine pH 7.0 (5.0-9.0) Ur Specific [place] 1.010 (1.005-1.025) Urine Protein Negative (Neg-Trace) mg/dL Urine Glucose (UA) Negative (Negative) mg/dL Urine Ketones Negative (Negative) mg/dL Urine Blood Trace H (Negative) Urine Nitrite Negative (Negative) Ur Leukocyte Esterase Negative (Negative) Urine RBC 0-2 (0-2) /HPF Urine WBC 0-5 (0-5) /HPF Ur Squamous Epith Cells 0-2 (0-2) /HPF Urine Bacteria None Seen (None Seen) Hyaline Casts 0-2 (0-2) /LPF Salicylates < 5.0 L (15-30) mg/dL Urine Opiates Screen Not Detected (Not Detect) Ur Buprenorphine Scrn Not Detected (Not Detect) ng/mL Ur Oxycodone Screen Not Detected (Not Detect) ng/mL Urine Methadone Screen Not Detected (Not Detect) ng/mL Urine Fentanyl Screen Not Detected (Not Detect) Acetaminophen < 3 (<30) mcg/mL Ur Barbiturates Screen Not Detected (Not Detect) Ur Phencyclidine Scrn Not Detected (Not Detect) Ur Amphetamines Screen POSITIVE H (Not Detect) U Benzodiazepines Scrn Not Detected (Not Detect) Urine Cocaine Screen Not Detected (Not Detect) U Marijuana (THC) Screen POSITIVE H (Not Detect) Ethyl Alcohol < 10 mg/dL COVID-19 (EMELI) Negative (Negative) COVID-19 Clin Com See Note Independent Historian Clinical information obtained from an independent historian. History obtained from or confirmed by: EMS (EMS provided additional history and confirmed the history provided by the patient.) Critical Care Time Critical Care Time Critical Care Time: Yes Total Critical Care Time: 38 Attestation: I spent 38 minutes of Critical Care Time with this patient. This does not include time spent on separately reported billable procedures. Discharge Plan Discharge Clinical Impression: Acute on chronic urinary retention, Bipolar disorder Patient Disposition: Admitted As Inpatient
[2025-01-01 13:22] VITALS: BP 140/78; PULSE 79; O2SAT 99
[2025-01-01 13:34] VITALS: BP 163/80; PULSE 80; RESP 16; TEMP 36.7; O2SAT 99; BMI 32.9
--- NOTE | 2025-01-01 14:41 | PC.NURSE ---
Spoke w RN on at [facility], per RN would be unable to accommodate pt back on unit w sellers cath, or self-cathing. This RN noted on paperwork from [facility] provider that pt has self-cath'd during prior hospital stays. When this RN asked if that would be possible while at [facility], RN stated she knew nothing about that.
[2025-01-01 14:42] LABS: Appearance Urine Clear; Color Urine Yellow; Glucose Urine UA Negative (Negative); Leukocyte Esterase Urine Negative (Negative); Nitrite Urine Negative (Negative); UMIC TRIGGER UACC YES; Urine Blood Trace (Negative); Urine Ketones Negative (Negative); Urine Protein Negative (Neg-Trace)
[2025-01-01 14:52] LABS: Bacteria Urine None Seen (None Seen); Hyaline Casts Urine 0-2 /LPF (0-2); RBC Urine 0-2 /HPF (0-2); Squamous Epithelial Cell Urine 0-2 /HPF (0-2); WBC Urine 0-5 /HPF (0-5)
--- NOTE | 2025-01-01 15:35 | ECG_ITS ---
Test Reason : medical clearance Blood Pressure : */* mmHG Vent. Rate : 74 BPM Atrial Rate : 74 BPM P-R Int : 176 ms QRS Dur : 90 ms QT Int : 382 ms P-R-T Axes : 12 30 41 degrees QTcB Int : 424 ms Normal sinus rhythm with sinus arrhythmia Normal ECG When compared with ECG of 22-Apr-2023 13:59, No significant change was found Referred By: Celi Lee Electronically Signed By: Case Cantu
[2025-01-01 16:05] LABS: MANUAL DIFF FLAG NO
[2025-01-01 16:06] LABS: Basophils Absolute Auto 0.1 X10*3/uL (0.0-0.2); Basophils Percent Auto 0.7 % (0-2); Eosinophils Absolute Auto 0.2 X10*3/uL (0.0-0.4); Eosinophils Percent Auto 3.6 % (0-4); Hemoglobin 14.8 g/dl (14.0-18.0); Imm Gran Abs Auto 0.05 X10*3/uL (0.00-0.03); Imm Gran Pct Auto 0.7 % (0.0-0.4); Lymphocytes Absolute Auto 2.3 X10*3/uL (1.2-4.9); Mean Corpuscular HGB Conc 35.2 g/dl (31.0-36.0); Mean Corpuscular Hemoglobin 29.1 pg (27.0-33.0); Mean Corpuscular Volume 82.5 fL (80.0-98.0); Mean Platelet Volume 9.6 fL (9.4-12.4); Monocytes Absolute Auto 0.5 X10*3/uL (0.1-1.2); Monocytes Percent Auto 6.7 % (2-11); Neutrophils Absolute Auto 3.6 x10*3/uL (2.0-8.3); Neutrophils Percent Auto 54.3 % (45-73); Platelet Count 163 X10*3/uL (160-400); Red Blood Count 5.09 X10*6/uL (4.60-5.80); Red Cell Distribution Width 13.1 % (11.0-16.0); White Blood Count 6.7 X10*3/uL (4.8-10.8)
[2025-01-01 16:20] LABS: Anion Gap 12 (12-20)
--- OUTSIDE RECORDS SUMMARY | 2025-01-01 16:20 | XMS_ITS | Clinical Summary ---
Author Organization [facility] ity Address [address] [place] [address] Care Team Providers Care Certified Solid Waste Facility Operator Name Role Phone Unavailable Primary Care Provider Unavailabl e Social History Tobacco Use Types Packs/Day Years Used Date Smoking Tobacco: Never Assessed Sex and Gender Information Value Date Recorded Sex Assigned at Not on file Legal Sex Male 3:27 AM EST Gender Identity Not on file Sexual Orientation [...] - 2023-2 5 season) 2024 Influenza Vaccine (Season Ended) 2025 HIB Vaccines Aged Out No longer eligi [...] patient's age to complete this topic Meningococcal B Vaccine Aged Out No l onger eligible based on patient's age to complete [...]
--- OUTSIDE RECORDS SUMMARY | 2025-01-01 16:20 | XMS_ITS | Clinical Summary ---
Author Organization [facility] Facility Address [address] [place] [id number] Care Team Providers Care Accounting Consultant Name Role Phone Unavailable Primary Care Provider Unavailabl e Social History Tobacco Use Types Packs/Day Years Used Date Smoking Tobacco: Never Assessed Sex and Gender Information Value Date Recorded Sex Assigned at Not on file Legal Sex Male 9:06 AM EDT Gender Identity Not on file Sexual Orientation Not on file Plan of Treatment Health Maintenance Due Date Last Done Comments Influenza Vaccine (Season Ended) 2025 08/19/2011 Pneumococcal Vaccine: Pediatrics (0 to 5 Years) and At-Risk Patients (6 to 64 Years) Aged Out 11/07/2000 No longer eligible b ased on patient's age to complete this topic Hepatitis B Vaccine Completed 03/05/2002, 12/22/2000, 11/07/2000 [place] [id number] [employer] [place] [address] [facility]
[2025-01-01 16:21] LABS: COVID-19 Test Negative (Negative); IDNOW Serial# 6674DD1D
[2025-01-01 16:23] LABS: Alanine Aminotransferase 15 U/L (0-40); Albumin Level 4.1 g/dL (3.5-5.0); Aspartate Amino Transferase 20 U/L (5-37); Bilirubin Total 0.2 mg/dL (0.0-1.0); Blood Urea Nitrogen 10 mg/dL (9-16); Calcium 9.4 mg/dL (8.4-10.2); Carbon Dioxide 25 mmol/L (22-29); Chloride 107 mmol/L (96-108); Creatinine Clr Calc Pharmacy 174.8; Estimated Glomerular Filt Rate > 60; Ethanol < 10 mg/dL; Glucose Random 93 mg/dL (60-115); Potassium 4.3 mmol/L (3.3-5.1); Sodium 140 mmol/L (135-145); Total Protein 6.8 g/dL (6.5-8.0)
[2025-01-01 16:28] LABS: Alkaline Phosphatase 43 U/L (39-117)
[2025-01-01 16:44] LABS: Amphetamine Screen Urine POSITIVE (Not Detect); Barbiturates, Urine Not Detected (Not Detect); Benzodiazepines Screen Urine Not Detected (Not Detect); Buprenorphine Scr Not Detected (Not Detect); Cannabinoid Screen Urine POSITIVE (Not Detect); Cocaine Screen Urine Not Detected (Not Detect); Fentanyl, urine Not Detected (Not Detect); Methadone Screen, Urine Not Detected (Not Detect); Opiate Screen Urine Not Detected (Not Detect); Oxycodone Screen Urine Not Detected (Not Detect); Phencyclidine Screen Urine Not Detected (Not Detect)
[2025-01-01 16:44] LABS: Acetaminophen LAB < 3 mcg/mL (<30); Salicylate < 5.0 mg/dL (15-30)
--- NOTE | 2025-01-01 16:56 | PC.NURSE ---
Patient presented from [facility] as he requires self catheterization for a urinary problem he has had since age 17. [facility] is unable to accommodate this process. Patient alert and cooperative. Hyperverbal and manic. Bladder scan performed and patient catheterized as documented. Patient changed upon arrival into psych safe clothing and belongings removed. Patient medically cleared at this time. Patient transitioned to the pod. Report given to Vikki NICK
--- NOTE | 2025-01-01 17:55 | PHA.MEDREC ---
Pharmacy Consult ? Medication Reconciliation Pharmacy has completed the medication reconciliation. Spoke to patient to confirm medication list. Patient was able to name his medications and their strength and direction. He confirmed he takes adderall XR30 1 capsule twice a day in the morning and at 1pm. Dose of venlafaxine ER is 150 mg daily, dose of quetiapine is 150 mg qhs. He also said he takes vitamin D 50,000 units once a week on . Last dose of medications was this morning 01/01/25.
[2025-01-01 18:03] VITALS: BP 132/74; PULSE 84; RESP 14; O2SAT 98
[2025-01-01] MEDS: Dextroamphetamine/Amphetamine XR 10 MG CAP.ER.24H 30 MG PO (18:12)
--- NOTE | 2025-01-01 20:33 | PC.NURSE ---
Patient requesting to self cath - equipment provided.
[2025-01-01] MEDS: cloNIDine HCL 0.1 MG TABLET PO (20:40)
[2025-01-01] MEDS: Divalproex Sodium ER 500 MG TAB.ER.24H 1500 MG PO (20:40)
[2025-01-01] MEDS: QUEtiapine Fumarate 50 MG TABLET 150 MG PO (20:40)
[2025-01-01] MEDS: Lithium Carbonate ER 450 MG TABLET.ER PO (20:40)
[2025-01-01] MEDS: LORazepam 1 MG TABLET PO (20:47)
--- NOTE | 2025-01-01 22:15 | MHC.CARE ---
Pt was evaluated by the Care Team and due to not being able to return to [facility] he will remain in the ED on a section 12 as an inpatient psychiatric bed search. Pt prefers an admission to if possible and an updated section 12 was placed in his chart at the time of the evaluation. Per warehouse sorter at [facility], they are able to have security drop off pt's belongings tomorrow and were provided the number to the care team office to follow up in AM. supervisor beam department's number is as followed if needed: [phone] as the number listed in his packet ([phone]) was not on and does not have a voicemail set up when this film writer attempted to be contacted. Information will be passed to first shift care team staff and coordinator for further coordination if needed.
--- NOTE | 2025-01-01 23:09 | MHC.EDTECH ---
assumed care of pt @2160
--- NOTE | 2025-01-01 23:37 | PC.NURSE ---
This ad copy writer assumed care of this Pt at 2300. Pt appears to be sleeping, equal, non-labored respirations, no apparent distress. 1:1 sitter at bedside.
[2025-01-02 06:42] VITALS: BP 104/74; PULSE 85; RESP 16; O2SAT 100
[2025-01-02] MEDS: LORazepam 1 MG TABLET PO ×2 (06:47→15:19)
--- NOTE | 2025-01-02 06:50 | PC.NURSE ---
Addendum entered by Jayne Machado 01/02/25 06:51: Pt very disruptive, demanding breakfast and private room. Original Note: Pt woke up requesting PO Ativan for intrusive thoughts.
[2025-01-02 09:00] VITALS: BP 101/66; PULSE 85; RESP 16; TEMP 36.4; O2SAT 98
[2025-01-02] MEDS: Dextroamphetamine/Amphetamine XR 10 MG CAP.ER.24H 30 MG PO ×2 (09:01→12:31)
[2025-01-02] MEDS: Venlafaxine HCl ER 150 MG CAP.ER.24H PO (09:01)
[2025-01-02] MEDS: Lithium Carbonate ER 450 MG TABLET.ER PO ×2 (09:02→20:08)
[2025-01-02] MEDS: cloNIDine HCL 0.1 MG TABLET PO ×2 (09:02→20:08)
--- NOTE | 2025-01-02 10:10 | PC.NURSE ---
PT NOW SLEEPING IN HALLWAY, IN NAD.
--- NOTE | 2025-01-02 10:38 | PC.NURSE ---
NETTA HEAD STILL OPERATOR BASSEM REQUESTING UPDATE, PT TO BE ADMITTED HERE. PHONE# [phone]
--- NOTE | 2025-01-02 11:04 | PC.NURSE ---
Report received at this time, taken over care at this time.
[2025-01-02 12:00] VITALS: BP 118/65; PULSE 65; RESP 16; O2SAT 97
--- NOTE | 2025-01-02 13:06 | PC.NURSE ---
Pt. eating lunch at this time. Kitchen notified, pt. requesting coffee.
--- NOTE | 2025-01-02 13:57 | PC.NURSE ---
Report given to SANDOVAL Casey.
--- NOTE | 2025-01-02 14:14 | PC.NURSE ---
Pt. leaving to floor via transporter with w/c and belongings.
[2025-01-02 14:26] VITALS: BP 138/88; PULSE 109; RESP 16; TEMP 36.4; O2SAT 96
[2025-01-02 16:21] VITALS: BMI 33.5
[2025-01-02 17:43] VITALS: BP 126/76; PULSE 80
[2025-01-02] MEDS: Propranolol HCL 10 MG TABLET PO (17:43)
--- NOTE | 2025-01-02 17:53 | PC.ADMIT ---
Addendum entered by Daniella Wen RN 01/02/25 18:18: PMH also includes: ADHD, alcohol use disorder, PTSD & OCD Original Note: Toni arrived to the unit at 1420 From [facility] ED via wheelchair. Skin/safety check performed, vitals obtained, and admission paperwork completed. Pt has a signed and accepted CV and then entered a 3day notice. He is on 15min checks for safety. Pt declined orientation to unit Oh, I've been here before I'm good . Pt reports I don't have a med provider so I just come to the emergency department to get them . Per crisis eval: Pt called 911 after ingesting ten 100mg Seroquel, was brought to [facility], then admitted to [facility]. While at [facility] pt reported inability to void and was brought to [facility] ED where he was evaluated. Pt has been known to have a shy bladder and has straight cathed himself in the past including during previous admissions to . [facility] reportedly was unable to accommodate the pt with catheterization despite his ability to self perform and therefor was admitted to for medication management/adjustment. Pt has PMH of Bipolar disorder, denies current providers, tox screen positive for marijuana and amphetamine, active smoker. Pt denies si/hi/avh/dep/anx. I really just need more meds and get set up with providers . Pt reports at previous admission he did not secure appointments. Pt educated that, with a 3day notice in, it would be difficult to obtain appointments and providers. Pt declined to retract his 3day notice. Continues on 15min checks.
[2025-01-02 20:00] VITALS: BP 114/66; PULSE 88; RESP 16; TEMP 36.4; O2SAT 97
[2025-01-02] MEDS: Divalproex Sodium ER 500 MG TAB.ER.24H 1500 MG PO (20:07)
[2025-01-02] MEDS: QUEtiapine Fumarate 50 MG TABLET 150 MG PO (20:08)
[2025-01-02] MEDS: traZODone HCL 50 MG TABLET PO (20:21)
[2025-01-03 08:21] VITALS: BP 118/70; PULSE 77; RESP 16; TEMP 36.8; O2SAT 98
[2025-01-03] MEDS: Lithium Carbonate ER 450 MG TABLET.ER PO ×2 (08:27→20:17)
[2025-01-03] MEDS: Venlafaxine HCl ER 150 MG CAP.ER.24H PO (08:27)
[2025-01-03] MEDS: Dextroamphetamine/Amphetamine XR 10 MG CAP.ER.24H 30 MG PO ×2 (08:27→12:04)
[2025-01-03 09:28] LABS: Estimated Average Glucose 100 mg/dL; Hemoglobin A1C 136.9966 umol/L; Hemoglobin A1c % 5.1 % (<6.0); Total Hemoglobin (HGBA1C) 4226.8614 umol/L
[2025-01-03 09:35] LABS: Cholesterol 188 mg/dL (<200); HDL Cholesterol 45 mg/dL (>40); LDL Cholesterol Calculated 77 mg/dL (<100); Magnesium 2.1 mg/dL (1.6-2.6); Triglycerides 330 mg/dL (<150)
[2025-01-03 09:49] LABS: Free T4 (Free Thyroxine) 1.05 ng/dL (0.71-1.85); Thyroid Stimulating Hormone 1.17 uIU/mL (0.32-4.0)
[2025-01-03 10:03] LABS: Folate 7.3 ng/mL (> or = 4.0); Vitamin B12 889 pg/mL (200-900)
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
[2025-01-03] MEDS: Magnesium Hydrox/Alum Hydrox 30 ML ORAL.SUSP PO (11:10)
[2025-01-03] MEDS: diazePAM 5 MG TABLET PO ×2 (12:45→17:58)
[2025-01-03] MEDS: hydrOXYzine HCL 50 MG TABLET PO ×2 (15:03→20:17)
[2025-01-03] MEDS: Nicotine Polacrilex 2 MG GUM 4 MG BUCCAL (17:19)
[2025-01-03 20:00] VITALS: BP 123/71; PULSE 97; RESP 18; TEMP 37; O2SAT 97
[2025-01-03] MEDS: QUEtiapine Fumarate 50 MG TABLET 150 MG PO (20:17)
[2025-01-03] MEDS: Divalproex Sodium ER 500 MG TAB.ER.24H 2000 MG PO (20:17)
[2025-01-03] MEDS: Melatonin 3 MG TABLET 9 MG PO (20:17)
[2025-01-04] MEDS: diazePAM 5 MG TABLET PO ×2 (07:15→14:41)
[2025-01-04 08:00] VITALS: BP 127/63; PULSE 74; RESP 18; TEMP 36.4; O2SAT 99
--- NOTE | 2025-01-04 08:02 | HO.PSYCHPN ---
Subjective Subjective Date of Service: 01/04/25 Reason For Visit: Bipolar Disorder Subjective Notes: Conditional Voluntary Healthcare Proxy: No Guardianship: No Medical Problems Affecting Mental Status: No Interim History: 24 yo WM very talkative reports sleeps ok , denies si,hi, reports switching to valium as he thinks it is less dependency risk than ativan- reports irritable- on effexor- so was tapered off of it erroneously - hoping he can get outpatient vna- Medication Compliance: Yes Side effects from medications: No Attending Groups: Yes Review of Systems Acute medical concerns: No Medical Review of Systems: changed (cold sore, athletes feet) Mental Status Exam Mental Status Exam Patient Appearance: Well Grooomed and Appropriate Patient Orientation: Person, Place, Time and Situation Level of Consciousness: Awake and Appropriate Patient Behavior: Talkative and Good Eye Contact Mood Description: Cheerful Affect Description: Expansive Patient Cognition Impaired: No Ability to Follow Directions: Good Speech Pattern: Loud Hallucinations: None Thought Process: Racing Judgement: Fair Diagnostics Vital Signs (24Hr): Vital Signs - 24 hr 01/03/25 08:21 01/03/25 20:00 Temperature 98.3 F 98.6 F Pulse Rate 77 97 Respiratory Rate 16 18 Blood Pressure 118/70 123/71 Pulse Oximetry 98 97 Oxygen Delivery Method Room Air Room Air BMI result Body Mass Index 33.5 Labs 01/01/25 16:01 01/01/25 16:01 Labs: Laboratory Results - last 48 hr 01/03/25 08:48 Estimat Average Glucose 100 Hemoglobin A1c % 5.1 Magnesium 2.1 Triglycerides 330 H Cholesterol 188 LDL Cholesterol, Calc 77 HDL Cholesterol 45 Vitamin B12 889 Folate 7.3 TSH 1.17 Free T4 1.05 Medications Medications Current Medications Acetaminophen (Acetaminophen 325 Mg Tablet) 650 mg PO Q6H PRN PRN Reason: Headache/Pain, Scale 1-10 Al Hydroxide/Mg Hydroxide (Magnesium Hydrox/Alum Hydrox 30 Ml Oral.Susp) 30 ml PO Q6H PRN PRN Reason: Heartburn/Nausea Last Admin: 01/03/25 11:10 Dose: 30 ml Amphetamine/Dextroamphetamine (Dextroamphetamine/Amphetamine Xr 10 Mg Cap.Er.24h) 30 mg PO BID@0900,1300 [facility]UL[facility] Last Admin: 01/03/25 12:04 Dose: 30 mg Clonidine HCl (Clonidine Hcl 0.1 Mg Tablet) 0.1 mg PO BID [facility]; Protocol Last Admin: 01/04/25 03:00 Dose: Not Given Diazepam (Diazepam 5 Mg Tablet) 5 mg PO BID PRN PRN Reason: severe anxiety Last Admin: 01/04/25 07:15 Dose: 5 mg Divalproex Sodium (Divalproex Sodium Er 500 Mg Tab.Er.24h) 2,000 mg PO BEDTIME [facility] Last Admin: 01/03/25 20:17 Dose: 2,000 mg Ergocalciferol (Ergocalciferol (Vitamin D2) 1,250 Mcg Capsule) 1,250 mcg PO TH [facility] Last Admin: 01/02/25 09:02 Dose: Not Given Hydroxyzine HCl (Hydroxyzine Hcl 50 Mg Tablet) 50 mg PO Q4H PRN PRN Reason: mild Anxiety Last Admin: 01/03/25 20:17 Dose: [address] [place] Carbonate ([place] Carbonate Er 450 Mg Tablet.Er) 450 mg PO BID [facility] Last Admin: 01/03/25 20:17 Dose: 450 mg Magnesium Hydroxide (Milk Of Magnesia 30 Ml Oral.Susp) 30 ml PO DAILY PRN PRN Reason: Constipation Melatonin (Melatonin 3 Mg Tablet) 9 mg PO BEDTIME PRN PRN Reason: insomnia Last Admin: 01/03/25 20:17 Dose: 9 mg Nicotine (Nicotine 21 Mg Patch.Td24) 21 mg TRANSDERMA DAILY [facility] Last Admin: 01/03/25 20:21 Dose: Not Given Nicotine Polacrilex (Nicotine Polacrilex 2 Mg Gum) 4 mg BUCCAL Q2H PRN PRN Reason: Nicotine Cravings Last Admin: 01/03/25 17:19 Dose: 4 mg Omeprazole (Omeprazole 20 Mg Capsule.Dr) 20 mg PO DAILY@0630 PRN PRN Reason: Acid Reflux Propranolol HCl (Propranolol Hcl 10 Mg Tablet) 10 mg PO BID PRN; Protocol PRN Reason: anxiety Last Admin: 01/02/25 17:43 Dose: 10 mg Quetiapine Fumarate (Quetiapine Fumarate 50 Mg Tablet) 150 mg PO BEDTIME [facility] Last Admin: 01/03/25 20:17 Dose: 150 mg Trazodone HCl (Trazodone Hcl 50 Mg Tablet) 50 mg PO BEDTIME MRX1 PRN PRN Reason: Insomnia Last Admin: 01/02/25 20:21 Dose: 50 mg Venlafaxine HCl (Venlafaxine Hcl Er 37.5 Mg Cap.Er.24h) 187.5 mg PO DAILY [facility]ULA Allergies Allergies Allergy/AdvReac Type Severity Reaction Status Date / Time fish derived [fish] Allergy Unknown Verified 01/01/25 13:38 haloperidol [From Haldol] Allergy Unknown Verified 01/01/25 13:38 Assessment & Plan Assessment & Plan (1) Bipolar disorder: Status: Acute Code(s): F31.9 - Bipolar disorder, unspecified (2) ADHD (attention deficit hyperactivity disorder), predominantly hyperactive impulsive type: Status: Acute Code(s): F90.1 - Attention-deficit hyperactivity disorder, predominantly hyperactive type (3) Chronic post-traumatic stress disorder (PTSD): Status: Acute Code(s): F43.12 - Post-traumatic stress disorder, chronic (4) OCD (obsessive compulsive disorder): Status: Acute Code(s): F42.9 - Obsessive-compulsive disorder, unspecified Plan Admit, CV, TDN, 15 minute checks Re-establish regime Increase Depakote XR to 2000 mg HS Increase Venlafaxine to 187.5 mg (Pt reports he was taking over 400 mg)? DC Ativan Valium 5 mg bid prn-trial of a longer acting agent [place], Depakote levels 01/06. 01/04/25- ? about adderall and effexor with his dx he says bipolar 2 and prefers hypomania- Patient educated on: medication risk/benefits Informed Consent: understands Reason for continued inpatient stay Substantial Risk for: rapid decompensation Time Spent With Patient Time: Total time managing care of this patient today ____ minutes.
[2025-01-04] MEDS: Venlafaxine HCl ER 37.5 MG CAP.ER.24H 187.5 MG PO (08:10)
[2025-01-04 08:11] VITALS: BP 127/63
[2025-01-04] MEDS: cloNIDine HCL 0.1 MG TABLET PO ×2 (08:11→19:58)
[2025-01-04] MEDS: Dextroamphetamine/Amphetamine XR 10 MG CAP.ER.24H 30 MG PO ×2 (08:11→12:09)
[2025-01-04] MEDS: Lithium Carbonate ER 450 MG TABLET.ER PO ×2 (08:12→19:58)
[2025-01-04] MEDS: Nicotine 21 MG PATCH.TD24 TRANSDERMA (08:29)
[2025-01-04] MEDS: Nicotine Polacrilex 2 MG GUM 4 MG BUCCAL (08:49)
[2025-01-04 13:10] VITALS: BP 106/63; PULSE 99
[2025-01-04] MEDS: Propranolol HCL 10 MG TABLET PO ×2 (13:10→21:20)
[2025-01-04] MEDS: docosanoL 10 % Cream 2 GM TUBE 1 APPL TOPICAL (17:35)
[2025-01-04] MEDS: Magnesium Hydrox/Alum Hydrox 30 ML ORAL.SUSP PO (19:05)
[2025-01-04 19:52] VITALS: BP 138/75; PULSE 94; RESP 16; TEMP 36.4; O2SAT 96
[2025-01-04] MEDS: QUEtiapine Fumarate 50 MG TABLET 150 MG PO (19:58)
[2025-01-04] MEDS: hydrOXYzine HCL 50 MG TABLET PO (19:58)
[2025-01-04] MEDS: Divalproex Sodium ER 500 MG TAB.ER.24H 2000 MG PO (19:58)
[2025-01-04 21:20] VITALS: BP 129/66; PULSE 108
--- NOTE | 2025-01-05 08:04 | HO.PSYCHPN ---
Subjective Subjective Date of Service: 01/05/25 Reason For Visit: Bipolar Disorder Subjective Notes: Conditional Voluntary Healthcare Proxy: No Guardianship: No Medical Problems Affecting Mental Status: No Interim History: 24 yo continues hypomanic intrusive and impulsive but became angry when I lowered his adderall from 30 20mg for afternoon dose- which I changed back to let team discuss with him tomorrow- Medication Compliance: Yes Side effects from medications: No (? if effexor and adderall are helpful for him....) Attending Groups: Yes Review of Systems Acute medical concerns: No Medical Review of Systems: unchanged Mental Status Exam Mental Status Exam Patient Appearance: Well Grooomed (showered today) Patient Orientation: Person, Place, Time and Situation Level of Consciousness: Awake Patient Behavior: Talkative, Cooperative, Distractible, Good Eye Contact and Impulsive Mood Description: Expansive Affect Description: Apprehensive (about med change) Patient Cognition Impaired: No Ability to Follow Directions: Good Speech Pattern: Clear and Loud Hallucinations: None Delusions: Not Present Thought Process: Racing Thought Content: positive for Perseveration Depressive Symptoms: Difficulty Concentrating Abnormal Motor Activity Signs and Symptoms: Restlessness Judgement: Fair Diagnostics Vital Signs (24Hr): Vital Signs - 24 hr 01/04/25 08:11 01/04/25 13:10 01/04/25 19:52 Temperature 97.6 F Pulse Rate 99 94 Respiratory Rate 16 Blood Pressure 127/63 106/63 138/75 Pulse Oximetry 96 Oxygen Delivery Method Room Air 01/04/25 21:20 Temperature Pulse Rate 108 H Respiratory Rate Blood Pressure 129/66 Pulse Oximetry Oxygen Delivery Method BMI result Body Mass Index 33.5 Labs 01/01/25 16:01 01/01/25 16:01 Labs: Laboratory Results - last 48 hr 01/03/25 08:48 Estimat Average Glucose 100 Hemoglobin A1c % 5.1 Magnesium 2.1 Triglycerides 330 H Cholesterol 188 LDL Cholesterol, Calc 77 HDL Cholesterol 45 Vitamin B12 889 Folate 7.3 TSH 1.17 Free T4 1.05 Medications Medications Current Medications Acetaminophen (Acetaminophen 325 Mg Tablet) 650 mg PO Q6H PRN PRN Reason: Headache/Pain, Scale 1-10 Al Hydroxide/Mg Hydroxide (Magnesium Hydrox/Alum Hydrox 30 Ml Oral.Susp) 30 ml PO Q6H PRN PRN Reason: Heartburn/Nausea Last Admin: 01/04/25 19:05 Dose: 30 ml Amphetamine/Dextroamphetamine (Dextroamphetamine/Amphetamine Xr 10 Mg Cap.Er.24h) 30 mg PO BID@0900,1300 [facility] Last Admin: 01/04/25 12:09 Dose: 30 mg Clonidine HCl (Clonidine Hcl 0.1 Mg Tablet) 0.1 mg PO BID [facility]; Protocol Last Admin: 01/04/25 19:58 Dose: 0.1 mg Clotrimazole (Clotrimazole 1 % Cream 15 Gm Tube) 1 appl TOPICAL BID [facility]; Protocol Last Admin: 01/04/25 20:00 Dose: Not Given Diazepam (Diazepam 5 Mg Tablet) 5 mg PO BID PRN PRN Reason: severe anxiety Last Admin: 01/04/25 14:41 Dose: 5 mg Divalproex Sodium (Divalproex Sodium Er 500 Mg Tab.Er.24h) 2,000 mg PO BEDTIME [facility] Last Admin: 01/04/25 19:58 Dose: 2,000 mg Docosanol (Docosanol 10 % Cream 2 Gm Tube) 1 appl TOPICAL 5XD [facility]; Protocol Last Admin: 01/05/25 06:02 Dose: Not Given Ergocalciferol (Ergocalciferol (Vitamin D2) 1,250 Mcg Capsule) 1,250 mcg PO TH [facility] Last Admin: 01/02/25 09:02 Dose: Not Given Hydroxyzine HCl (Hydroxyzine Hcl 50 Mg Tablet) 50 mg PO Q4H PRN PRN Reason: mild Anxiety Last Admin: 01/04/25 19:58 Dose: 50 mg [place] Carbonate ([place] Carbonate Er 450 Mg Tablet.Er) 450 mg PO BID [facility] Last Admin: 01/04/25 19:58 Dose: 450 mg Magnesium Hydroxide (Milk Of Magnesia 30 Ml Oral.Susp) 30 ml PO DAILY PRN PRN Reason: Constipation Melatonin (Melatonin 3 Mg Tablet) 9 mg PO BEDTIME PRN PRN Reason: insomnia Last Admin: 01/03/25 20:17 Dose: 9 mg Nicotine (Nicotine 21 Mg Patch.Td24) 21 mg TRANSDERMA DAILY [facility] Last Admin: 01/04/25 08:29 Dose: 21 mg Nicotine Polacrilex (Nicotine Polacrilex 2 Mg Gum) 4 mg BUCCAL Q2H PRN PRN Reason: Nicotine Cravings Last Admin: 01/04/25 08:49 Dose: 4 mg Omeprazole (Omeprazole 20 Mg Capsule.Dr) 20 mg PO DAILY@0630 PRN PRN Reason: Acid Reflux Propranolol HCl (Propranolol Hcl 10 Mg Tablet) 10 mg PO BID PRN; Protocol PRN Reason: anxiety Last Admin: 01/04/25 21:20 Dose: 10 mg Quetiapine Fumarate (Quetiapine Fumarate 50 Mg Tablet) 150 mg PO BEDTIME [facility] Last Admin: 01/04/25 19:58 Dose: 150 mg Trazodone HCl (Trazodone Hcl 50 Mg Tablet) 50 mg PO BEDTIME MRX1 PRN PRN Reason: Insomnia Last Admin: 01/02/25 20:21 Dose: 50 mg Venlafaxine HCl (Venlafaxine Hcl Er 37.5 Mg Cap.Er.24h) 187.5 mg PO DAILY [facility] Last Admin: 01/04/25 08:10 Dose: 187.5 mg Allergies Allergies Allergy/AdvReac Type Severity Reaction Status Date / Time fish derived [fish] Allergy Unknown Verified 01/01/25 13:38 haloperidol [From Haldol] Allergy Unknown Verified 01/01/25 13:38 Assessment & Plan Assessment & Plan (1) Bipolar disorder: Status: Acute Code(s): F31.9 - Bipolar disorder, unspecified (2) ADHD (attention deficit hyperactivity disorder), predominantly hyperactive impulsive type: Status: Acute Code(s): F90.1 - Attention-deficit hyperactivity disorder, predominantly hyperactive type (3) Chronic post-traumatic stress disorder (PTSD): Status: Acute Code(s): F43.12 - Post-traumatic stress disorder, chronic (4) OCD (obsessive compulsive disorder): Status: Acute Code(s): F42.9 - Obsessive-compulsive disorder, unspecified Plan Admit, CV, TDN, 15 minute checks Re-establish regime Increase Depakote XR to 2000 mg HS Increase Venlafaxine to 187.5 mg (Pt reports he was taking over 400 mg)? DC Ativan Valium 5 mg bid prn-trial of a longer acting agent [place], Depakote levels 01/06. 01/04/25- ? about adderall and effexor with his dx he says bipolar 2 and prefers hypomania- 01/05 - CTP no change to meds Patient educated on: medication risk/benefits Informed Consent: further education needed Reason for continued inpatient stay Substantial Risk for: rapid decompensation Time Spent With Patient Time: Total time managing care of this patient today ____ minutes.
[2025-01-05 08:30] VITALS: BP 119/62; PULSE 91; RESP 18; TEMP 36.8; O2SAT 98
[2025-01-05] MEDS: Venlafaxine HCl ER 37.5 MG CAP.ER.24H 187.5 MG PO (08:33)
[2025-01-05] MEDS: Dextroamphetamine/Amphetamine XR 10 MG CAP.ER.24H 30 MG PO ×2 (08:34→12:29)
[2025-01-05] MEDS: Nicotine 21 MG PATCH.TD24 TRANSDERMA (08:35)
[2025-01-05] MEDS: Lithium Carbonate ER 450 MG TABLET.ER PO ×2 (08:35→21:08)
[2025-01-05] MEDS: docosanoL 10 % Cream 2 GM TUBE 1 APPL TOPICAL ×2 (08:36→13:21)
[2025-01-05 08:41] VITALS: BP 119/62; PULSE 91
[2025-01-05] MEDS: Propranolol HCL 10 MG TABLET PO ×3 (08:41→19:03)
[2025-01-05] MEDS: diazePAM 5 MG TABLET PO ×2 (08:41→13:15)
[2025-01-05] MEDS: Simethicone 80 MG TAB.CHEW PO (13:16)
[2025-01-05] MEDS: Clotrimazole 1 % Cream 15 GM TUBE 1 APPL TOPICAL (13:17)
[2025-01-05] MEDS: Omeprazole 20 MG CAPSULE.DR PO (14:43)
[2025-01-05] MEDS: Magnesium Hydrox/Alum Hydrox 30 ML ORAL.SUSP PO (14:44)
[2025-01-05 16:24] VITALS: BP 137/70; PULSE 98
[2025-01-05] MEDS: hydrOXYzine HCL 50 MG TABLET PO ×2 (17:42→21:50)
[2025-01-05] MEDS: QUEtiapine Fumarate 50 MG TABLET PO (17:44)
[2025-01-05 18:26] VITALS: BP 145/100
[2025-01-05] MEDS: cloNIDine HCL 0.1 MG TABLET PO (18:26)
[2025-01-05 19:03] VITALS: BP 154/94; PULSE 91
[2025-01-05 20:00] VITALS: BP 153/70; PULSE 90; RESP 16; TEMP 37; O2SAT 98
[2025-01-05] MEDS: traZODone HCL 50 MG TABLET PO ×2 (21:08→21:50)
[2025-01-05] MEDS: QUEtiapine Fumarate 50 MG TABLET 150 MG PO (21:10)
[2025-01-05] MEDS: Divalproex Sodium ER 500 MG TAB.ER.24H 2000 MG PO (21:10)
[2025-01-05] MEDS: Melatonin 3 MG TABLET 9 MG PO (21:50)
[2025-01-06 06:27] VITALS: BP 98/60; PULSE 77
[2025-01-06] MEDS: Propranolol HCL 10 MG TABLET PO ×4 (06:27→20:35)
[2025-01-06 08:00] VITALS: BP 124/63; PULSE 80; RESP 16; TEMP 37.1; O2SAT 98
[2025-01-06] MEDS: Nicotine 21 MG PATCH.TD24 TRANSDERMA (08:09)
[2025-01-06] MEDS: Venlafaxine HCl ER 37.5 MG CAP.ER.24H 187.5 MG PO (08:10)
[2025-01-06] MEDS: Lithium Carbonate ER 450 MG TABLET.ER PO ×2 (08:11→20:39)
[2025-01-06] MEDS: Dextroamphetamine/Amphetamine XR 10 MG CAP.ER.24H 30 MG PO ×2 (08:12→12:27)
[2025-01-06 08:14] LABS: Ammonia 48 umol/L (13-55)
[2025-01-06 08:17] LABS: Lithium 0.38 mmol/L (0.60-1.20)
[2025-01-06 08:21] LABS: Valproate 64.1 mcg/mL (50.0-100.0)
--- NOTE | 2025-01-06 09:19 | HO.PSYCHPN ---
Subjective Subjective Date of Service: 01/06/25 Reason For Visit: Bipolar Disorder Interim History: Met with pt; discussed with team; reviewed chart pt feels good enough and ready to dc tomorrow. Denies any SI at all. Wanted to review dx and racebook writer agreed with bipolar II, ADHD and OCD. Talked about OCD symptoms and has intrusive thoughts but managing them; asked for increased Valium to help but accepts to increase Effexor; also asks for increased frequency of Propranolol to which racebook writer agrees. He asked about adding Intunive which he's been on before or adding IR adderall but accepts he'll need to work out w/outpt provider. Mental Status Exam Mental Status Exam Narrative: Pt is alert and oriented; behavior is cooperative, friendly, loud, somewhat intrusive but able to be redirected; patient is not in distress; dressed in casual attire with unkempt hair but adequate hygiene; mood is described as good enough and affect congruent; eye contact appropriate; Speech is loud, verbose but not really pressured; no psychomotor agitation present; thought process is organized and goal directed though also circumstantial; Thought content is on dealing with intrusive thoughts, tx; otherwise pertinent to relevant topics and without any delusional content, paranoid ideations or grandiosity; denies SI; no HI. Patient denies AVH. Intermittent intrusive thoughts but tolerable; Patients insight and judgment fair. Diagnostics Vital Signs (24Hr): Vital Signs - 24 hr 01/05/25 16:24 01/05/25 18:26 01/05/25 19:03 Temperature Pulse Rate 98 91 Respiratory Rate Blood Pressure 137/70 145/100 H 154/94 H Pulse Oximetry Oxygen Delivery Method 01/05/25 20:00 01/06/25 06:27 Temperature 98.6 F Pulse Rate 90 77 Respiratory Rate 16 Blood Pressure 153/70 H 98/60 Pulse Oximetry 98 Oxygen Delivery Method Room Air BMI result Body Mass Index 33.5 Labs 01/01/25 16:01 01/01/25 16:01 Labs: Laboratory Results - last 48 hr 01/06/25 07:51 Ammonia 48 Valproic Acid 64.1 Jeffers 0.38 L Medications Medications Current Medications Acetaminophen (Acetaminophen 325 Mg Tablet) 650 mg PO Q6H PRN PRN Reason: Headache/Pain, Scale 1-10 Al Hydroxide/Mg Hydroxide (Magnesium Hydrox/Alum Hydrox 30 Ml Oral.Susp) 30 ml PO Q6H PRN PRN Reason: Heartburn/Nausea Last Admin: 01/05/25 14:44 Dose: 30 ml Amphetamine/Dextroamphetamine (Dextroamphetamine/Amphetamine Xr 10 Mg Cap.Er.24h) 30 mg PO BID@0900,1300 [facility] Last Admin: 01/06/25 08:12 Dose: 30 mg Clonidine HCl (Clonidine Hcl 0.1 Mg Tablet) 0.1 mg PO BID PRN; Protocol PRN Reason: Anxiety Last Admin: 01/05/25 18:26 Dose: 0.1 mg Clotrimazole (Clotrimazole 1 % Cream 15 Gm Tube) 1 appl TOPICAL BID PAULA; Protocol Last Admin: 01/06/25 08:14 Dose: Not Given Diazepam (Diazepam 5 Mg Tablet) 5 mg PO BID PRN PRN Reason: severe anxiety Last Admin: 01/05/25 13:15 Dose: 5 mg Divalproex Sodium (Divalproex Sodium Er 500 Mg Tab.Er.24h) 2,000 mg PO BEDTIME PAULA Last Admin: 01/05/25 21:10 Dose: 2,000 mg Docosanol (Docosanol 10 % Cream 2 Gm Tube) 1 appl TOPICAL 5XD PAULA; Protocol Last Admin: 01/06/25 08:14 Dose: Not Given Ergocalciferol (Ergocalciferol (Vitamin D2) 1,250 Mcg Capsule) 1,250 mcg PO TH PAULA Last Admin: 01/02/25 09:02 Dose: Not Given Hydroxyzine HCl (Hydroxyzine Hcl 50 Mg Tablet) 50 mg PO Q4H PRN PRN Reason: mild Anxiety Last Admin: 01/05/25 21:50 Dose: 50 mg Jeffers Carbonate (Jeffers Carbonate Er 450 Mg Tablet.Er) 450 mg PO BID [facility] Last Admin: 01/06/25 08:11 Dose: 450 mg Magnesium Hydroxide (Milk Of Magnesia 30 Ml Oral.Susp) 30 ml PO DAILY PRN PRN Reason: Constipation Melatonin (Melatonin 3 Mg Tablet) 9 mg PO BEDTIME PRN PRN Reason: insomnia Last Admin: 01/05/25 21:50 Dose: 9 mg Nicotine (Nicotine 21 Mg Patch.Td24) 21 mg TRANSDERMA DAILY [facility] Last Admin: 01/06/25 08:09 Dose: 21 mg Nicotine Polacrilex (Nicotine Polacrilex 2 Mg Gum) 4 mg BUCCAL Q2H PRN PRN Reason: Nicotine Cravings Last Admin: 01/04/25 08:49 Dose: 4 mg Omeprazole (Omeprazole 20 Mg Capsule.Dr) 20 mg PO DAILY@0630 PRN PRN Reason: Acid Reflux Last Admin: 01/05/25 14:43 Dose: 20 mg Propranolol HCl (Propranolol Hcl 10 Mg Tablet) 10 mg PO TID PRN; Protocol PRN Reason: anxiety Last Admin: 01/06/25 06:27 Dose: 10 mg Quetiapine Fumarate (Quetiapine Fumarate 50 Mg Tablet) 150 mg PO BEDTIME PAULA Last Admin: 01/05/25 21:10 Dose: 150 mg Quetiapine Fumarate (Quetiapine Fumarate 50 Mg Tablet) 50 mg PO DAILY PAULA Last Admin: 01/06/25 08:13 Dose: Not Given Simethicone (Simethicone 80 Mg Tab.Chew) 80 mg PO QIDWMHS PRN PRN Reason: bloating Last Admin: 01/05/25 13:16 Dose: 80 mg Trazodone HCl (Trazodone Hcl 50 Mg Tablet) 50 mg PO BEDTIME MRX1 PRN PRN Reason: Insomnia Last Admin: 01/05/25 21:50 Dose: 50 mg Venlafaxine HCl (Venlafaxine Hcl Er 37.5 Mg Cap.Er.24h) 187.5 mg PO DAILY PAULA Last Admin: 01/06/25 08:10 Dose: 187.5 mg Allergies Allergies Allergy/AdvReac Type Severity Reaction Status Date / Time fish derived [fish] Allergy Unknown Verified 01/01/25 13:38 haloperidol [From Haldol] Allergy Unknown Verified 01/01/25 13:38 Assessment & Plan Assessment & Plan (1) Bipolar disorder: Status: Acute Code(s): F31.9 - Bipolar disorder, unspecified (2) ADHD (attention deficit hyperactivity disorder), predominantly hyperactive impulsive type: Status: Acute Code(s): F90.1 - Attention-deficit hyperactivity disorder, predominantly hyperactive type (3) Chronic post-traumatic stress disorder (PTSD): Status: Acute Code(s): F43.12 - Post-traumatic stress disorder, chronic (4) OCD (obsessive compulsive disorder): Status: Acute Code(s): F42.9 - Obsessive-compulsive disorder, unspecified Plan Admit, CV, TDN, 15 minute checks Re-establish regime Increase Depakote XR to 2000 mg HS Increase Venlafaxine to 187.5 mg (Pt reports he was taking over 400 mg)? DC Ativan Valium 5 mg bid prn-trial of a longer acting agent Jeffers, Depakote levels 01/06. 01/04/25- ? about adderall and effexor with his dx he says bipolar 2 and prefers hypomania- 01/05 - CTP no change to meds 01/06 pt feels good enough and ready to dc tomorrow. Denies any SI at all. Wanted to review dx and racebook writer agreed with bipolar II, ADHD and OCD. Talked about OCD symptoms and has intrusive thoughts but managing them; asked for increased Valium to help but accepts to increase Effexor; also asks for increased frequency of Propranolol to which racebook writer agrees. He asked about adding Intunive which he's been on before or adding IR adderall but accepts he'll need to work out w/outpt provider. -depakote level WNL -lithium level subtherapeutic but pt does not seem manic (more likely ADHD symptoms + natural exhuberance) -3 day due tomorrow. Pt not in imminent risk and appropriate to return to community for tx Patient educated on: diagnosis, medication risk/benefits and therapeutic strategies Informed Consent: understands Reason for continued inpatient stay Substantial Risk for: stable for discharge Time Spent With Patient Time: Total time managing care of this patient today ____ minutes.
[2025-01-06] MEDS: Venlafaxine HCl ER 37.5 MG CAP.ER.24H PO (10:58)
[2025-01-06] MEDS: Simethicone 80 MG TAB.CHEW PO (14:06)
[2025-01-06 15:27] VITALS: BP 121/78; PULSE 81
[2025-01-06] MEDS: diazePAM 5 MG TABLET PO (17:29)
[2025-01-06] MEDS: hydrOXYzine HCL 50 MG TABLET PO (17:56)
[2025-01-06 20:00] VITALS: BP 147/81; PULSE 94; RESP 16; TEMP 36.9; O2SAT 99
[2025-01-06] MEDS: Omeprazole 20 MG CAPSULE.DR PO (20:34)
[2025-01-06 20:35] VITALS: BP 147/74; PULSE 95
[2025-01-06] MEDS: Divalproex Sodium ER 500 MG TAB.ER.24H 2000 MG PO (20:39)
[2025-01-06] MEDS: QUEtiapine Fumarate 50 MG TABLET 150 MG PO (20:40)
[2025-01-06] MEDS: Magnesium Hydrox/Alum Hydrox 30 ML ORAL.SUSP PO (21:03)
[2025-01-06] MEDS: traZODone HCL 50 MG TABLET PO (21:09)
[2025-01-06] MEDS: Melatonin 3 MG TABLET 9 MG PO (21:10)
--- NOTE | 2025-01-06 21:40 | PM.PSYDC ---
DS: Providers Provider Date of Service: 01/07/25 Date of admission: 01/02/25 12:17 Date of discharge: 01/07/25 Primary care physician: Luisito Nichole MD DS: Diagnosis Discharge Diagnosis (1) Bipolar disorder: Status: Acute (2) ADHD (attention deficit hyperactivity disorder), predominantly hyperactive impulsive type: Status: Acute (3) Chronic post-traumatic stress disorder (PTSD): Status: Acute (4) OCD (obsessive compulsive disorder): Status: Acute DS: Medications Discharge Medications Home Medications: Home Medications ?Medication ?Instructions ?Recorded ?Confirmed clonidine HCl 0.1 mg tablet 0.1 mg PO BID 01/01/25 01/01/25 dextroamphetamine-amphetamine ER 30 mg PO BID@0900,1300 01/01/25 01/01/25 30 mg 24hr capsule,extend release divalproex 500 mg tablet,extended 1,500 mg PO BEDTIME depressive 01/01/25 01/01/25 release 24 hr disorder ergocalciferol (vitamin D2) 1,250 1,250 mcg PO TH 01/01/25 01/01/25 mcg (50,000 unit) capsule (Vitamin D2) hydroxyzine HCl 25 mg tablet 50 mg PO Q4H PRN mild Anxiety 01/01/25 01/01/25 lithium carbonate 450 mg 450 mg PO BID depressive disorder 01/01/25 01/01/25 tablet,extended release melatonin 3 mg tablet 9 mg PO BEDTIME PRN insomnia 01/01/25 01/01/25 omeprazole 20 mg capsule,delayed 20 mg PO DAILY@0630 PRN Acid Reflux 01/01/25 01/01/25 release propranolol 10 mg tablet 10 mg PO BID PRN anxiety 01/01/25 01/01/25 quetiapine 100 mg tablet 150 mg PO BEDTIME 01/01/25 01/01/25 Previous Rx's ?Medication ?Instructions ?Recorded lorazepam 1 mg tablet 1 mg PO BID PRN instrusive 11/04/24 thoughts/severe anxiety 7 days #14 tabs venlafaxine 150 mg 150 mg PO DAILY 30 days #30 caps 11/04/24 capsule,extended release 24 hr Mental Status Exam Mental Status Exam Narrative: Pt is alert and oriented; behavior is cooperative, friendly, loud, somewhat intrusive but able to be redirected; patient is not in distress; dressed in casual attire with unkempt hair but adequate hygiene; mood is described as good and affect congruent; eye contact appropriate; Speech is loud, verbose but not really pressured; no psychomotor agitation present; thought process is organized and goal directed though also circumstantial; Thought content is on dealing with intrusive thoughts, tx; otherwise pertinent to relevant topics and without any delusional content, paranoid ideations or grandiosity; denies SI; no HI. Patient denies AVH. Intermittent intrusive thoughts but tolerable; Patients insight and judgment fair. Data Data Completed and Pending Completed studies during hospitalization [Text1]: 01/01/25 01/01/25 01/01/25 14:32 15:55 16:01 WBC 6.7 RBC 5.09 Hgb 14.8 Hct 42.0 MCV 82.5 MCH 29.1 MCHC 35.2 RDW 13.1 Plt Count 163 MPV 9.6 Immature Gran % (Auto) 0.7 H Neut % (Auto) 54.3 Lymph % (Auto) 34.0 [place] % (Auto) 6.7 Eos % (Auto) 3.6 Baso % (Auto) 0.7 Lymph # (Auto) 2.3 [place] # (Auto) 0.5 Eos # (Auto) 0.2 Baso # (Auto) 0.1 Abs Immat Gran (auto) 0.05 H Absolute Neuts (auto) 3.6 Absolute Nucleated RBC 0.000 Nucleated RBC % (auto) 0.0 Sodium 140 Potassium 4.3 Chloride 107 Carbon Dioxide 25 Anion Gap 12 BUN 10 Creatinine 0.75 Estim Creat Clear Calc 174.8 Estimated GFR > 60 Random Glucose 93 Estimat Average Glucose Hemoglobin A1c % Calcium 9.4 Magnesium Total Bilirubin 0.2 AST 20 ALT 15 Alkaline Phosphatase 43 Ammonia Total Protein 6.8 Albumin 4.1 Triglycerides Cholesterol LDL Cholesterol, Calc HDL Cholesterol Vitamin B12 Folate TSH Free T4 Urine Color Yellow Urine Appearance Clear Urine pH 7.0 Ur Specific [place] 1.010 Urine Protein Negative Urine Glucose (UA) Negative Urine Ketones Negative Urine Blood Trace H Urine Nitrite Negative Ur Leukocyte Esterase Negative Urine RBC 0-2 Urine WBC 0-5 Ur Squamous Epith Cells 0-2 Urine Bacteria None Seen Hyaline Casts 0-2 Salicylates < 5.0 L Urine Opiates Screen Not Detected Ur Buprenorphine Scrn Not Detected Ur Oxycodone Screen Not Detected Urine Methadone Screen Not Detected Urine Fentanyl Screen Not Detected Acetaminophen < 3 Ur Barbiturates Screen Not Detected Valproic Acid Ur Phencyclidine Scrn Not Detected Ur Amphetamines Screen POSITIVE H U Benzodiazepines Scrn Not Detected [place] Urine Cocaine Screen Not Detected U Marijuana (THC) Screen POSITIVE H Ethyl Alcohol < 10 COVID-19 ([facility]ELI) Negative COVID-19 Clin Com See Note 01/03/25 01/06/25 08:48 07:51 WBC RBC Hgb Hct MCV MCH MCHC RDW Plt Count MPV Immature Gran % (Auto) Neut % (Auto) Lymph % (Auto) [place] % (Auto) Eos % (Auto) Baso % (Auto) Lymph # (Auto) [place] # (Auto) Eos # (Auto) Baso # (Auto) Abs Immat Gran (auto) Absolute Neuts (auto) Absolute Nucleated RBC Nucleated RBC % (auto) Sodium Potassium Chloride Carbon Dioxide Anion Gap BUN Creatinine Estim Creat Clear Calc Estimated GFR Random Glucose Estimat Average Glucose 100 Hemoglobin A1c % 5.1 Calcium Magnesium 2.1 Total Bilirubin AST ALT Alkaline Phosphatase Ammonia 48 Total Protein Albumin Triglycerides 330 H Cholesterol 188 LDL Cholesterol, Calc 77 HDL Cholesterol 45 Vitamin B12 889 Folate 7.3 TSH 1.17 Free T4 1.05 Urine Color Urine Appearance Urine pH Ur Specific [place] Urine Protein Urine Glucose (UA) Urine Ketones Urine Blood Urine Nitrite Ur Leukocyte Esterase Urine RBC Urine WBC Ur Squamous Epith Cells Urine Bacteria Hyaline Casts Salicylates Urine Opiates Screen Ur Buprenorphine Scrn Ur Oxycodone Screen Urine Methadone Screen Urine Fentanyl Screen Acetaminophen Ur Barbiturates Screen Valproic Acid 64.1 Ur Phencyclidine Scrn Ur Amphetamines Screen U Benzodiazepines Scrn [place] 0.38 L Urine Cocaine Screen U Marijuana (THC) Screen Ethyl Alcohol COVID-19 ([facility]I) COVID-19 Clin Com DS: Summary Hospital Course Hospital Course: HPI: 24 yo male, hx of bipolar disorder, ocd, ptsd, adhd, alcohol use disorder, section XII from [facility] due to their facility not being able to manage pt's catheter needs. Pt to [facility] 12/29/24 s/p OD of 100 mg Seroquel #10. Admitted to [facility] 12/30. Pt had been experiencing hypomania, off meds, with no OP tx team. He does not identify a rationale for overdose and has several questions regarding medications and changes needed to be made. Pt reports he had not been feeling well and had been calling the ambulance on several occasions for ER eval. He was told that he was abusing this service and he would be arrested. I have OCD and it is not treated, I have no outside providers . We need to make changes . Better presentation with Oct 2024 admit with DC on Trileptal, Seroquel, Wellbutrin, Venlafaxine ER, Adderall, Ativan. Pt is very engaging today, with mild hypomania. Several questions about treatment-wanting to increase Depakote, Venlafaxine. Asks for conversions from Ativan to Valium to Klonopin. Asks for information of supplements for PICA and impulse control. Asks for referral to OP providers. Education provided Hospital course: Patient soon returned to baseline. This continued with home medications although Effexor was increased to address ongoing OCD. He was treated with Valium and this time instead of Ativan with which he agreed. Over subsequent days, patient placed a 3 day notice and reported that he feels good enough and ready to discharge home where he lives with his mother. He remained without any SI at all. Although loud and somewhat intrusive and with ADHD symptoms, patient otherwise remained in adequate behavioral and impulse control. Patient wanted to discuss diagnosis and public relations writer agreed with bipolar II, ADHD and OCD. Talked about OCD symptoms and though still with intrusive thoughts but managing them. Regarding medications, at 1 point he did ask for increased Valium to help but accepted an increase in Effexor instead; also asks for increased frequency of Propranolol to which public relations writer agrees. He asked about adding Intunive which he's been on before or adding IR adderall but accepts he'll need to work out w/outpt provider. Regarding Ativan, public relations writer agreed to give him 1 mg per week for the times when he must present in court as patient explained that he is very worried that due to his OCD he maybe in court, having intrusive thought and blurt out some untrue thing for which he might be held accountable. Patient's 3 day notice came due. He had returned to baseline he is not in imminent risk for harm to self or others and appropriate to return to the community for treatment Time spent discussing smoking cessation with patient: 3 to 10 minutes Status at Discharge Functional status at discharge: independent ambulation Overall status at discharge: patient is back to baseline Time Spent with Patient Time attestation: Total time managing care of this patient today _40___ minutes. Time spent: Greater than 30 minutes Specific discharge activities: Met with patient; discussed with team; prescriptions, charting Discharge Plan Discharge Anticipated Discharge Date/Time: 01/07/25 10:37 Patient Disposition: Home, Self-Care Discharge Diagnosis: Bipolar II disorder Referrals: [facility] Counseling: Abraham Gallo [Other] - 01/09/25 12:00 pm (Initial diagnostic evaluation for therapy Hospital discharge appointment ) [facility] Counseling: Ruth Ann Hubbard (psychiatry) [Other] - 01/23/25 10:00 am (Initial psychiatric evaluation by a provider for medication management Appointment is by tele-health. Check your email for a link to the scheduled appointment ) [facility] Counseling : Ruth Ann Hubbard (psychiatry) [Other] - 02/20/25 10:20 am (Medication management appointment Appointment is by tele-health. Check your email for a link to the appointment.) [facility]: Kelly Little [Other] - 1 Week (A nurse will call you to set up a time to come to your home to initiate services. Please call the above number if you have not heard from a nurse by 12pm on 01/08) Ben Peters NP [Nurse Practitioner] - 1 Week (Office will call PT with follow up appt. ) Discharge Medications: New nicotine 21 mg/24 hr Patch 24 Hour 21 mg transdermal DAILY PRN (Reason: smoking cessation) 28 Days Qty: 28 0RF Rx Instructions: remove at bedtime nicotine (polacrilex) 4 mg gum 4 mg buccal Q2H 30 Days Qty: 100 0RF diazepam 5 mg tablet 5 mg PO BEDTIME PRN (Reason: moderate anxiety/intrusive thoughts) 30 Days Qty: 60 0RF quetiapine 50 mg Tablet 50 mg PO DAILY 30 Days Qty: 30 1RF trazodone 50 mg Tablet 50 mg PO BEDTIME MRX1 PRN (Reason: Insomnia) 30 Days Qty: 30 1RF venlafaxine 75 mg Capsule,Extended Release 24hr 75 mg PO DAILY 30 Days Qty: 30 1RF Rx Instructions: take with 150mg capsule clotrimazole 1 % Cream 1 appl topical BID 21 Days Qty: 15 0RF Protocol: Apply to: Apply to: feet dextroamphetamine-amphetamine 30 mg capsule,extended release 24hr 30 mg PO BID@0900,1300 30 Days Qty: 60 0RF Rx Instructions: Partial Fill upon patient request. Continued venlafaxine 150 mg Capsule,Extended Release 24hr 150 mg PO DAILY 30 Days Qty: 30 1RF Rx Instructions: take with 75mg capsule lithium carbonate 450 mg tablet extended release 450 mg PO BID 30 Days Qty: 60 1RF ergocalciferol (vitamin D2) [Vitamin D2] 1,250 mcg (50,000 unit) Capsule 1,250 mcg PO TH 30 Days Qty: 5 1RF Changed hydroxyzine HCl 50 mg tablet 50 mg PO TID PRN (Reason: mild anxiety) 30 Days Qty: 90 1RF quetiapine 100 mg tablet 150 mg PO BEDTIME 30 Days Qty: 45 1RF propranolol 10 mg tablet 10 mg PO QID PRN (Reason: anxiety) 30 Days Qty: 120 1RF divalproex 500 mg tablet extended release 24 hr 2,000 mg PO BEDTIME 30 Days Qty: 120 1RF omeprazole 20 mg capsule,delayed release(DR/EC) 20 mg PO DAILY@0630 PRN (Reason: Acid Reflux) 30 Days Qty: 30 1RF lorazepam 1 mg Tablet 1 mg PO DAILY PRN (Reason: for public appearance/court) 28 Days Qty: 4 1RF melatonin 10 mg tablet 10 mg PO BEDTIME PRN (Reason: sleep) 30 Days Qty: 30 1RF Discontinued clonidine HCl 0.1 mg tablet 0.1 mg PO BID dextroamphetamine-amphetamine 30 mg capsule,extended release 24hr 30 mg PO BID@0900,1300 Rx Instructions: Partial Fill upon patient request. Discharge Orders: Discharge Order (Routine); Ordered 01/07/25 Ordered By: Vipin Marcus Diet: Regular diet Activity on Discharge: As tolerated Stand Alone Forms: Patient Portal Discharge page, Community Support Print Language: Unable To Collect Care Plan Goals: Maintain mood and safe behaviors Take medications as prescribed Continue to pursue sobriety Practice coping skills Continue with outpatient providers and reach out to them as needed Health Concerns: Mood stability and behaviors Sobriety GERD Plan of Treatment: Follow up with your PCP, psychiatric provider and other outpatient providers regarding above concerns Take medications as prescribed Assessment: Risk assessment at time of discharge:? Patient was interviewed prior to discharge and found to be fully oriented and without any SI or HI. Patient has improved insight and judgment and wants to continue treatment. Patient is not in imminent risk of harm to self or others and has a safety plan that includes presenting to the closest ER or calling 911 if feeling unsafe.? Patient has been observed closely by nursing and unit staff throughout admission; patient has not engaged in any behaviors that suggest dangerousness to self or others and has demonstrated appropriate behaviors and impulse control Discharge Date/Time: 01/07/25 10:47
[2025-01-07 08:00] VITALS: BP 162/90; PULSE 84; TEMP 36.4; O2SAT 95
[2025-01-07] MEDS: Dextroamphetamine/Amphetamine XR 10 MG CAP.ER.24H 30 MG PO (08:10)
[2025-01-07] MEDS: Venlafaxine HCl ER 75 MG CAP.ER.24H 225 MG PO (08:12)
[2025-01-07] MEDS: diazePAM 5 MG TABLET PO (08:12)
[2025-01-07] MEDS: Lithium Carbonate ER 450 MG TABLET.ER PO (08:12)
[2025-01-07] MEDS: QUEtiapine Fumarate 50 MG TABLET PO (08:12)
[2025-01-07] MEDS: Nicotine 21 MG PATCH.TD24 TRANSDERMA (08:14)
[2025-01-07] MEDS: Magnesium Hydrox/Alum Hydrox 30 ML ORAL.SUSP PO (09:46)
--- NOTE | 2025-01-14 04:26 | PC.NURSE ---
Late entry for January 06, 2025. Patient requested and received Diazepam 5 mg po at 0630 as a prn for anxiety.
== END 2025-01-07 10:47 | disposition home or self-care (01) | DRG 753 ==
LOC: HO.ED 18:32 → HO.PM5 01-02 12:21
PROVIDERS: Physician Assistant Medical; Admitting Provider Clinical Nurse Specialist Psychiatric/Mental Health, Adult; Emergency Provider Emergency Medicine; PCP Internal Medicine; Visit Provider Psychiatry & Neurology Psychiatry
DX: F31.81 Bipolar II disorder (principal); F17.210 Nicotine dependence, cigarettes, uncomplicated; F42.9 Obsessive-compulsive disorder, unspecified; F43.12 Post-traumatic stress disorder, chronic; Z71.6 Tobacco abuse counseling; F90.1 Attention-deficit hyperactivity disorder, predominantly hyperactive type; Z20.822 Contact with and (suspected) exposure to COVID-19; Z79.899 Other long term (current) drug therapy
CPT/HCPCS: 36415; 80053; 80061; 80143; 80164; 80178; 80179; 80307; 81001; 82140; 82607; 82746; 83036; 83735; 84439; 84443; 85025; 87635; 93005; 99285; S9485

== ENCOUNTER → 2025-01-01 15:35 | Outpatient (BNV) | payer OTHER, SELFPAY | PROVIDERS: Admitting Provider Clinical Nurse Specialist Psychiatric/Mental Health, Adult; Emergency Provider Emergency Medicine; PCP Internal Medicine; Visit Provider Internal Medicine Cardiovascular Disease | DX: Z13.6 Encounter for screening for cardiovascular disorders (principal) | CPT/HCPCS: 93010 ==

== ENCOUNTER → 2025-01-02 12:17 | Outpatient (BNV) | payer OTHER, SELFPAY | PROVIDERS: Admitting Provider Clinical Nurse Specialist Psychiatric/Mental Health, Adult; Emergency Provider Emergency Medicine; PCP Internal Medicine; Visit Provider Clinical Nurse Specialist Psychiatric/Mental Health, Adult | DX: F31.9 Bipolar disorder, unspecified (principal); F90.1 Attention-deficit hyperactivity disorder, predominantly hyperactive type; F43.12 Post-traumatic stress disorder, chronic; F42.9 Obsessive-compulsive disorder, unspecified | CPT/HCPCS: 90792 ==

== ENCOUNTER 2025-01-21 12:00 | Inpatient (IN) | payer OTHER, SELFPAY ==
[2025-01-21 12:15] VITALS: BP 135/82; PULSE 88; RESP 18; TEMP 36.5; O2SAT 96; BMI 34.6
[2025-01-21] MEDS: Dextroamphetamine/Amphetamine XR 10 MG CAP.ER.24H 30 MG PO (13:25)
--- NOTE | 2025-01-21 13:47 | PC.ADMIT ---
Addendum entered by Ana Maria Armstrong RN 01/21/25 16:07: Per pt request, Desirae Holder (inspectors and regulatory officers) notified of pt's admission. Per Desirae, pt has a breathalizer that will be turned off while pt admitted. Original Note: 24 y/o male admitted to on a CV at 1210? from [facility] ED. Pt presented to [facility] from home with complaints of depression, and SI with a plan to overdose on medications. Additionally pt reported that he stopped taking his medications several days ago. Pt lives at home with both parents and has VNA services. Pt has a hx of numerous psych admits. Pt was recently discharged from on 01/07/25. Pt has a dx of Bipolar DO, BPD, anxiety, depression, PTSD, ADHD, OCD, marijuana use DO, and alcohol use DO. Pt has a hx of numerous overdose attempts, a hx of self-harming bx, and aggression when intoxicated. Pt has a hx of several arrests for aggressive/destructive behaviors/actions while under the influence. Pt is currently on probation after an assault and battery arrest in 2022 while under the influence. Pt cooperative with the admission process. Pt denied ETOH use, and reported his only substance use was nicotine and marijuana. Tox screen positive for marijuana and benzos (pt has a prescription). Pt help seeking and stated he wanted the provider to adjust his medications. Pt stated ?I want to get on a tricyclic antidepressant?. Pt endorsed low anxiety/depression and denied active thoughts to harm self or others. Pt easily distracted, and noted to make provocative statements, and have poor boundaries with peers soon after arrival. Pt provided with group room B, which pt stated he was very happy about. Pt is a daily nicotine user, and requested both nicotine patch and gum as replacement. Pt only signed a release for his inspectors and regulatory officers. Pt placed on 15 minute checks.
[2025-01-21] MEDS: Nicotine 21 MG PATCH.TD24 TRANSDERMA (14:03)
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
--- OUTSIDE RECORDS SUMMARY | 2025-01-21 14:07 | XMS_ITS | Clinical Summary ---
Author Organization [facility] ity Address [address] [place] [address] Care Team Providers Care Sales Appointment Coordinator Name Role Phone Unavailable Primary Care Provider [...]
--- OUTSIDE RECORDS SUMMARY | 2025-01-21 14:07 | XMS_ITS | Clinical Summary ---
Author Organization [facility] Facility Address [address] [place] [id number] Care Team Providers Care Mobile Patrol Officer Name Role Phone Unavailable Primary Care Provider [...] Vaccine (Season Ended) 2025 08/19/2011 Pneumococcal Vaccine: Peds ( 0 to 5 Years) and At-Risk Patients (6 to 49 Years) Aged Out 11/07/2000 No longer eligi ble based on patient's age to complete this topic Hepatitis B Vaccine Completed 03/05/2002, 12/22/2000, 11/07/[address] [place] [id number] [facility] [place] [id number] [facility]
[2025-01-21 15:16] VITALS: BP 123/80; PULSE 88
[2025-01-21] MEDS: Propranolol HCL 10 MG TABLET PO (15:16)
[2025-01-21] MEDS: Nicotine Polacrilex 2 MG GUM 4 MG BUCCAL ×2 (15:17→22:09)
[2025-01-21] MEDS: diazePAM 5 MG TABLET PO ×2 (17:42→22:08)
[2025-01-21 19:50] VITALS: BP 138/86; PULSE 83; TEMP 36.7; O2SAT 97
[2025-01-21] MEDS: QUEtiapine Fumarate 50 MG TABLET 150 MG PO (20:21)
[2025-01-21] MEDS: Lithium Carbonate ER 450 MG TABLET.ER PO (20:22)
[2025-01-21] MEDS: Divalproex Sodium ER 500 MG TAB.ER.24H 2000 MG PO (20:22)
[2025-01-21] MEDS: Melatonin 3 MG TABLET 9 MG PO (22:08)
--- NOTE | 2025-01-21 23:01 | HO.HSGERICON ---
History of Present Illness Data of Consult Service Date: 01/21/25 Requesting physician: Desi Burt Primary Care Provider: Unknown Physician HPI Reason for consult: Medical physical Patient is a 24-year-old male adopted from [place] at age 1 and has been living in the [facility] since with past medical history of shy bladder syndrome, Gerd, strabismus and surgical repair of left eye, ,ADHD, bipolar depression, OCD, PTSD, hx of SIB/ cutting, urinary retention, history of alcohol abuse, current marijuana use, current tobacco use disorder arrived to our psychiatric facility on a section 12 from [facility] as they were unable to manage patient's catheter needs. Prior to that patient had attempted overdose of Seroquel and took 10 tablets of 100 mg and was transported to [facility] and then admitted to [facility] on 12/31/1999. Prior to that patient had been experiencing noncompliance with psychiatric medications and was experiencing hypomania. This is per patient's history and physical on admission to the psychiatric unit here at [facility]. Patient was interactive and cooperative with today's examination and interview. Patient had multiple legal questions and this engineering writer deferred patient back to his commercial accountant and/or psychiatrist for further explanation. Patient offered that he requires additional catheters and sterile lube for self catheterization. Patient has been doing well though using the private bathroom on the psychiatric unit and denies any urinary retention issues in the last 24 hours. Patient described his bladder retention issues as a shy bladder syndrome and can not recall when he last saw a urologist. Patient denies any dysuria, discharge or blood in his urine. Patient reports being independent with self catheterization and knows how to use sterile technique. UA with reflex ordered. Patient also describes a rash over his right shoulder that developed over the last couple of days. Patient has small irregular circular papules that are not itchy. This rash could not be found anywhere else. Patient also has fungal toenails mostly on the left foot with mild athlete's foot. Patient is using the nicotine patch for tobacco dependence but the patch fell off and he is okay with receiving a new 1 in the morning. Patient does vape and smoke marijuana. Patient is not on any rescue inhalers or daily respiratory treatments. Patient does have an alcohol dependence issue in the past and is not currently on thiamine, folic acid and multivitamin. Patient denies history of hepatitis AB or C and HIV. Patient denies history of trauma, motor vehicle accident or head injury. Patient denies history of STDs. Patient is originally from [place] and we will test positive for PPD and/or QuantiFERON as he received the BCG vaccination. Patient has had chest x-rays in the past that were all negative for active tuberculosis. Labs reviewed and triglycerides were elevated. This could be secondary to psychotropic medication including lithium and Seroquel. This should be monitored closely by Psychiatry. Recommend repeating lipid panel monthly until it normalizes. Patient does not meet the criteria for statin therapy based on age alone. Dose adjustments of lithium and/or Seroquel may help lower triglyceride levels. Can ask dietitian to meet with patient to help with making food choices that could also help lower triglycerides. Patient does have obesity but reviewed the benefits of weight loss and exercise with patient today. Patient has no evidence of gynecomastia on exam today. Labs otherwise within normal limits. Review of Systems Review of Systems: Patient denies any chest pain, shortness of breath at rest or with exertion, abdominal pain, nausea, vomiting, diarrhea, lower leg pain. Patient reports intermittent constipation with straining, rash that developed over the last 24 hours on right shoulder that is not itchy, problem toenails, athlete's foot, and shy bladder syndrome requiring intermittent catheterization using sterile technique. Yes all other systems are reviewed and are negative [facility] Medical History (Updated 01/15/25 @ 00:02 by Cali Myles) ADHD (attention deficit hyperactivity disorder), predominantly hyperactive impulsive type Routine history and physical examination of adult Chronic post-traumatic stress disorder (PTSD) OCD (obsessive compulsive disorder) Alcohol use disorder in remission Bipolar disorder Cognitive capacity: Alert and orientated x3 Functional capacity: independent ambulation Pertinent family history: Patient is adopted from [place] and does not know the medical history of his biological mother and father Surgical History (Updated 01/21/25 @ 23:20 by BHUMI Monique) H/O eye surgery Social History Household Members: Family Housing: House Do you presently have visiting nurse or other home services: Yes Patient Tobacco Use Status: Current everyday Tobacco user Tobacco use type: Cigarette Cigarette Packs Per Day: 1 Cigarettes Per Day: 20.0 Years Smoked: 10 Smoked in Last 30 Days: Yes e-Cigarette/Vaping Use: Currently Using Patient Interested in Nicotine Replacement: Yes Second Hand Smoke Exposure: Yes Use of substances other than those prescribed or required for medical reasons: Yes Substance Use Type: Marijuana Substance Use Frequency: Chronic Longstanding Last Used Substance: Just Prior to Admission Currently Displaying Signs/Symptoms of Drug Intoxication Withdrawal: No Advance Directives: No Advance Directives Information Provided: Yes Do you have a plan to hurt others: No Plan Recently lost weight without trying: No Nutrition Risks: No Nutritional Risk Poor oral hygiene: No service: No Sexual orientation: Straight/Heterosexual Ebola Risk: Travel/Contact With Anyone From Affected Area/s: No Has Patient Experienced Ebola Symptoms: No Meds Allergies Allergy/AdvReac Type Severity Reaction Status Date / Time fish derived [fish] Allergy Unknown Verified 01/01/25 13:38 haloperidol [From Haldol] Allergy Unknown Verified 01/01/25 13:38 Active Medications: Current Medications Acetaminophen (Acetaminophen 325 Mg Tablet) 650 mg PO Q6H PRN PRN Reason: Headache/Pain, Scale 1-10 Al Hydroxide/Mg Hydroxide (Magnesium Hydrox/Alum Hydrox 30 Ml Oral.Susp) 30 ml PO Q6H PRN PRN Reason: Heartburn/Nausea Amphetamine/Dextroamphetamine (Dextroamphetamine/Amphetamine Xr 10 Mg Cap.Er.24h) 30 mg PO 0900,1300 [facility] Last Admin: 01/21/25 13:25 Dose: 30 mg Clotrimazole (Clotrimazole 1 % Cream 15 Gm Tube) 1 appl TOPICAL BID [facility]; Protocol Last Admin: 01/21/25 20:24 Dose: Not Given Diazepam (Diazepam 5 Mg Tablet) 5 mg PO BID PRN PRN Reason: mod anxiety/intrusive thoughts Last Admin: 01/21/25 22:08 Dose: 5 mg Divalproex Sodium (Divalproex Sodium Er 500 Mg Tab.Er.24h) 2,000 mg PO BEDTIME [facility] Last Admin: 01/21/25 20:22 Dose: 2,000 mg Ergocalciferol (Ergocalciferol (Vitamin D2) 1,250 Mcg Capsule) 1,250 mcg PO Th@0900 [facility] Hydroxyzine HCl (Hydroxyzine Hcl 50 Mg Tablet) 50 mg PO TID PRN PRN Reason: Anxiety [place] Carbonate ([place] Carbonate Er 450 Mg Tablet.Er) 450 mg PO BID [facility] Last Admin: 01/21/25 20:22 Dose: 450 mg Magnesium Hydroxide (Milk Of Magnesia 30 Ml Oral.Susp) 30 ml PO DAILY PRN PRN Reason: Constipation Melatonin (Melatonin 3 Mg Tablet) 9 mg PO BEDTIME PRN PRN Reason: Insomnia Last Admin: 01/21/25 22:08 Dose: 9 mg Nicotine (Nicotine 21 Mg Patch.Td24) 21 mg TRANSDERMA DAILY [facility] Last Admin: 01/21/25 14:03 Dose: 21 mg Nicotine Polacrilex (Nicotine Polacrilex 2 Mg Gum) 4 mg BUCCAL Q2H PRN PRN Reason: Nicotine Cravings Last Admin: 01/21/25 22:09 Dose: 4 mg Omeprazole (Omeprazole 20 Mg Capsule.Dr) 20 mg PO DAILY@30 [facility] Propranolol HCl (Propranolol Hcl 10 Mg Tablet) 10 mg PO QID PRN; Protocol PRN Reason: anxiety Last Admin: 01/21/25 15:16 Dose: 10 mg Quetiapine Fumarate (Quetiapine Fumarate 50 Mg Tablet) 150 mg PO BEDTIME [facility] Last Admin: 01/21/25 20:21 Dose: 150 mg Quetiapine Fumarate (Quetiapine Fumarate 50 Mg Tablet) 50 mg PO DAILY [facility] Trazodone HCl (Trazodone Hcl 50 Mg Tablet) 50 mg PO BEDTIME MRX1 PRN PRN Reason: Insomnia Venlafaxine HCl (Venlafaxine Hcl Er 75 Mg Cap.Er.24h) 225 mg PO DAILY [facility] Assessment and Plan (1) Acute on chronic urinary retention: Status: Acute Plan Patient is a 24-year-old male adopted from [place] at age 1 and has been living in the [facility] since with past medical history of shy bladder syndrome, exercise induced asthma, Gerd, strabismus and surgical repair of left eye, ,ADHD, bipolar depression, OCD, PTSD, hx of SIB/ cutting, urinary retention, history of alcohol abuse, current marijuana use, current tobacco use disorder was seen on consultation for medical review. The following is the list of current medical concerns. Acute on chronic urinary retention/ shy bladder syndrome -UA with reflex ordered, re-consult hospitalist if UA is positive for evidence of infection -unclear if there is a correlation to this being more a somatic issue related to anxiety as patient states when he is using the handicap bathroom that is private on the psychiatric unit he currently resides in, he is not having issues with retention -urology consult as an outpatient may be beneficial for further investigation -if intermittent catheterization is required, recommend doing bladder scan 1st, and if less than 200 cc, encouraged patient to void, prior to initiating catheterization. night shift manager nursing staff were not aware that patient had catheterized during this hospital stay but patient states he has and can do so independently. Patient is requesting sterile lube and a larger size catheter. Unable to confirm current supplies in place. Can work with nursing staff to determine how to obtain the appropriate supplies if patient does require intermittent catheterization. Tinea rash right shoulder upper back -Lotrimin cream recommended daily for 7-10 days -monitor for improvement -does not appear to be an infestation, patient denies history of lice, scabies or other skin issues Onychomycosis/ athlete's foot -this appears chronic, recommend patient see a ballast cleaning operator as an outpatient -we will order fungal powder to bilateral feet daily Hypertriglyceridemia on lithium and Seroquel -patient's triglycerides were over 300, recommend testing monthly until normalized -patient is not a candidate for a statin due to age alone. If lithium and/or Seroquel can be adjusted this may help with lowering the triglyceride levels. This will be per psychiatry. -nutritional consultation made. Patient could benefit from education on sources of triglycerides in his diet and ways to reduce them. -patient has morbid obesity and did discuss weight loss with patient and the benefits of exercise and how these interventions can help lower his triglycerides as well. Nicotine dependence/ history of alcohol abuse and marijuana dependence/ vaping/ exercise-induced asthma -continue nicotine patch -recommend multivitamin, thiamine, folic acid History of BCG vaccination/ adopted from [place] age 1 -patient will usually test positive via PPD or QuantiFERON and this is likely due to the BCG vaccination -unclear with the protocol is for TB screening here at [facility], obtain records from previous placements regarding chest x-rays if needed -do not suspect latent TB, active TB. Can do chest x-ray for baseline if needed. Exercise-induced asthma -no evidence of acute exacerbation or chronic need for daily inhaler or treatment -patient has not use a rescue inhaler in some time We appreciate this consultation. Patient's medical needs have been reviewed at length and recommendations are listed above. The hospitalist group will be signing off noting that a UA with reflex is pending. Please reconsult if urinalysis is positive for evidence of UTI or any other further medical issue or concern. Attempt to obtain records from previous placements regarding patient's history of straight catheterization and supply needs. Physical Exam Vital Signs: Last Vital Signs Temp 98.0 F 01/21/25 19:50 Pulse 83 01/21/25 19:50 Resp 18 01/21/25 12:15 BP 138/86 01/21/25 19:50 Pulse Ox 97 01/21/25 19:50 O2 Del Method Room Air 01/21/25 19:50 BMI result Body Mass Index 34.6 Alert and orientated X3, cooperative with care, able to answer questions asked. Neuro: CN II-X11 intact, no deficits, visual acuity intact EYES: PERRLA, EOM intact ENT: hearing intact, no issues with swallowing, uvula midline, lips moist, nares patent no epistaxis Cardiac: S1 S2 RRR, no murmur, no JVD, no edema in Lower ext Pulmonary: lungs clear to ausculation B Abdominal: BS active in all 4 quadrants, no guarding, tenderness, rebounding MSK: strength 5/5 upper and lower extremities : no CVA tenderness no bladder distension Extremities: no edema in lower extremities, PT and DP pulses palpable +2 Psych: mood mildly hypomanic, judgement and insight fair Skin: faint pink papular rash R shoudler and upper back, scars from cutting R arm (pt is left handed), onychomycosis B toenails, L>R Neuro Cranial nerves: Yes CN's II-XII intact bilaterally
[2025-01-22] MEDS: diazePAM 5 MG TABLET PO ×2 (07:41→15:31)
[2025-01-22] MEDS: Omeprazole 20 MG CAPSULE.DR PO (07:41)
[2025-01-22 07:55] LABS: Estimated Average Glucose 100 mg/dL; Hemoglobin A1C 128.6281 umol/L; Hemoglobin A1c % 5.1 % (<6.0); Total Hemoglobin (HGBA1C) 3950.4746 umol/L
[2025-01-22 08:00] VITALS: BP 123/80; PULSE 81; RESP 18; TEMP 36.2; O2SAT 97
[2025-01-22] MEDS: Lithium Carbonate ER 450 MG TABLET.ER PO ×2 (08:07→20:00)
[2025-01-22] MEDS: Dextroamphetamine/Amphetamine XR 10 MG CAP.ER.24H 30 MG PO ×2 (08:07→12:08)
[2025-01-22 08:08] LABS: Cholesterol 247 mg/dL (<200); HDL Cholesterol 65 mg/dL (>40); LDL Cholesterol Calculated 131 mg/dL (<100); Magnesium 2.4 mg/dL (1.6-2.6); Triglycerides 258 mg/dL (<150)
[2025-01-22] MEDS: Venlafaxine HCl ER 75 MG CAP.ER.24H 225 MG PO (08:08)
[2025-01-22] MEDS: Nicotine 21 MG PATCH.TD24 TRANSDERMA (08:09)
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
[2025-01-22 08:25] LABS: Free T4 (Free Thyroxine) 0.88 ng/dL (0.71-1.85)
[2025-01-22 08:36] LABS: Folate 9.1 ng/mL (> or = 4.0); Vitamin B12 703 pg/mL (200-900)
[2025-01-22 11:39] VITALS: BP 123/94; PULSE 108
[2025-01-22] MEDS: Propranolol HCL 10 MG TABLET PO ×3 (11:39→22:09)
[2025-01-22] MEDS: Clotrimazole 1 % Cream 15 GM TUBE 1 APPL TOPICAL (12:08)
[2025-01-22] MEDS: Nicotine Polacrilex 2 MG GUM 4 MG BUCCAL (12:10)
[2025-01-22 13:58] LABS: Appearance Urine Clear; Color Urine Yellow; Glucose Urine UA Negative (Negative); Leukocyte Esterase Urine Negative (Negative); Nitrite Urine Negative (Negative); PH 7.5 (5.0-9.0); Specific Gravity - Urine 1.015 (1.005-1.025); Urine Blood Negative (Negative); Urine Ketones Trace mg/dL (Negative); Urine Protein Negative (Neg-Trace)
--- NOTE | 2025-01-22 14:48 | MHC.CLN ---
NUTRITION CONSULT FOR HIGH TRIGLYCERIDES. REVIEWED LABS. MUZUY=[id number] ON 01/22, IMPROVED FROM 330 ON 01/03. PRIOR VALUE SHOWS TRIGLYCERIDES WITHIN NORMAL LIMITS 04/23/23=114. POSSIBLE CAUSALS OF HIGH TRIGLYCERIDES INCLUDE HIGHER FAT DIET, SEDENTARY LIFESTYLE, AND ETOH USE. TAKES LITHIUM AND SEROQUEL THAT COULD CONTRIBUTE TO HIGH TRIGLYCERIDES. DIET INTERVENTION NOT APPROPRIATE AT THIS TIME WHILE PSYCH CONCERNS STABILIZE.
[2025-01-22] MEDS: guanFACINE HCl ER 1 MG TAB.ER.24H PO (15:02)
[2025-01-22 17:40] VITALS: BP 145/85; PULSE 94
[2025-01-22 20:00] VITALS: BP 115/80; PULSE 84; TEMP 37; O2SAT 97
[2025-01-22] MEDS: Divalproex Sodium ER 500 MG TAB.ER.24H 2000 MG PO (20:00)
[2025-01-22] MEDS: QUEtiapine Fumarate 50 MG TABLET 150 MG PO (20:00)
[2025-01-22] MEDS: hydrOXYzine HCL 50 MG TABLET PO (20:58)
[2025-01-22 22:09] VITALS: BP 115/80; PULSE 84
--- NOTE | 2025-01-22 22:15 | PC.NURSE ---
This patient asked which doctor is customer care professional this shift? This insurance writer stated I don't give out personal schedules. The insurance writer stated It's Celie isn't it? This insurance writer again refused to give an answer. Patient then stated I'm just...I love, I'm obsessed with good doctors. This insurance writer felt this noteworthy.
[2025-01-23] MEDS: traZODone HCL 50 MG TABLET PO (00:11)
[2025-01-23] MEDS: diazePAM 5 MG TABLET PO ×2 (00:11→14:58)
--- NOTE | 2025-01-23 00:23 | PC.NURSE ---
Patient stated he has ruminating, racing thoughts, just like...over and over again, and requested his BID PRN diazepam, which this check writer adminstered. Patient was informed that this medication is BID, and that if he took the medication this early in the 24 hour period, he would only have 1 PRN dose over the course of the day on 01/23/25.
[2025-01-23 08:03] VITALS: BP 103/55; PULSE 77; TEMP 35.9; O2SAT 95
[2025-01-23] MEDS: Lithium Carbonate ER 450 MG TABLET.ER PO ×2 (09:04→21:33)
[2025-01-23] MEDS: Dextroamphetamine/Amphetamine XR 10 MG CAP.ER.24H 30 MG PO ×2 (09:05→12:03)
[2025-01-23] MEDS: guanFACINE HCl ER 1 MG TAB.ER.24H PO (09:05)
[2025-01-23] MEDS: Nicotine 21 MG PATCH.TD24 TRANSDERMA (09:06)
[2025-01-23] MEDS: Ergocalciferol (Vitamin D2) 1,250 MCG CAPSULE 1250 MCG PO (09:21)
[2025-01-23] MEDS: Venlafaxine HCl ER 75 MG CAP.ER.24H 225 MG PO (09:22)
--- NOTE | 2025-01-23 09:37 | P.PNPSI_ITS ---
Subjective Subjective Date of Service: 01/23/25 Reason For Visit: bipolar disorder, adhd, ptsd, ocd Interim History: Met with patient; discussed with team Yesterday after discussing continued ADHD symptoms, financial writer explained that at this time not ready to increase Adderall above 60 mg; however financial writer agreed to start Intuniv which patient had been on before and said he found it somewhat helpful. Patient said it maybe helping and continue to take it this morning. Patient talked about OCD symptoms and how he has continued intrusive sexualized thoughts; he reiterates that he has no actual sexual urges but the thoughts continue and are very bothersome. Discussed options. Patient has taking clomipramine before which did not seem overly helpful; he was recently increased to venlafaxine 225 at last admission which he thinks has made some difference. Reviewed risks/side effects of options, including increasing venlafaxine further which patient would like to do. Mental Status Exam Mental Status Exam Narrative: Pt is alert and oriented; behavior is cooperative, friendly, loud, somewhat intrusive but able to be redirected; patient is not in distress; dressed in c asual attire with unkempt hair but adequate hygiene; mood is described as good enough and affect congruent; eye contact appropriate; Speech is loud, verbose but not really pressured; no psychomotor agitation present; thought process is organized and goal directed though also circumstantial; Thought content is on dealing with intrusive thoughts, tx; otherwise pertinent to relevant topics and without any delusional content, paranoid ideations or grandiosity; minimal SI; no HI. Patient denies AVH. Intermittent intrusive thoughts but tolerable; Patients insight and judgment impaired but adequate and at baseline. Diagnostics Vital Signs (24Hr): Vital Signs - 24 hr 01/22/25 11:39 01/22/25 17:40 01/22/25 20:00 Temperature 98.6 F Pulse Rate 108 H 94 84 Blood Pressure 123/94 H 145/85 H 115/80 Pulse Oximetry 97 Oxygen Delivery Method Room Air 01/22/25 22:09 01/23/25 08:03 Temperature 96.6 F L Pulse Rate 84 77 Blood Pressure 115/80 103/55 L Pulse Oximetry 95 Oxygen Delivery Method Room Air BMI result Body Mass Index 34.6 Labs Labs: Laboratory Results - last 48 hr 01/22/25 01/22/25 07:36 Unknown Estimat Average Glucose 100 Hemoglobin A1c % 5.1 Magnesium 2.4 Triglycerides 258 H Cholesterol 247 H LDL Cholesterol, Calc 131 H HDL Cholesterol 65 Vitamin B12 703 Folate 9.1 TSH 1.90 Free T4 0.88 Urine Color Yellow Urine Appearance Clear Urine pH 7.5 Ur Specific [place] 1.015 Urine Protein Negative Urine Glucose (UA) Negative Urine Ketones Trace Urine Blood Negative Urine Nitrite Negative Ur Leukocyte Esterase Negative Medications Medications Current Medications Acetaminophen (Acetaminophen 325 Mg Tablet) 650 mg PO Q6H PRN PRN Reason: Headache/Pain, Scale 1-10 Al Hydroxide/Mg Hydroxide (Magnesium Hydrox/Alum Hydrox 30 Ml Oral.Susp) 30 ml PO Q6H PRN PRN Reason: Heartburn/Nausea Amphetamine/Dextroamphetamine (Dextroamphetamine/Amphetamine Xr 10 Mg Cap.Er.24h) 30 mg PO 0900,1300 [facility] Last Admin: 01/23/25 09:05 Dose: 30 mg Clotrimazole (Clotrimazole 1 % Cream 15 Gm Tube) 1 appl TOPICAL BID [facility]; Protocol Last Admin: 01/23/25 09:15 Dose: Not Given Diazepam (Diazepam 5 Mg Tablet) 5 mg PO BID PRN PRN Reason: mod anxiety/intrusive thoughts Last Admin: 01/23/25 00:11 Dose: 5 mg Divalproex Sodium (Divalproex Sodium Er 500 Mg Tab.Er.24h) 2,000 mg PO BEDTIME [facility] Last Admin: 01/22/25 20:00 Dose: 2,000 mg Ergocalciferol (Ergocalciferol (Vitamin D2) 1,250 Mcg Capsule) 1,250 mcg PO Th@0900 [facility] Last Admin: 01/23/25 09:21 Dose: 1,250 mcg Guanfacine HCl (Guanfacine Hcl Er 1 Mg Tab.Er.24h) 1 mg PO DAILY [facility] Last Admin: 01/23/25 09:05 Dose: 1 mg Hydroxyzine HCl (Hydroxyzine Hcl 50 Mg Tablet) 50 mg PO TID PRN PRN Reason: Anxiety Last Admin: 01/22/25 20:58 Dose: 50 mg [place] Carbonate ([place] Carbonate Er 450 Mg Tablet.Er) 450 mg PO BID [facility] Last Admin: 01/23/25 09:04 Dose: 450 mg Magnesium Hydroxide (Milk Of Magnesia 30 Ml Oral.Susp) 30 ml PO DAILY PRN PRN Reason: Constipation Melatonin (Melatonin 3 Mg Tablet) 9 mg PO BEDTIME PRN PRN Reason: Insomnia Last Admin: 01/21/25 22:08 Dose: 9 mg Nicotine (Nicotine 21 Mg Patch.Td24) 21 mg TRANSDERMA DAILY [facility] Last Admin: 01/23/25 09:06 Dose: 21 mg Nicotine Polacrilex (Nicotine Polacrilex 2 Mg Gum) 4 mg BUCCAL Q2H PRN PRN Reason: Nicotine Cravings Last Admin: 01/22/25 12:10 Dose: 4 mg Omeprazole (Omeprazole 20 Mg Capsule.Dr) 20 mg PO DAILY@629 [facility] Last Admin: 01/23/25 07:13 Dose: Not Given Propranolol HCl (Propranolol Hcl 10 Mg Tablet) 10 mg PO QID PRN; Protocol PRN Reason: anxiety Last Admin: 01/22/25 22:09 Dose: 10 mg Quetiapine Fumarate (Quetiapine Fumarate 50 Mg Tablet) 150 mg PO BEDTIME [facility] Last Admin: 01/22/25 20:00 Dose: 150 mg Quetiapine Fumarate (Quetiapine Fumarate 50 Mg Tablet) 50 mg PO DAILY [facility] Last Admin: 01/23/25 09:10 Dose: Not Given Trazodone HCl (Trazodone Hcl 50 Mg Tablet) 50 mg PO BEDTIME MRX1 PRN PRN Reason: Insomnia Last Admin: 01/23/25 00:11 Dose: 50 mg Venlafaxine HCl (Venlafaxine Hcl Er 75 Mg Cap.Er.24h) 225 mg PO DAILY [facility] Last Admin: 01/23/25 09:22 Dose: 225 mg Allergies Allergies Allergy/AdvReac Type Severity Reaction Status Date / Time fish derived [fish] Allergy Unknown Verified 01/01/25 13:38 haloperidol [From Haldol] Allergy Unknown Verified 01/01/25 13:38 Assessment & Plan Assessment & Plan (1) OCD (obsessive compulsive disorder): Status: Acute Code(s): F42.9 - Obsessive-compulsive disorder, unspecified (2) ADHD (attention deficit hyperactivity disorder), predominantly hyperactive impulsive type: Status: Acute Code(s): F90.1 - Attention-deficit hyperactivity disorder, predominantly hyperactive type (3) Chronic post-traumatic stress disorder (PTSD): Status: Acute Code(s): F43.12 - Post-traumatic stress disorder, chronic (4) Bipolar disorder: Status: Acute Code(s): F31.9 - Bipolar disorder, unspecified (5) Personality disorder: Status: Acute Code(s): F60.9 - Personality disorder, unspecified (6) Alcohol use disorder in remission: Status: Acute Code(s): F10.91 - Alcohol use, unspecified, in remission Plan Patient is a 24-year-old male with history of bipolar disorder, OCD, PTSD, ADHD, alcohol use disorder in sustained remission who was recently discharged from 2 weeks ago who presented to the ED complaining of depression and SI with a plan to overdose on medications, which he says he stopped taking a few days ago. Patient has been boarding in the ED at [facility] for multiple days; now admitted to , he presents at baseline without SI. He eludes to not having been truly suicide about wanting inpatient admission to discuss medication management. That said patient endorses continued, significant OCD symptoms with constant thoughts to touch people inappropriately; patient says he has no desire to do so but the thoughts remain. Though he denies any desire to act out and says he has not at all done so, He remains worried about what would happen if for some reason he did act out on his behavior or talked about it out loud. Patient also wants to talk about medication adjustment with adding immediate release Adderall saying that he remains struggling with impulse and behavioral control which is evident. -Patient denies alcohol or drug use other than cannabis -Patient lives at home with parents; has VNA services Formulation/clinical reasoning: Patient has severe patient has ongoing OCD symptoms which also create considerable impairment. Additionally, he also has severe ADHD symptoms only partially treated by medication; symptoms continue to impair functioning. Venlafaxine was recently increased to 225mg however may need to go higher.... Will continue to review medications. Given the severity of ADHD symptoms will consider adjusting stimulant regimen. While patient is loud, exuberant and intrusive, he does not appear to be hypomanic (no racing thoughts; organized thinking; able to sit and have a logical, give and take conversation; demonstrating baseline behaviors) and at this mind his symptoms seem to be able to be explained by severe ADHD. Hospital course: 01/23Yesterday after discussing continued ADHD symptoms, financial writer explained that at this time not ready to increase Adderall above 60 mg; however financial writer agreed to start Intuniv which patient had been on before and said he found it somewhat helpful. Patient said it maybe helping and continue to take it this morning. Patient talked about OCD symptoms and how he has continued intrusive sexualized thoughts; he reiterates that he has no actual sexual urges but the thoughts continue and are very bothersome. Discussed options. Patient has taking clomipramine before which did not seem overly helpful; he was recently increased to venlafaxine 225 at last admission which he thinks has made some difference. Reviewed risks/side effects of options, including increasing venlafaxine further which patient would like to do. Plan: CV Q 15 minute checks STARTED Intuniv 1 mg daily Consider increasing venlafaxine further; although 225 mg is generally considered a max dose, people with severe OCD have benefitted from higher doses; no hypertension Continue home medications Gather collateral Patient educated on: diagnosis and medication risk/benefits Informed Consent: understands Reason for continued inpatient stay Substantial Risk for: rapid decompensation Time Spent With Patient Time: Total time managing care of this patient today ____ minutes.
[2025-01-23 10:27] VITALS: BMI 34.0
[2025-01-23 17:54] VITALS: BP 127/65; PULSE 110
[2025-01-23] MEDS: Propranolol HCL 10 MG TABLET PO ×2 (17:54→22:03)
[2025-01-23] MEDS: hydrOXYzine HCL 25 MG TABLET 125 MG PO (19:28)
[2025-01-23 20:00] VITALS: BP 145/75; PULSE 89; TEMP 36.9; O2SAT 98
[2025-01-23] MEDS: Clotrimazole 1 % Cream 15 GM TUBE 1 APPL TOPICAL (21:33)
[2025-01-23] MEDS: QUEtiapine Fumarate 50 MG TABLET 150 MG PO (21:33)
[2025-01-23] MEDS: Divalproex Sodium ER 500 MG TAB.ER.24H 2000 MG PO (21:33)
[2025-01-23 22:03] VITALS: BP 145/75; PULSE 89
[2025-01-24 08:00] VITALS: BP 136/84; PULSE 103; RESP 18; TEMP 36.2; O2SAT 97
[2025-01-24] MEDS: Dextroamphetamine/Amphetamine XR 10 MG CAP.ER.24H 30 MG PO ×2 (09:12→13:23)
[2025-01-24] MEDS: Nicotine 21 MG PATCH.TD24 TRANSDERMA (09:12)
[2025-01-24] MEDS: Venlafaxine HCl ER 75 MG CAP.ER.24H 225 MG PO (09:13)
[2025-01-24] MEDS: Lithium Carbonate ER 450 MG TABLET.ER PO ×2 (09:13→20:43)
[2025-01-24] MEDS: guanFACINE HCl ER 1 MG TAB.ER.24H PO (09:13)
[2025-01-24 09:14] VITALS: BP 136/65; PULSE 103
[2025-01-24] MEDS: Propranolol HCL 10 MG TABLET PO ×3 (09:14→20:43)
[2025-01-24] MEDS: Nicotine Polacrilex 2 MG GUM 4 MG BUCCAL (09:33)
[2025-01-24] MEDS: diazePAM 5 MG TABLET PO ×2 (11:32→17:44)
[2025-01-24 13:00] VITALS: BP 135/93; PULSE 103; TEMP 36.8; O2SAT 97
--- NOTE | 2025-01-24 13:20 | P.PNPSI_ITS ---
Subjective Subjective Date of Service: 01/24/25 Reason For Visit: bipolar disorder, adhd, ptsd, ocd Interim History: Active on unit, social with peers. Patient reports having some anxiety and depression today; pt stated, I haven't had any intrusive thoughts today about suicide . Pt reports improved sleep last night. denies SI/HI/VH/AH. Medication Compliance: Yes Side effects from medications: No Mental Status Exam Mental Status Exam Narrative: Pt is alert and oriented; behavior is cooperative, friendly, loud, intrusive but able to be redirected; dressed in casual attire; mood is described as better ; eye contact appropriate; Speech is loud, normal rate; thought process is organized and goal directed though also circumstantial; Thought content is on tx; denies SI/HI/VH/AH. Diagnostics Vital Signs (24Hr): Vital Signs - 24 hr 01/23/25 17:54 01/23/25 20:00 01/23/25 22:03 Temperature 98.4 F Pulse Rate 110 H 89 89 Respiratory Rate Blood Pressure 127/65 145/75 H 145/75 H Pulse Oximetry 98 Oxygen Delivery Method Room Air 01/24/25 08:00 01/24/25 09:14 Temperature 97.2 F Pulse Rate 103 H 103 H Respiratory Rate 18 Blood Pressure 136/84 136/65 Pulse Oximetry 97 Oxygen Delivery Method BMI result Body Mass Index 34.0 Labs Labs: Laboratory Results - last 48 hr 01/22/25 Unknown Urine Color Yellow Urine Appearance Clear Urine pH 7.5 Ur Specific [place] 1.015 Urine Protein Negative Urine Glucose (UA) Negative Urine Ketones Trace Urine Blood Negative Urine Nitrite Negative Ur Leukocyte Esterase Negative Medications Medications Current Medications Acetaminophen (Acetaminophen 325 Mg Tablet) 650 mg PO Q6H PRN PRN Reason: Headache/Pain, Scale 1-10 Al Hydroxide/Mg Hydroxide (Magnesium Hydrox/Alum Hydrox 30 Ml Oral.Susp) 30 ml PO Q6H PRN PRN Reason: Heartburn/Nausea Amphetamine/Dextroamphetamine (Dextroamphetamine/Amphetamine Xr 10 Mg Cap.Er.24h) 30 mg PO 0900,1300 [facility] Last Admin: 01/24/25 09:12 Dose: 30 mg Clotrimazole (Clotrimazole 1 % Cream 15 Gm Tube) 1 appl TOPICAL BID [facility]; Protocol Last Admin: 01/24/25 09:37 Dose: Not Given Diazepam (Diazepam 5 Mg Tablet) 5 mg PO BID PRN PRN Reason: mod anxiety/intrusive thoughts Last Admin: 01/24/25 11:32 Dose: 5 mg Divalproex Sodium (Divalproex Sodium Er 500 Mg Tab.Er.24h) 2,000 mg PO BEDTIME [facility] Last Admin: 01/23/25 21:33 Dose: 2,000 mg Ergocalciferol (Ergocalciferol (Vitamin D2) 1,250 Mcg Capsule) 1,250 mcg PO Th@0900 [facility] Last Admin: 01/23/25 09:21 Dose: 1,250 mcg Guanfacine HCl (Guanfacine Hcl Er 1 Mg Tab.Er.24h) 1 mg PO DAILY [facility] Last Admin: 01/24/25 09:13 Dose: 1 mg Hydroxyzine HCl (Hydroxyzine Hcl 25 Mg Tablet) 125 mg PO DAILY PRN PRN Reason: mild Anxiety Last Admin: 01/23/25 19:28 Dose: 125 mg [place] Carbonate ([place] Carbonate Er 450 Mg Tablet.Er) 450 mg PO BID [facility] Last Admin: 01/24/25 09:13 Dose: 450 mg Magnesium Hydroxide (Milk Of Magnesia 30 Ml Oral.Susp) 30 ml PO DAILY PRN PRN Reason: Constipation Melatonin (Melatonin 3 Mg Tablet) 9 mg PO BEDTIME PRN PRN Reason: Insomnia Last Admin: 01/21/25 22:08 Dose: 9 mg Nicotine (Nicotine 21 Mg Patch.Td24) 21 mg TRANSDERMA DAILY [facility] Last Admin: 01/24/25 09:12 Dose: 21 mg Nicotine Polacrilex (Nicotine Polacrilex 2 Mg Gum) 4 mg BUCCAL Q2H PRN PRN Reason: Nicotine Cravings Last Admin: 01/24/25 09:33 Dose: 4 mg Omeprazole (Omeprazole 20 Mg Capsule.Dr) 20 mg PO DAILY@0630 [facility] Last Admin: 01/24/25 07:11 Dose: Not Given Propranolol HCl (Propranolol Hcl 10 Mg Tablet) 10 mg PO QID PRN; Protocol PRN Reason: anxiety Last Admin: 01/24/25 09:14 Dose: 10 mg Quetiapine Fumarate (Quetiapine Fumarate 50 Mg Tablet) 150 mg PO BEDTIME [facility] Last Admin: 01/23/25 21:33 Dose: 150 mg Trazodone HCl (Trazodone Hcl 50 Mg Tablet) 50 mg PO BEDTIME MRX1 PRN PRN Reason: Insomnia Last Admin: 01/23/25 00:11 Dose: 50 mg Venlafaxine HCl (Venlafaxine Hcl Er 75 Mg Cap.Er.24h) 225 mg PO DAILY [facility] Last Admin: 01/24/25 09:13 Dose: 225 mg Allergies Allergies Allergy/AdvReac Type Severity Reaction Status Date / Time fish derived [fish] Allergy Unknown Verified 01/01/25 13:38 haloperidol [From Haldol] Allergy Unknown Verified 01/01/25 13:38 Assessment & Plan Assessment & Plan (1) OCD (obsessive compulsive disorder): Status: Acute Code(s): F42.9 - Obsessive-compulsive disorder, unspecified (2) ADHD (attention deficit hyperactivity disorder), predominantly hyperactive impulsive type: Status: Acute Code(s): F90.1 - Attention-deficit hyperactivity disorder, predominantly hyperactive type (3) Chronic post-traumatic stress disorder (PTSD): Status: Acute Code(s): F43.12 - Post-traumatic stress disorder, chronic (4) Bipolar disorder: Status: Acute Code(s): F31.9 - Bipolar disorder, unspecified (5) Personality disorder: Status: Acute Code(s): F60.9 - Personality disorder, unspecified (6) Alcohol use disorder in remission: Status: Acute Code(s): F10.91 - Alcohol use, unspecified, in remission Plan Patient is a 24-year-old male with history of bipolar disorder, OCD, PTSD, ADHD, alcohol use disorder in sustained remission who was recently discharged from 2 weeks ago who presented to the ED complaining of depression and SI with a plan to overdose on medications, which he says he stopped taking a few days ago. Patient has been boarding in the ED at [facility] for multiple days; now admitted to , he presents at baseline without SI. He eludes to not having been truly suicide about wanting inpatient admission to discuss medication management. That said patient endorses continued, significant OCD symptoms with constant thoughts to touch people inappropriately; patient says he has no desire to do so but the thoughts remain. Though he denies any desire to act out and says he has not at all done so, He remains worried about what would happen if for some reason he did act out on his behavior or talked about it out loud. Patient also wants to talk about medication adjustment with adding immediate release Adderall saying that he remains struggling with impulse and behavioral control which is evident. -Patient denies alcohol or drug use other than cannabis -Patient lives at home with parents; has VNA services Formulation/clinical reasoning: Patient has severe patient has ongoing OCD symptoms which also create considerable impairment. Additionally, he also has severe ADHD symptoms only partially treated by medication; symptoms continue to impair functioning. Venlafaxine was recently increased to 225mg however may need to go higher.... Will continue to review medications. Given the severity of ADHD symptoms will consider adjusting stimulant regimen. While patient is loud, exuberant and intrusive, he does not appear to be hypomanic (no racing thoughts; organized thinking; able to sit and have a logical, give and take conversation; demonstrating baseline behaviors) and at this mind his symptoms seem to be able to be explained by severe ADHD. Hospital course: 01/23Yesterday after discussing continued ADHD symptoms, typewriter mechanic explained that at this time not ready to increase Adderall above 60 mg; however typewriter mechanic agreed to start Intuniv which patient had been on before and said he found it somewhat helpful. Patient said it maybe helping and continue to take it this morning. Patient talked about OCD symptoms and how he has continued intrusive sexualized thoughts; he reiterates that he has no actual sexual urges but the thoughts continue and are very bothersome. Discussed options. Patient has taking clomipramine before which did not seem overly helpful; he was recently increased to venlafaxine 225 at last admission which he thinks has made some difference. Reviewed risks/side effects of options, including increasing venlafaxine further which patient would like to do. 01/24: Active on unit, social with peers. Patient reports having some anxiety and depression today; pt stated, I haven't had any intrusive thoughts today about suicide . Pt reports improved sleep last night. denies SI/HI/VH/AH. Venlafaxine increased to 300mg PO daily Plan: CV Q 15 minute checks STARTED Intuniv 1 mg daily Consider increasing venlafaxine further; although 225 mg is generally considered a max dose, people with severe OCD have benefitted from higher doses; no hypertension Continue home medications Gather collateral Patient educated on: diagnosis, medication risk/benefits and therapeutic strategies Reason for continued inpatient stay Substantial Risk for: med/psych decompensation Time Spent With Patient Time: Total time managing care of this patient today _20___ minutes.
[2025-01-24] MEDS: Divalproex Sodium ER 500 MG TAB.ER.24H 2000 MG PO (20:42)
[2025-01-24 20:43] VITALS: BP 132/68; PULSE 106
[2025-01-24] MEDS: QUEtiapine Fumarate 50 MG TABLET 150 MG PO (20:43)
[2025-01-24] MEDS: Clotrimazole 1 % Cream 15 GM TUBE 1 APPL TOPICAL (20:45)
[2025-01-24] MEDS: hydrOXYzine HCL 25 MG TABLET 125 MG PO (22:40)
[2025-01-24 22:54] VITALS: BP 121/62; PULSE 84; RESP 18; TEMP 36.9; O2SAT 98
--- NOTE | 2025-01-25 07:30 | HO.PSYCHPN ---
Subjective Subjective Date of Service: 01/25/25 Reason For Visit: bipolar disorder, adhd, ptsd, ocd Subjective Notes: Conditional Voluntary Healthcare Proxy: No Guardianship: No Medical Problems Affecting Mental Status: No Interim History: 24 yo with mulitple comorbid psych diagnoses- agreeing to talk with me though mad at me for 2 things attempt to lower his adderall last visit and refusing him extra valium one night- Pt struggles with falling asleep as aware of aloneness at that time- Medication Compliance: Yes Side effects from medications: No Attending Groups: Yes Review of Systems Acute medical concerns: No Medical Review of Systems: unchanged Mental Status Exam Mental Status Exam Patient Appearance: Appropriate Patient Orientation: Person, Place, Time and Situation Level of Consciousness: Awake Patient Behavior: Appropriate, Talkative, Cooperative and Good Eye Contact Mood Description: Anxious Affect Description: Expansive Patient Cognition Impaired: No Ability to Follow Directions: Fair Speech Pattern: Clear Thought Process: Intact and Goal Oriented Thought Content: positive for Flight of Ideas Abnormal Motor Activity Signs and Symptoms: Restlessness Judgement: Fair Diagnostics Vital Signs (24Hr): Vital Signs - 24 hr 01/24/25 08:00 01/24/25 09:14 01/24/25 13:00 Temperature 97.2 F 98.3 F Pulse Rate 103 H 103 H 103 H Respiratory Rate 18 Blood Pressure 136/84 136/65 135/93 H Pulse Oximetry 97 97 Oxygen Delivery Method Room Air 01/24/25 20:43 01/24/25 22:54 Temperature 98.4 F Pulse Rate 106 H 84 Respiratory Rate 18 Blood Pressure 132/68 121/62 Pulse Oximetry 98 Oxygen Delivery Method Room Air BMI result Body Mass Index 34.0 Medications Medications Current Medications Acetaminophen (Acetaminophen 325 Mg Tablet) 650 mg PO Q6H PRN PRN Reason: Headache/Pain, Scale 1-10 Al Hydroxide/Mg Hydroxide (Magnesium Hydrox/Alum Hydrox 30 Ml Oral.Susp) 30 ml PO Q6H PRN PRN Reason: Heartburn/Nausea Amphetamine/Dextroamphetamine (Dextroamphetamine/Amphetamine Xr 10 Mg Cap.Er.24h) 30 mg PO 0900,1300 [facility] Last Admin: 01/24/25 13:23 Dose: 30 mg Clotrimazole (Clotrimazole 1 % Cream 15 Gm Tube) 1 appl TOPICAL BID [facility]; Protocol Last Admin: 01/24/25 20:45 Dose: 1 appl Diazepam (Diazepam 5 Mg Tablet) 5 mg PO BID PRN PRN Reason: mod anxiety/intrusive thoughts Last Admin: 01/24/25 17:44 Dose: 5 mg Divalproex Sodium (Divalproex Sodium Er 500 Mg Tab.Er.24h) 2,000 mg PO BEDTIME [facility] Last Admin: 01/24/25 20:42 Dose: 2,000 mg Ergocalciferol (Ergocalciferol (Vitamin D2) 1,250 Mcg Capsule) 1,250 mcg PO Th@0900 [facility] Last Admin: 01/23/25 09:21 Dose: 1,250 mcg Guanfacine HCl (Guanfacine Hcl Er 1 Mg Tab.Er.24h) 1 mg PO DAILY [facility] Last Admin: 01/24/25 09:13 Dose: 1 mg Hydroxyzine HCl (Hydroxyzine Hcl 25 Mg Tablet) 125 mg PO DAILY PRN PRN Reason: mild Anxiety Last Admin: 01/24/25 22:40 Dose: 125 mg Greenbrier Carbonate (Greenbrier Carbonate Er 450 Mg Tablet.Er) 450 mg PO BID [facility] Last Admin: 01/24/25 20:43 Dose: 450 mg Magnesium Hydroxide (Milk Of Magnesia 30 Ml Oral.Susp) 30 ml PO DAILY PRN PRN Reason: Constipation Melatonin (Melatonin 3 Mg Tablet) 9 mg PO BEDTIME PRN PRN Reason: Insomnia Last Admin: 01/21/25 22:08 Dose: 9 mg Nicotine (Nicotine 21 Mg Patch.Td24) 21 mg TRANSDERMA DAILY [facility] Last Admin: 01/24/25 09:12 Dose: 21 mg Nicotine Polacrilex (Nicotine Polacrilex 2 Mg Gum) 4 mg BUCCAL Q2H PRN PRN Reason: Nicotine Cravings Last Admin: 01/24/25 09:33 Dose: 4 mg Omeprazole (Omeprazole 20 Mg Capsule.Dr) 20 mg PO DAILY@0630 [facility] Last Admin: 01/25/25 06:38 Dose: Not Given Propranolol HCl (Propranolol Hcl 10 Mg Tablet) 10 mg PO QID PRN; Protocol PRN Reason: anxiety Last Admin: 01/24/25 20:43 Dose: 10 mg Quetiapine Fumarate (Quetiapine Fumarate 50 Mg Tablet) 150 mg PO BEDTIME [facility] Last Admin: 01/24/25 20:43 Dose: 150 mg Trazodone HCl (Trazodone Hcl 50 Mg Tablet) 50 mg PO BEDTIME MRX1 PRN PRN Reason: Insomnia Last Admin: 01/23/25 00:11 Dose: 50 mg Venlafaxine HCl (Venlafaxine Hcl Er 150 Mg Cap.Er.24h) 300 mg PO DAILY [facility] Allergies Allergies Allergy/AdvReac Type Severity Reaction Status Date / Time fish derived [fish] Allergy Unknown Verified 01/01/25 13:38 haloperidol [From Haldol] Allergy Unknown Verified 01/01/25 13:38 Assessment & Plan Assessment & Plan (1) OCD (obsessive compulsive disorder): Status: Acute Code(s): F42.9 - Obsessive-compulsive disorder, unspecified (2) ADHD (attention deficit hyperactivity disorder), predominantly hyperactive impulsive type: Status: Acute Code(s): F90.1 - Attention-deficit hyperactivity disorder, predominantly hyperactive type (3) Chronic post-traumatic stress disorder (PTSD): Status: Acute Code(s): F43.12 - Post-traumatic stress disorder, chronic (4) Bipolar disorder: Status: Acute Code(s): F31.9 - Bipolar disorder, unspecified (5) Personality disorder: Status: Acute Code(s): F60.9 - Personality disorder, unspecified (6) Alcohol use disorder in remission: Status: Acute Code(s): F10.91 - Alcohol use, unspecified, in remission Plan Patient is a 24-year-old male with history of bipolar disorder, OCD, PTSD, ADHD, alcohol use disorder in sustained remission who was recently discharged from 2 weeks ago who presented to the ED complaining of depression and SI with a plan to overdose on medications, which he says he stopped taking a few days ago. Patient has been boarding in the ED at [facility] for multiple days; now admitted to , he presents at baseline without SI. He eludes to not having been truly suicide about wanting inpatient admission to discuss medication management. That said patient endorses continued, significant OCD symptoms with constant thoughts to touch people inappropriately; patient says he has no desire to do so but the thoughts remain. Though he denies any desire to act out and says he has not at all done so, He remains worried about what would happen if for some reason he did act out on his behavior or talked about it out loud. Patient also wants to talk about medication adjustment with adding immediate release Adderall saying that he remains struggling with impulse and behavioral control which is evident. -Patient denies alcohol or drug use other than cannabis -Patient lives at home with parents; has VNA services Formulation/clinical reasoning: Patient has severe patient has ongoing OCD symptoms which also create considerable impairment. Additionally, he also has severe ADHD symptoms only partially treated by medication; symptoms continue to impair functioning. Venlafaxine was recently increased to 225mg however may need to go higher.... Will continue to review medications. Given the severity of ADHD symptoms will consider adjusting stimulant regimen. While patient is loud, exuberant and intrusive, he does not appear to be hypomanic (no racing thoughts; organized thinking; able to sit and have a logical, give and take conversation; demonstrating baseline behaviors) and at this mind his symptoms seem to be able to be explained by severe ADHD. Hospital course: 01/23Yesterday after discussing continued ADHD symptoms, caption writer explained that at this time not ready to increase Adderall above 60 mg; however caption writer agreed to start Intuniv which patient had been on before and said he found it somewhat helpful. Patient said it maybe helping and continue to take it this morning. Patient talked about OCD symptoms and how he has continued intrusive sexualized thoughts; he reiterates that he has no actual sexual urges but the thoughts continue and are very bothersome. Discussed options. Patient has taking clomipramine before which did not seem overly helpful; he was recently increased to venlafaxine 225 at last admission which he thinks has made some difference. Reviewed risks/side effects of options, including increasing venlafaxine further which patient would like to do. 01/24: Active on unit, social with peers. Patient reports having some anxiety and depression today; pt stated, I haven't had any intrusive thoughts today about suicide . Pt reports improved sleep last night. denies SI/HI/VH/AH. Venlafaxine increased to 300mg PO daily 01/25/25 told pt we will continue current treatment plan as per weekday providers Plan: CV Q 15 minute checks STARTED Intuniv 1 mg daily Consider increasing venlafaxine further; although 225 mg is generally considered a max dose, people with severe OCD have benefitted from higher doses; no hypertension Continue home medications Gather collateral Patient educated on: medication risk/benefits Informed Consent: understands Reason for continued inpatient stay Substantial Risk for: rapid decompensation Time Spent With Patient Time: Total time managing care of this patient today ____ minutes.
[2025-01-25] MEDS: Omeprazole 20 MG CAPSULE.DR PO (08:28)
[2025-01-25] MEDS: Lithium Carbonate ER 450 MG TABLET.ER PO ×2 (08:28→19:55)
[2025-01-25] MEDS: Venlafaxine HCl ER 150 MG CAP.ER.24H 300 MG PO (08:28)
[2025-01-25] MEDS: Dextroamphetamine/Amphetamine XR 10 MG CAP.ER.24H 30 MG PO ×2 (08:28→12:31)
[2025-01-25] MEDS: guanFACINE HCl ER 1 MG TAB.ER.24H PO (08:28)
[2025-01-25] MEDS: diazePAM 5 MG TABLET PO ×2 (08:29→14:57)
[2025-01-25] MEDS: Clotrimazole 1 % Cream 15 GM TUBE 1 APPL TOPICAL (08:30)
[2025-01-25 09:00] VITALS: RESP 18
[2025-01-25] MEDS: Nicotine Polacrilex 2 MG GUM 4 MG BUCCAL (10:31)
[2025-01-25 13:54] VITALS: BP 139/75; PULSE 86; RESP 18; TEMP 37.1; O2SAT 97
[2025-01-25] MEDS: Propranolol HCL 10 MG TABLET PO ×2 (13:56→17:59)
[2025-01-25] MEDS: hydrOXYzine HCL 25 MG TABLET 125 MG PO (17:03)
[2025-01-25 17:59] VITALS: BP 128/79; PULSE 79
[2025-01-25 18:00] VITALS: BP 160/70; PULSE 89; RESP 16; TEMP 36.2; O2SAT 98
[2025-01-25] MEDS: chlorproMAZINE HCl 25 MG/ML AMPUL 100 MG IM (19:04)
[2025-01-25] MEDS: Divalproex Sodium ER 500 MG TAB.ER.24H 2000 MG PO (19:55)
[2025-01-25] MEDS: QUEtiapine Fumarate 50 MG TABLET 150 MG PO (19:55)
--- NOTE | 2025-01-26 08:08 | P.PNPSI_ITS ---
Subjective Subjective Date of Service: 01/26/25 Reason For Visit: bipolar disorder, adhd, ptsd, ocd Subjective Notes: Conditional Voluntary Healthcare Proxy: No Guardianship: No Medical Problems Affecting Mental Status: No Interim History: 24 yo with impulsive behaviors getting self into locked area and hiding from staff for game- pt was checked and his room= no findings of any risky content- This follows last pm where he climbed up on nursing window- and threatened si- Told this provider today that he really wasn't suicidal - but he was wanting to get restrained due to liking that feeling... medication was fine- (got IM Thorazine) Medication Compliance: Yes Side effects from medications: No Attending Groups: Yes Review of Systems Acute medical concerns: No Medical Review of Systems: unchanged Mental Status Exam Mental Status Exam Patient Appearance: Well Grooomed and Appropriate Patient Orientation: Person, Place, Time and Situation Level of Consciousness: Awake and Alert Patient Behavior: Hyperactive, Restless and Impulsive Mood Description: Labile Affect Description: Labile Patient Cognition Impaired: No Ability to Follow Directions: Fair Speech Pattern: Clear Thought Process: Racing Thought Content: positive for Flight of Ideas Abnormal Motor Activity Signs and Symptoms: Hyperactivity Judgement: Poor Diagnostics Vital Signs (24Hr): Vital Signs - 24 hr 01/25/25 09:00 01/25/25 13:54 01/25/25 17:59 Temperature 98.7 F Pulse Rate 86 79 Respiratory Rate 18 18 Blood Pressure 139/75 128/79 Pulse Oximetry 97 Oxygen Delivery Method Room Air 01/25/25 18:00 Temperature 97.2 F Pulse Rate 89 Respiratory Rate 16 Blood Pressure 160/70 H Pulse Oximetry 98 Oxygen Delivery Method Room Air BMI result Body Mass Index 34.0 Labs 01/26/25 11:42 Medications Medications Current Medications Acetaminophen (Acetaminophen 325 Mg Tablet) 650 mg PO Q6H PRN PRN Reason: Headache/Pain, Scale 1-10 Al Hydroxide/Mg Hydroxide (Magnesium Hydrox/Alum Hydrox 30 Ml Oral.Susp) 30 ml PO Q6H PRN PRN Reason: Heartburn/Nausea Amphetamine/Dextroamphetamine (Dextroamphetamine/Amphetamine Xr 10 Mg Cap.Er.24h) 30 mg PO 0900,1300 [facility] Last Admin: 01/25/25 12:31 Dose: 30 mg Clotrimazole (Clotrimazole 1 % Cream 15 Gm Tube) 1 appl TOPICAL BID [facility]; Protocol Last Admin: 01/25/25 20:46 Dose: Not Given Diazepam (Diazepam 5 Mg Tablet) 5 mg PO BID PRN PRN Reason: mod anxiety/intrusive thoughts Last Admin: 01/25/25 14:57 Dose: 5 mg Divalproex Sodium (Divalproex Sodium Er 500 Mg Tab.Er.24h) 2,000 mg PO BEDTIME [facility] Last Admin: 01/25/25 19:55 Dose: 2,000 mg Ergocalciferol (Ergocalciferol (Vitamin D2) 1,250 Mcg Capsule) 1,250 mcg PO Th@0900 [facility] Last Admin: 01/23/25 09:21 Dose: 1,250 mcg Guanfacine HCl (Guanfacine Hcl Er 1 Mg Tab.Er.24h) 1 mg PO DAILY [facility] Last Admin: 01/25/25 08:28 Dose: 1 mg Hydroxyzine HCl (Hydroxyzine Hcl 25 Mg Tablet) 125 mg PO DAILY PRN PRN Reason: mild Anxiety Last Admin: 01/25/25 17:03 Dose: 125 mg Wynot Carbonate (Wynot Carbonate Er 450 Mg Tablet.Er) 450 mg PO BID [facility] Last Admin: 01/25/25 19:55 Dose: 450 mg Magnesium Hydroxide (Milk Of Magnesia 30 Ml Oral.Susp) 30 ml PO DAILY PRN PRN Reason: Constipation Melatonin (Melatonin 3 Mg Tablet) 9 mg PO BEDTIME PRN PRN Reason: Insomnia Last Admin: 01/21/25 22:08 Dose: 9 mg Nicotine (Nicotine 21 Mg Patch.Td24) 21 mg TRANSDERMA DAILY [facility] Last Admin: 01/25/25 08:45 Dose: Not Given Nicotine Polacrilex (Nicotine Polacrilex 2 Mg Gum) 4 mg BUCCAL Q2H PRN PRN Reason: Nicotine Cravings Last Admin: 01/25/25 10:31 Dose: 4 mg Omeprazole (Omeprazole 20 Mg Capsule.Dr) 20 mg PO DAILY@0630 [facility] Last Admin: 01/25/25 08:28 Dose: 20 mg Propranolol HCl (Propranolol Hcl 10 Mg Tablet) 10 mg PO QID PRN; Protocol PRN Reason: anxiety Last Admin: 01/25/25 17:59 Dose: 10 mg Quetiapine Fumarate (Quetiapine Fumarate 50 Mg Tablet) 150 mg PO BEDTIME [facility] Last Admin: 01/25/25 19:55 Dose: 150 mg Trazodone HCl (Trazodone Hcl 50 Mg Tablet) 50 mg PO BEDTIME MRX1 PRN PRN Reason: Insomnia Last Admin: 01/23/25 00:11 Dose: 50 mg Venlafaxine HCl (Venlafaxine Hcl Er 150 Mg Cap.Er.24h) 300 mg PO DAILY [facility] Last Admin: 01/25/25 08:28 Dose: 300 mg Allergies Allergies Allergy/AdvReac Type Severity Reaction Status Date / Time fish derived [fish] Allergy Unknown Verified 01/01/25 13:38 haloperidol [From Haldol] Allergy Unknown Verified 01/01/25 13:38 Assessment & Plan Assessment & Plan (1) OCD (obsessive compulsive disorder): Status: Acute Code(s): F42.9 - Obsessive-compulsive disorder, unspecified (2) ADHD (attention deficit hyperactivity disorder), predominantly hyperactive impulsive type: Status: Acute Code(s): F90.1 - Attention-deficit hyperactivity disorder, predominantly hyperactive type (3) Chronic post-traumatic stress disorder (PTSD): Status: Acute Code(s): F43.12 - Post-traumatic stress disorder, chronic (4) Bipolar disorder: Status: Acute Code(s): F31.9 - Bipolar disorder, unspecified (5) Personality disorder: Status: Acute Code(s): F60.9 - Personality disorder, unspecified (6) Alcohol use disorder in remission: Status: Acute Code(s): F10.91 - Alcohol use, unspecified, in remission Plan Patient is a 24-year-old male with history of bipolar disorder, OCD, PTSD, ADHD, alcohol use disorder in sustained remission who was recently discharged from 2 weeks ago who presented to the ED complaining of depression and SI with a plan to overdose on medications, which he says he stopped taking a few days ago. Patient has been boarding in the ED at [facility] for multiple days; now admitted to , he presents at baseline without SI. He eludes to not having been truly suicide about wanting inpatient admission to discuss medication management. That said patient endorses continued, significant OCD symptoms with constant thoughts to touch people inappropriately; patient says he has no desire to do so but the thoughts remain. Though he denies any desire to act out and says he has not at all done so, He remains worried about what would happen if for some reason he did act out on his behavior or talked about it out loud. Patient also wants to talk about medication adjustment with adding immediate release Adderall saying that he remains struggling with impulse and behavioral control which is evident. -Patient denies alcohol or drug use other than cannabis -Patient lives at home with parents; has VNA services Formulation/clinical reasoning: Patient has severe patient has ongoing OCD symptoms which also create considerable impairment. Additionally, he also has severe ADHD symptoms only partially treated by medication; symptoms continue to impair functioning. Venlafaxine was recently increased to 225mg however may need to go higher.... Will continue to review medications. Given the severity of ADHD symptoms will consider adjusting stimulant regimen. While patient is loud, exuberant and intrusive, he does not appear to be hypomanic (no racing thoughts; organized thinking; able to sit and have a logical, give and take conversation; demonstrating baseline behaviors) and at this mind his symptoms seem to be able to be explained by severe ADHD. Hospital course: 01/23Yesterday after discussing continued ADHD symptoms, principal technical writer explained that at this time not ready to increase Adderall above 60 mg; however principal technical writer agreed to start Intuniv which patient had been on before and said he found it somewhat helpful. Patient said it maybe helping and continue to take it this morning. Patient talked about OCD symptoms and how he has continued intrusive sexualized thoughts; he reiterates that he has no actual sexual urges but the thoughts continue and are very bothersome. Discussed options. Patient has taking clomipramine before which did not seem overly helpful; he was recently increased to venlafaxine 225 at last admission which he thinks has made some difference. Reviewed risks/side effects of options, including increasing venlafaxine further which patient would like to do. 01/24: Active on unit, social with peers. Patient reports having some anxiety and depression today; pt stated, I haven't had any intrusive thoughts today about suicide . Pt reports improved sleep last night. denies SI/HI/VH/AH. Venlafaxine increased to 300mg PO daily 01/25/25 told pt we will continue current treatment plan as per weekday providers 01/26/25 - ongoing lability mostly focused on attention Plan: CV Q 15 minute checks STARTED Intuniv 1 mg daily Consider increasing venlafaxine further; although 225 mg is generally considered a max dose, people with severe OCD have benefitted from higher doses; no hypertension Continue home medications Gather collateral Patient educated on: medication risk/benefits and therapeutic strategies Informed Consent: further education needed Reason for continued inpatient stay Substantial Risk for: inability to function and rapid decompensation Time Spent With Patient Time: Total time managing care of this patient today ____ minutes.
[2025-01-26 09:00] VITALS: RESP 18
[2025-01-26] MEDS: Nicotine 21 MG PATCH.TD24 TRANSDERMA (09:41)
[2025-01-26] MEDS: Clotrimazole 1 % Cream 15 GM TUBE 1 APPL TOPICAL (09:41)
[2025-01-26] MEDS: Lithium Carbonate ER 450 MG TABLET.ER PO ×2 (09:41→20:26)
[2025-01-26] MEDS: Venlafaxine HCl ER 150 MG CAP.ER.24H 300 MG PO (09:41)
[2025-01-26] MEDS: Omeprazole 20 MG CAPSULE.DR PO (09:41)
[2025-01-26] MEDS: Dextroamphetamine/Amphetamine XR 10 MG CAP.ER.24H 30 MG PO ×2 (09:41→13:31)
[2025-01-26] MEDS: guanFACINE HCl ER 1 MG TAB.ER.24H PO (09:41)
[2025-01-26] MEDS: diazePAM 5 MG TABLET PO ×2 (11:04→17:02)
[2025-01-26 12:10] LABS: Ammonia 143 umol/L (13-55)
[2025-01-26 12:25] LABS: Valproate 86.7 mcg/mL (50.0-100.0)
[2025-01-26 12:26] LABS: Alanine Aminotransferase 22 U/L (0-40); Albumin Level 4.1 g/dL (3.5-5.0); Alkaline Phosphatase 38 U/L (39-117); Anion Gap 13 (12-20); Aspartate Amino Transferase 43 U/L (5-37); Bilirubin Direct 0.1 mg/dL (0.0-0.5); Bilirubin Total 0.4 mg/dL (0.0-1.0); Blood Urea Nitrogen 11 mg/dL (9-16); Calcium 8.9 mg/dL (8.4-10.2); Carbon Dioxide 23 mmol/L (22-29); Chloride 108 mmol/L (96-108); Creatinine Clr Calc Pharmacy 166.6; Estimated Glomerular Filt Rate > 60; Glucose Random 89 mg/dL (60-115); Potassium 4.1 mmol/L (3.3-5.1); Sodium 140 mmol/L (135-145); Total Protein 6.5 g/dL (6.5-8.0)
[2025-01-26 13:00] VITALS: BP 133/48; PULSE 116; RESP 18; TEMP 37.1; O2SAT 97
[2025-01-26] MEDS: Propranolol HCL 10 MG TABLET PO ×2 (13:35→20:27)
--- NOTE | 2025-01-26 17:42 | PC.NURSE ---
At approximately 12:12pm RN Celena Peres was told by a patient that Toni was trying to play hide and seek and was in a room he should not be in. When she went to investigate she discovered that Toni was in the small hallway that connects the corridor to the breakroom. She escorted Toni out of the room, closing the locking door behind them and alerted me as charge nurse. I spoke with security who confirmed that we could review footage to determine how the door was opened by a patient. After reviewing the camera footage with security staff it was established that Toni found the door ajar at 11:46 and entered. He remained there until 12:09, then stuck his head out and called out to a peer. He then retreated back into the room, and was discovered by Celena at 12:11. Celena stated later that she believes that it was 12:20 based on the time she saw on the unit?s clock, despite . Security officers came to the unit to examine the door and assess the risk of the situation. It was determined that the doors in the hallway were all locked, so Toni only had access to the items that were in each of the office mailboxes. Toni volunteered that he had attempted to use a card to pick the lock and exit the unit and was unsuccessful doing so. After getting an order from the provider public works commissioner for a room and person search, officer Yue determined that Toni did not have any contraband items on his person. I was present during the search, which Toni cooperated with. He denies that he took anything from his time in the [facility].
[2025-01-26 18:00] VITALS: BP 128/62; PULSE 104; TEMP 36.8; O2SAT 97
[2025-01-26] MEDS: Divalproex Sodium ER 500 MG TAB.ER.24H 2000 MG PO (20:21)
[2025-01-26] MEDS: QUEtiapine Fumarate 50 MG TABLET 150 MG PO (20:26)
[2025-01-26 20:27] VITALS: BP 128/62; PULSE 104
[2025-01-27 07:55] VITALS: BP 98/54; PULSE 67; RESP 16; TEMP 36.5; O2SAT 98
[2025-01-27] MEDS: Dextroamphetamine/Amphetamine XR 10 MG CAP.ER.24H 30 MG PO ×2 (08:05→12:15)
[2025-01-27] MEDS: guanFACINE HCl ER 1 MG TAB.ER.24H PO (08:05)
[2025-01-27] MEDS: Venlafaxine HCl ER 150 MG CAP.ER.24H 300 MG PO (08:05)
[2025-01-27] MEDS: Omeprazole 20 MG CAPSULE.DR PO (08:05)
[2025-01-27] MEDS: Lithium Carbonate ER 450 MG TABLET.ER PO ×2 (08:05→20:08)
--- NOTE | 2025-01-27 10:04 | PC.NURSE ---
Pt is increasingly labile, disorganized, non-sensical, and posturing at peers and staff. He has exited his room making karate type moves, kicking, and throwing his arms about in the vicinity of staff and peers. He is intermittently crying and then laughing and told TW I have the power to remove your tattoos . He also stated that he and this justowriter operator have switched places . He is extremely malodorous, is wearing the same soiled clothing since admission, and refuses to tend to ADLS despite encouragement. Pt is staring intensely at staff and peers before bursting into laughter and yelling I have distributed finances beyond your consciousness and will prevail beyond the depths of the universe . Pt then ran down the hallway at a full speed before coming to a stop and jumping up to hit his inner ankles together. He also asked this justowriter operator to open the door to the next portal , referring to the dirty linen closet. Pt was placed on 1:1 for safety concerns and is currently humming the hiyalife song.
[2025-01-27] MEDS: Lactulose 20 GM/30 ML SOLUTION 40 GM PO (10:44)
[2025-01-27] MEDS: diazePAM 5 MG TABLET PO ×2 (10:44→16:40)
[2025-01-27 11:53] VITALS: BP 114/68; PULSE 92
[2025-01-27] MEDS: Propranolol HCL 10 MG TABLET PO ×2 (11:53→15:44)
[2025-01-27] MEDS: Nicotine Polacrilex 2 MG GUM 4 MG BUCCAL ×2 (11:53→17:09)
[2025-01-27 13:00] VITALS: RESP 18
[2025-01-27 15:44] VITALS: BP 122/80; PULSE 86
--- NOTE | 2025-01-27 17:19 | HO.PSYCHPN ---
Subjective Subjective Date of Service: 01/27/25 Reason For Visit: bipolar disorder, adhd, ptsd, ocd Subjective Notes: Conditional Voluntary Healthcare Proxy: No Guardianship: No Medical Problems Affecting Mental Status: No Interim History: Team report a very difficult weekend with pt acting out, trying to open the locked doors with a business card, hiding in the staff lounge, prompting a peer to find him while hiding, prompting agitation in peers. Discussed administrative discharge, however ammonia level of 01/26 is 143- will repeat level on 01/28. Met with pt and team. Reviewed behaviors and consequence of administrative discharge due to his behavioral disruptions in milieu. Pt not wanting to DC. Met with pt again later in the day-he was reflective on his behavior, gave a plan for making changes in his behaviors and reviewed his goals for this admission. Medication Compliance: Yes Side effects from medications: No Attending Groups: Intermittent Review of Systems Acute medical concerns: No Review of Systems Review of Systems Denies Mental Status Exam Mental Status Exam Patient Appearance: Well Grooomed and Appropriate Patient Orientation: Person, Place, Time and Situation Level of Consciousness: Awake and Alert Patient Behavior: Hyperactive, Restless and Impulsive Mood Description: Labile Affect Description: Labile Patient Cognition Impaired: No Ability to Follow Directions: Fair Speech Pattern: Clear Thought Process: Racing Thought Content: positive for Flight of Ideas Abnormal Motor Activity Signs and Symptoms: Hyperactivity Judgement: Poor Diagnostics Vital Signs (24Hr): Vital Signs - 24 hr 01/26/25 18:00 01/26/25 20:27 01/27/25 07:55 Temperature 98.3 F 97.7 F Pulse Rate 104 H 104 H 67 Respiratory Rate 16 Blood Pressure 128/62 128/62 98/54 L Pulse Oximetry 97 98 Oxygen Delivery Method Room Air Room Air 01/27/25 11:53 01/27/25 13:00 01/27/25 15:44 Temperature Pulse Rate 92 86 Respiratory Rate 18 Blood Pressure 114/68 122/80 Pulse Oximetry Oxygen Delivery Method BMI result Body Mass Index 34.0 Labs 01/26/25 11:42 Labs: Laboratory Results - last 48 hr 01/26/25 11:42 Hold Purple Top SEE NOTE Sodium 140 Potassium 4.1 Chloride 108 Carbon Dioxide 23 Anion Gap 13 BUN 11 Creatinine 0.80 Estim Creat Clear Calc 166.6 Estimated GFR > 60 Random Glucose 89 Calcium 8.9 Total Bilirubin 0.4 Direct Bilirubin 0.1 AST 43 H ALT 22 Alkaline Phosphatase 38 L Ammonia 143 H Total Protein 6.5 Albumin 4.1 Valproic Acid 86.7 [place] 0.60 Medications Medications Current Medications Acetaminophen (Acetaminophen 325 Mg Tablet) 650 mg PO Q6H PRN PRN Reason: Headache/Pain, Scale 1-10 Al Hydroxide/Mg Hydroxide (Magnesium Hydrox/Alum Hydrox 30 Ml Oral.Susp) 30 ml PO Q6H PRN PRN Reason: Heartburn/Nausea Amphetamine/Dextroamphetamine (Dextroamphetamine/Amphetamine Xr 10 Mg Cap.Er.24h) 30 mg PO 0900,1300 [facility] Last Admin: 01/27/25 12:15 Dose: 30 mg Clotrimazole (Clotrimazole 1 % Cream 15 Gm Tube) 1 appl TOPICAL BID [facility]; Protocol Last Admin: 01/27/25 08:04 Dose: Not Given Diazepam (Diazepam 5 Mg Tablet) 5 mg PO BID PRN PRN Reason: mod anxiety/intrusive thoughts Last Admin: 01/27/25 16:40 Dose: 5 mg Divalproex Sodium (Divalproex Sodium Er 500 Mg Tab.Er.24h) 2,000 mg PO BEDTIME [facility] Last Admin: 01/26/25 20:21 Dose: 2,000 mg Ergocalciferol (Ergocalciferol (Vitamin D2) 1,250 Mcg Capsule) 1,250 mcg PO Th@0900 [facility] Last Admin: 01/23/25 09:21 Dose: 1,250 mcg Guanfacine HCl (Guanfacine Hcl Er 1 Mg Tab.Er.24h) 1 mg PO DAILY [facility] Last Admin: 01/27/25 08:05 Dose: 1 mg Hydroxyzine HCl (Hydroxyzine Hcl 25 Mg Tablet) 125 mg PO DAILY PRN PRN Reason: mild Anxiety Last Admin: 01/25/25 17:03 Dose: 125 mg [place] Carbonate ([place] Carbonate Er 450 Mg Tablet.Er) 450 mg PO BID [facility] Last Admin: 01/27/25 08:05 Dose: 450 mg Magnesium Hydroxide (Milk Of Magnesia 30 Ml Oral.Susp) 30 ml PO DAILY PRN PRN Reason: Constipation Melatonin (Melatonin 3 Mg Tablet) 9 mg PO BEDTIME PRN PRN Reason: Insomnia Last Admin: 01/21/25 22:08 Dose: 9 mg Nicotine (Nicotine 21 Mg Patch.Td24) 21 mg TRANSDERMA DAILY [facility] Last Admin: 01/27/25 08:05 Dose: Not Given Nicotine Polacrilex (Nicotine Polacrilex 2 Mg Gum) 4 mg BUCCAL Q2H PRN PRN Reason: Nicotine Cravings Last Admin: 01/27/25 17:09 Dose: 4 mg Omeprazole (Omeprazole 20 Mg Capsule.Dr) 20 mg PO DAILY@0630 [facility] Last Admin: 01/27/25 08:05 Dose: 20 mg Propranolol HCl (Propranolol Hcl 10 Mg Tablet) 10 mg PO QID PRN; Protocol PRN Reason: anxiety Last Admin: 01/27/25 15:44 Dose: 10 mg Quetiapine Fumarate (Quetiapine Fumarate 50 Mg Tablet) 150 mg PO BEDTIME [facility] Last Admin: 01/26/25 20:26 Dose: 150 mg Trazodone HCl (Trazodone Hcl 50 Mg Tablet) 50 mg PO BEDTIME MRX1 PRN PRN Reason: Insomnia Last Admin: 01/23/25 00:11 Dose: 50 mg Venlafaxine HCl (Venlafaxine Hcl Er 150 Mg Cap.Er.24h) 300 mg PO DAILY [facility] Last Admin: 01/27/25 08:05 Dose: 300 mg Allergies Allergies Allergy/AdvReac Type Severity Reaction Status Date / Time fish derived [fish] Allergy Unknown Verified 01/01/25 13:38 haloperidol [From Haldol] Allergy Unknown Verified 01/01/25 13:38 Assessment & Plan Assessment & Plan (1) OCD (obsessive compulsive disorder): Status: Acute Code(s): F42.9 - Obsessive-compulsive disorder, unspecified (2) ADHD (attention deficit hyperactivity disorder), predominantly hyperactive impulsive type: Status: Acute Code(s): F90.1 - Attention-deficit hyperactivity disorder, predominantly hyperactive type (3) Chronic post-traumatic stress disorder (PTSD): Status: Acute Code(s): F43.12 - Post-traumatic stress disorder, chronic (4) Bipolar disorder: Status: Acute Code(s): F31.9 - Bipolar disorder, unspecified (5) Personality disorder: Status: Acute Code(s): F60.9 - Personality disorder, unspecified (6) Alcohol use disorder in remission: Status: Acute Code(s): F10.91 - Alcohol use, unspecified, in remission Plan Patient is a 24-year-old male with history of bipolar disorder, OCD, PTSD, ADHD, alcohol use disorder in sustained remission who was recently discharged from 2 weeks ago who presented to the ED complaining of depression and SI with a plan to overdose on medications, which he says he stopped taking a few days ago. Patient has been boarding in the ED at [facility] for multiple days; now admitted to , he presents at baseline without SI. He eludes to not having been truly suicide about wanting inpatient admission to discuss medication management. That said patient endorses continued, significant OCD symptoms with constant thoughts to touch people inappropriately; patient says he has no desire to do so but the thoughts remain. Though he denies any desire to act out and says he has not at all done so, He remains worried about what would happen if for some reason he did act out on his behavior or talked about it out loud. Patient also wants to talk about medication adjustment with adding immediate release Adderall saying that he remains struggling with impulse and behavioral control which is evident. -Patient denies alcohol or drug use other than cannabis -Patient lives at home with parents; has A services Formulation/clinical reasoning: Patient has severe patient has ongoing OCD symptoms which also create considerable impairment. Additionally, he also has severe ADHD symptoms only partially treated by medication; symptoms continue to impair functioning. Venlafaxine was recently increased to 225mg however may need to go higher.... Will continue to review medications. Given the severity of ADHD symptoms will consider adjusting stimulant regimen. While patient is loud, exuberant and intrusive, he does not appear to be hypomanic (no racing thoughts; organized thinking; able to sit and have a logical, give and take conversation; demonstrating baseline behaviors) and at this mind his symptoms seem to be able to be explained by severe ADHD. Hospital course: 01/23Yesterday after discussing continued ADHD symptoms, television script writer explained that at this time not ready to increase Adderall above 60 mg; however television script writer agreed to start Intuniv which patient had been on before and said he found it somewhat helpful. Patient said it maybe helping and continue to take it this morning. Patient talked about OCD symptoms and how he has continued intrusive sexualized thoughts; he reiterates that he has no actual sexual urges but the thoughts continue and are very bothersome. Discussed options. Patient has taking clomipramine before which did not seem overly helpful; he was recently increased to venlafaxine 225 at last admission which he thinks has made some difference. Reviewed risks/side effects of options, including increasing venlafaxine further which patient would like to do. 01/24: Active on unit, social with peers. Patient reports having some anxiety and depression today; pt stated, I haven't had any intrusive thoughts today about suicide . Pt reports improved sleep last night. denies SI/HI/VH/AH. Venlafaxine increased to 300mg PO daily 01/25/25 told pt we will continue current treatment plan as per weekday providers 01/26/25 - ongoing lability mostly focused on attention 01/27/25- Repeat ammonia level 01/28 Plan: CV Q 15 minute checks STARTED Intuniv 1 mg daily Consider increasing venlafaxine further; although 225 mg is generally considered a max dose, people with severe OCD have benefitted from higher doses; no hypertension Continue home medications Gather collateral Reason for continued inpatient stay Substantial Risk for: harm to others Time Spent With Patient Time: Total time managing care of this patient today ____ minutes.
[2025-01-27 18:00] VITALS: BP 146/64; PULSE 95; TEMP 36.7; O2SAT 97
[2025-01-27] MEDS: hydrOXYzine HCL 25 MG TABLET 125 MG PO (18:26)
[2025-01-27] MEDS: Melatonin 3 MG TABLET 9 MG PO (20:05)
[2025-01-27] MEDS: QUEtiapine Fumarate 50 MG TABLET 150 MG PO (20:05)
[2025-01-27] MEDS: Divalproex Sodium ER 500 MG TAB.ER.24H 2000 MG PO (20:07)
[2025-01-27] MEDS: traZODone HCL 50 MG TABLET PO (20:08)
--- NOTE | 2025-01-28 05:01 | PC.NURSE ---
At 2014, pt reported to this verse writer that he had fallen on purpose at 1945. Pt stated I'm happy I fell; it's a form of self-harm that I used at [place] . Pt asked if this could cause him to be administratively discharged. Pt said he had a history of other self-harming behaviors including head-banging and cutting. Pt expressed urges for SI and SH are increased when anxiety is increased. Pt denied current urges for SI or SH. Pt stated that the urge to SH disappeared as soon as I got up from the floor. Pt denied pain or injury saying only had abrasion on left knee without open skin. Staff observed what appeared to be an intentional fall after which pt got up quickly and walked away. Pt reported to this verse writer he had no pain or injury.
[2025-01-28 09:00] VITALS: BP 124/71; PULSE 99; RESP 18; TEMP 36.4; O2SAT 96
[2025-01-28] MEDS: Nicotine 21 MG PATCH.TD24 TRANSDERMA (09:00)
[2025-01-28] MEDS: Venlafaxine HCl ER 150 MG CAP.ER.24H 300 MG PO (09:00)
[2025-01-28] MEDS: Omeprazole 20 MG CAPSULE.DR PO (09:00)
[2025-01-28] MEDS: guanFACINE HCl ER 1 MG TAB.ER.24H PO (09:01)
[2025-01-28] MEDS: diazePAM 5 MG TABLET PO ×2 (09:01→15:39)
[2025-01-28] MEDS: Lithium Carbonate ER 450 MG TABLET.ER PO ×2 (09:01→20:01)
[2025-01-28] MEDS: Dextroamphetamine/Amphetamine XR 10 MG CAP.ER.24H 30 MG PO ×2 (09:01→12:52)
--- NOTE | 2025-01-28 09:39 | P.PNPSI_ITS ---
Subjective Subjective Date of Service: 01/28/25 Reason For Visit: bipolar disorder, adhd, ptsd, ocd Interim History: Met with patient; discussed with team; reviewed chart this weekend, pt was found rifling through staff mailboxes; patient said he did this to show staff that they made a mistake allowing him access yesterday tried to climb over nursing station last night, threw himself on the floor; patient said he did this because he felt like no one was really caring about him and want to see if they would react Patient found to be with hyperammoniemia of 143. Discussed with patient possible etiologies given that patient has been on a stable Depakote dose for quite some time (and in the past even at higher doses); possibly increasing Effexor may have affected the liver though LFTs remain WNL, which could have increased ammonia level. Lactulose effective and lowered ammonia 77. Will continue with Depakote. Discussed medications further. Patient thinks that perhaps increase in Effexor has eliminated is intrusive thought to sexually grab or touched other people and he would like to remain on increased Effexor. Provider Scribe agrees that patient's ADHD symptoms remain to be a significant part of his struggles functioning. Discussed with Dr. Ramirez who agrees it is possible to increase Adderall and see if patient tolerates Staff reports to conventional underwriter that in response to possible administrative discharge, patient said to covering providers, I'll just overdose if discharged. Patient told conventional underwriter today that he has no plans to do that and will make sure he is in better behavioral control because he does not want to get administratively discharged. Of note, on admission pt explained to conventional underwriter that he figured out ways to get himself admitted (so he could talk to doctors about his diagnosis...). And for this recent admission he reported SI to get himself so, though he was not actually suicidal; he had also thought of overdosing a little to get admitted which he alluded to doing in the past. Mental Status Exam Mental Status Exam Narrative: Pt is alert and oriented; behavior is cooperative, friendly, loud; can be intrusive; can be behavioral; patient is not in distress; dressed in casual attire with unkempt hair but adequate hygiene; mood is described as ok and affect effusive; eye contact appropriate; Speech is loud, verbose but not really pressured; no psychomotor agitation present; thought process is organized and goal directed though also circumstantial; Thought content is on dealing with intrusive thoughts, tx; otherwise pertinent to relevant topics and without any delusional content, paranoid ideations or grandiosity; minimal SI; no HI. Patient denies AVH. Intermittent intrusive thoughts but tolerable; Patients insight and judgment impaired but adequate and at baseline. Diagnostics Vital Signs (24Hr): Vital Signs - 24 hr 01/27/25 11:53 01/27/25 13:00 01/27/25 15:44 Temperature Pulse Rate 92 86 Respiratory Rate 18 Blood Pressure 114/68 122/80 Pulse Oximetry Oxygen Delivery Method 01/27/25 18:00 01/28/25 09:00 Temperature 98.1 F 97.5 F Pulse Rate 95 99 Respiratory Rate 18 Blood Pressure 146/64 H 124/71 Pulse Oximetry 97 96 Oxygen Delivery Method Room Air Room Air BMI result Body Mass Index 34.0 Labs 01/26/25 11:42 Labs: Laboratory Results - last 48 hr 01/26/25 11:42 Hold Purple Top SEE NOTE Sodium 140 Potassium 4.1 Chloride 108 Carbon Dioxide 23 Anion Gap 13 BUN 11 Creatinine 0.80 Estim Creat Clear Calc 166.6 Estimated GFR > 60 Random Glucose 89 Calcium 8.9 Total Bilirubin 0.4 Direct Bilirubin 0.1 AST 43 H ALT 22 Alkaline Phosphatase 38 L Ammonia 143 H Total Protein 6.5 Albumin 4.1 Valproic Acid 86.7 [place] 0.60 Medications Medications Current Medications Acetaminophen (Acetaminophen 325 Mg Tablet) 650 mg PO Q6H PRN PRN Reason: Headache/Pain, Scale 1-10 Al Hydroxide/Mg Hydroxide (Magnesium Hydrox/Alum Hydrox 30 Ml Oral.Susp) 30 ml PO Q6H PRN PRN Reason: Heartburn/Nausea Amphetamine/Dextroamphetamine (Dextroamphetamine/Amphetamine Xr 10 Mg Cap.Er.24h) 30 mg PO 0900,1300 [facility] Last Admin: 01/28/25 09:01 Dose: 30 mg Clotrimazole (Clotrimazole 1 % Cream 15 Gm Tube) 1 appl TOPICAL BID [facility]; Protocol Last Admin: 01/28/25 09:16 Dose: Not Given Diazepam (Diazepam 5 Mg Tablet) 5 mg PO BID PRN PRN Reason: mod anxiety/intrusive thoughts Last Admin: 01/28/25 09:01 Dose: 5 mg Divalproex Sodium (Divalproex Sodium Er 500 Mg Tab.Er.24h) 2,000 mg PO BEDTIME [facility] Last Admin: 01/27/25 20:07 Dose: 2,000 mg Ergocalciferol (Ergocalciferol (Vitamin D2) 1,250 Mcg Capsule) 1,250 mcg PO Th@0900 [facility] Last Admin: 01/23/25 09:21 Dose: 1,250 mcg Guanfacine HCl (Guanfacine Hcl Er 1 Mg Tab.Er.24h) 1 mg PO DAILY [facility] Last Admin: 01/28/25 09:01 Dose: 1 mg Hydroxyzine HCl (Hydroxyzine Hcl 25 Mg Tablet) 125 mg PO DAILY PRN PRN Reason: mild Anxiety Last Admin: 01/27/25 18:26 Dose: 125 mg [place] Carbonate ([place] Carbonate Er 450 Mg Tablet.Er) 450 mg PO BID [facility] Last Admin: 01/28/25 09:01 Dose: 450 mg Magnesium Hydroxide (Milk Of Magnesia 30 Ml Oral.Susp) 30 ml PO DAILY PRN PRN Reason: Constipation Melatonin (Melatonin 3 Mg Tablet) 9 mg PO BEDTIME PRN PRN Reason: Insomnia Last Admin: 01/27/25 20:05 Dose: 9 mg Nicotine (Nicotine 21 Mg Patch.Td24) 21 mg TRANSDERMA DAILY [facility] Last Admin: 01/28/25 09:00 Dose: 21 mg Nicotine Polacrilex (Nicotine Polacrilex 2 Mg Gum) 4 mg BUCCAL Q2H PRN PRN Reason: Nicotine Cravings Last Admin: 01/27/25 17:09 Dose: 4 mg Omeprazole (Omeprazole 20 Mg Capsule.Dr) 20 mg PO DAILY@0630 [facility] Last Admin: 01/28/25 09:00 Dose: 20 mg Propranolol HCl (Propranolol Hcl 10 Mg Tablet) 10 mg PO QID PRN; Protocol PRN Reason: anxiety Last Admin: 01/27/25 15:44 Dose: 10 mg Quetiapine Fumarate (Quetiapine Fumarate 50 Mg Tablet) 150 mg PO BEDTIME [facility] Last Admin: 01/27/25 20:05 Dose: 150 mg Trazodone HCl (Trazodone Hcl 50 Mg Tablet) 50 mg PO BEDTIME MRX1 PRN PRN Reason: Insomnia Last Admin: 01/27/25 20:08 Dose: 50 mg Venlafaxine HCl (Venlafaxine Hcl Er 150 Mg Cap.Er.24h) 300 mg PO DAILY [facility] Last Admin: 01/28/25 09:00 Dose: 300 mg Allergies Allergies Allergy/AdvReac Type Severity Reaction Status Date / Time fish derived [fish] Allergy Unknown Verified 01/01/25 13:38 haloperidol [From Haldol] Allergy Unknown Verified 01/01/25 13:38 Assessment & Plan Assessment & Plan (1) OCD (obsessive compulsive disorder): Status: Acute Code(s): F42.9 - Obsessive-compulsive disorder, unspecified (2) ADHD (attention deficit hyperactivity disorder), predominantly hyperactive impulsive type: Status: Acute Code(s): F90.1 - Attention-deficit hyperactivity disorder, predominantly hyperactive type (3) Chronic post-traumatic stress disorder (PTSD): Status: Acute Code(s): F43.12 - Post-traumatic stress disorder, chronic (4) Bipolar disorder: Status: Acute Code(s): F31.9 - Bipolar disorder, unspecified (5) Personality disorder: Status: Acute Code(s): F60.9 - Personality disorder, unspecified (6) Alcohol use disorder in remission: Status: Acute Code(s): F10.91 - Alcohol use, unspecified, in remission Plan Patient is a 24-year-old male with history of bipolar disorder, OCD, PTSD, ADHD, alcohol use disorder in sustained remission who was recently discharged from 2 weeks ago who presented to the ED complaining of depression and SI with a plan to overdose on medications, which he says he stopped taking a few days ago. Patient has been boarding in the ED at [facility] for multiple days; now admitted to , he presents at baseline without SI. He eludes to not having been truly suicide about wanting inpatient admission to discuss medication management. That said patient endorses continued, significant OCD symptoms with constant thoughts to touch people inappropriately; patient says he has no desire to do so but the thoughts remain. Though he denies any desire to act out and says he has not at all done so, He remains worried about what would happen if for some reason he did act out on his behavior or talked about it out loud. Patient also wants to talk about medication adjustment with adding immediate release Adderall saying that he remains struggling with impulse and behavioral control which is evident. -Patient denies alcohol or drug use other than cannabis -Patient lives at home with parents; has VNA services Formulation/clinical reasoning: Patient has severe patient has ongoing OCD symptoms which also create considerable impairment. Additionally, he also has severe ADHD symptoms only partially treated by medication; symptoms continue to impair functioning. Venlafaxine was recently increased to 225mg however may need to go higher.... Will continue to review medications. Given the severity of ADHD symptoms will consider adjusting stimulant regimen. While patient is loud, exuberant and intrusive, he does not appear to be hypomanic (no racing thoughts; organized thinking; able to sit and have a logical, give and take conversation; demonstrating baseline behaviors) and at this mind his symptoms seem to be able to be explained by severe ADHD. Hospital course: 01/23Yesterday after discussing continued ADHD symptoms, conventional underwriter explained that at this time not ready to increase Adderall above 60 mg; however conventional underwriter agreed to start Intuniv which patient had been on before and said he found it somewhat helpful. Patient said it maybe helping and continue to take it this morning. Patient talked about OCD symptoms and how he has continued intrusive sexualized thoughts; he reiterates that he has no actual sexual urges but the thoughts continue and are very bothersome. Discussed options. Patient has taking clomipramine before which did not seem overly helpful; he was recently increased to venlafaxine 225 at last admission which he thinks has made some difference. Reviewed risks/side effects of options, including increasing venlafaxine further which patient would like to do. 01/24: Active on unit, social with peers. Patient reports having some anxiety and depression today; pt stated, I haven't had any intrusive thoughts today about suicide . Pt reports improved sleep last night. denies SI/HI/VH/AH. Venlafaxine increased to 300mg PO daily 01/25/25 told pt we will continue current treatment plan as per weekday providers 01/26/25 - ongoing lability mostly focused on attention 01/27/25- Repeat ammonia level 01/28 01/28 this , pt was found rifling through staff mailboxes; patient said he did this to show staff that they made a mistake allowing him access yesterday tried to climb over nursing station last night, threw himself on the floor; patient said he did this because he felt like no one was really caring about him and want to see if they would react Patient found to be with hyperammoniemia of 143. Discussed with patient possible etiologies given that patient has been on a stable Depakote dose for quite some time (and in the past even at higher doses); possibly increasing Effexor may have affected the liver though LFTs remain WNL, which could have increased ammonia level. Lactulose effective and lowered ammonia 77. Will continue with Depakote. Discussed medications further. Patient thinks that perhaps increase in Effexor has eliminated is intrusive thought to sexually grab or touched other people and he would like to remain on increased Effexor. Provider Scribe agrees that patient's ADHD symptoms remain to be a significant part of his struggles functioning. Discussed with Dr. Ramirez who agrees it is possible to increase Adderall and see if patient tolerates Staff reports to conventional underwriter that in response to possible administrative discharge, patient said to covering providers, I'll just overdose if discharged. Patient told conventional underwriter today that he has no plans to do that and will make sure he is in better behavioral control because he does not want to get administratively discharged. Of note, on admission pt explained to conventional underwriter that he figured out ways to get himself admitted (so he could talk to doctors about his diagnosis...). And for this recent admission he reported SI to get himself so, though he was not actually suicidal; he had also thought of overdosing a little to get admitted which he alluded to doing in the past. Impression: -behaviors remains a mix of ADHD, personality disorder, OCD symptoms; maybe some mild hypomania however patient is able to sit and have organized discussion and is without other manic symptoms -patient has acknowledged he uses SI threats to get his way and patient is mostly at baseline; however conventional underwriter agrees that medication adjustments could help and given his elevated ammonia, need to get this resolved For now will continue with Depakote level and monitor ammonia Will increase Adderall ER to 40 mg b.i.d. given that patient's ADHD symptoms significantly impair functioning Considered increasing Intuniv but will try increase in Adderall instead since on inpatient unit and opportunity to see effect Will continue with Effexor ER 300 mg and monitor ammonia Plan: CV Q 15 minute checks Continue Intuniv 1 mg daily Continue increased venlafaxine ER 300 mg; may have helped with OCD; may have indirectly triggered hyperammonemia; no hypertension however Continue home medications Gather collateral Patient educated on: diagnosis, medication risk/benefits and therapeutic strategies Informed Consent: understands and further education needed Reason for continued inpatient stay Substantial Risk for: med/psych decompensation Time Spent With Patient Time: Total time managing care of this patient today ____ minutes.
[2025-01-28 10:13] LABS: Ammonia 77 umol/L (13-55)
[2025-01-28 10:19] LABS: Valproate 69.9 mcg/mL (50.0-100.0)
[2025-01-28 10:22] LABS: Alanine Aminotransferase 18 U/L (0-40); Alkaline Phosphatase 41 U/L (39-117); Aspartate Amino Transferase 29 U/L (5-37); Bilirubin Direct < 0.2 mg/dL (0.0-0.5); Bilirubin Total 0.2 mg/dL (0.0-1.0); Total Protein 6.5 g/dL (6.5-8.0)
[2025-01-28] MEDS: Lactulose 20 GM/30 ML SOLUTION 40 GM PO (12:27)
[2025-01-28 17:55] VITALS: BP 143/86; PULSE 108
[2025-01-28] MEDS: Propranolol HCL 10 MG TABLET PO (17:55)
[2025-01-28 17:57] VITALS: BP 143/86; PULSE 98; RESP 18; TEMP 36.8; O2SAT 96
[2025-01-28] MEDS: traZODone HCL 50 MG TABLET PO (20:01)
[2025-01-28] MEDS: Melatonin 3 MG TABLET 9 MG PO (20:01)
[2025-01-28] MEDS: QUEtiapine Fumarate 50 MG TABLET 150 MG PO (20:02)
[2025-01-28] MEDS: Clotrimazole 1 % Cream 15 GM TUBE 1 APPL TOPICAL (20:04)
[2025-01-28 20:06] VITALS: BP 143/86; PULSE 98; RESP 16; TEMP 36.8; O2SAT 96
[2025-01-29] MEDS: diazePAM 5 MG TABLET PO ×2 (03:15→10:38)
--- NOTE | 2025-01-29 03:18 | PC.NURSE ---
Toni given Diazepam PO prn for increased anxiety.
[2025-01-29 04:49] VITALS: BP 125/66; PULSE 91
[2025-01-29] MEDS: Propranolol HCL 10 MG TABLET PO ×2 (04:49→14:38)
[2025-01-29] MEDS: Omeprazole 20 MG CAPSULE.DR PO (06:01)
[2025-01-29] MEDS: Dextroamphetamine/Amphetamine XR 10 MG CAP.ER.24H 40 MG PO ×2 (08:02→12:06)
[2025-01-29] MEDS: guanFACINE HCl ER 1 MG TAB.ER.24H PO (08:02)
[2025-01-29] MEDS: Venlafaxine HCl ER 150 MG CAP.ER.24H 300 MG PO (08:03)
[2025-01-29] MEDS: Lithium Carbonate ER 450 MG TABLET.ER PO ×2 (08:03→20:10)
[2025-01-29 08:07] VITALS: BP 114/72; PULSE 79; RESP 18; TEMP 36.4; O2SAT 98
[2025-01-29 08:36] LABS: Ammonia 66 umol/L (13-55)
[2025-01-29 08:42] LABS: Alanine Aminotransferase 20 U/L (0-40); Albumin Level 4.2 g/dL (3.5-5.0); Alkaline Phosphatase 41 U/L (39-117); Aspartate Amino Transferase 25 U/L (5-37); Bilirubin Direct 0.1 mg/dL (0.0-0.5); Bilirubin Total 0.3 mg/dL (0.0-1.0); Total Protein 6.6 g/dL (6.5-8.0)
--- NOTE | 2025-01-29 10:01 | P.PNPSI_ITS ---
Subjective Subjective Date of Service: 01/29/25 Reason For Visit: bipolar disorder, adhd, ptsd, ocd Interim History: met with pt; discussed with team Patient reports intrusive thought to either touch someone or be touched inappropriately remained gone; however he says that thoughts do cycle in and out and to be sure it was the Effexor making this improvement it would take weeks on this medication patient to determine. With increased Adderall to 40 mg, patient is more calm, less reactive and takes redirection much easier. He also is editing himself a little better, not interrupting as much. Patient also agrees this increase dose seems to be helping Mental Status Exam Mental Status Exam Narrative: Pt is alert and oriented; behavior is cooperative, friendly, loud; can be intrusive but a little less so; patient is not in distress; dressed in casual attire with unkempt hair but adequate hygiene; mood is described as ok and affect effusive; eye contact appropriate; Speech is loud, verbose but edit team himself a little better; no psychomotor agitation present; thought process is organized and goal directed though also circumstantial; Thought content is on dealing with intrusive thoughts, tx; otherwise pertinent to relevant topics and without any delusional content, paranoid ideations or grandiosity; no SI; no HI. Patient denies AVH. Intermittent intrusive thoughts but some of them less; Patients insight and judgment impaired but adequate and at baseline. Diagnostics Vital Signs (24Hr): Vital Signs - 24 hr 01/28/25 17:55 01/28/25 17:57 01/28/25 20:06 Temperature 98.3 F 98.2 F Pulse Rate 108 H 98 98 Respiratory Rate 18 16 Blood Pressure 143/86 H 143/86 H 143/86 H Pulse Oximetry 96 96 Oxygen Delivery Method Room Air Room Air 01/29/25 04:49 01/29/25 08:07 Temperature 97.5 F Pulse Rate 91 79 Respiratory Rate 18 Blood Pressure 125/66 114/72 Pulse Oximetry 98 Oxygen Delivery Method Room Air BMI result Body Mass Index 34.0 Labs 01/26/25 11:42 Labs: Laboratory Results - last 48 hr 01/28/25 01/29/25 09:50 08:18 Total Bilirubin 0.2 0.3 Direct Bilirubin < 0.2 0.1 AST 29 25 ALT 18 20 Alkaline Phosphatase 41 41 Ammonia 77 H 66 H Total Protein 6.5 6.6 Albumin 4.0 4.2 Valproic Acid 69.9 Medications Medications Current Medications Acetaminophen (Acetaminophen 325 Mg Tablet) 650 mg PO Q6H PRN PRN Reason: Headache/Pain, Scale 1-10 Al Hydroxide/Mg Hydroxide (Magnesium Hydrox/Alum Hydrox 30 Ml Oral.Susp) 30 ml PO Q6H PRN PRN Reason: Heartburn/Nausea Amphetamine/Dextroamphetamine (Dextroamphetamine/Amphetamine Xr 10 Mg Cap.Er.24h) 40 mg PO 0900,1300 [facility] Last Admin: 01/29/25 08:02 Dose: 40 mg Clotrimazole (Clotrimazole 1 % Cream 15 Gm Tube) 1 appl TOPICAL BID [facility]; Protocol Last Admin: 01/29/25 08:36 Dose: Not Given Diazepam (Diazepam 5 Mg Tablet) 5 mg PO BID PRN PRN Reason: mod anxiety/intrusive thoughts Last Admin: 01/29/25 03:15 Dose: 5 mg Divalproex Sodium (Divalproex Sodium Er 500 Mg Tab.Er.24h) 2,000 mg PO BEDTIME [facility] Last Admin: 01/27/25 20:07 Dose: 2,000 mg Ergocalciferol (Ergocalciferol (Vitamin D2) 1,250 Mcg Capsule) 1,250 mcg PO Th@0900 [facility] Last Admin: 01/23/25 09:21 Dose: 1,250 mcg Guanfacine HCl (Guanfacine Hcl Er 1 Mg Tab.Er.24h) 1 mg PO DAILY [facility] Last Admin: 01/29/25 08:02 Dose: 1 mg Hydroxyzine HCl (Hydroxyzine Hcl 25 Mg Tablet) 125 mg PO DAILY PRN PRN Reason: mild Anxiety Last Admin: 01/27/25 18:26 Dose: 125 mg [place] Carbonate ([place] Carbonate Er 450 Mg Tablet.Er) 450 mg PO BID [facility] Last Admin: 01/29/25 08:03 Dose: 450 mg Magnesium Hydroxide (Milk Of Magnesia 30 Ml Oral.Susp) 30 ml PO DAILY PRN PRN Reason: Constipation Melatonin (Melatonin 3 Mg Tablet) 9 mg PO BEDTIME PRN PRN Reason: Insomnia Last Admin: 01/28/25 20:01 Dose: 9 mg Nicotine (Nicotine 21 Mg Patch.Td24) 21 mg TRANSDERMA DAILY [facility] Last Admin: 01/29/25 08:37 Dose: Not Given Nicotine Polacrilex (Nicotine Polacrilex 2 Mg Gum) 4 mg BUCCAL Q2H PRN PRN Reason: Nicotine Cravings Last Admin: 01/27/25 17:09 Dose: 4 mg Omeprazole (Omeprazole 20 Mg Capsule.Dr) 20 mg PO DAILY@0630 [facility] Last Admin: 01/29/25 06:01 Dose: 20 mg Propranolol HCl (Propranolol Hcl 10 Mg Tablet) 10 mg PO QID PRN; Protocol PRN Reason: anxiety Last Admin: 01/29/25 04:49 Dose: 10 mg Quetiapine Fumarate (Quetiapine Fumarate 50 Mg Tablet) 150 mg PO BEDTIME [facility] Last Admin: 01/28/25 20:02 Dose: 150 mg Trazodone HCl (Trazodone Hcl 50 Mg Tablet) 50 mg PO BEDTIME MRX1 PRN PRN Reason: Insomnia Last Admin: 01/28/25 20:01 Dose: 50 mg Venlafaxine HCl (Venlafaxine Hcl Er 150 Mg Cap.Er.24h) 300 mg PO DAILY [facility] Last Admin: 01/29/25 08:03 Dose: 300 mg Allergies Allergies Allergy/AdvReac Type Severity Reaction Status Date / Time fish derived [fish] Allergy Unknown Verified 01/01/25 13:38 haloperidol [From Haldol] Allergy Unknown Verified 01/01/25 13:38 Assessment & Plan Assessment & Plan (1) OCD (obsessive compulsive disorder): Status: Acute Code(s): F42.9 - Obsessive-compulsive disorder, unspecified (2) ADHD (attention deficit hyperactivity disorder), predominantly hyperactive impulsive type: Status: Acute Code(s): F90.1 - Attention-deficit hyperactivity disorder, predominantly hyperactive type (3) Chronic post-traumatic stress disorder (PTSD): Status: Acute Code(s): F43.12 - Post-traumatic stress disorder, chronic (4) Bipolar disorder: Status: Acute Code(s): F31.9 - Bipolar disorder, unspecified (5) Personality disorder: Status: Acute Code(s): F60.9 - Personality disorder, unspecified (6) Alcohol use disorder in remission: Status: Acute Code(s): F10.91 - Alcohol use, unspecified, in remission Plan Patient is a 24-year-old male with history of bipolar disorder, OCD, PTSD, ADHD, alcohol use disorder in sustained remission who was recently discharged from 2 weeks ago who presented to the ED complaining of depression and SI with a plan to overdose on medications, which he says he stopped taking a few days ago. Patient has been boarding in the ED at [facility] for multiple days; now admitted to , he presents at baseline without SI. He eludes to not having been truly suicide about wanting inpatient admission to discuss medication management. That said patient endorses continued, significant OCD symptoms with constant thoughts to touch people inappropriately; patient says he has no desire to do so but the thoughts remain. Though he denies any desire to act out and says he has not at all done so, He remains worried about what would happen if for some reason he did act out on his behavior or talked about it out loud. Patient also wants to talk about medication adjustment with adding immediate release Adderall saying that he remains struggling with impulse and behavioral control which is evident. -Patient denies alcohol or drug use other than cannabis -Patient lives at home with parents; has VNA services Formulation/clinical reasoning: Patient has severe patient has ongoing OCD symptoms which also create considerable impairment. Additionally, he also has severe ADHD symptoms only partially treated by medication; symptoms continue to impair functioning. Venlafaxine was recently increased to 225mg however may need to go higher.... Will continue to review medications. Given the severity of ADHD symptoms will consider adjusting stimulant regimen. While patient is loud, exuberant and intrusive, he does not appear to be hypomanic (no racing thoughts; organized thinking; able to sit and have a logical, give and take conversation; demonstrating baseline behaviors) and at this mind his symptoms seem to be able to be explained by severe ADHD. Hospital course: 01/23Yesterday after discussing continued ADHD symptoms, designer writer explained that at this time not ready to increase Adderall above 60 mg; however designer writer agreed to start Intuniv which patient had been on before and said he found it somewhat helpful. Patient said it maybe helping and continue to take it this morning. Patient talked about OCD symptoms and how he has continued intrusive sexualized thoughts; he reiterates that he has no actual sexual urges but the thoughts continue and are very bothersome. Discussed options. Patient has taking clomipramine before which did not seem overly helpful; he was recently increased to venlafaxine 225 at last admission which he thinks has made some difference. Reviewed risks/side effects of options, including increasing venlafaxine further which patient would like to do. 01/24: Active on unit, social with peers. Patient reports having some anxiety and depression today; pt stated, I haven't had any intrusive thoughts today about suicide . Pt reports improved sleep last night. denies SI/HI/VH/AH. Venlafaxine increased to 300mg PO daily 01/25/25 told pt we will continue current treatment plan as per weekday providers 01/26/25 - ongoing lability mostly focused on attention 01/27/25- Repeat ammonia level 01/28 01/28 this , pt was found rifling through staff mailboxes; patient said he did this to show staff that they made a mistake allowing him access yesterday tried to climb over nursing station last night, threw himself on the floor; patient said he did this because he felt like no one was really caring about him and want to see if they would react Patient found to be with hyperammoniemia of 143. Discussed with patient possible etiologies given that patient has been on a stable Depakote dose for quite some time (and in the past even at higher doses); possibly increasing Effexor may have affected the liver though LFTs remain WNL, which could have increased ammonia level. Lactulose effective and lowered ammonia 77. Will continue with Depakote. Discussed medications further. Patient thinks that perhaps increase in Effexor has eliminated is intrusive thought to sexually grab or touched other people and he would like to remain on increased Effexor. Data Warehouse Developer agrees that patient's ADHD symptoms remain to be a significant part of his struggles functioning. Discussed with Dr. Ramirez who agrees it is possible to increase Adderall and see if patient tolerates Staff reports to designer writer that in response to possible administrative discharge, patient said to covering providers, I'll just overdose if discharged. Patient told designer writer today that he has no plans to do that and will make sure he is in better behavioral control because he does not want to get administratively discharged. Of note, on admission pt explained to designer writer that he figured out ways to get himself admitted (so he could talk to doctors about his diagnosis...). And for this recent admission he reported SI to get himself so, though he was not actually suicidal; he had also thought of overdosing a little to get admitted which he alluded to doing in the past. Impression: -behaviors remains a mix of ADHD, personality disorder, OCD symptoms; maybe some mild hypomania however patient is able to sit and have organized discussion and is without other manic symptoms -patient has acknowledged he uses SI threats to get his way and patient is mostly at baseline; however designer writer agrees that medication adjustments could help and given his elevated ammonia, need to get this resolved For now will continue with Depakote level and monitor ammonia Will increase Adderall ER to 40 mg b.i.d. given that patient's ADHD symptoms significantly impair functioning Considered increasing Intuniv but will try increase in Adderall instead since on inpatient unit and opportunity to see effect Will continue with Effexor ER 300 mg and monitor ammonia 01/29 Patient reports intrusive thought to either touch someone or be touched inappropriately remained gone; however he says that thoughts do cycle in and out and to be sure it was the Effexor making this improvement it would take weeks on this medication patient to determine. With increased Adderall to 40 mg, patient is more calm, less reactive and takes redirection much easier. He also is editing himself a little better, not interrupting as much. Patient also agrees this increase dose seems to be helping. Discussed excess caffeine use on the unit and patient says he will cut down. No SI at all Patient shared that the main reason he seeks inpatient admission is because he is trying to get out of mental health court; he has been able to postpone it numerous times because of his admissions; he said he also comes because he wants medication adjustments. Plan: CV Q 15 minute checks Increased Adderall ER to 40 mg b.i.d.; up from 30 mg b.i.d.. Increase seems to help Continue Intuniv 1 mg daily Continue increased venlafaxine ER 300 mg; may have helped with OCD; may have indirectly triggered hyperammonemia; no hypertension however Continue home medications Gather collateral Patient educated on: diagnosis, medication risk/benefits and therapeutic strategies Informed Consent: understands Reason for continued inpatient stay Substantial Risk for: stable for discharge Time Spent With Patient Time: Total time managing care of this patient today ____ minutes.
[2025-01-29 14:37] VITALS: BP 127/84; PULSE 107
[2025-01-29] MEDS: hydrOXYzine HCL 25 MG TABLET 125 MG PO (16:55)
[2025-01-29 18:00] VITALS: BP 135/89; PULSE 107; RESP 16; TEMP 36.6; O2SAT 98
[2025-01-29] MEDS: QUEtiapine Fumarate 50 MG TABLET 150 MG PO (20:10)
[2025-01-30] MEDS: diazePAM 5 MG TABLET PO ×2 (06:44→16:25)
[2025-01-30] MEDS: Omeprazole 20 MG CAPSULE.DR PO (06:44)
[2025-01-30 07:00] VITALS: BMI 34.8
[2025-01-30 08:01] LABS: Ammonia 44 umol/L (13-55)
[2025-01-30 08:05] VITALS: BP 101/53; PULSE 85; TEMP 36.4; O2SAT 98
[2025-01-30] MEDS: Dextroamphetamine/Amphetamine XR 10 MG CAP.ER.24H 40 MG PO ×2 (08:06→13:12)
[2025-01-30] MEDS: Lithium Carbonate ER 450 MG TABLET.ER PO ×2 (08:07→20:04)
[2025-01-30] MEDS: guanFACINE HCl ER 1 MG TAB.ER.24H PO (08:07)
[2025-01-30] MEDS: Venlafaxine HCl ER 150 MG CAP.ER.24H 300 MG PO (08:07)
[2025-01-30] MEDS: Nicotine 21 MG PATCH.TD24 TRANSDERMA (08:40)
[2025-01-30] MEDS: Ergocalciferol (Vitamin D2) 1,250 MCG CAPSULE 1250 MCG PO (08:53)
--- NOTE | 2025-01-30 09:46 | HO.PSYCHPN ---
Subjective Subjective Date of Service: 01/30/25 Reason For Visit: bipolar disorder, adhd, ptsd, ocd Interim History: met with patient; discussed with team pt continues to agree that increased Adderall dose is helping w/ impulse control; policy writer notices improved symptoms and that pt is with improved ability to self edit and be in control. He is actively stopping drinking excess caffeine as well. OCD syptoms remain but seem to be improved with specific urge remaining resolved. Ammonia back to baseline even while remaining on Depakote and w/out lactulose; discussed options and pt wants to remain on depakote but agrees to add LCarnitine as well. Mental Status Exam Mental Status Exam Narrative: Pt is alert and oriented; behavior is cooperative, friendly, loud; can be intrusive but a little less so; can be regressed; can be behavioral; patient is not in distress; dressed in casual attire with unkempt hair but adequate hygiene; mood is described as ok and affect effusive; eye contact appropriate; Speech is loud, verbose but edit team himself a little better; no psychomotor agitation present; thought process is organized and goal directed though also circumstantial; Thought content is on dealing with intrusive thoughts, tx; otherwise pertinent to relevant topics and without any delusional content, paranoid ideations or grandiosity; no SI; no HI. Patient denies AVH. Intermittent intrusive thoughts but some of them less; Patients insight and judgment is adequate and at baseline. Diagnostics Vital Signs (24Hr): Vital Signs - 24 hr 01/29/25 14:37 01/29/25 18:00 01/30/25 08:05 Temperature 97.8 F 97.6 F Pulse Rate 107 H 107 H 85 Respiratory Rate 16 Blood Pressure 127/84 135/89 101/53 L Pulse Oximetry 98 98 Oxygen Delivery Method Room Air Room Air BMI result Body Mass Index 34.0 Labs 01/26/25 11:42 Labs: Laboratory Results - last 48 hr 01/28/25 01/29/25 01/30/25 09:50 08:18 07:39 Total Bilirubin 0.2 0.3 Direct Bilirubin < 0.2 0.1 AST 29 25 ALT 18 20 Alkaline Phosphatase 41 41 Ammonia 77 H 66 H 44 Total Protein 6.5 6.6 Albumin 4.0 4.2 Valproic Acid 69.9 Medications Medications Current Medications Acetaminophen (Acetaminophen 325 Mg Tablet) 650 mg PO Q6H PRN PRN Reason: Headache/Pain, Scale 1-10 Al Hydroxide/Mg Hydroxide (Magnesium Hydrox/Alum Hydrox 30 Ml Oral.Susp) 30 ml PO Q6H PRN PRN Reason: Heartburn/Nausea Amphetamine/Dextroamphetamine (Dextroamphetamine/Amphetamine Xr 10 Mg Cap.Er.24h) 40 mg PO DAILY@1330 [facility] Amphetamine/Dextroamphetamine (Dextroamphetamine/Amphetamine Xr 10 Mg Cap.Er.24h) 40 mg PO DAILY [facility] Last Admin: 01/30/25 08:06 Dose: 40 mg Clotrimazole (Clotrimazole 1 % Cream 15 Gm Tube) 1 appl TOPICAL BID [facility]; Protocol Last Admin: 01/30/25 08:11 Dose: Not Given Diazepam (Diazepam 5 Mg Tablet) 5 mg PO BID PRN PRN Reason: mod anxiety/intrusive thoughts Last Admin: 01/30/25 06:44 Dose: 5 mg Divalproex Sodium (Divalproex Sodium Er 500 Mg Tab.Er.24h) 2,000 mg PO BEDTIME [facility] Last Admin: 01/27/25 20:07 Dose: 2,000 mg Ergocalciferol (Ergocalciferol (Vitamin D2) 1,250 Mcg Capsule) 1,250 mcg PO Th@0900 [facility] Last Admin: 01/30/25 08:53 Dose: 1,250 mcg Guanfacine HCl (Guanfacine Hcl Er 1 Mg Tab.Er.24h) 1 mg PO DAILY [facility] Last Admin: 01/30/25 08:07 Dose: 1 mg Hydroxyzine HCl (Hydroxyzine Hcl 25 Mg Tablet) 125 mg PO DAILY PRN PRN Reason: mild Anxiety Last Admin: 01/29/25 16:55 Dose: 125 mg [place] Carbonate ([place] Carbonate Er 450 Mg Tablet.Er) 450 mg PO BID [facility] Last Admin: 01/30/25 08:07 Dose: 450 mg Magnesium Hydroxide (Milk Of Magnesia 30 Ml Oral.Susp) 30 ml PO DAILY PRN PRN Reason: Constipation Melatonin (Melatonin 3 Mg Tablet) 9 mg PO BEDTIME PRN PRN Reason: Insomnia Last Admin: 01/28/25 20:01 Dose: 9 mg Nicotine (Nicotine 21 Mg Patch.Td24) 21 mg TRANSDERMA DAILY [facility] Last Admin: 01/30/25 08:40 Dose: 21 mg Nicotine Polacrilex (Nicotine Polacrilex 2 Mg Gum) 4 mg BUCCAL Q2H PRN PRN Reason: Nicotine Cravings Last Admin: 01/27/25 17:09 Dose: 4 mg Omeprazole (Omeprazole 20 Mg Capsule.Dr) 20 mg PO DAILY@0630 [facility] Last Admin: 01/30/25 06:44 Dose: 20 mg Propranolol HCl (Propranolol Hcl 10 Mg Tablet) 10 mg PO QID PRN; Protocol PRN Reason: anxiety Last Admin: 01/29/25 14:38 Dose: 10 mg Quetiapine Fumarate (Quetiapine Fumarate 50 Mg Tablet) 150 mg PO BEDTIME [facility] Last Admin: 01/29/25 20:10 Dose: 150 mg Trazodone HCl (Trazodone Hcl 50 Mg Tablet) 50 mg PO BEDTIME MRX1 PRN PRN Reason: Insomnia Last Admin: 01/28/25 20:01 Dose: 50 mg Venlafaxine HCl (Venlafaxine Hcl Er 150 Mg Cap.Er.24h) 300 mg PO DAILY [facility] Last Admin: 01/30/25 08:07 Dose: 300 mg Allergies Allergies Allergy/AdvReac Type Severity Reaction Status Date / Time fish derived [fish] Allergy Unknown Verified 01/01/25 13:38 haloperidol [From Haldol] Allergy Unknown Verified 01/01/25 13:38 Assessment & Plan Assessment & Plan (1) OCD (obsessive compulsive disorder): Status: Acute Code(s): F42.9 - Obsessive-compulsive disorder, unspecified (2) ADHD (attention deficit hyperactivity disorder), predominantly hyperactive impulsive type: Status: Acute Code(s): F90.1 - Attention-deficit hyperactivity disorder, predominantly hyperactive type (3) Chronic post-traumatic stress disorder (PTSD): Status: Acute Code(s): F43.12 - Post-traumatic stress disorder, chronic (4) Bipolar disorder: Status: Acute Code(s): F31.9 - Bipolar disorder, unspecified (5) Personality disorder: Status: Acute Code(s): F60.9 - Personality disorder, unspecified (6) Alcohol use disorder in remission: Status: Acute Code(s): F10.91 - Alcohol use, unspecified, in remission Plan Patient is a 24-year-old male with history of bipolar disorder, OCD, PTSD, ADHD, alcohol use disorder in sustained remission who was recently discharged from 2 weeks ago who presented to the ED complaining of depression and SI with a plan to overdose on medications, which he says he stopped taking a few days ago. Patient has been boarding in the ED at [facility] for multiple days; now admitted to , he presents at baseline without SI. He eludes to not having been truly suicide about wanting inpatient admission to discuss medication management. That said patient endorses continued, significant OCD symptoms with constant thoughts to touch people inappropriately; patient says he has no desire to do so but the thoughts remain. Though he denies any desire to act out and says he has not at all done so, He remains worried about what would happen if for some reason he did act out on his behavior or talked about it out loud. Patient also wants to talk about medication adjustment with adding immediate release Adderall saying that he remains struggling with impulse and behavioral control which is evident. -Patient denies alcohol or drug use other than cannabis -Patient lives at home with parents; has VNA services Formulation/clinical reasoning: Patient has severe patient has ongoing OCD symptoms which also create considerable impairment. Additionally, he also has severe ADHD symptoms only partially treated by medication; symptoms continue to impair functioning. Venlafaxine was recently increased to 225mg however may need to go higher.... Will continue to review medications. Given the severity of ADHD symptoms will consider adjusting stimulant regimen. While patient is loud, exuberant and intrusive, he does not appear to be hypomanic (no racing thoughts; organized thinking; able to sit and have a logical, give and take conversation; demonstrating baseline behaviors) and at this mind his symptoms seem to be able to be explained by severe ADHD. Hospital course: 01/23Yesterday after discussing continued ADHD symptoms, policy writer explained that at this time not ready to increase Adderall above 60 mg; however policy writer agreed to start Intuniv which patient had been on before and said he found it somewhat helpful. Patient said it maybe helping and continue to take it this morning. Patient talked about OCD symptoms and how he has continued intrusive sexualized thoughts; he reiterates that he has no actual sexual urges but the thoughts continue and are very bothersome. Discussed options. Patient has taking clomipramine before which did not seem overly helpful; he was recently increased to venlafaxine 225 at last admission which he thinks has made some difference. Reviewed risks/side effects of options, including increasing venlafaxine further which patient would like to do. 01/24: Active on unit, social with peers. Patient reports having some anxiety and depression today; pt stated, I haven't had any intrusive thoughts today about suicide . Pt reports improved sleep last night. denies SI/HI/VH/AH. Venlafaxine increased to 300mg PO daily 01/25/25 told pt we will continue current treatment plan as per weekday providers 01/26/25 - ongoing lability mostly focused on attention 01/27/25- Repeat ammonia level 01/28 01/28 this , pt was found rifling through staff mailboxes; patient said he did this to show staff that they made a mistake allowing him access yesterday tried to climb over nursing station last night, threw himself on the floor; patient said he did this because he felt like no one was really caring about him and want to see if they would react Patient found to be with hyperammoniemia of 143. Discussed with patient possible etiologies given that patient has been on a stable Depakote dose for quite some time (and in the past even at higher doses); possibly increasing Effexor may have affected the liver though LFTs remain WNL, which could have increased ammonia level. Lactulose effective and lowered ammonia 77. Will continue with Depakote. Discussed medications further. Patient thinks that perhaps increase in Effexor has eliminated is intrusive thought to sexually grab or touched other people and he would like to remain on increased Effexor. Team Coordinator agrees that patient's ADHD symptoms remain to be a significant part of his struggles functioning. Discussed with Dr. Ramirez who agrees it is possible to increase Adderall and see if patient tolerates Staff reports to policy writer that in response to possible administrative discharge, patient said to covering providers, I'll just overdose if discharged. Patient told policy writer today that he has no plans to do that and will make sure he is in better behavioral control because he does not want to get administratively discharged. Of note, on admission pt explained to policy writer that he figured out ways to get himself admitted (so he could talk to doctors about his diagnosis...). And for this recent admission he reported SI to get himself so, though he was not actually suicidal; he had also thought of overdosing a little to get admitted which he alluded to doing in the past. Impression: -behaviors remains a mix of ADHD, personality disorder, OCD symptoms; maybe some mild hypomania however patient is able to sit and have organized discussion and is without other manic symptoms -patient has acknowledged he uses SI threats to get his way and patient is mostly at baseline; however policy writer agrees that medication adjustments could help and given his elevated ammonia, need to get this resolved For now will continue with Depakote level and monitor ammonia Will increase Adderall ER to 40 mg b.i.d. given that patient's ADHD symptoms significantly impair functioning Considered increasing Intuniv but will try increase in Adderall instead since on inpatient unit and opportunity to see effect Will continue with Effexor ER 300 mg and monitor ammonia 01/29 Patient reports intrusive thought to either touch someone or be touched inappropriately remained gone; however he says that thoughts do cycle in and out and to be sure it was the Effexor making this improvement it would take weeks on this medication patient to determine. With increased Adderall to 40 mg, patient is more calm, less reactive and takes redirection much easier. He also is editing himself a little better, not interrupting as much. Patient also agrees this increase dose seems to be helping. Discussed excess caffeine use on the unit and patient says he will cut down. No SI at all Patient shared that the main reason he seeks inpatient admission is because he is trying to get out of mental health court; he has been able to postpone it numerous times because of his admissions; he said he also comes because he wants medication adjustments. 01/30 pt continues to agree that increased Adderall dose is helping w/ impulse control; policy writer notices improved symptoms and that pt is with improved ability to self edit and be in control. He is actively stopping drinking excess caffiene as well. OCD syptoms remain but seem to be improved with specific urge remaining resolved. Ammonia back to baseline even while remaining on Depakote and w/out lactulose; discussed options and pt wants to remain on depakote but agrees to add LCarnitine as well. -it seems that patient is tolerating increased dose of Effexor and Adderall, with blood pressure, heart rate WNL -pt feels ready for discharge. He is at baseline. Patient is not in imminent risk for harm to self or others and appropriate to return to the community for treatment Plan: CV Q 15 minute checks Add l-carnitine 500 mg b.i.d. for liver protection on Depakote; even though ammonia has returned to WNL, there was no clear reason why it should have become elevated Increased Adderall ER to 40 mg b.i.d.; up from 30 mg b.i.d.. Increase seems to help Continue Intuniv 1 mg daily Continue increased venlafaxine ER 300 mg; may have helped with OCD; may have indirectly triggered hyperammonemia; no hypertension however Continue home medications Gather collateral Patient educated on: diagnosis, medication risk/benefits and therapeutic strategies Informed Consent: understands Reason for continued inpatient stay Substantial Risk for: stable for discharge Time Spent With Patient Time: Total time managing care of this patient today ____ minutes.
[2025-01-30] MEDS: Clotrimazole 1 % Cream 15 GM TUBE 1 APPL TOPICAL ×2 (13:13→19:58)
[2025-01-30 18:00] VITALS: BP 120/84; PULSE 120; RESP 16; TEMP 36.6; O2SAT 96
[2025-01-30 20:04] VITALS: BP 126/69; PULSE 110
[2025-01-30] MEDS: Propranolol HCL 10 MG TABLET PO (20:04)
[2025-01-30] MEDS: Melatonin 3 MG TABLET 9 MG PO (20:04)
[2025-01-30] MEDS: QUEtiapine Fumarate 50 MG TABLET 150 MG PO (20:04)
[2025-01-30] MEDS: traZODone HCL 50 MG TABLET PO (20:04)
[2025-01-30] MEDS: hydrOXYzine HCL 25 MG TABLET 125 MG PO (20:05)
[2025-01-31] MEDS: diazePAM 5 MG TABLET PO (07:25)
[2025-01-31] MEDS: Omeprazole 20 MG CAPSULE.DR PO (07:25)
[2025-01-31 08:04] VITALS: BP 148/65; PULSE 79; RESP 16; TEMP 36.8; O2SAT 98
[2025-01-31] MEDS: Dextroamphetamine/Amphetamine XR 10 MG CAP.ER.24H 40 MG PO (08:20)
[2025-01-31] MEDS: Venlafaxine HCl ER 150 MG CAP.ER.24H 300 MG PO (08:21)
[2025-01-31] MEDS: guanFACINE HCl ER 1 MG TAB.ER.24H PO (08:21)
[2025-01-31] MEDS: Nicotine 21 MG PATCH.TD24 TRANSDERMA (08:21)
[2025-01-31] MEDS: Lithium Carbonate ER 450 MG TABLET.ER PO (08:21)
[2025-01-31] MEDS: levOCARNitine Oral Sol 1,000 MG/10 ML UD Cup 500 MG PO (10:17)
[2025-01-31] MEDS: Dextroamphetamine/Amphetamine XR 10 MG CAP.ER.24H 20 MG PO (10:18)
--- NOTE | 2025-01-31 11:15 | PM.PSYDC ---
DS: Providers Provider Date of Service: 01/31/25 Date of admission: 01/21/25 12:00 Date of discharge: 01/31/25 Primary care physician: Unknown Physician Attending physician on admission: Vipin Marcus Consults: 01/21/25 12:16 Consult to Hospitalist Routine Comment: Consulting Provider: [facility] Hospitalists Reason For Exam: Transfer pt Attending physician on discharge: Vipin Marcus DS: Diagnosis Discharge Diagnosis (1) OCD (obsessive compulsive disorder): Status: Acute (2) ADHD (attention deficit hyperactivity disorder), predominantly hyperactive impulsive type: Status: Acute (3) Chronic post-traumatic stress disorder (PTSD): Status: Acute (4) Bipolar disorder: Status: Acute (5) Personality disorder: Status: Acute (6) Alcohol use disorder in remission: Status: Acute DS: Medications Discharge Medications Home Medications: Previous Rx's ?Medication ?Instructions ?Recorded clotrimazole 1 % topical cream 1 appl topical BID 21 days #15 01/31/25 grams dextroamphetamine-amphetamine ER 20 mg PO DAILY@1300 7 days #7 caps 01/31/25 20 mg 24hr capsule,extend release dextroamphetamine-amphetamine ER 60 mg (2 x 30 mg) PO DAILY 7 days 01/31/25 30 mg 24hr capsule,extend release #14 caps diazepam 5 mg tablet 5 mg PO BID PRN mod-severe 01/31/25 anxiety/intrusive thoughts 30 days #60 tabs divalproex 500 mg tablet,extended 1,500 mg (3 x 500 mg) PO BEDTIME 01/31/25 release 24 hr bipolar disorder 30 days #90 tabs ergocalciferol (vitamin D2) 1,250 1,250 mcg PO TH 30 days #5 caps 01/31/25 mcg (50,000 unit) capsule (Vitamin D2) guanfacine 1 mg tablet,extended 1 mg PO DAILY 30 days #30 tabs 01/31/25 release 24 hr hydroxyzine HCl 50 mg tablet 50 mg PO TID PRN mild anxiety 30 01/31/25 days #90 tabs levocarnitine 330 mg tablet 330 mg PO TID 30 days #90 tabs 01/31/25 lithium carbonate 450 mg 450 mg PO BID depressive disorder 01/31/25 tablet,extended release 30 days #60 tabs lorazepam 1 mg tablet 1 mg PO DAILY PRN for court 4 01/31/25 weeks #6 tabs melatonin 3 mg tablet 9 mg (3 x 3 mg) PO BEDTIME PRN 01/31/25 sleep 30 days #90 tabs nicotine (polacrilex) 4 mg gum 4 mg buccal Q2H 30 days #100 ea 01/31/25 nicotine 21 mg/24 hr daily 21 mg transdermal DAILY PRN 01/31/25 transdermal patch smoking cessation 28 days #28 ea omeprazole 20 mg capsule,delayed 20 mg PO DAILY@0630 PRN Acid 01/31/25 release Reflux 30 days #30 caps propranolol 10 mg tablet 10 mg PO QID PRN anxiety 30 days 01/31/25 #120 tabs quetiapine 150 mg tablet 150 mg PO BEDTIME 30 days #30 tabs 01/31/25 trazodone 50 mg tablet 50 mg PO BEDTIME MRX1 PRN Insomnia 01/31/25 30 days #45 tabs venlafaxine 150 mg 300 mg (2 x 150 mg) PO DAILY 30 01/31/25 capsule,extended release 24 hr days #60 caps Data Data Completed and Pending Completed studies during hospitalization [Text1]: 01/26/25 01/28/25 01/29/25 11:42 09:50 08:18 Hold Purple Top SEE NOTE Sodium 140 Potassium 4.1 Chloride 108 Carbon Dioxide 23 Anion Gap 13 BUN 11 Creatinine 0.80 Estim Creat Clear Calc 166.6 Estimated GFR > 60 Random Glucose 89 Calcium 8.9 Total Bilirubin 0.4 0.2 0.3 Direct Bilirubin 0.1 < 0.2 0.1 AST 43 H 29 25 ALT 22 18 20 Alkaline Phosphatase 38 L 41 41 Ammonia 143 H 77 H 66 H Total Protein 6.5 6.5 6.6 Albumin 4.1 4.0 4.2 Valproic Acid 86.7 69.9 [place] 0.60 01/30/25 07:39 Hold Purple Top Sodium Potassium Chloride Carbon Dioxide Anion Gap BUN Creatinine Estim Creat Clear Calc Estimated GFR Random Glucose Calcium Total Bilirubin Direct Bilirubin AST ALT Alkaline Phosphatase Ammonia 44 Total Protein Albumin Valproic Acid [place] DS: Summary Hospital Course Hospital Course: Patient is a 24-year-old male with history of bipolar disorder, OCD, PTSD, ADHD, alcohol use disorder in sustained remission who was recently discharged from 2 weeks ago who presented to the ED complaining of depression and SI with a plan to overdose on medications, which he says he stopped taking a few days ago. Patient has been boarding in the ED at [facility] for multiple days; now admitted to [facility], he presents at baseline without SI. He eludes to not having been truly suicide about wanting inpatient admission to discuss medication management. That said patient endorses continued, significant OCD symptoms with constant thoughts to touch people inappropriately; patient says he has no desire to do so but the thoughts remain. Though he denies any desire to act out and says he has not at all done so, He remains worried about what would happen if for some reason he did act out on his behavior or talked about it out loud. Patient also wants to talk about medication adjustment with adding immediate release Adderall saying that he remains struggling with impulse and behavioral control which is evident. -Patient denies alcohol or drug use other than cannabis -Patient lives at home with parents; has VNA services Formulation/clinical reasoning: Patient has severe patient has ongoing OCD symptoms which also create considerable impairment. Additionally, he also has severe ADHD symptoms only partially treated by medication; symptoms continue to impair functioning. Venlafaxine was recently increased to 225mg however may need to go higher.... Will continue to review medications. Given the severity of ADHD symptoms will consider adjusting stimulant regimen. While patient is loud, exuberant and intrusive, he does not appear to be hypomanic (no racing thoughts; organized thinking; able to sit and have a logical, give and take conversation; demonstrating baseline behaviors) and at this mind his symptoms seem to be able to be explained by severe ADHD. Hospital course: 01/23Yesterday after discussing continued ADHD symptoms, technical document writer explained that at this time not ready to increase Adderall above 60 mg; however technical document writer agreed to start Intuniv which patient had been on before and said he found it somewhat helpful. Patient said it maybe helping and continue to take it this morning. Patient talked about OCD symptoms and how he has continued intrusive sexualized thoughts; he reiterates that he has no actual sexual urges but the thoughts continue and are very bothersome. Discussed options. Patient has taking clomipramine before which did not seem overly helpful; he was recently increased to venlafaxine 225 at last admission which he thinks has made some difference. Reviewed risks/side effects of options, including increasing venlafaxine further which patient would like to do. 01/24: Active on unit, social with peers. Patient reports having some anxiety and depression today; pt stated, I haven't had any intrusive thoughts today about suicide . Pt reports improved sleep last night. denies SI/HI/VH/AH. Venlafaxine increased to 300mg PO daily 01/25/25 told pt we will continue current treatment plan as per weekday providers 01/26/25 - ongoing lability mostly focused on attention 01/27/25- Repeat ammonia level 01/28 01/28 this weekend, pt was found rifling through staff mailboxes; patient said he did this to show staff that they made a mistake allowing him access yesterday tried to climb over nursing station last night, threw himself on the floor; patient said he did this because he felt like no one was really caring about him and want to see if they would react Patient found to be with hyperammoniemia of 143. Discussed with patient possible etiologies given that patient has been on a stable Depakote dose for quite some time (and in the past even at higher doses); possibly increasing Effexor may have affected the liver though LFTs remain WNL, which could have increased ammonia level. Lactulose effective and lowered ammonia 77. Will continue with Depakote. Discussed medications further. Patient thinks that perhaps increase in Effexor has eliminated is intrusive thought to sexually grab or touched other people and he would like to remain on increased Effexor. Rf Design Engineer agrees that patient's ADHD symptoms remain to be a significant part of his struggles functioning. Discussed with Dr. Ramirez who agrees it is possible to increase Adderall and see if patient tolerates Staff reports to technical document writer that in response to possible administrative discharge, patient said to covering providers, I'll just overdose if discharged. Patient told technical document writer today that he has no plans to do that and will make sure he is in better behavioral control because he does not want to get administratively discharged. Of note, on admission pt explained to technical document writer that he figured out ways to get himself admitted (so he could talk to doctors about his diagnosis...). And for this recent admission he reported SI to get himself so, though he was not actually suicidal; he had also thought of overdosing a little to get admitted which he alluded to doing in the past. Impression: -behaviors remains a mix of ADHD, personality disorder, OCD symptoms; maybe some mild hypomania however patient is able to sit and have organized discussion and is without other manic symptoms -patient has acknowledged he uses SI threats to get his way and patient is mostly at baseline; however technical document writer agrees that medication adjustments could help and given his elevated ammonia, need to get this resolved For now will continue with Depakote level and monitor ammonia Will increase Adderall ER to 40 mg b.i.d. given that patient's ADHD symptoms significantly impair functioning Considered increasing Intuniv but will try increase in Adderall instead since on inpatient unit and opportunity to see effect Will continue with Effexor ER 300 mg and monitor ammonia 01/29 Patient reports intrusive thought to either touch someone or be touched inappropriately remained gone; however he says that thoughts do cycle in and out and to be sure it was the Effexor making this improvement it would take weeks on this medication patient to determine. With increased Adderall to 40 mg, patient is more calm, less reactive and takes redirection much easier. He also is editing himself a little better, not interrupting as much. Patient also agrees this increase dose seems to be helping. Discussed excess caffeine use on the unit and patient says he will cut down. No SI at all Patient shared that the main reason he seeks inpatient admission is because he is trying to get out of mental health court; he has been able to postpone it numerous times because of his admissions; he said he also comes because he wants medication adjustments. 01/30 pt continues to agree that increased Adderall dose is helping w/ impulse control; technical document writer notices improved symptoms and that pt is with improved ability to self edit and be in control. He is actively stopping drinking excess caffiene as well. OCD syptoms remain but seem to be improved with specific urge remaining resolved. Ammonia back to baseline even while remaining on Depakote and w/out lactulose; discussed options and pt wants to remain on depakote but agrees to add LCarnitine as well. -it seems that patient is tolerating increased dose of Effexor and Adderall, with blood pressure, heart rate WNL -pt feels ready for discharge. He is at baseline. Patient is not in imminent risk for harm to self or others and appropriate to return to the community for treatment Plan: CV Q 15 minute checks Add l-carnitine 500 mg b.i.d. for liver protection on Depakote; even though ammonia has returned to WNL, there was no clear reason why it should have become elevated Increased Adderall ER to 40 mg b.i.d.; up from 30 mg b.i.d.. Increase seems to help Continue Intuniv 1 mg daily Continue increased venlafaxine ER 300 mg; may have helped with OCD; may have indirectly triggered hyperammonemia; no hypertension however Continue home medications Gather collateral Time Spent with Patient Time attestation: Total time managing care of this patient today ____ minutes. Discharge Plan Discharge Anticipated Discharge Date/Time: 01/31/25 11:00 Patient Disposition: Home, Self-Care Discharge Diagnosis: OCD Referrals: [facility] [Other] - 1 Week (fax- [phone] VAN to restart at D/C. ) [facility] [Other] - 1 Week (Referral to psychiatric day program Program will follow-up with patient after discharge to the community to schedule intake ) Department of mental health (DM) [Other] - 1 Week (Referral for DM Services [facility] has up to 90 days to review application and will follow-up with you in the community after discharge.) [facility] [Other] - 02/03/25 1:30 pm (Hospital Discharge Appointment for psychiatric medication evaluation services. ) Physician,Unknown J [Primary Care Provider] - 1 Week (Please call PCP or [facility] for follow-up appt within [address] [address] ) Discharge Medications: New guanfacine 1 mg Tablet Extended Release 24 Hr 1 mg PO DAILY 30 Days Qty: 30 0RF levocarnitine 330 mg tablet 330 mg PO TID 30 Days Qty: 90 0RF Rx Instructions: must administer with a meal/food diazepam 5 mg tablet 5 mg PO BID PRN (Reason: mod-severe anxiety/intrusive thoughts) 30 Days Qty: 60 0RF dextroamphetamine-amphetamine 30 mg capsule,extended release 24hr 60 mg PO DAILY 7 Days Qty: 14 0RF Rx Instructions: Partial Fill upon patient request. dextroamphetamine-amphetamine 20 mg capsule,extended release 24hr 20 mg PO DAILY@1300 7 Days Qty: 7 0RF Rx Instructions: Partial Fill upon patient request. Continued trazodone 50 mg Tablet 50 mg PO BEDTIME MRX1 PRN (Reason: Insomnia) 30 Days Qty: 45 1RF hydroxyzine HCl 50 mg tablet 50 mg PO TID PRN (Reason: mild anxiety) 30 Days Qty: 90 1RF lithium carbonate 450 mg tablet extended release 450 mg PO BID 30 Days Qty: 60 1RF propranolol 10 mg tablet 10 mg PO QID PRN (Reason: anxiety) 30 Days Qty: 120 1RF nicotine (polacrilex) 4 mg gum 4 mg buccal Q2H 30 Days Qty: 100 0RF nicotine 21 mg/24 hr Patch 24 Hour 21 mg transdermal DAILY PRN (Reason: smoking cessation) 28 Days Qty: 28 0RF Rx Instructions: remove at bedtime omeprazole 20 mg capsule,delayed release(DR/EC) 20 mg PO DAILY@0630 PRN (Reason: Acid Reflux) 30 Days Qty: 30 1RF ergocalciferol (vitamin D2) [Vitamin D2] 1,250 mcg (50,000 unit) Capsule 1,250 mcg PO TH 30 Days Qty: 5 1RF Rx Instructions: weekly on lorazepam 1 mg Tablet 1 mg PO DAILY PRN (Reason: for court) 28 Days Qty: 6 1RF clotrimazole 1 % Cream 1 appl topical BID 21 Days Qty: 15 0RF Protocol: Apply to: Apply to: feet Rx Instructions: apply to affected area quetiapine 150 mg tablet 150 mg PO BEDTIME 30 Days Qty: 30 0RF Changed venlafaxine 150 mg Capsule,Extended Release 24hr 300 mg PO DAILY 30 Days Qty: 60 0RF Rx Instructions: take with 75mg capsule melatonin 3 mg tablet 9 mg PO BEDTIME PRN (Reason: sleep) 30 Days Qty: 90 0RF divalproex 500 mg tablet extended release 24 hr 1,500 mg PO BEDTIME 30 Days Qty: 90 0RF Discontinued diazepam 5 mg tablet 5 mg PO BEDTIME PRN (Reason: moderate anxiety/intrusive thoughts) 30 Days Qty: 60 0RF quetiapine 50 mg Tablet 50 mg PO DAILY 30 Days Qty: 30 1RF venlafaxine 75 mg Capsule,Extended Release 24hr 75 mg PO DAILY 30 Days Qty: 30 1RF Rx Instructions: take with 150mg capsule dextroamphetamine-amphetamine 30 mg capsule,extended release 24hr 30 mg PO BID@0900,1300 30 Days Qty: 60 0RF Rx Instructions: Partial Fill upon patient request. Discharge Orders: Discharge Order (Routine); Ordered 01/31/25 Ordered By: Vipin Marcus Diet: Regular diet Activity on Discharge: As tolerated Stand Alone Forms: Patient Portal Discharge page, Community Support Print Language: Unable To Collect Other Ambulatory Orders: Ammonia (Routine) Timeframe: [id number] Facility: [facility] - Location: Laboratory Ordered By: Vipin Marcus Care Plan Goals: Maintain mood and safe behaviors Take medications as prescribed Continue to pursue sobriety Practice coping skills Continue with outpatient providers and reach out to them as needed Health Concerns: Mood stability and behaviors Plan of Treatment: Follow up with your PCP, psychiatric provider and other outpatient providers regarding above concerns Take medications as prescribed Assessment: Risk assessment at time of discharge:? Patient was interviewed prior to discharge and found to be fully oriented and without any SI or HI. Patient has improved insight and judgment and wants to continue treatment. Patient is not in imminent risk of harm to self or others and has a safety plan that includes presenting to the closest ER or calling 911 if feeling unsafe.? Patient has been observed closely by nursing and unit staff throughout admission; patient has not engaged in any behaviors that suggest dangerousness to self or others and has demonstrated appropriate behaviors and impulse control Discharge Date/Time: 01/31/25 11:59
--- NOTE | 2025-01-31 11:30 | PC.NURSE ---
pt reports I'm ready for discharge so I'll see you in like 2 weeks . When asked why the patient would be returning he states because it ges me out of court. I just got a free 10 days !
[2025-01-31 12:36] LABS: Ammonia 55 umol/L (13-55)
== END 2025-01-31 11:59 | disposition home or self-care (01) | DRG 753 ==
PROVIDERS: Clinical Nurse Specialist Psychiatric/Mental Health, Adult; Nurse Practitioner Family; Admitting Provider Psychiatry & Neurology Psychiatry; Visit Provider Psychiatry & Neurology Psychiatry
DX: F31.9 Bipolar disorder, unspecified (principal); R45.851 Suicidal ideations; B35.3 Tinea pedis; B35.9 Dermatophytosis, unspecified; F17.210 Nicotine dependence, cigarettes, uncomplicated; F43.12 Post-traumatic stress disorder, chronic; J45.990 Exercise induced bronchospasm; E78.1 Pure hyperglyceridemia; F42.9 Obsessive-compulsive disorder, unspecified; F90.1 Attention-deficit hyperactivity disorder, predominantly hyperactive type; F60.9 Personality disorder, unspecified; F10.91 Alcohol use, unspecified, in remission; Z71.6 Tobacco abuse counseling; Z79.899 Other long term (current) drug therapy
CPT/HCPCS: 36415; 80048; 80061; 80076; 80164; 80178; 81003; 82140; 82607; 82746; 83036; 83735; 84439; 84443; J3230

== ENCOUNTER → 2025-01-21 12:00 | Outpatient (BNV) | payer OTHER, SELFPAY | PROVIDERS: Admitting Provider Psychiatry & Neurology Psychiatry; Visit Provider Psychiatry & Neurology Psychiatry | DX: F31.4 Bipolar disorder, current episode depressed, severe, without psychotic features (principal); F42.9 Obsessive-compulsive disorder, unspecified; F90.1 Attention-deficit hyperactivity disorder, predominantly hyperactive type; F43.12 Post-traumatic stress disorder, chronic; F60.9 Personality disorder, unspecified; F10.91 Alcohol use, unspecified, in remission | CPT/HCPCS: 90792; 99232 ==

== ENCOUNTER → 2025-01-21 12:00 | Outpatient (BNV) | payer OTHER, SELFPAY | PROVIDERS: Admitting Provider Psychiatry & Neurology Psychiatry; Visit Provider Nurse Practitioner Family | DX: R33.9 Retention of urine, unspecified (principal) | CPT/HCPCS: 99222 ==

== ENCOUNTER 2025-03-11 15:04 | Inpatient (IN) | payer OTHER, SELFPAY ==
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
[2025-03-11 15:21] VITALS: BP 148/85; PULSE 81; RESP 20; TEMP 36.8; O2SAT 97
[2025-03-11 15:29] VITALS: BMI 35.5
[2025-03-11] MEDS: Dextroamphetamine/Amphetamine XR 10 MG CAP.ER.24H 30 MG PO (16:04)
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
[2025-03-11] MEDS: diazePAM 5 MG TABLET PO (17:56)
[2025-03-11] MEDS: Nicotine Polacrilex 2 MG GUM 4 MG BUCCAL (18:01)
--- NOTE | 2025-03-11 18:37 | PC.NURSE ---
TW overhead pt telling city secretary, you can suck my d*ck after city secretary tried to redirect pt when he became upset that another pt was using the phone. Pt denied the comment then stated that he was saying it to the peer that was on the phone. Several moments later pt was in the kitchen and was overheard calling a male peer a f*cking idiot after the peer asked where hamburgs were made. Several pts also approached this travel writer to report Toni was in the kitchen when a make-a-wish commercial came on to [facility] the pt is reported to state i once made a wish. I wished all the kids with cancer would . Shortly after this rported incident pts mother came to visit. Pt was witnessed using a cell phone in the common area with his mother. Both were approched by TW and educated about the policy of cell phone use on the unit and both stated they were just looking something up real quick . The community service aide told TW she asked the pts mother if she had a cell phone, keys, or wallet and was told no .
[2025-03-11 20:00] VITALS: BP 134/72; PULSE 100; TEMP 36.7; O2SAT 98
[2025-03-11 20:22] VITALS: BP 134/72; PULSE 100
[2025-03-11] MEDS: Propranolol HCL 10 MG TABLET PO (20:22)
[2025-03-11] MEDS: QUEtiapine Fumarate 200 MG TABLET PO (20:23)
[2025-03-11] MEDS: Lithium Carbonate ER 450 MG TABLET.ER PO (20:23)
[2025-03-11] MEDS: traZODone HCL 50 MG TABLET PO (20:23)
[2025-03-11] MEDS: Melatonin 3 MG TABLET 9 MG PO (20:23)
[2025-03-12 07:58] VITALS: BP 113/61; PULSE 55; RESP 16; TEMP 36.1; O2SAT 97
[2025-03-12] MEDS: Venlafaxine HCl ER 150 MG CAP.ER.24H 300 MG PO (08:42)
[2025-03-12] MEDS: guanFACINE HCl ER 1 MG TAB.ER.24H PO (08:42)
[2025-03-12] MEDS: Omeprazole 20 MG CAPSULE.DR PO (08:42)
[2025-03-12] MEDS: Lithium Carbonate ER 450 MG TABLET.ER PO ×2 (08:42→21:15)
[2025-03-12] MEDS: Dextroamphetamine/Amphetamine XR 10 MG CAP.ER.24H 60 MG PO (08:42)
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
[2025-03-12 10:22] VITALS: PULSE 64
[2025-03-12] MEDS: Propranolol HCL 10 MG TABLET PO (10:22)
[2025-03-12] MEDS: diazePAM 5 MG TABLET PO ×2 (10:22→21:15)
[2025-03-12] MEDS: levOCARNitine Oral Sol 1,000 MG/10 ML UD Cup 330 MG PO ×3 (11:53→21:15)
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
[2025-03-12] MEDS: Dextroamphetamine/Amphetamine XR 10 MG CAP.ER.24H 30 MG PO (12:03)
[2025-03-12] MEDS: Acetaminophen 325 MG TABLET 650 MG PO (13:43)
[2025-03-12] MEDS: chlorproMAZINE HCl 100 MG TABLET PO (15:10)
[2025-03-12] MEDS: Magnesium Hydrox/Alum Hydrox 30 ML ORAL.SUSP PO (15:22)
[2025-03-12 20:00] VITALS: BP 133/79; PULSE 80; TEMP 36.4; O2SAT 96
[2025-03-12] MEDS: QUEtiapine Fumarate 200 MG TABLET PO (21:15)
[2025-03-13] MEDS: Omeprazole 20 MG CAPSULE.DR PO ×2 (08:15→08:19)
[2025-03-13] MEDS: levOCARNitine Oral Sol 1,000 MG/10 ML UD Cup 330 MG PO ×2 (08:18→14:39)
[2025-03-13] MEDS: Venlafaxine HCl ER 150 MG CAP.ER.24H 300 MG PO (08:19)
[2025-03-13] MEDS: guanFACINE HCl ER 2 MG TAB.ER.24H PO (08:19)
[2025-03-13] MEDS: Ergocalciferol (Vitamin D2) 1,250 MCG CAPSULE 1250 MCG PO (08:19)
[2025-03-13] MEDS: Lithium Carbonate ER 450 MG TABLET.ER PO ×2 (08:20→20:13)
[2025-03-13] MEDS: Dextroamphetamine/Amphetamine XR 10 MG CAP.ER.24H 60 MG PO (08:20)
[2025-03-13 08:24] LABS: Estimated Average Glucose 100 mg/dL; Hemoglobin A1C 121.0754 umol/L; Hemoglobin A1c % 5.1 % (<6.0); Total Hemoglobin (HGBA1C) 3811.6261 umol/L
[2025-03-13 08:31] LABS: Alanine Aminotransferase 19 U/L (0-40); Albumin Level 4.2 g/dL (3.5-5.0); Alkaline Phosphatase 43 U/L (39-117); Anion Gap 11 (12-20); Aspartate Amino Transferase 20 U/L (5-37); Bilirubin Total 0.2 mg/dL (0.0-1.0); Blood Urea Nitrogen 10 mg/dL (9-16); Calcium 9.3 mg/dL (8.4-10.2); Carbon Dioxide 29 mmol/L (22-29); Chloride 107 mmol/L (96-108); Cholesterol 196 mg/dL (<200); Creatinine Clr Calc Pharmacy 147.5; Estimated Glomerular Filt Rate > 60; Glucose Random 89 mg/dL (60-115); HDL Cholesterol 51 mg/dL (>40); LDL Cholesterol Calculated 114 mg/dL (<100); Potassium 4.6 mmol/L (3.3-5.1); Sodium 142 mmol/L (135-145); Total Protein 6.4 g/dL (6.5-8.0); Triglycerides 158 mg/dL (<150)
[2025-03-13] MEDS: Nicotine Polacrilex 2 MG GUM 4 MG BUCCAL ×3 (09:14→20:20)
[2025-03-13] MEDS: Nicotine 21 MG PATCH.TD24 TRANSDERMA (09:14)
--- NOTE | 2025-03-13 11:06 | P.PNPSI_ITS ---
Subjective Subjective Date of Service: 03/13/25 Reason For Visit: decompensation Subjective Notes: Conditional Voluntary and 3 Day Healthcare Proxy: No Guardianship: No Medical Problems Affecting Mental Status: No Interim History: Pt met with Dr. Ramirez. He will re-trial Trileptal. He will call the office for an appt with Dr. Ramirez and Dr. Marcus and his parents to discuss ECT. Pt will discharge tomorrow. Met with pt and mother to review plan. Both are in agreement. Pt is accepting of this. Medications reviewed. Will keep Adderall/Valium at doses agreed upon by pt and Dr. Marcus. VNA requested. Medication Compliance: Yes Side effects from medications: No Attending Groups: Intermittent Review of Systems Acute medical concerns: No Review of Systems Review of Systems Denies Mental Status Exam Mental Status Exam Patient Appearance: Disheveled Patient Orientation: Person, Place, Time and Situation Level of Consciousness: Alert Patient Behavior: Talkative, Hyperactive, Cooperative, Anxious, Distractible and Good Eye Contact Mood Description: Labile Affect Description: Labile Patient Cognition Impaired: No Ability to Follow Directions: Good Speech Pattern: Spontaneous Speech and Pressured Memory Description: Episodic Impaired Hallucinations: None Delusions: Grandiose Thought Process: Distracted Thought Content: positive for Circumstantial, positive for Preoccupation and positive for Suicidal Ideation (denies) Depressive Symptoms: Increased Anxiety and Difficulty Concentrating Judgement: Fair Diagnostics Vital Signs (24Hr): Vital Signs - 24 hr 03/12/25 20:00 Temperature 97.5 F Pulse Rate 80 Blood Pressure 133/79 Pulse Oximetry 96 Oxygen Delivery Method Room Air BMI result Body Mass Index 35.5 Labs 03/13/25 08:05 Labs: Laboratory Results - last 48 hr 03/13/25 08:05 Sodium 142 Potassium 4.6 Chloride 107 Carbon Dioxide 29 Anion Gap 11 L BUN 10 Creatinine 0.93 Estim Creat Clear Calc 147.5 Estimated GFR > 60 Random Glucose 89 Estimat Average Glucose 100 Hemoglobin A1c % 5.1 Calcium 9.3 Total Bilirubin 0.2 AST 20 ALT 19 Alkaline Phosphatase 43 Total Protein 6.4 L Albumin 4.2 Triglycerides 158 H Cholesterol 196 LDL Cholesterol, Calc 114 H HDL Cholesterol 51 [place] 0.50 L Imaging Radiology Impressions: ITS Impressions Orbit X-Ray 03/12/25 13:10 IMPRESSION: No acute fracture. No gross foreign body. Electronically signed by: Óscar Falk MD 03/12/2025 01:53 PM EDT RP Medications Medications Current Medications Acetaminophen (Acetaminophen 325 Mg Tablet) 650 mg PO Q6H PRN PRN Reason: Headache/Pain, Scale 1-10 Last Admin: 03/12/25 13:43 Dose: 650 mg Al Hydroxide/Mg Hydroxide (Magnesium Hydrox/Alum Hydrox 30 Ml Oral.Susp) 30 ml PO Q6H PRN PRN Reason: Heartburn/Nausea Last Admin: 03/12/25 15:22 Dose: 30 ml Amphetamine/Dextroamphetamine (Dextroamphetamine/Amphetamine Xr 10 Mg Cap.Er.24h) 60 mg PO DAILY [facility] Last Admin: 03/13/25 08:20 Dose: 60 mg Amphetamine/Dextroamphetamine (Dextroamphetamine/Amphetamine Xr 10 Mg Cap.Er.24h) 30 mg PO DAILY@1300 [facility] Last Admin: 03/12/25 12:03 Dose: 30 mg Chlorpromazine HCl (Chlorpromazine Hcl 100 Mg Tablet) 100 mg PO TID PRN PRN Reason: agitation Last Admin: 03/12/25 15:10 Dose: 100 mg Diazepam (Diazepam 5 Mg Tablet) 5 mg PO BID PRN PRN Reason: mod-sev anx/intrusive thoughts Last Admin: 03/12/25 21:15 Dose: 5 mg Ergocalciferol (Ergocalciferol (Vitamin D2) 1,250 Mcg Capsule) 1,250 mcg PO Th@0900 [facility] Last Admin: 03/13/25 08:19 Dose: 1,250 mcg Guanfacine HCl (Guanfacine Hcl Er 2 Mg Tab.Er.24h) 2 mg PO DAILY [facility] Last Admin: 03/13/25 08:19 Dose: 2 mg Hydroxyzine HCl (Hydroxyzine Hcl 25 Mg Tablet) 25 mg PO Q6H PRN PRN Reason: mild anxiety Levocarnitine (Levocarnitine Oral [place] 1,000 Mg/10 Ml Ud Cup) 330 mg PO TID [facility] Last Admin: 03/13/25 08:18 Dose: 330 mg [place] Carbonate ([place] Carbonate Er 450 Mg Tablet.Er) 450 mg PO BID [facility] Last Admin: 03/13/25 08:20 Dose: 450 mg Magnesium Hydroxide (Milk Of Magnesia 30 Ml Oral.Susp) 30 ml PO DAILY PRN PRN Reason: Constipation Melatonin (Melatonin 3 Mg Tablet) 9 mg PO BEDTIME PRN PRN Reason: Insomnia Last Admin: 03/11/25 20:23 Dose: 9 mg Nicotine (Nicotine 21 Mg Patch.Td24) 21 mg TRANSDERMA DAILY PRN PRN Reason: smoking cessation Last Admin: 03/13/25 09:14 Dose: 21 mg Nicotine Polacrilex (Nicotine Polacrilex 2 Mg Gum) 4 mg BUCCAL Q2H PRN PRN Reason: Nicotine Cravings Last Admin: 03/13/25 09:14 Dose: 4 mg Omeprazole (Omeprazole 20 Mg Capsule.Dr) 20 mg PO DAILY@0630 [facility] Last Admin: 03/13/25 08:19 Dose: 20 mg Propranolol HCl (Propranolol Hcl 10 Mg Tablet) 10 mg PO QID PRN; Protocol PRN Reason: anxiety Last Admin: 03/12/25 10:22 Dose: 10 mg Quetiapine Fumarate (Quetiapine Fumarate 200 Mg Tablet) 200 mg PO BEDTIME [facility] Last Admin: 03/12/25 21:15 Dose: 200 mg Trazodone HCl (Trazodone Hcl 50 Mg Tablet) 50 mg PO BEDTIME MRX1 PRN PRN Reason: Insomnia Last Admin: 03/11/25 20:23 Dose: 50 mg Venlafaxine HCl (Venlafaxine Hcl Er 150 Mg Cap.Er.24h) 300 mg PO DAILY [facility] Last Admin: 03/13/25 08:19 Dose: 300 mg Allergies Allergies Allergy/AdvReac Type Severity Reaction Status Date / Time fish derived (fish) Allergy Unknown Verified 01/01/25 13:38 haloperidol (From Haldol) Allergy Unknown Verified 01/01/25 13:38 Assessment & Plan Assessment & Plan (1) Bipolar disorder: Status: Acute Code(s): F31.9 - Bipolar disorder, unspecified (2) OCD (obsessive compulsive disorder): Status: Acute Code(s): F42.9 - Obsessive-compulsive disorder, unspecified (3) Chronic post-traumatic stress disorder (PTSD): Status: Acute Code(s): F43.12 - Post-traumatic stress disorder, chronic (4) Personality disorder: Status: Acute Code(s): F60.9 - Personality disorder, unspecified (5) ADHD (attention deficit hyperactivity disorder), predominantly hyperactive impulsive type: Status: Acute Code(s): F90.1 - Attention-deficit hyperactivity disorder, predominantly hyperactive type (6) Cannabis use disorder: Status: Acute Code(s): F12.90 - Cannabis use, unspecified, uncomplicated Plan Admit, CV, 15 minute checks Collateral Contact Diagnostics as needed- [place] level 03/13 Encourage milieu participation Behavioral planning reviewed with pt Re-establish med regime --Increase Guanfacine to 2 mg daily --Chlorpromazine prn CAT Head L Orbital Xray ECT consult 03/13: Trileptal 300 mg bid DC 03/14 OP ECT Consult with Dr. Ramirez and Dr. Marcus [facility] Reason for continued inpatient stay Substantial Risk for: rapid decompensation Time Spent With Patient Time: Total time managing care of this patient today ____ minutes.
[2025-03-13] MEDS: diazePAM 5 MG TABLET PO ×2 (11:23→16:05)
[2025-03-13] MEDS: Dextroamphetamine/Amphetamine XR 10 MG CAP.ER.24H 30 MG PO (12:36)
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
[2025-03-13 14:37] VITALS: BP 135/89; PULSE 94
[2025-03-13] MEDS: Propranolol HCL 10 MG TABLET PO (14:37)
[2025-03-13 20:00] VITALS: BP 129/83; PULSE 93; RESP 16; TEMP 36.4; O2SAT 98
[2025-03-13] MEDS: OXcarbazepine 300 MG TABLET PO (20:13)
[2025-03-13] MEDS: QUEtiapine Fumarate 200 MG TABLET PO (20:13)
[2025-03-13] MEDS: chlorproMAZINE HCl 100 MG TABLET PO (20:20)
[2025-03-13] MEDS: Melatonin 3 MG TABLET 9 MG PO (20:20)
--- NOTE | 2025-03-14 03:24 | PC.NURSE ---
Patient refused Carnitor at 2100 hours
[2025-03-14] MEDS: Dextroamphetamine/Amphetamine XR 10 MG CAP.ER.24H 60 MG PO (07:59)
[2025-03-14] MEDS: OXcarbazepine 300 MG TABLET PO (08:00)
[2025-03-14] MEDS: Lithium Carbonate ER 450 MG TABLET.ER PO (08:01)
[2025-03-14] MEDS: Venlafaxine HCl ER 150 MG CAP.ER.24H 300 MG PO (08:01)
[2025-03-14] MEDS: Omeprazole 20 MG CAPSULE.DR PO (08:01)
[2025-03-14] MEDS: guanFACINE HCl ER 2 MG TAB.ER.24H PO (08:01)
[2025-03-14] MEDS: levOCARNitine Oral Sol 1,000 MG/10 ML UD Cup 330 MG PO (08:03)
[2025-03-14] MEDS: diazePAM 5 MG TABLET PO (08:49)
--- NOTE | 2025-03-14 14:46 | PM.PSYDC ---
DS: Providers Provider Date of admission: 03/11/25 15:04 Primary care physician: None Physician Consults: 03/11/25 15:30 Consult to Hospitalist Routine Comment: Consulting Provider: [facility] Hospitalists Reason For Exam: admission physcial 03/12/25 14:47 Consult to Psychiatry Routine Consulting Provider: Edwin Ramirez Reason for consultation: ECT- OCD, Bipolar Disorder Has provider been notified: Yes DS: Diagnosis Discharge Diagnosis (1) Bipolar disorder: Status: Acute (2) OCD (obsessive compulsive disorder): Status: Acute (3) Chronic post-traumatic stress disorder (PTSD): Status: Acute (4) Personality disorder: Status: Acute (5) ADHD (attention deficit hyperactivity disorder), predominantly hyperactive impulsive type: Status: Acute (6) Cannabis use disorder: Status: Acute DS: Medications Discharge Medications Home Medications: Previous Rx's ?Medication ?Instructions ?Recorded lithium carbonate 450 mg 450 mg PO BID depressive disorder 01/31/25 tablet,extended release 30 days #60 tabs omeprazole 20 mg capsule,delayed 20 mg PO DAILY@0630 PRN Acid 01/31/25 release Reflux 30 days #30 caps propranolol 10 mg tablet 10 mg PO QID PRN anxiety 30 days 01/31/25 #120 tabs trazodone 50 mg tablet 50 mg PO BEDTIME MRX1 PRN Insomnia 01/31/25 30 days #45 tabs acetaminophen 325 mg tablet 650 mg (2 x 325 mg) PO Q6H PRN 03/13/25 Headache/Pain, Scale 1-10 #0 tabs chlorpromazine 100 mg tablet 100 mg PO TID PRN agitation #21 03/13/25 tabs dextroamphetamine-amphetamine ER 30 mg PO DAILY #21 caps 03/13/25 30 mg 24hr capsule,extend release (Adderall XR) diazepam 5 mg tablet 5 mg PO BID PRN mod-severe 03/13/25 anxiety/intrusive thoughts 30 days #14 tabs ergocalciferol (vitamin D2) 1,250 1,250 mcg PO TH 30 days #5 caps 03/13/25 mcg (50,000 unit) capsule (Vitamin D2) guanfacine 2 mg tablet,extended 2 mg PO DAILY #30 tabs 03/13/25 release 24 hr hydroxyzine HCl 25 mg tablet 25 mg PO Q6H PRN mild anxiety #30 03/13/25 tabs levocarnitine 330 mg tablet 330 mg PO TID 30 days #90 tabs 03/13/25 lorazepam 1 mg tablet 1 mg PO DAILY PRN anxiety #6 tabs 03/13/25 melatonin 3 mg tablet 9 mg (3 x 3 mg) PO BEDTIME PRN 03/13/25 sleep 30 days #90 tabs nicotine (polacrilex) 4 mg gum 4 mg buccal Q2H 30 days #100 ea 03/13/25 nicotine 21 mg/24 hr daily 21 mg transdermal DAILY PRN 03/13/25 transdermal patch smoking cessation 28 days #28 ea oxcarbazepine 300 mg tablet 300 mg PO BID #30 tabs 03/13/25 quetiapine 200 mg tablet 200 mg PO BEDTIME #7 tabs 03/13/25 venlafaxine 150 mg 300 mg (2 x 150 mg) PO DAILY #60 03/13/25 capsule,extended release 24 hr caps Data Data Completed and Pending Completed studies during hospitalization [Text1]: 03/13/25 08:05 Sodium 142 Potassium 4.6 Chloride 107 Carbon Dioxide 29 Anion Gap 11 L BUN 10 Creatinine 0.93 Estim Creat Clear Calc 147.5 Estimated GFR > 60 Random Glucose 89 Estimat Average Glucose 100 Hemoglobin A1c % 5.1 Calcium 9.3 Total Bilirubin 0.2 AST 20 ALT 19 Alkaline Phosphatase 43 Total Protein 6.4 L Albumin 4.2 Triglycerides 158 H Cholesterol 196 LDL Cholesterol, Calc 114 H HDL Cholesterol 51 [place] 0.50 L Imaging Diagnostic Imaging Impressions Orbit X-Ray 03/12/25 13:10 IMPRESSION: No acute fracture. No gross foreign body. Electronically signed by: Óscar Falk MD 03/12/2025 01:53 PM EDT DS: Summary Time Spent with Patient Time attestation: Total time managing care of this patient today ____ minutes. Discharge Plan Discharge Anticipated Discharge Date/Time: 03/14/25 12:00 Patient Disposition: Home, Self-Care Discharge Diagnosis: PTSD Bipolar Disorder ADHD OCD Personality Disorder Cannabis use Disorder Referrals: [facility] Visiting RN [Other] - 1 Week Referral Note: Fax- [phone] Please follow up on referral made to [facility] to help to monitor medication compliance. [facility] is waiting for confirmation from Dr Peters's office that they would be willing to sign treatment orders. [facility] [Other] - 1 Week Referral Note: Call PACT for support as needed Psych Prescriber: Dr. Herman ([facility] PACT) [Other] - 03/17/25 10:00 am Referral Note: [facility] team will pick you up to transport you to this appointment Ben Peters NP [Nurse Practitioner, Internal Medicine] - 1 Week Discharge Medications: New acetaminophen 325 mg Tablet 650 mg PO Q6H PRN (Reason: Headache/Pain, Scale 1-10) Qty: 0 0RF chlorpromazine 100 mg Tablet 100 mg PO TID PRN (Reason: agitation) Qty: 21 4RF oxcarbazepine 300 mg Tablet 300 mg PO BID Qty: 30 1RF hydroxyzine HCl 25 mg Tablet 25 mg PO Q6H PRN (Reason: mild anxiety) Qty: 30 0RF guanfacine 2 mg Tablet Extended Release 24 Hr 2 mg PO DAILY Qty: 30 0RF venlafaxine 150 mg Capsule,Extended Release 24hr 300 mg PO DAILY Qty: 60 0RF dextroamphetamine-amphetamine [Adderall XR] 30 mg capsule,extended release 24hr 30 mg PO DAILY Qty: 21 0RF Rx Instructions: Partial Fill upon patient request. Take 2 caps in the a.m. (60 mg) Take 1 cap in the afternoon (30 mg) lorazepam 1 mg tablet 1 mg PO DAILY PRN (Reason: anxiety) Qty: 6 0RF Rx Instructions: Take when attending court or identified stressful events Continued trazodone 50 mg Tablet 50 mg PO BEDTIME MRX1 PRN (Reason: Insomnia) 30 Days Qty: 45 1RF lithium carbonate 450 mg tablet extended release 450 mg PO BID 30 Days Qty: 60 1RF propranolol 10 mg tablet 10 mg PO QID PRN (Reason: anxiety) 30 Days Qty: 120 1RF omeprazole 20 mg capsule,delayed release(DR/EC) 20 mg PO DAILY@0630 PRN (Reason: Acid Reflux) 30 Days Qty: 30 1RF quetiapine 200 mg tablet 200 mg PO BEDTIME Qty: 7 4RF melatonin 3 mg tablet 9 mg PO BEDTIME PRN (Reason: sleep) 30 Days Qty: 90 0RF levocarnitine 330 mg tablet 330 mg PO TID 30 Days Qty: 90 0RF Rx Instructions: must administer with a meal/food nicotine (polacrilex) 4 mg gum 4 mg buccal Q2H 30 Days Qty: 100 0RF nicotine 21 mg/24 hr Patch 24 Hour 21 mg transdermal DAILY PRN (Reason: smoking cessation) 28 Days Qty: 28 0RF Rx Instructions: remove at bedtime ergocalciferol (vitamin D2) [Vitamin D2] 1,250 mcg (50,000 unit) Capsule 1,250 mcg PO TH 30 Days Qty: 5 1RF Rx Instructions: weekly on diazepam 5 mg tablet 5 mg PO BID PRN (Reason: mod-severe anxiety/intrusive thoughts) 30 Days Qty: 14 1RF Discontinued guanfacine 1 mg Tablet Extended Release 24 Hr 1 mg PO DAILY 30 Days Qty: 30 0RF venlafaxine 150 mg Capsule,Extended Release 24hr 300 mg PO DAILY 30 Days Qty: 60 0RF hydroxyzine HCl 50 mg tablet 50 mg PO TID PRN (Reason: mild anxiety) 30 Days Qty: 90 1RF dextroamphetamine-amphetamine 30 mg capsule,extended release 24hr 60 mg PO DAILY 7 Days Qty: 14 0RF Rx Instructions: Partial Fill upon patient request. dextroamphetamine-amphetamine 20 mg capsule,extended release 24hr 20 mg PO DAILY@1300 7 Days Qty: 7 0RF Rx Instructions: Partial Fill upon patient request. divalproex 500 mg tablet extended release 24 hr 1,000 mg PO BEDTIME Discharge Orders: Discharge Order (Routine); Ordered 03/14/25 Ordered By: Desi Burt Diet: Advance to usual diet Activity on Discharge: As tolerated Stand Alone Forms: Patient Portal Discharge page, Community Support Print Language: Unable To Collect Care Plan Goals: Abstinence from substances Mood and Behavioral Stabilization Health Concerns: Abstinence from substances Mood and Behavioral Stabilization Plan of Treatment: Attend scheduled appointments Take medications as directed [facility] will dispense your medications Call/Return as needed Call for a consult appointment with Dr. Marcus and Dr. Ramirez and your family to discuss ECT [phone] Assessment: Denies SI,HI,AH,VH No sx of acute yeny or psychosis Agrees with plan of care Discharge Date/Time: 03/14/25 09:55
== END 2025-03-14 09:55 | disposition home or self-care (01) | DRG 753 ==
PROVIDERS: Admitting Provider Psychiatry & Neurology Psychiatry; Visit Provider Clinical Nurse Specialist Psychiatric/Mental Health, Adult
DX: F31.9 Bipolar disorder, unspecified (principal); F12.90 Cannabis use, unspecified, uncomplicated; F17.210 Nicotine dependence, cigarettes, uncomplicated; F43.10 Post-traumatic stress disorder, unspecified; F90.9 Attention-deficit hyperactivity disorder, unspecified type; F42.9 Obsessive-compulsive disorder, unspecified; F60.9 Personality disorder, unspecified; Z71.6 Tobacco abuse counseling; Z79.899 Other long term (current) drug therapy
CPT/HCPCS: 36415; 70200; 70450; 80053; 80061; 80178; 83036

== ENCOUNTER 2025-03-11 15:04 | Outpatient (BNV) | payer OTHER, SELFPAY | END 2025-03-12 13:10 | PROVIDERS: Admitting Provider Psychiatry & Neurology Psychiatry; Visit Provider Radiology Diagnostic Radiology | DX: H57.12 Ocular pain, left eye (principal); Y09 Assault by unspecified means | CPT/HCPCS: 70200; 70450 ==

== ENCOUNTER → 2025-03-11 15:04 | Outpatient (BNV) | payer OTHER, SELFPAY | PROVIDERS: Admitting Provider Psychiatry & Neurology Psychiatry; Visit Provider Nurse Practitioner Family | DX: F31.9 Bipolar disorder, unspecified (principal) | CPT/HCPCS: 99429 ==

== ENCOUNTER → 2025-03-11 15:04 | Outpatient (BNV) | payer OTHER, SELFPAY | PROVIDERS: Admitting Provider Psychiatry & Neurology Psychiatry; Visit Provider Clinical Nurse Specialist Psychiatric/Mental Health, Adult | DX: F31.4 Bipolar disorder, current episode depressed, severe, without psychotic features (principal); F60.9 Personality disorder, unspecified; F42.9 Obsessive-compulsive disorder, unspecified; F43.12 Post-traumatic stress disorder, chronic; F90.1 Attention-deficit hyperactivity disorder, predominantly hyperactive type; F12.90 Cannabis use, unspecified, uncomplicated | CPT/HCPCS: 99232 ==

== ENCOUNTER 2025-03-23 21:16 | Emergency (ER) | payer OTHER, SELFPAY ==
[2025-03-23 21:20] VITALS: BP 109/78; PULSE 80; O2SAT 94
[2025-03-23 21:47] VITALS: RESP 20; BMI 33.9
[2025-03-23 21:53] VITALS: BP 125/68; PULSE 80; RESP 16; TEMP 36.4; O2SAT 97
[2025-03-23 23:56] LABS: MANUAL DIFF FLAG NO
[2025-03-23 23:57] LABS: Basophils Percent Auto 0.5 % (0-2); Eosinophils Absolute Auto 0.1 X10*3/uL (0.0-0.4); Eosinophils Percent Auto 1.5 % (0-4); Hematocrit 37.6 % (42.0-52.0); Hemoglobin 12.8 g/dl (14.0-18.0); Imm Gran Abs Auto 0.02 X10*3/uL (0.00-0.03); Imm Gran Pct Auto 0.2 % (0.0-0.4); Lymphocytes Absolute Auto 1.4 X10*3/uL (1.2-4.9); Lymphocytes Percent Auto 16.8 % (20-40); Mean Corpuscular Hemoglobin 28.6 pg (27.0-33.0); Mean Corpuscular Volume 84.1 fL (80.0-98.0); Mean Platelet Volume 10.1 fL (9.4-12.4); Monocytes Absolute Auto 0.5 X10*3/uL (0.1-1.2); Monocytes Percent Auto 6.2 % (2-11); Neutrophils Absolute Auto 6.3 x10*3/uL (2.0-8.3); Neutrophils Percent Auto 74.8 % (45-73); Platelet Count 157 X10*3/uL (160-400); Red Blood Count 4.47 X10*6/uL (4.60-5.80); Red Cell Distribution Width 12.6 % (11.0-16.0); White Blood Count 8.4 X10*3/uL (4.8-10.8)
[2025-03-24 00:19] LABS: Acetaminophen LAB < 3 mcg/mL (<30); Alanine Aminotransferase 35 U/L (0-40); Albumin Level 4.1 g/dL (3.5-5.0); Alkaline Phosphatase 52 U/L (39-117); Anion Gap 11 (12-20); Aspartate Amino Transferase 20 U/L (5-37); Bilirubin Total 0.5 mg/dL (0.0-1.0); Blood Urea Nitrogen 13 mg/dL (9-16); Calcium 8.8 mg/dL (8.4-10.2); Carbon Dioxide 23 mmol/L (22-29); Chloride 108 mmol/L (96-108); Creatinine Clr Calc Pharmacy 161.7; Estimated Glomerular Filt Rate > 60; Ethanol < 10 mg/dL; Glucose Random 123 mg/dL (60-115); Lipase 84 U/L (8-78); Magnesium 1.9 mg/dL (1.6-2.6); Potassium 3.6 mmol/L (3.3-5.1); Salicylate < 5.0 mg/dL (15-30); Sodium 138 mmol/L (135-145); Total Protein 6.3 g/dL (6.5-8.0)
[2025-03-24 00:40] VITALS: BP 112/64; PULSE 85; RESP 16; TEMP 36.6; O2SAT 97
[2025-03-24] MEDS: diazePAM 5 MG TABLET PO (00:42)
--- NOTE | 2025-03-24 04:06 | ED.GENADULT ---
HPI - General Adult General Chief complaint: Psychiatric Symptoms Stated complaint: SUICIDAL STATEMENTS Time Seen by Provider: 03/23/25 23:23 Source: patient Limitations: no limitations History of Present Illness ED Provider: Bernie Moeller PA-C HPI narrative: 24-year-old male with a history of bipolar disorder, PTSD, OCD, ADHD, personality disorder, cannabis use disorder who presents with SI. Patient states he has a plan to overdose on Haldol. Related Data Previous Rx's ?Medication ?Instructions ?Recorded lithium carbonate 450 mg 450 mg PO BID depressive disorder 01/31/25 tablet,extended release 30 days #60 tabs omeprazole 20 mg capsule,delayed 20 mg PO DAILY@0630 PRN Acid 01/31/25 release Reflux 30 days #30 caps propranolol 10 mg tablet 10 mg PO QID PRN anxiety 30 days 01/31/25 #120 tabs trazodone 50 mg tablet 50 mg PO BEDTIME MRX1 PRN Insomnia 01/31/25 30 days #45 tabs chlorpromazine 100 mg tablet 100 mg PO TID PRN agitation #21 03/13/25 tabs diazepam 5 mg tablet 5 mg PO BID PRN mod-severe 03/13/25 anxiety/intrusive thoughts 30 days #14 tabs ergocalciferol (vitamin D2) 1,250 1,250 mcg PO TH 30 days #5 caps 03/13/25 mcg (50,000 unit) capsule (Vitamin D2) guanfacine 2 mg tablet,extended 2 mg PO DAILY #30 tabs 03/13/25 release 24 hr levocarnitine 330 mg tablet 330 mg PO TID 30 days #90 tabs 03/13/25 melatonin 3 mg tablet 9 mg (3 x 3 mg) PO BEDTIME PRN 03/13/25 sleep 30 days #90 tabs nicotine (polacrilex) 4 mg gum 4 mg buccal Q2H 30 days #100 ea 03/13/25 nicotine 21 mg/24 hr daily 21 mg transdermal DAILY PRN 03/13/25 transdermal patch smoking cessation 28 days #28 ea oxcarbazepine 300 mg tablet 300 mg PO BID #30 tabs 03/13/25 quetiapine 200 mg tablet 200 mg PO BEDTIME #7 tabs 03/13/25 venlafaxine 150 mg 300 mg (2 x 150 mg) PO DAILY #60 03/13/25 capsule,extended release 24 hr caps dextroamphetamine-amphetamine ER 30 mg (3 x 10 mg) PO 1300 #0 caps 03/27/25 10 mg 24hr capsule,extend release (Adderall XR) dextroamphetamine-amphetamine ER 60 mg (6 x 10 mg) PO DAILY #0 caps 03/27/25 10 mg 24hr capsule,extend release (Adderall XR) docusate sodium 100 mg capsule 100 mg PO BID #0 caps 03/27/25 miconazole nitrate 2 % topical 1 appl topical BID #0 grams 03/27/25 cream (Inzo Antifungal) Allergies Allergy/AdvReac Type Severity Reaction Status Date / Time fish derived (fish) Allergy Unknown Verified 03/23/25 21:48 haloperidol (From Haldol) Allergy Unknown Verified 03/23/25 21:48 Review of Systems Review of Systems: Unable to obtain Yes all other systems are reviewed and are negative [facility] Past Medical History Attestation statement: The following information was validated with the patient. Medical History Cannabis use disorder Acute on chronic urinary retention ADHD (attention deficit hyperactivity disorder), predominantly hyperactive impulsive type Routine history and physical examination of adult Chronic post-traumatic stress disorder (PTSD) OCD (obsessive compulsive disorder) Alcohol use disorder in remission Bipolar disorder Surgical History H/O eye surgery Social History Social History Household Members: Family Housing: House Do you presently have visiting nurse or other home services: Yes Patient Tobacco Use Status: Current everyday Tobacco user Tobacco use type: Cigarette Cigarette Packs Per Day: 1 Cigarettes Per Day: 20.0 Years Smoked: 12 e-Cigarette/Vaping Use: Never Used Second Hand Smoke Exposure: Yes Substance Use Type: Marijuana service: No Sexual orientation: Straight/Heterosexual Physical Exam ED Vital Signs: Vital Signs - 24 hr 03/23/25 21:47 03/23/25 21:53 03/24/25 00:40 Temperature 97.6 F 97.8 F Pulse Rate 80 85 Respiratory Rate 20 16 16 Blood Pressure 125/68 112/64 Pulse Oximetry 97 97 Oxygen Delivery Method Room Air Room Air 03/24/25 06:48 Temperature Pulse Rate Respiratory Rate 16 Blood Pressure Pulse Oximetry Oxygen Delivery Method BMI result Body Mass Index 33.9 Const Other: Awake Orientation/consciousness: patient oriented x3 Resp Effort & Inspection: normal respiratory effort Cardio Other: Normal peripheral perfusion Skin Other: Warm dry no rash Neuro General: patient oriented x3, gait normal, no focal motor deficits and CN's II-XI intact bilaterally Psych Other: Somewhat uncooperative, attempted to flee at 1 point Course Reevaluation(s) Reevaluation #1: Time: 04:08 Date: 03/24/25 Provider: MICHAEL Carias Patient in physician observation for psychiatric evaluation.? No acute events reported overnight. No current complaints. VS stable.? Patient is in bed search status/pending CARE team evaluation. Will continue to monitor. Time: 04:08 Reevaluation #2: Time: 08:08 Date: 03/24/25 Provider: Jayshree Acosta DO Physician observation ended at 808am. Patient has been cleared for discharge by the CARE team. Will follow up as an outpatient. He has no access to the medications that he plans to overdose on as he has VNA. He states if he cannot be admitted here then he wants to leave. CARE team feels he is stable for DC. His father is aware of plan. Mom is okay with DC and is planning to come get him. Medications Administered Discontinued Medications Generic Name Dose Route Start Last Admin Trade Name Sariah PRN Reason Stop Dose Admin Chlorpromazine HCl 100 mg 03/24/25 04:06 03/24/25 04:47 Chlorpromazine Hcl 100 Mg Tablet PO 03/24/25 04:07 100 mg ONCE ONE Administration Diazepam 5 mg 03/24/25 00:16 03/24/25 00:42 Diazepam 5 Mg Tablet PO 03/24/25 00:17 5 mg ONCE ONE Administration Diazepam 10 mg 03/24/25 04:06 03/24/25 04:15 Diazepam 5 Mg Tablet PO 03/24/25 04:07 10 mg ONCE ONE Administration Melatonin 9 mg 03/24/25 04:06 03/24/25 04:15 Melatonin 3 Mg Tablet PO 03/24/25 04:07 9 mg ONCE ONE Administration Oxcarbazepine 300 mg 03/24/25 04:06 03/24/25 04:15 Oxcarbazepine 300 Mg Tablet PO 03/24/25 04:07 300 mg ONCE ONE Administration Quetiapine Fumarate 200 mg 03/24/25 04:04 03/24/25 04:47 Quetiapine Fumarate 200 Mg Tablet PO 03/24/25 04:05 200 mg ONCE ONE Administration Medical Decision Making Medical Decision Making [facility] Narrative: 24-year-old male with a history of bipolar disorder, PTSD, OCD, ADHD, personality disorder, cannabis use disorder who presents with SI. Patient states he has a plan to overdose on Haldol. Problem: Psychiatric illness History: Per patient I have considered the following differential diagnoses: SI, HI, decompensated psychiatric illness, drug/alcohol intoxication Plan: The patient will be referred to the care team, screening labs including serum ethanol drug screen we will be obtained I have independently reviewed the following tests: Labs: No leukocytosis, not anemic, no electrolyte abnormality, drug screen pending, ethanol negative Lab Data 03/23/25 23:52 03/23/25 23:52 Labs: Lab Results 03/23/25 03/24/25 Range/Units 23:52 08:27 WBC 8.4 (4.8-10.8) X10*3/uL RBC 4.47 L (4.60-5.80) X10*6/uL Hgb 12.8 L (14.0-18.0) g/dl Hct 37.6 L (42.0-52.0) % MCV 84.1 (80.0-98.0) fL MCH 28.6 (27.0-33.0) pg MCHC 34.0 (31.0-36.0) g/dl RDW 12.6 (11.0-16.0) % Plt Count 157 L (160-400) X10*3/uL MPV 10.1 (9.4-12.4) fL Immature Gran % (Auto) 0.2 (0.0-0.4) % Neut % (Auto) 74.8 H (45-73) % Lymph % (Auto) 16.8 L (20-40) % [place] % (Auto) 6.2 (2-11) % Eos % (Auto) 1.5 (0-4) % Baso % (Auto) 0.5 (0-2) % Lymph # (Auto) 1.4 (1.2-4.9) X10*3/uL [place] # (Auto) 0.5 (0.1-1.2) X10*3/uL Eos # (Auto) 0.1 (0.0-0.4) X10*3/uL Baso # (Auto) 0.0 (0.0-0.2) X10*3/uL Abs Immat Gran (auto) 0.02 (0.00-0.03) X10*3/uL Absolute Neuts (auto) 6.3 (2.0-8.3) x10*3/uL Absolute Nucleated RBC 0.000 (0.0-0.012) X10*3/uL Nucleated RBC % (auto) 0.0 (0.0-0.2) /100WBC Sodium 138 (135-145) mmol/L Potassium 3.6 D (3.3-5.1) mmol/L Chloride 108 (96-108) mmol/L Carbon Dioxide 23 (22-29) mmol/L Anion Gap 11 L (12-20) BUN 13 (9-16) mg/dL Creatinine 0.90 (0.5-1.4) mg/dL Estim Creat Clear Calc 161.7 Estimated GFR > 60 Random Glucose 123 H (60-115) mg/dL Calcium 8.8 (8.4-10.2) mg/dL Magnesium 1.9 (1.6-2.6) mg/dL Total Bilirubin 0.5 (0.0-1.0) mg/dL AST 20 (5-37) U/L ALT 35 (0-40) U/L Alkaline Phosphatase 52 (39-117) U/L Total Protein 6.3 L (6.5-8.0) g/dL Albumin 4.1 (3.5-5.0) g/dL Lipase 84 H (8-78) U/L Salicylates < 5.0 L (15-30) mg/dL Urine Opiates Screen Not Detected (Not Detect) Ur Buprenorphine Scrn Not Detected (Not Detect) ng/mL Ur Oxycodone Screen Not Detected (Not Detect) ng/mL Urine Methadone Screen Not Detected (Not Detect) ng/mL Urine Fentanyl Screen Not Detected (Not Detect) Acetaminophen < 3 (<30) mcg/mL Ur Barbiturates Screen Not Detected (Not Detect) Ur Phencyclidine Scrn Not Detected (Not Detect) Ur Amphetamines Screen POSITIVE H (Not Detect) U Benzodiazepines Scrn POSITIVE H (Not Detect) Urine Cocaine Screen Not Detected (Not Detect) U Marijuana (THC) Screen POSITIVE H (Not Detect) Ethyl Alcohol < 10 mg/dL Discharge Plan Discharge Clinical Impression: Suicidal ideation Patient Disposition: Home, Self-Care Instructions: Suicide Prevention (ED) Additional Instructions: You were seen in our Emergency Department today for treatment of a behavioral health issue. It is important after your visit that you follow up with either your behavioral health provider or a primary care doctor within 7 days.? If you have trouble finding a therapist you can reach out to [address] [phone] [facility] [employer] [facility] can be reached 7 days a week 24 hours a day.? Call [phone] to speak with someone.? Return for any worsening symptoms or concerns such as thoughts of self harm or harm to others. Please call 911 if you feel your mental health is worsening.? Prescriptions: No Action trazodone 50 mg Tablet 50 mg PO BEDTIME MRX1 PRN (Reason: Insomnia) 30 Days Qty: 45 1RF lithium carbonate 450 mg tablet extended release 450 mg PO BID 30 Days Qty: 60 1RF propranolol 10 mg tablet 10 mg PO QID PRN (Reason: anxiety) 30 Days Qty: 120 1RF omeprazole 20 mg capsule,delayed release(DR/EC) 20 mg PO DAILY@0630 PRN (Reason: Acid Reflux) 30 Days Qty: 30 1RF chlorpromazine 100 mg Tablet 100 mg PO TID PRN (Reason: agitation) Qty: 21 4RF oxcarbazepine 300 mg Tablet 300 mg PO BID Qty: 30 1RF guanfacine 2 mg Tablet Extended Release 24 Hr 2 mg PO DAILY Qty: 30 0RF venlafaxine 150 mg Capsule,Extended Release 24hr 300 mg PO DAILY Qty: 60 0RF quetiapine 200 mg tablet 200 mg PO BEDTIME Qty: 7 4RF melatonin 3 mg tablet 9 mg PO BEDTIME PRN (Reason: sleep) 30 Days Qty: 90 0RF levocarnitine 330 mg tablet 330 mg PO TID 30 Days Qty: 90 0RF Rx Instructions: must administer with a meal/food nicotine (polacrilex) 4 mg gum 4 mg buccal Q2H 30 Days Qty: 100 0RF nicotine 21 mg/24 hr Patch 24 Hour 21 mg transdermal DAILY PRN (Reason: smoking cessation) 28 Days Qty: 28 0RF Rx Instructions: remove at bedtime ergocalciferol (vitamin D2) [Vitamin D2] 1,250 mcg (50,000 unit) Capsule 1,250 mcg PO TH 30 Days Qty: 5 1RF Rx Instructions: weekly on diazepam 5 mg tablet 5 mg PO BID PRN (Reason: mod-severe anxiety/intrusive thoughts) 30 Days Qty: 14 1RF docusate sodium 100 mg Capsule 100 mg PO BID Qty: 0 0RF dextroamphetamine-amphetamine [Adderall XR] 10 mg Capsule,Extended Release 24hr 60 mg PO DAILY Qty: 0 0RF Rx Instructions: Partial Fill upon patient request. dextroamphetamine-amphetamine [Adderall XR] 10 mg Capsule,Extended Release 24hr 30 mg PO 1300 Qty: 0 0RF Rx Instructions: Partial Fill upon patient request. miconazole nitrate [Inzo Antifungal] 2 % Cream 1 appl topical BID Qty: 0 0RF Protocol: Apply to: Apply to: Bilateral feet Interventions: [place]-Suicide Risk Severity Scale Last Done: 03/24/25 09:45 ED Discharge Assessment Last Done: 03/24/25 09:45 Discharge Date/Time: 03/24/25 10:12 Print Language: Icelandic
[2025-03-24] MEDS: Melatonin 3 MG TABLET 9 MG PO (04:15)
[2025-03-24] MEDS: OXcarbazepine 300 MG TABLET PO (04:15)
[2025-03-24] MEDS: diazePAM 5 MG TABLET 10 MG PO (04:15)
[2025-03-24] MEDS: QUEtiapine Fumarate 200 MG TABLET PO (04:47)
[2025-03-24] MEDS: chlorproMAZINE HCl 100 MG TABLET PO (04:47)
[2025-03-24 06:48] VITALS: RESP 16
--- NOTE | 2025-03-24 08:40 | MHC.CARE ---
Pt does not meet the criteria for a higher level of care. Pt denies SI, HI, and A/V/H. Pt will be discharged to follow up with current providers.
[2025-03-24 08:52] LABS: Amphetamine Screen Urine POSITIVE (Not Detect); Barbiturates, Urine Not Detected (Not Detect); Benzodiazepines Screen Urine POSITIVE (Not Detect); Buprenorphine Scr Not Detected (Not Detect); Cannabinoid Screen Urine POSITIVE (Not Detect); Cocaine Screen Urine Not Detected (Not Detect); Fentanyl, urine Not Detected (Not Detect); Methadone Screen, Urine Not Detected (Not Detect); Opiate Screen Urine Not Detected (Not Detect); Oxycodone Screen Urine Not Detected (Not Detect); Phencyclidine Screen Urine Not Detected (Not Detect)
[2025-03-24 09:45] VITALS: BP 112/64; PULSE 85; RESP 16; TEMP 36.6; O2SAT 97
== END 2025-03-24 10:12 | disposition home or self-care (01) ==
PROVIDERS: Physician Assistant Medical; Emergency Provider Emergency Medicine; PCP Nurse Practitioner Family
DX: R45.851 Suicidal ideations (principal); F60.9 Personality disorder, unspecified; F31.9 Bipolar disorder, unspecified; F43.12 Post-traumatic stress disorder, chronic; F42.9 Obsessive-compulsive disorder, unspecified; F90.1 Attention-deficit hyperactivity disorder, predominantly hyperactive type; F12.90 Cannabis use, unspecified, uncomplicated; F17.210 Nicotine dependence, cigarettes, uncomplicated; Z79.899 Other long term (current) drug therapy
CPT/HCPCS: 36415; 80053; 80143; 80179; 80307; 83690; 83735; 85025; 99284; 99285; S9485

== ENCOUNTER 2025-03-26 12:40 | Inpatient (IN) | payer OTHER, SELFPAY ==
--- OUTSIDE RECORDS SUMMARY | 2025-03-26 13:10 | XMS_ITS | Clinical Summary ---
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
[2025-03-26 14:00] VITALS: BP 157/99; PULSE 70; RESP 18; TEMP 36.3; O2SAT 98; BMI 36.5
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
[2025-03-26] MEDS: Dextroamphetamine/Amphetamine XR 10 MG CAP.ER.24H 30 MG PO (14:11)
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
--- NOTE | 2025-03-26 14:44 | PC.ADMIT ---
Toni arrived to on 03/26/2025 at 1248 by EMS from [facility]. Toni attempted suicide with at least beta-crystal and terazosin. Diagnosis include bipolar, OCD, ETOH and THC use disorder, ADHD, PTSD, anxiety/depression. Patient AxOx3. Toni is labile, agitated, reactive, hyperverbal, loud, intrusive. Denies AH/VH. Patient states that if he left here right now he would attempt suicide immediately. Toni also stated, ?I deserve to ?, also stated that after his suicide attempt he feels, ?weak and like a pussy?. Thought process tangential and disorganized. No issues with nutrition, endorses recent weight gain, states his sleep is fine with medications/THC. Toni is easily distracted, denies substance abuse (states marijuana is medicine and he doesnt drink anymore, has breath analyzer x4/day, on probation). Patient tox screen positive for benzos which he is prescribed and cannabinoids. Patient complaining of constipation and athletes foot. Patient is on 15 minute checks, and refused to sign CV, here on 12B.?
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
--- NOTE | 2025-03-26 19:12 | PC.NURSE ---
03/26/2025 19:07 Pt's IM thorazone was given 50mg each in left and right deltoid. Options for documenting that were not available.
[2025-03-26 20:00] VITALS: BP 138/96; PULSE 75; RESP 16; TEMP 37.2; O2SAT 98
[2025-03-26] MEDS: levOCARNitine Oral Sol 1,000 MG/10 ML UD Cup 330 MG PO (22:17)
[2025-03-27 08:00] VITALS: BP 136/97; PULSE 89; TEMP 36.4; O2SAT 96
[2025-03-27] MEDS: Venlafaxine HCl ER 150 MG CAP.ER.24H 300 MG PO (08:27)
[2025-03-27] MEDS: Nicotine 21 MG PATCH.TD24 TRANSDERMA (08:27)
[2025-03-27] MEDS: Dextroamphetamine/Amphetamine XR 10 MG CAP.ER.24H 60 MG PO (08:28)
[2025-03-27 08:36] LABS: Hemoglobin A1C 123.2616 umol/L; Total Hemoglobin (HGBA1C) 3913.5006 umol/L
[2025-03-27 08:40] LABS: Cholesterol 235 mg/dL (<200); HDL Cholesterol 51 mg/dL (>40); Magnesium 2.4 mg/dL (1.6-2.6); Triglycerides 251 mg/dL (<150)
[2025-03-27 08:56] LABS: Free T4 (Free Thyroxine) 0.99 ng/dL (0.71-1.85); Thyroid Stimulating Hormone 1.98 uIU/mL (0.32-4.0)
[2025-03-27 09:07] LABS: Folate 8.2 ng/mL (> or = 4.0); Vitamin B12 604 pg/mL (200-900)
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
== END 2025-03-27 10:12 | disposition home or self-care (01) | DRG 753 ==
PROVIDERS: Clinical Nurse Specialist Psychiatric/Mental Health, Adult; Admitting Provider Psychiatry & Neurology Psychiatry; Visit Provider Psychiatry & Neurology Psychiatry
DX: F31.9 Bipolar disorder, unspecified (principal); B35.3 Tinea pedis; F17.210 Nicotine dependence, cigarettes, uncomplicated; F43.12 Post-traumatic stress disorder, chronic; F42.9 Obsessive-compulsive disorder, unspecified; F60.9 Personality disorder, unspecified; F90.1 Attention-deficit hyperactivity disorder, predominantly hyperactive type; Z71.6 Tobacco abuse counseling; Z79.899 Other long term (current) drug therapy
CPT/HCPCS: 36415; 80061; 82607; 82746; 83036; 83735; 84439; 84443; J3230

== ENCOUNTER → 2025-03-26 12:40 | Outpatient (BNV) | payer OTHER, SELFPAY | PROVIDERS: Admitting Provider Psychiatry & Neurology Psychiatry; Visit Provider Nurse Practitioner Family | DX: Z02.2 Encounter for examination for admission to residential institution (principal) | CPT/HCPCS: 99429 ==

== ENCOUNTER → 2025-03-26 12:40 | Outpatient (BNV) | payer OTHER, SELFPAY | PROVIDERS: Admitting Provider Psychiatry & Neurology Psychiatry; Visit Provider Clinical Nurse Specialist Psychiatric/Mental Health, Adult | DX: F60.9 Personality disorder, unspecified (principal); F31.9 Bipolar disorder, unspecified; F12.90 Cannabis use, unspecified, uncomplicated; F42.9 Obsessive-compulsive disorder, unspecified; F43.12 Post-traumatic stress disorder, chronic; F90.1 Attention-deficit hyperactivity disorder, predominantly hyperactive type | CPT/HCPCS: 99231; 99232 ==